=== PATIENT | female | born 1955 | race African-American/Black ===

== ENCOUNTER 2017-03-05 16:29 | Emergency (ER) | payer SELFPAY ==
[~2017-03-05] VITALS: Ht 167.6 cm; Wt 60.0 kg
[2017-03-05 16:32] VITALS: BP 160/92; PULSE 88; RESP 20; TEMP 97.5; O2SAT 100
--- NOTE | 2017-03-05 17:29 | PD ---
Physical Exam Date Seen by Provider: Mar 05, 2017 Time Seen by Provider: 17:26 Narrative 61-year-old black female presents to emergency department referred from an urgent care for evaluation of right index finger circulation problems. The patient has a history of tobacco abuse and EtOH. The patient over last 3 weeks has noted discoloration of the tip of her right index finger as well as a little finger. She states that the right middle finger has improved but the right index finger has been persistent. She denies any direct trauma. No recent illness. Pain is mild. No chest pain or palpitations. No diabetes or hypertension. Vital signs reviewed. Awaiting bed placement Data Data Last Documented VS Vital Signs Date Time Temp Pulse Resp B/P (MAP) Pulse Ox O2 Delivery O2 Flow Rate FiO2 03/05/17 16:32 97.5 88 20 160/92 (114) 100 Room Air [facility] Medical Record Reviewed: No Supervised Visit with MELISSA: Ahmet Alvarado Mar 05, 2017 17:29
[2017-03-05 18:39] VITALS: BP 122/75; PULSE 83; RESP 17; O2SAT 100
--- NOTE | 2017-03-05 19:18 | PD ---
HPI Chief Complaint: Medical Clearance Time Seen by Provider: 18:26 Travel History International Travel<30 days: No Contact w/Intl Traveler<30days: No Traveled to known affect area: No History of Present Illness HPI This 61-year-old woman who presents to the emergency department complaining of dry gangrene in her right hand. This is not on for the past 4 weeks or so. Patient states she's also generally been feeling ill. She's had 25 pound weight loss, within the past month or 2. She denies seeing a doctor at any point in the past several years. She denies any medical history. She went to an urgent care and was sent here. History Past Medical History Medical History: Denies Significant Hx Social History Alcohol Use: No Tobacco Use: No (1pack per week) Allergies-Medications (Allergen,Severity, Reaction): Coded Allergies: No Known Allergies (Verified Allergy, Unknown, 03/05/17) Reported Meds & Prescriptions Reported Meds & Active Scripts Active No Active Prescriptions or Reported Medications Review of Systems Except as stated in HPI: all other systems reviewed are Neg Physical Exam Narrative GENERAL: Well-appearing 61-year-old woman, no acute distress. SKIN: Focused skin assessment warm/dry. HEAD: Atraumatic. Normocephalic. CARDIOVASCULAR: Irregular rate and rhythm. No murmur appreciated. Pulses are palpable. She has dry gangrene on the right index finger. Little bit of mottling around the finger. Perfusion otherwise appears normal. RESPIRATORY: No accessory muscle use. Clear to auscultation. Breath sounds equal bilaterally. GASTROINTESTINAL: Abdomen soft, non-tender, nondistended. Hepatic and splenic margins not palpable. MUSCULOSKELETAL: No obvious deformities. No edema. NEUROLOGICAL: Awake and alert. No obvious cranial nerve deficits. Motor grossly within normal limits. Normal speech. PSYCHIATRIC: Appropriate mood and affect; insight and judgment normal. Data Data Last Documented VS Vital Signs Date Time Temp Pulse Resp B/P (MAP) Pulse Ox O2 Delivery O2 Flow Rate FiO2 03/05/17 18:39 83 17 122/75 (91) 100 Room Air 03/05/17 16:32 97.5 Orders Orders Chest, Single Ap (03/05/17 ) Complete Blood Count With Diff (03/05/17 18:33) Comprehensive Metabolic Panel (03/05/17 18:33) Iv Access Insert/Monitor (03/05/17 18:33) Troponin I (03/05/17 18:33) Electrocardiogram (03/05/17 ) Ct Abd/Pel W Iv Contrast(Rout) (03/05/17 ) MDM Medical Decision Making Medical Screen Exam Complete: Yes Emergency Medical Condition: Yes Differential Diagnosis A. fib, embolic disease, peripheral arterial disease, vasculitis, occult malignancy, other Narrative Course Medical decision making 61-year-old woman with weight loss, feeling poorly, and appears to be dry gangrene of her right index finger is been there for about 4 weeks or so. Initially was very painful is not painful now. He is probably embolic disease from A. fib. Possible occult malignancy. We'll check labs, x-ray, CT, reassess. Scripts No Active Prescriptions or Reported Meds Rafita Brewer MD Mar 05, 2017 19:18
--- NOTE | 2017-03-05 20:06 | RADRPT ---
EXAM DATE/TIME: 03/05/2017 18:59 [facility] COMPARISON: No previous studies available for comparison. INDICATIONS : Possible clotting. Patient has no chest complaints. MEDICAL HISTORY : None. SURGICAL HISTORY : None. ENCOUNTER: Initial ACUITY: 1 day PAIN SCORE: 0/10 LOCATION: Chest FINDINGS: There is a moderate sized hiatal hernia. The heart is normal. The pulmonary vascular pattern is also normal. The lungs are clear. CONCLUSION: 1. Moderate sized hiatal hernia. 2. No acute cardiopulmonary disease. Deo Fuller MD on March 05, 2017 at 19:58 Board Certified Radiologist. This report was verified electronically.
[2017-03-05 20:33] LABS: AUTOMATED NEUTROPHIL # 8.4 TH/MM3 (1.8-7.7); BASOPHIL # 0.1 TH/MM3 (0-0.2); BASOPHIL % 0.7 % (0.0-2.0); EOSINOPHIL # 0.2 TH/MM3 (0-0.4); EOSINOPHIL % 1.2 % (0.0-4.0); HEMO FLAGS DIFF FINAL; LYMPHOCYTE # 4.5 TH/MM3 (1.0-4.8); MEAN CELL VOLUME 93.9 FL (80.0-100.0); MEAN CORPUSCULAR HGB CONC 33.1 % (32.0-36.0); MONO % 8.8 % (0.0-8.0); NEUT % 58.3 % (16.0-70.0); PLATELET COUNT 594 TH/MM3 (150-450); RED BLOOD COUNT 3.94 MIL/MM3 (4.00-5.30); RED CELL DISTRIBUTION WIDTH 14.4 % (11.6-17.2); WHITE BLOOD COUNT 14.4 TH/MM3 (4.0-11.0)
--- NOTE | 2017-03-05 20:36 | PD ---
Physical Exam Date Seen by Provider: Mar 05, 2017 Data Data Last Documented VS Vital Signs Date Time Temp Pulse Resp B/P (MAP) Pulse Ox O2 Delivery O2 Flow Rate FiO2 03/05/17 18:39 83 17 122/75 (91) 100 Room Air 03/05/17 16:32 97.5 Orders Orders Chest, Single Ap (03/05/17 ) Complete Blood Count With Diff (03/05/17 18:33) Comprehensive Metabolic Panel (03/05/17 18:33) Iv Access Insert/Monitor (03/05/17 18:33) Troponin I (03/05/17 18:33) Electrocardiogram (03/05/17 ) Ct Abd/Pel W Iv Contrast(Rout) (03/05/17 ) Iohexol 350 Inj (Omnipaque 350 Inj) (03/05/17 21:30) Labs Laboratory Tests Test 03/05/17 20:08 White Blood Count 14.4 TH/MM3 Red Blood Count 3.94 MIL/MM3 Hemoglobin 12.2 GM/DL Hematocrit 37.0 % Mean Corpuscular Volume 93.9 FL Mean Corpuscular Hemoglobin 31.0 PG Mean Corpuscular Hemoglobin Concent 33.1 % Red Cell Distribution Width 14.4 % Platelet Count 594 TH/MM3 Mean Platelet Volume 8.6 FL Neutrophils (%) (Auto) 58.3 % Lymphocytes (%) (Auto) 31.0 % Monocytes (%) (Auto) 8.8 % Eosinophils (%) (Auto) 1.2 % Basophils (%) (Auto) 0.7 % Neutrophils # (Auto) 8.4 TH/MM3 Lymphocytes # (Auto) 4.5 TH/MM3 Monocytes # (Auto) 1.3 TH/MM3 Eosinophils # (Auto) 0.2 TH/MM3 Basophils # (Auto) 0.1 TH/MM3 CBC Comment DIFF FINAL Differential Comment Blood Urea Nitrogen 19 MG/DL Creatinine 1.28 MG/DL Random Glucose 82 MG/DL Total Protein 6.5 GM/DL Albumin 2.9 GM/DL Calcium Level 8.8 MG/DL Alkaline Phosphatase 77 U/L Aspartate Amino Transf (AST/SGOT) 9 U/L Alanine Aminotransferase (ALT/SGPT) 20 U/L Total Bilirubin 0.3 MG/DL Sodium Level 138 MEQ/L Potassium Level 3.3 MEQ/L Chloride Level 106 MEQ/L Carbon Dioxide Level 21.5 MEQ/L Anion Gap 11 MEQ/L Estimat Glomerular Filtration Rate 51 ML/MIN Troponin I LESS THAN 0.02 NG/ML [facility] Medical Record Reviewed: Yes Supervised Visit with MELISSA: No Interpretation(s) EKG at 1943: NSR at 94bpm, qt/qtc: 387/409, pvc's Vital Signs Date Time Temp Pulse Resp B/P (MAP) Pulse Ox O2 Delivery O2 Flow Rate FiO2 03/05/17 18:39 83 17 122/75 (91) 100 Room Air 03/05/17 16:32 97.5 88 20 160/92 (114) 100 Room Air Laboratory Tests Test 03/05/17 20:08 White Blood Count 14.4 TH/MM3 (4.0-11.0) Red Blood Count 3.94 MIL/MM3 (4.00-5.30) Hemoglobin 12.2 GM/DL (11.6-15.3) Hematocrit 37.0 % (35.0-46.0) Mean Corpuscular Volume 93.9 FL (80.0-100.0) Mean Corpuscular Hemoglobin 31.0 PG (27.0-34.0) Mean Corpuscular Hemoglobin Concent 33.1 % (32.0-36.0) Red Cell Distribution Width 14.4 % (11.6-17.2) Platelet Count 594 TH/MM3 (150-450) Mean Platelet Volume 8.6 FL (7.0-11.0) Neutrophils (%) (Auto) 58.3 % (16.0-70.0) Lymphocytes (%) (Auto) 31.0 % (9.0-44.0) Monocytes (%) (Auto) 8.8 % (0.0-8.0) Eosinophils (%) (Auto) 1.2 % (0.0-4.0) Basophils (%) (Auto) 0.7 % (0.0-2.0) Neutrophils # (Auto) 8.4 TH/MM3 (1.8-7.7) Lymphocytes # (Auto) 4.5 TH/MM3 (1.0-4.8) Monocytes # (Auto) 1.3 TH/MM3 (0-0.9) Eosinophils # (Auto) 0.2 TH/MM3 (0-0.4) Basophils # (Auto) 0.1 TH/MM3 (0-0.2) CBC Comment DIFF FINAL Differential Comment Differential Diagnosis Differential includes A. fib with RVR, peripheral arterial disease, vasculitis, malignancy, electrolyte abnormality Narrative Course Patient is a 61-year-old female who presents to emergency room complaints of dry gangrene to her right hand which has been ongoing for the past 4 weeks. Patient reports that 4 weeks ago, she had pains to her right hand digit #2, reports that she noticed that the area of her finger has become black and necrotic. Patient reports no pain to her finger at this time. Patient reports that overall, she is here at the hospital as she is not feeling well. Reports that she has had over 25 pound weight loss within the past 2 months and was initially seen at an urgent care center and was sent to the emergency room for further workup. Patient currently pending lab work as well as CT studies. CBC & BMP Diagram 03/05/17 20:08 Total Protein 6.5, Albumin 2.9 L, Calcium Level 8.8, Alkaline Phosphatase 77, Aspartate Amino Transf (AST/SGOT) 9 L, Alanine Aminotransferase (ALT/SGPT) 20, Total Bilirubin 0.3 Last Impressions Chest X-Ray 03/05/17 0000 Signed Impressions: Service Date/Time: Friday, March 05, 2017 18:59 - CONCLUSION: 1. Moderate sized hiatal hernia. 2. No acute cardiopulmonary disease. Deo Fuller MD CT of the abdomen and pelvis CONCLUSION: 1. Multiple fluid-filled dilated loops of small bowel suggestive of small bowel obstruction until proven otherwise. Transition point is not confirmed with certainty. 2. Calcification within the right lower quadrant which either represents an appendicolith or stone within a loop of ileum. If this represents an appendicolith the appendix is markedly dilated which raises the possibility of appendicitis. Oral contrast enhanced examination is recommended with delayed images to determine if the appendix fills with contrast as well as to rule out the site of small bowel obstruction. 3. Large hiatal hernia containing approximately half of the stomach. 4. Multiple hepatic cysts and left renal cyst. 5. Uncomplicated sigmoid diverticulosis. 6. Degenerative changes and scoliosis of the thoracolumbar spine. 7. Degenerative changes involving the hip joints bilaterally. 8. Calcifications are noted within the adnexal regions bilaterally and are nonspecific. These may represent calcification associated with the ovaries. The right lesion measures 2.7 cm in greatest dimension and the left measures 2.4 cm in greatest dimension. CT study was reviewed with patient, all findings were reviewed, patient does have diffuse abdominal pain, reports pain worse in the right lower quadrant. Patient reports that she had severe pain to her right lower quadrant about 1.5 months ago, at that time, pain was constant for the past 4 days and became less severe. She reports that she still has pain but its "not that bad." Patient with concerns for acute on chronic appendicitis. Patient also with possibility of small bowel obstruction. Patient reports that she has been having loose stools and not full bowel movements for "long time." She does have history of hysterectomy in the past. Discussed concerns for possible small bowel structures. Case reviewed with Dr. Benjamin who requests antibiotics, he will see patient in the morning. AMA: The risks of leaving against medical advice without further evaluation treatment were discussed with the patient. These risks include cardiac dysfunction, cardiac dysrhythmia, possible heart attack, possible stroke or . The patient indicated understanding of these risks and appeared to have the capacity to make this decision. Patient will be leaving AMA for an hour to feed her cat and will return immediately to the hospital for admission and for antibiotics Critical Care Narrative Aggregate critical care time was 30 minutes. Time to perform other separately billable procedures was not included in the critical care time. My time did not include minutes spent treating any other patients simultaneously or on activities that did not directly contribute to the patient's treatment. The services I provided to this patient were to treat and/or prevent clinically significant deterioration that could result in: , decompensation, deterioration I provided critical care services requiring my management, as noted below: Chart data review, documentation time, medication orders and management, vital sign assessments/reviewing monitor data, ordering and reviewing lab tests, ordering and interpreting/reviewing x-rays and diagnostic studies, care of the patient and discussion of the patient with the admitting physicians. Diagnosis Primary Impression: Left against medical advice Additional Impressions: Small bowel obstruction Appendicitis Additional Instruction: Please return to the emergency room at any time for to the hospital and further workup of her symptoms. Scripts No Active Prescriptions or Reported Meds Disposition: 07 AGAINST MEDICAL ADVICE Condition: Serious Charu Salazar Mar 05, 2017 20:36
[2017-03-05 20:50] LABS: ANION GAP 11 MEQ/L (5-15); AST (GOT) 9 U/L (15-37); BICARBONATE 21.5 MEQ/L (21.0-32.0); BLOOD UREA NITROGEN 19 MG/DL (7-18); CHLORIDE 106 MEQ/L (98-107); GLOMERULAR FILTRATION RATE 51 ML/MIN (>89); POTASSIUM 3.3 MEQ/L (3.5-5.1); SODIUM (NA) 138 MEQ/L (136-145)
[2017-03-05 20:51] LABS: ALT (GPT) 20 U/L (10-53)
[2017-03-05 20:55] LABS: ALKALINE PHOSPHATASE 77 U/L (45-117); TOTAL BILIRUBIN ADULT 0.3 MG/DL (0.2-1.0)
[2017-03-05] MEDS ORDERED: IOHEXOL 350 MG/ML 10 ML VIAL (for RAD DIAG) IVCONTRAST ONE (21:30)
--- NOTE | 2017-03-05 22:12 | RADRPT ---
EXAM DATE/TIME: 03/05/2017 21:28 [facility] COMPARISON: No previous studies available for comparison. INDICATIONS : Diffuse abdominal pain. IV CONTRAST: 90 cc Omnipaque 350 (iohexol) IV ORAL CONTRAST: No oral contrast ingested. RADIATION DOSE: 5.53 CTDIvol (mGy) MEDICAL HISTORY : Hypertension. SURGICAL HISTORY : Hysterectomy. ENCOUNTER: Initial ACUITY: 3 days PAIN SCALE: 4/10 LOCATION: All quadrants. TECHNIQUE: Volumetric scanning of the abdomen and pelvis was performed. Using automated exposure control and ad justment of the mA and/or kV according to patient size, radiation dose was kept as low as reasonably achievable to obtain optimal diagnostic quality images. DICOM format image data is available electro nically for review and comparison. FINDINGS: There is evidence of multiple fluid-filled dilated loops of small bowel suggestive of small bowel obs truction. Clinical correlation is recommended. Transition point is not definitely identified. The c olon is nondilated. Uncomplicated colonic diverticulosis is noted. There is no acute diverticulitis. There is a calcified density within the right lower quadrant which either represents an appendicoli th or possibly a stone lodged within a loop of ileum. If this represents an appendicolith this would raise the possibility of significantly dilated appendix. Oral contrast would be helpful with delaye d scanning to determine if the appendix fills with contrast as well as to help determine the site of small bowel obstruction. There is a large hiatal hernia containing approximately half of the upper stomach. Multiple hepatic cysts are noted. No solid hepatic lesion is noted. No biliary ductal dilatation is noted. The gallb ladder is unremarkable. The spleen is nodular in appearance but not enlarged. The pancreas is bryan l. The adrenal glands are normal bilaterally. A 14 mm left renal cyst is noted. There is no solid re nal mass or stone. The abdominal aorta and inferior vena cava are unremarkable. There is no paraaor tic, retroperitoneal or mesenteric lymphadenopathy. The urinary bladder is unremarkable. Degenerati ve changes and scoliosis of the thoracolumbar spine are noted. Degenerative changes are also noted i nvolving the hip joints bilaterally. There are calcified structures within the adnexal regions bilat erally which likely represent calcifications associated with the ovaries. CONCLUSION: 1. Multiple fluid-filled dilated loops of small bowel suggestive of small bowel obstruction until pro azael otherwise. Transition point is not confirmed with certainty. 2. Calcification within the right lower quadrant which either represents an appendicolith or stone wi thin a loop of ileum. If this represents an appendicolith the appendix is markedly dilated which mora ses the possibility of appendicitis. Oral contrast enhanced examination is recommended with delayed images to determine if the appendix fills with contrast as well as to rule out the site of small juhi l obstruction. 3. Large hiatal hernia containing approximately half of the stomach. 4. Multiple hepatic cysts and left renal cyst. 5. Uncomplicated sigmoid diverticulosis. 6. Degenerative changes and scoliosis of the thoracolumbar spine. 7. Degenerative changes involving the hip joints bilaterally. 8. Calcifications are noted within the adnexal regions bilaterally and are nonspecific. These may re present calcification associated with the ovaries. The right lesion measures 2.7 cm in greatest dime nsion and the left measures 2.4 cm in greatest dimension. Deo Fuller MD on March 05, 2017 at 21:44 Board Certified Radiologist. This report was verified electronically.
--- NOTE | 2017-03-05 23:28 | EKG ---
Date Performed: 03/05/2017 Time Performed: 19:43:58 PTAGE: 61 years EKG: Sinus rhythm WITH FREQUENT VENTRICULAR PREMATURE COMPLEXES NONSPECIFIC T-WAVE ABNORMALITY ABNORMAL RHYTHM ECG NO PREVIOUS TRACING DOCTOR: Ulises Murry Interpretating Date/Time 03/05/2017 23:27:15
== END 2017-03-05 23:50 | disposition left against medical advice (07) ==
LOC: EDBD 16:29 → NEPE 16:29
DX: K56.60 Unspecified intestinal obstruction (principal); R94.31 Abnormal electrocardiogram [ECG] [EKG]; K35.80 Unspecified acute appendicitis; Z53.21 Procedure and treatment not carried out due to patient leaving prior to being seen by health care provider
CPT/HCPCS: 71010; 74177; 80053; 84484; 85025; 93005; 99291; Q9967

== ENCOUNTER 2017-03-06 00:37 | Inpatient (IN) | payer SELFPAY ==
[2017-03-06] VITALS (8 sets, daily range): BP systolic 105–133; BP diastolic 64–89; PULSE 57–113; RESP 15–18; TEMP 95.4–98.7; O2SAT 94–99
[~2017-03-06] VITALS: Ht 167.6 cm; Wt 91.0 kg
--- NOTE | 2017-03-06 01:40 | PD ---
HPI Chief Complaint: Abdominal Pain Time Seen by Provider: 01:35 Travel History International Travel<30 days: No Contact w/Intl Traveler<30days: No Traveled to known affect area: No History of Present Illness HPI Patient is a 61-year-old female who presents to emergency room complaints of dry gangrene to her right hand which has been ongoing for the past 4 weeks. Patient reports that 4 weeks ago, she had pains to her right hand digit #2, reports that she noticed that the area of her finger has become black and necrotic. Patient reports no pain to her finger at this time. Patient reports that overall, she is here at the hospital as she is not feeling well. Reports that she has had over 25 pound weight loss within the past 2 months and was initially seen at an urgent care center and was sent to the emergency room for further workup. patient initially at the hospital AGAINST MEDICAL ADVICE to go home and feed her cat, she is here for antibiotics and admission to the hospital [facility] Past Medical History Cardiovascular Problems: Yes Diminished Hearing: No Hypertension: Yes Past Surgical History Hysterectomy: Yes Social History Alcohol Use: No Tobacco Use: No (1pack per week) Substance Use: No Allergies-Medications (Allergen,Severity, Reaction): Coded Allergies: No Known Allergies (Verified Allergy, Unknown, 03/06/17) Reported Meds & Prescriptions Reported Meds & Active Scripts Active No Active Prescriptions or Reported Medications Review of Systems Gastrointestinal: Positive: Nausea, Abdominal Pain Physical Exam Narrative GENERAL: mild distress SKIN: Focused skin assessment warm/dry. HEAD: Atraumatic. Normocephalic. EYES: Pupils equal and round. No scleral icterus. No injection or drainage. ENT: No nasal bleeding or discharge. Mucous membranes pink and moist. NECK: Trachea midline. No JVD. CARDIOVASCULAR: Regular rate and rhythm. No murmur appreciated. RESPIRATORY: No accessory muscle use. Clear to auscultation. Breath sounds equal bilaterally. GASTROINTESTINAL: Abdomen soft, diffuse tenderness with increased tenderness to RLQ. Hepatic and splenic margins not palpable. MUSCULOSKELETAL: No obvious deformities. No clubbing. No cyanosis. No edema. Patient with dry gangrene to right index finger. NEUROLOGICAL: Awake and alert. No obvious cranial nerve deficits. Motor grossly within normal limits. Normal speech. PSYCHIATRIC: Appropriate mood and affect; insight and judgment normal. Data Data Last Documented VS Vital Signs Date Time Temp Pulse Resp B/P (MAP) Pulse Ox O2 Delivery O2 Flow Rate FiO2 03/06/17 01:37 58 18 131/79 (96) 99 Room Air 03/06/17 00:39 98.7 Orders Orders Ceftriaxone Inj (Rocephin Inj) (03/06/17 01:45) Vancomycin Inj (Vancomycin Inj) (03/06/17 01:45) Consult General Surgery (03/06/17 ) Ciprofloxacin 400 Mg Premix (Cipro 400 M (03/06/17 02:00) Metronidazole 500 Mg Inj (Flagyl 500 Mg (03/06/17 02:00) Admit To Inpatient (03/06/17 ) Vital Signs (Adult) Q4H (03/06/17 01:46) Activity Oob Ad Christine (03/06/17 01:46) Floor Director / Telemetry .CONTINUOUS (03/06/17 01:46) Diet Npo (03/06/17 Breakfast) Sodium Chlor 0.9% 1000 Ml Inj (Ns 1000 M (03/06/17 01:46) Sodium Chloride 0.9% Flush (Ns Flush) (03/06/17 02:00) Sodium Chloride 0.9% Flush (Ns Flush) (03/06/17 09:00) Ondansetron Inj (Zofran Inj) (03/06/17 02:00) Comprehensive Metabolic Panel (03/07/17 06:00) Complete Blood Count With Diff (03/07/17 06:00) Case Management Consult (03/06/17 01:46) Naloxone Inj (Narcan Inj) (03/06/17 02:00) Inpatient Certification (03/06/17 ) Ketorolac Inj (Toradol Inj) (03/06/17 06:00) MDM Medical Decision Making Medical Screen Exam Complete: Yes Emergency Medical Condition: Yes Differential Diagnosis Differential includes appendicitis and small bowel obstruction Narrative Course Patient is a 61-year-old female who presents to emergency room complaints of dry gangrene to her right hand which has been ongoing for the past 4 weeks. Patient reports that 4 weeks ago, she had pains to her right hand digit #2, reports that she noticed that the area of her finger has become black and necrotic. Patient reports no pain to her finger at this time. Patient reports that overall, she is here at the hospital as she is not feeling well. Reports that she has had over 25 pound weight loss within the past 2 months and was initially seen at an urgent care center and was sent to the emergency room for further workup. Patient currently pending lab work as well as CT studies. CBC & BMP Diagram 03/05/17 20:08 Total Protein 6.5, Albumin 2.9 L, Calcium Level 8.8, Alkaline Phosphatase 77, Aspartate Amino Transf (AST/SGOT) 9 L, Alanine Aminotransferase (ALT/SGPT) 20, Total Bilirubin 0.3 Last Impressions Chest X-Ray 03/05/17 0000 Signed Impressions: Service Date/Time: Sunday, March 05, 2017 18:59 - CONCLUSION: 1. Moderate sized hiatal hernia. 2. No acute cardiopulmonary disease. Deo Fuller MD CT of the abdomen and pelvis CONCLUSION: 1. Multiple fluid-filled dilated loops of small bowel suggestive of small bowel obstruction until proven otherwise. Transition point is not confirmed with certainty. 2. Calcification within the right lower quadrant which either represents an appendicolith or stone within a loop of ileum. If this represents an appendicolith the appendix is markedly dilated which raises the possibility of appendicitis. Oral contrast enhanced examination is recommended with delayed images to determine if the appendix fills with contrast as well as to rule out the site of small bowel obstruction. 3. Large hiatal hernia containing approximately half of the stomach. 4. Multiple hepatic cysts and left renal cyst. 5. Uncomplicated sigmoid diverticulosis. 6. Degenerative changes and scoliosis of the thoracolumbar spine. 7. Degenerative changes involving the hip joints bilaterally. 8. Calcifications are noted within the adnexal regions bilaterally and are nonspecific. These may represent calcification associated with the ovaries. The right lesion measures 2.7 cm in greatest dimension and the left measures 2.4 cm in greatest dimension. CT study was reviewed with patient, all findings were reviewed, patient does have diffuse abdominal pain, reports pain worse in the right lower quadrant. Patient reports that she had severe pain to her right lower quadrant about 1.5 months ago, at that time, pain was constant for the past 4 days and became less severe. She reports that she still has pain but its "not that bad." Patient with concerns for acute on chronic appendicitis. Patient also with possibility of small bowel obstruction. Patient reports that she has been having loose stools and not full bowel movements for "long time." She does have history of hysterectomy in the past. Discussed concerns for possible small bowel structures. Case reviewed with Dr. Benjamin who requests antibiotics, he will see patient in the morning. Case reviewed with Dr. Mahan who accepts pt to service Diagnosis Primary Impression: Appendicitis Additional Impression: Small bowel obstruction Admitting Information Admitting Physician Requests: Admit Scripts No Active Prescriptions or Reported Meds Charu Salazar DO Mar 06, 2017 01:40
[2017-03-06] MEDS ORDERED: cefTRIAXone INJ 1,000 MG in SODIUM CHLORIDE 0.9% INJ 100 ML IV ONE (01:45)
[2017-03-06] MEDS ORDERED: VANCOMYCIN INJ 900 MG in SODIUM CHLOR 0.9% 250 ML INJ 250 ML IV ONE (01:45)
[2017-03-06] MEDS: SODIUM CHLOR 0.9% 1000 ML INJ 1,000 ML IV SCH ×3 (01:55→20:49)
[2017-03-06] MEDS ORDERED: NALOXONE HCL 0.4 MG/ML AMP IV PUSH PRN (02:00)
[2017-03-06] MEDS ORDERED: CIPROFLOXACIN 400 MG PREMIX 200 ML IV ONE (02:00)
[2017-03-06] MEDS ORDERED: metroNIDAZOLE 500 MG INJ 100 ML IV ONE (02:00)
[2017-03-06] MEDS ORDERED: KETOROLAC TROMETHAMINE 30 MG/ML (IVP) VIAL IV PUSH SCH (06:00)
[2017-03-06] MEDS: SODIUM CHLORIDE 0.9% FLUSH 10 ML FLUSH IV FLUSH SCH ×2 (07:44→20:49)
--- NOTE | 2017-03-06 08:16 | HHI.HP ---
[facility] Unknown Admission Diagnosis Small bowel obstruction, appendicitis Diagnoses: Chief Complaint: Abdominal pain Travel History International Travel<30 Days: No Contact w/Intl Traveler <30 Da: No Traveled to Known Affected Are: No History of Present Illness Emergency Medicine Notes: This is a pleasant 61 y/o Female who came to Emergency room with complaint of dry gangrene to her right hand which has been ongoing for the last four weeks, has been with pain on her right hand digit #2, reports that she noticed that the area of her finger has become black and necrotic. Patient reports no pain to her finger at this time. Patient reports that overall, she is here at the hospital as she is not feeling well. Reports that she has had over 25 pound weight loss within the past 2 months and was initially seen at an urgent care center and was sent to the emergency room for further workup. patient initially at the hospital AGAINST MEDICAL ADVICE to go home and feed her cat, she is here for antibiotics and admission to the hospital Seen in her bedroom, the patient states she came due to right second finger dry necrosis, but as per ER physician H and P she told him that she is been having abdominal pain colic sensation, also changes in bowel habits, she is Emaciated and has history of alcohol abuse and drug abuse, as per patient she smoked half pack daily since she was 13 years old and abuse marijuana but denies other toxins, after CT abdomen and pelvis performed found probable Small bowel obstruction Probable Appendicitis, but the patient has soft abdomen at this time, and she will need to rule out Malignancy, I will continue antibiotics and follow specialized recommendations rule out rheumatologic diseases Review of Systems Constitutional: DENIES: Fever, Chills, Change in appetite Endocrine: DENIES: Heat/cold intolerance Eyes: DENIES: Blurred vision, Eye pain Gastrointestinal: COMPLAINS OF: Abdominal pain Except as stated in HPI: all other systems reviewed are Neg Past Family Social History Past Medical History Hypertension Past Surgical History SHAUNNA Reported Medications Reported Meds & Active Scripts Active No Active Prescriptions or Reported Medications Allergies: Coded Allergies: No Known Allergies (Verified Allergy, Unknown, 03/06/17) Active Ordered Medications Current Medications Medications (Trade) Dose Ordered Sig/Jessica Route Start Time Stop Time Status Last Admin Sodium Chloride 1,000 ml @ 100 mls/hr Q10H IV 03/06/17 01:46 03/06/17 01:55 (NS Flush) 2 ml UNSCH PRN IV FLUSH 03/06/17 02:00 (NS Flush) 2 ml BID IV FLUSH 03/06/17 09:00 (Zofran Inj) 4 mg Q6H PRN IVP 03/06/17 02:00 (Narcan Inj) 0.4 mg UNSCH PRN IV PUSH 03/06/17 02:00 (Toradol Inj) 15 mg Q6HR IV PUSH 03/06/17 06:00 03/11/17 05:59 Family History States Hypertension and DM II, runs in her family father with Stomach Cancer mother with COPD/Emphysema Social History Tobacco dependence half pack daily since she was 13 years old Alcohol abuse until December this year marijuana abuse. Physical Exam Vital Signs Vital Signs Date Time Temp Pulse Resp B/P (MAP) Pulse Ox O2 Delivery O2 Flow Rate FiO2 03/06/17 03:42 84 03/06/17 03:38 96.7 57 16 105/64 (78) 94 03/06/17 02:54 93 18 114/78 (90) 98 03/06/17 01:37 58 18 131/79 (96) 99 Room Air 03/06/17 00:39 98.7 113 15 133/85 (101) 98 Room Air Physical Exam GENERAL: Emaciated, older for her age SKIN: Focused skin assessment warm/dry. HEAD: Atraumatic. Normocephalic. EYES: Pupils equal and round. No scleral icterus. No injection or drainage. ENT: No nasal bleeding or discharge. Mucous membranes pink and moist. NECK: Trachea midline. No JVD. CARDIOVASCULAR: Regular rate and rhythm. No murmur appreciated. RESPIRATORY: No accessory muscle use. Clear to auscultation. Breath sounds equal bilaterally. GASTROINTESTINAL: Abdomen soft, diffuse tenderness with increased tenderness to RLQ. Hepatic and splenic margins not palpable. MUSCULOSKELETAL: No obvious deformities. No clubbing. No cyanosis. No edema. Patient with dry gangrene to right index finger. NEUROLOGICAL: Awake and alert. No obvious cranial nerve deficits. Motor grossly within normal limits. Normal speech. PSYCHIATRIC: Appropriate mood and affect; insight and judgment normal. Imaging Chest X-Ray 03/05/17 0000 Signed Impressions: Service Date/Time: Sunday, March 05, 2017 18:59 - CONCLUSION: 1. Moderate sized hiatal hernia. 2. No acute cardiopulmonary disease. Deo Fuller MD CT of the abdomen and pelvis CONCLUSION: 1. Multiple fluid-filled dilated loops of small bowel suggestive of small bowel obstruction until proven otherwise. Transition point is not confirmed with certainty. 2. Calcification within the right lower quadrant which either represents an appendicolith or stone within a loop of ileum. If this represents an appendicolith the appendix is markedly dilated which raises the possibility of appendicitis. Oral contrast enhanced examination is recommended with delayed images to determine if the appendix fills with contrast as well as to rule out the site of small bowel obstruction. 3. Large hiatal hernia containing approximately half of the stomach. 4. Multiple hepatic cysts and left renal cyst. 5. Uncomplicated sigmoid diverticulosis. 6. Degenerative changes and scoliosis of the thoracolumbar spine. 7. Degenerative changes involving the hip joints bilaterally. 8. Calcifications are noted within the adnexal regions bilaterally and are nonspecific. These may represent calcification associated with the ovaries. The right lesion measures 2.7 cm in greatest dimension and the left measures 2.4 cm in greatest dimension. Caprini VTE Risk Assessment Caprini VTE Risk Assessment: Mod/High Risk (score >= 2) Caprini Risk Assessment Model Point Value = 1 Point Value = 2 Point Value = 3 Point Value = 5 Age 41-60 Minor surgery BMI > 25 kg/m2 Swollen legs Varicose veins or History of unexplained or recurrent spontaneous Oral contraceptives or hormone replacement Sepsis (< 1 month) Serious lung disease, including pneumonia (< 1 month) Abnormal pulmonary function Acute myocardial infarction Congestive heart failure (< 1 month) History of inflammatory bowel disease Medical patient at bed rest Age 61-74 Arthroscopic surgery Major open surgery (> 45 min) Laparoscopic surgery (> 45 min) Malignancy Confined to bed (> 72 hours) Immobilizing plaster cast Central venous access Age >= 75 History of VTE Family history of VTE Factor V Leiden Prothrombin [id number] Lupus anticoagulant Anticardiolipin antibodies Elevated serum homocysteine Heparin-induced thrombocytopenia Other congenital or acquired thrombophilia Stroke (< 1 month) Elective arthroplasty Hip, pelvis, or leg fracture Acute spinal cord injury (< 1 month) Prophylaxis Regimen Total Risk Factor Score Risk Level Prophylaxis Regimen 0-1 Low Early ambulation 2 Moderate Order ONE of the following: *Sequential Compression Device (SCD) *Heparin 5000 units SQ BID 3-4 Higher Order ONE of the following medications: *Heparin 5000 units SQ TID *Enoxaparin/Lovenox 40 mg SQ daily (WT < 150 kg, CrCl > 30 mL/min) *Enoxaparin/Lovenox 30 mg SQ daily (WT < 150 kg, CrCl > 10-29 mL/min) *Enoxaparin/Lovenox 30 mg SQ BID (WT < 150 kg, CrCl > 30 mL/min) AND/OR *Sequential Compression Device (SCD) 5 or more Highest Order ONE of the following medications: *Heparin 5000 units SQ TID (Preferred with Epidurals) *Enoxaparin/Lovenox 40 mg SQ daily (WT < 150 kg, CrCl > 30 mL/min) *Enoxaparin/Lovenox 30 mg SQ daily (WT < 150 kg, CrCl > 10-29 mL/min) *Enoxaparin/Lovenox 30 mg SQ BID (WT < 150 kg, CrCl > 30 mL/min) AND *Sequential Compression Device (SCD) Assessment and Plan Assessment and Plan 1. Abdominal pain with abnormal CT changes, will need General Surgery consult and GI specialist consult rule out Malignancy. stable continue present care with antibiotics and follow specialized recommendations will need to rule out Rheumatoid pathology 2. Tobacco dependence strongly recommended to stop smoking 3. marijuana abuse by history recommended to stop this behavior 4. Alcohol abuse until December this year strongly recommended to stop drinking alcohol 5. electrolyte derangement following Follow laboratory and specialized consult DVT prophylaxis with SCDs Gastric protection. Code Status Full Code. Discussed Condition With patient. Physician Certification 2 Midnight Certification Type: Admission for Inpatient Services Order for Inpatient Services The services are ordered in accordance with Medicare regulations or non- Medicare payer requirements, as applicable. In the case of services not specified as inpatient-only, they are appropriately provided as inpatient services in accordance with the 2-midnight benchmark. Estimated LOS (days): 3 days is the estimated time the patient will need to remain in the hospital, assuming treatment plan goals are met and no additional complications. Post-Hospital Plan: Not yet determined Nic Whitfield MD Mar 06, 2017 08:16
[2017-03-06] MEDS: metroNIDAZOLE 500 MG INJ 100 ML IV SCH ×2 (10:01→16:59)
[2017-03-06] MEDS ORDERED: FAMOTIDINE 20 MG/2 ML VIAL IV PUSH SCH (11:00)
--- NOTE | 2017-03-06 11:08 | PD.CONS ---
HPI Service General Surgery Consult Requested By Reason for Consult Abdominal pain, possible appendicitis Primary Care Physician Unknown History of Present Illness The patient is a 61-year-old female who presented to the hospital for gangrene of the right second digit. During the evaluation she reported a 25 pound weight loss over the last couple of months. About 1-1/2 months ago she had an episode of severe pain for about 4 days worse in the right lower quadrant. It improved and became less severe. However, she has been able to eat only small amounts of food at any afternoon usually gets crampy diffuse abdominal pain. She has never had a colonoscopy. Until a few days ago she was having loose watery stools. She reports to me that one time last year she had similar but much milder symptoms which was all fulgurated after a couple of days. Past surgical history on the abdomen includes hysterectomy. On evaluation in the emergency department she was noted to have a white blood cell count of 14,[address] abdomen and pelvis showing possible bowel obstruction and significantly dilated appendix as well as calcifications in bilateral adnexa. I reviewed the images and also discussed the images with Dr. Hdz of radiology. Review of Systems Constitutional: COMPLAINS OF: Weight loss, Change in appetite, DENIES: Fever, Chills Eyes: DENIES: Eye inflammation, Eye pain Respiratory: DENIES: Cough, Shortness of breath Cardiovascular: DENIES: Chest pain, Palpitations Gastrointestinal: COMPLAINS OF: Abdominal pain, Anorexia, DENIES: Bloody stools , Vomiting Musculoskeletal: DENIES: Muscle aches, Stiffness Integumentary: DENIES: Pruritus, Rash Neurologic: DENIES: Paresthesias, Seizures Past Family Social History Past Medical History Hypertension Past Surgical History Hysterectomy Reported Medications Reported Meds & Active Scripts Active No Active Prescriptions or Reported Medications Allergies: Coded Allergies: No Known Allergies (Verified Allergy, Unknown, 03/06/17) Active Ordered Medications Current Medications Medications (Trade) Dose Ordered Sig/Jessica Route Start Time Stop Time Status Last Admin Sodium Chloride 1,000 ml @ 100 mls/hr Q10H IV 03/06/17 01:46 03/06/17 01:55 (NS Flush) 2 ml UNSCH PRN IV FLUSH 03/06/17 02:00 (NS Flush) 2 ml BID IV FLUSH 03/06/17 09:00 (Zofran Inj) 4 mg Q6H PRN IVP 03/06/17 02:00 (Narcan Inj) 0.4 mg UNSCH PRN IV PUSH 03/06/17 02:00 Ciprofloxacin/ Dextrose 200 ml @ 200 mls/hr Q12H IV 03/06/17 13:00 Metronidazole 100 ml @ 100 mls/hr Q8H IV 03/06/17 10:00 03/06/17 10:01 (Pepcid Inj) 20 mg Q12H IV PUSH 03/06/17 11:00 Family History Noncontributory Social History She smokes one half pack of cigarettes daily. Recreational marijuana use. Physical Exam Vital Signs Vital Signs Date Time Temp Pulse Resp B/P (MAP) Pulse Ox O2 Delivery O2 Flow Rate FiO2 03/06/17 08:00 96.4 73 16 109/66 (80) 99 03/06/17 03:42 84 03/06/17 03:38 96.7 57 16 105/64 (78) 94 03/06/17 02:54 93 18 114/78 (90) 98 03/06/17 01:37 58 18 131/79 (96) 99 Room Air 03/06/17 00:39 98.7 113 15 133/85 (101) 98 Room Air Physical Exam GENERAL: Awake and alert. No acute distress. Cooperative. HEAD: Normocephalic. Atraumatic. EYES: Pupils equal round and reactive to light bilaterally. No scleral icterus. ENT: Moist oral mucosa. CHEST: Lungs clear to auscultation bilaterally with no wheezing or rhonchi. No respiratory distress. CARDIOVASCULAR: Regular rate and rhythm. ABDOMEN: Mild distention. Soft. Very mild diffuse tenderness. No rebound or guarding, specifically in the right lower quadrant. EXTREMITIES: No cyanosis or edema. Dry gangrene of the tip of the right second digit. SKIN: Warm, dry, nonjaundiced. Laboratory White blood count 14,[address] abdomen and pelvis reviewed with Dr. Hdz. Assessment and Plan Assessment and Plan 61-year-old female with 6-8 weeks of abdominal pain and weight loss decreased appetite. CT shows very enlarged appendix and possible bowel obstruction. She does not have significant tenderness in the right lower quadrant. Differential diagnosis includes appendicitis 6 weeks ago with residual symptoms or abscess, bowel obstruction, malignancy. I will order a small bowel follow- through in follow-up after that time. Juan Benjamin MD Mar 06, 2017 10:39
--- NOTE | 2017-03-06 12:54 | PD.CONS ---
HPI History of Present Illness Seen in radiology. This is a 61 year old female who presented to the ER for gangrene of the right second digit. While here, she also complained of RLQ pain with a 25 pound weight loss over the last few months. The patient reports that about 1.5 months ago, she had severe mid abdominal cramping with fevers and chills. This lasted about 3 days and then resolved on its own. She continues to have intermittent cramping related to oral intake, but states that it is now intermittent and not quite as severe. She feels hungry, but states after 4-5 bites, she has mid abdominal cramping and she has to stop eating. She has lost about 25 lbs in the past 2 weeks because of this. She has also been having diarrhea for the past 2 weeks with liquid stool without blood or mucous. She cannot quantify the amount, but states that this is starting to have more consistency today. CT Scan abdomen and pelvis with IV contrast )-----> Multiple fluid filled dilated loops of small bowel suggestive of small bowel obstruction until proven otherwise. Transition point is not confirmed with certainty. Calcification within the right lower quadrant which either represents an appendicolith or stone within a loop of ileum. If this represents an appendicolith the appendix is markedly dilated which raises the possibility of appendicitis. Oral contrast enhanced examination is recommended with delayed images to determine if the appendix fills with contrast as well as to rule out the site of small bowel obstruction. Large hiatal hernia containing approximately half of the stomach. Multiple hepatic cysts and left renal cyst. Uncomplicated sigmoid diverticulosis. Degenerative changes and scoliosis of the thoracolumbar spine. Degenerative changes involving the hip joints bilaterally. General surgery is following and the patient is getting a SBFT. (Allegra Burgess) PFSH Past Medical History Hypertension Past Surgical History Hysterectomy (Allegra Burgess) Coded Allergies: No Known Allergies (Verified Allergy, Unknown, 03/06/17) Medications Allergies Coded Allergies Type Severity Reaction Last Updated Verified No Known Allergies Allergy Unknown 03/06/17 Yes Active Scripts Medications Dose Route/Sig Max Daily Dose Days Date Category No Active Prescriptions or Reported Medications Rx Family History Father with Stomach Cancer Mother with COPD/Emphysema Social History Tobacco dependence half pack daily since she was 13 years old Alcohol abuse until December this year Marijuana abuse. (Allegra Burgess) Review of Systems Constitutional: COMPLAINS OF: Fever, Weight loss, Chills Respiratory: DENIES: Cough, Shortness of breath Cardiovascular: DENIES: Chest pain Gastrointestinal: COMPLAINS OF: Abdominal pain, Diarrhea, Heartburn, DENIES: Constipation, Nausea, Vomiting, Hematemesis Integumentary: DENIES: Abnormal pigmentation Hematologic/lymphatic: DENIES: Bruising Neurologic: DENIES: Headache Psychiatric: DENIES: Confusion (Allegra Burgess) GI Exam Vitals I&O Vital Signs Date Time Temp Pulse Resp B/P (MAP) Pulse Ox O2 Delivery O2 Flow Rate FiO2 03/06/17 08:00 96.4 73 16 109/66 (80) 99 03/06/17 03:42 84 03/06/17 03:38 96.7 57 16 105/64 (78) 94 03/06/17 02:54 93 18 114/78 (90) 98 03/06/17 01:37 58 18 131/79 (96) 99 Room Air 03/06/17 00:39 98.7 113 15 133/85 (101) 98 Room Air I/O 03/05/17 03/05/17 03/05/17 03/06/17 03/06/17 03/06/17 07:00 15:00 23:00 07:00 15:00 23:00 Intake Total 300 ml Balance 300 ml Intake IV Total 300 ml # Voids 1 Physical Examination HEENT: Normocephalic; atraumatic; no jaundice. CHEST: CTA CARDIAC: RRR ABDOMEN: Soft, mildly distended, mild diffuse tenderness, no significant RLQ tenderness; no hepatosplenomegaly; bowel sounds are present in all four quadrants. EXTREMITIES: No clubbing, cyanosis, or edema. SKIN: Normal; no rash; no jaundice. BUTTON MAKER: No focal deficits; alert and oriented times three. (Allegra Burgess) Assessment and Plan Plan ASSESSMENT: - Abdominal pain. 1.5 month hx of mid abdominal cramping, liquid stools, weight loss associated with oral intake. CT Scan abdomen and pelvis with IV contrast )-----> Multiple fluid filled dilated loops of small bowel suggestive of small bowel obstruction until proven otherwise. Transition point is not confirmed with certainty. Calcification within the right lower quadrant which either represents an appendicolith or stone within a loop of ileum. If this represents an appendicolith the appendix is markedly dilated which raises the possibility of appendicitis. Oral contrast enhanced examination is recommended with delayed images to determine if the appendix fills with contrast as well as to rule out the site of small bowel obstruction. Large hiatal hernia containing approximately half of the stomach. Multiple hepatic cysts and left renal cyst. Uncomplicated sigmoid diverticulosis. Degenerative changes and scoliosis of the thoracolumbar spine. Degenerative changes involving the hip joints bilaterally. WBC 14.4. Hx hysterectomy. Fhx gastric cancer in father. No hx of colonoscopy. GS following. Getting SBFT. NPO. - Abnormal weight loss. Gets hungry, but has abdominal cramping after 4-5 bites and therefore stops eating. She has lost 25 lbs over the past 2 weeks. - Diarrhea. Liquid stools 1.5 months, starting to have more consistency. - GERD. PPI - HTN, Dry gangrene tip right second digit. per attending. PLAN: - NPO - NGT to [facility] - PPI - IVF - Cipro/Flagyl - Await SBFT - Stool studies - GS following - Supportive care - Further recommendations to follow based on results of above - Pt seen and examined by Dr. Arthur and myself and this note is written on his behalf (Allegra Burgess) Physician Comments Page seen and examined Agree with above Continue with current supportive care Monitor labs We will await small bowel follow-through and if small bowel obstruction is confirmed we will defer to general surgery and sign off (Fred Arthur MD) Allegra Burgess Mar 06, 2017 12:54 Fred Arthur MD Mar 06, 2017 15:06
[2017-03-06] MEDS ORDERED: DIATRIZOATE MEGLUM/DIATRIZOATE SOD 120 ML BTL (for RAD DIAG) PO ONE (13:05)
--- NOTE | 2017-03-06 13:44 | RADRPT ---
EXAM DATE/TIME: 03/06/2017 11:25 [facility] COMPARISON: No previous studies available for comparison. INDICATIONS : Abdomen pains, diarrhea, cramping x1 week ago. FLUORO TIME: 0 minutes IMAGE COUNT: 12 CONTRAST: [facility] IMAGING TIME(S): 15 min, 30 min, 45 min, 1 hr, 1.5 hrs2 hr. MEDICAL HISTORY : None. SURGICAL HISTORY : Hysterectomy. ENCOUNTER: Subsequent ACUITY: 4 - 6 days PAIN SCORE: 10/10 LOCATION: Abdomen FINDINGS: The small bowel is dilated throughout most of its course. On the final image at 2 hours a portion of the terminal ileum is seen which is relatively normal caliber. There is contrast within the right col on by 2 hours. There is no complete obstruction. No free air is identified. CONCLUSION: 1. Small bowel dilatation not associated with any significant obstruction. The oral contrast does [place] ch the colon within 2 hours which is within normal range. However, the terminal ileum does have a more normal caliber compared with the more proximal small bow el which can be seen with a very low-grade partial obstruction. Ahmet Hdz MD on March 06, 2017 at 13:39 Board Certified Radiologist. This report was verified electronically.
[2017-03-06] MEDS: CIPROFLOXACIN 400 MG PREMIX 200 ML IV SCH (14:39)
[2017-03-06] MEDS: PANTOPRAZOLE SODIUM 40 MG VIAL IV PUSH SCH (16:59)
[2017-03-07] VITALS (7 sets, daily range): BP systolic 106–114; BP diastolic 65–80; PULSE 68–91; RESP 16–19; TEMP 95.8–97.8; O2SAT 98–100
[2017-03-07] MEDS: CIPROFLOXACIN 400 MG PREMIX 200 ML IV SCH ×2 (01:10→13:00)
[2017-03-07] MEDS: metroNIDAZOLE 500 MG INJ 100 ML IV SCH ×3 (01:10→18:19)
[2017-03-07 07:22] LABS: AUTOMATED NEUTROPHIL # 6.8 TH/MM3 (1.8-7.7); BASOPHIL # 0.1 TH/MM3 (0-0.2); BASOPHIL % 0.5 % (0.0-2.0); EOSINOPHIL # 0.2 TH/MM3 (0-0.4); EOSINOPHIL % 1.8 % (0.0-4.0); HEMATOCRIT 31.9 % (35.0-46.0); HEMO FLAGS DIFF FINAL; LYMPHOCYTE # 3.4 TH/MM3 (1.0-4.8); MEAN CELL VOLUME 94.7 FL (80.0-100.0); MEAN CORPUSCULAR HEMOGLOBIN 31.8 PG (27.0-34.0); MEAN CORPUSCULAR HGB CONC 33.6 % (32.0-36.0); MONO % 8.6 % (0.0-8.0); NEUT % 59.1 % (16.0-70.0); PLATELET COUNT 495 TH/MM3 (150-450); RED BLOOD COUNT 3.37 MIL/MM3 (4.00-5.30); RED CELL DISTRIBUTION WIDTH 14.7 % (11.6-17.2); WHITE BLOOD COUNT 11.5 TH/MM3 (4.0-11.0)
[2017-03-07 07:47] LABS: ANION GAP 9 MEQ/L (5-15); AST (GOT) 10 U/L (15-37); BICARBONATE 20.2 MEQ/L (21.0-32.0); BLOOD UREA NITROGEN 12 MG/DL (7-18); CHLORIDE 112 MEQ/L (98-107); GLOMERULAR FILTRATION RATE 57 ML/MIN (>89); MAGNESIUM 1.3 MG/DL (1.5-2.5); POTASSIUM 3.2 MEQ/L (3.5-5.1); SODIUM (NA) 141 MEQ/L (136-145)
[2017-03-07 07:48] LABS: RHEUMATOID FACTOR TRIGGER LESS THAN 10.0 IU/ML (0.0-14.9)
[2017-03-07 07:49] LABS: ALT (GPT) 15 U/L (10-53)
[2017-03-07 07:58] LABS: ALKALINE PHOSPHATASE 70 U/L (45-117); FREE T4 0.95 NG/DL (0.76-1.46); HDL CHOLESTEROL 57.2 MG/DL (40.0-60.0); LDL CHOLESTEROL 16 MG/DL (0-99); TOTAL BILIRUBIN ADULT 0.3 MG/DL (0.2-1.0)
--- NOTE | 2017-03-07 08:37 | HHI.PR ---
Subjective Remarks Emergency Medicine Notes: This is a pleasant 61 y/o Female who came to Emergency room with complaint of dry gangrene to her right hand which has been ongoing for the last four weeks, has been with pain on her right hand digit #2, reports that she noticed that the area of her finger has become black and necrotic. Patient reports no pain to her finger at this time. Patient reports that overall, she is here at the hospital as she is not feeling well. Reports that she has had over 25 pound weight loss within the past 2 months and was initially seen at an urgent care center and was sent to the emergency room for further workup. patient initially at the hospital AGAINST MEDICAL ADVICE to go home and feed her cat, she is here for antibiotics and admission to the hospital Seen in her bedroom, the patient states she came due to right second finger dry necrosis, but as per ER physician H and P she told him that she is been having abdominal pain colic sensation, also changes in bowel habits, she is Emaciated and has history of alcohol abuse and drug abuse, as per patient she smoked half pack daily since she was 13 years old and abuse marijuana but denies other toxins, after CT abdomen and pelvis performed found probable Small bowel obstruction Probable Appendicitis, but the patient has soft abdomen at this time, and she will need to rule out Malignancy, I will continue antibiotics and follow specialized recommendations rule out rheumatologic diseases Seen by General tuberculosis specialist recommended Small Bowel follow through, stable in her bedroom discussed with nurse Miss Galan the patient is only interested in knowing about her Right second finger with necrosis, asked tests to try to rule out Rheumatoid disease also discussed at this time with Doctor Yasmeen Evangelista and he will see the patient later today she does not want to continue with any workup for her Bowel obstruction and probable Malignancy. no nausea or vomit. Objective Vital Signs Date Time Temp Pulse Resp B/P (MAP) Pulse Ox O2 Delivery O2 Flow Rate FiO2 03/07/17 04:00 97.2 73 16 114/80 (91) 98 03/07/17 00:00 95.8 78 16 108/71 (83) 98 03/06/17 20:45 96.3 86 18 120/76 (91) 97 03/06/17 16:00 95.4 62 15 114/89 (97) 99 I/O 9/21/17 9/21/17 03/06/17 03/07/17 03/07/17 03/07/17 07:00 15:00 23:00 07:00 15:00 23:00 Intake Total 300 ml 100 ml 1640 ml 240 ml Balance 300 ml 100 ml 1640 ml 240 ml Intake Oral 240 ml 240 ml IV Total 300 ml 100 ml 1400 ml # Voids 1 5 4 # Bowel Movements 0 2 Result Diagram: 03/07/17 0612 03/07/17 0649 Imaging Last Impressions Small Bowel X-Ray 03/06/17 0000 Signed Impressions: Service Date/Time: February 11:25 - CONCLUSION: 1. Small bowel dilatation not associated with any significant obstruction. The oral contrast does reach the colon within 2 hours which is within normal range. However, the terminal ileum does have a more normal caliber compared with the more proximal small bowel which can be seen with a very low-grade partial obstruction. Ahmet Hdz MD CT Scan abdomen and pelvis with IV contrast )-----> Multiple fluid filled dilated loops of small bowel suggestive of small bowel obstruction until proven otherwise. Transition point is not confirmed with certainty. Calcification within the right lower quadrant which either represents an appendicolith or stone within a loop of ileum. If this represents an appendicolith the appendix is markedly dilated which raises the possibility of appendicitis. Oral contrast enhanced examination is recommended with delayed images to determine if the appendix fills with contrast as well as to rule out the site of small bowel obstruction. Large hiatal hernia containing approximately half of the stomach. Multiple hepatic cysts and left renal cyst. Uncomplicated sigmoid diverticulosis. Degenerative changes and scoliosis of the thoracolumbar spine. Degenerative changes involving the hip joints bilaterally. Procedures None Other Results Laboratory Tests Test 03/07/17 06:12 03/07/17 06:49 White Blood Count 11.5 TH/MM3 Red Blood Count 3.37 MIL/MM3 Hemoglobin 10.7 GM/DL Hematocrit 31.9 % Mean Corpuscular Volume 94.7 FL Mean Corpuscular Hemoglobin 31.8 PG Mean Corpuscular Hemoglobin Concent 33.6 % Red Cell Distribution Width 14.7 % Platelet Count 495 TH/MM3 Mean Platelet Volume 8.7 FL Neutrophils (%) (Auto) 59.1 % Lymphocytes (%) (Auto) 30.0 % Monocytes (%) (Auto) 8.6 % Eosinophils (%) (Auto) 1.8 % Basophils (%) (Auto) 0.5 % Neutrophils # (Auto) 6.8 TH/MM3 Lymphocytes # (Auto) 3.4 TH/MM3 Monocytes # (Auto) 1.0 TH/MM3 Eosinophils # (Auto) 0.2 TH/MM3 Basophils # (Auto) 0.1 TH/MM3 CBC Comment DIFF FINAL Differential Comment Erythrocyte Sedimentation Rate 38 mm/hr Blood Urea Nitrogen 12 MG/DL Creatinine 1.17 MG/DL Random Glucose 92 MG/DL Total Protein 5.7 GM/DL Albumin 2.6 GM/DL Calcium Level 8.6 MG/DL Phosphorus Level 2.9 MG/DL Magnesium Level 1.3 MG/DL Alkaline Phosphatase 70 U/L Aspartate Amino Transf (AST/SGOT) 10 U/L Alanine Aminotransferase (ALT/SGPT) 15 U/L Total Bilirubin 0.3 MG/DL Sodium Level 141 MEQ/L Potassium Level 3.2 MEQ/L Chloride Level 112 MEQ/L Carbon Dioxide Level 20.2 MEQ/L Anion Gap 9 MEQ/L Estimat Glomerular Filtration Rate 57 ML/MIN C-Reactive Protein 0.36 MG/DL Triglycerides Level 62 MG/DL Cholesterol Level 86 MG/DL LDL Cholesterol 16 MG/DL HDL Cholesterol 57.2 MG/DL Cholesterol/HDL Ratio 1.50 RATIO Free Thyroxine 0.95 NG/DL Thyroid Stimulating Hormone 3rd Gen 2.520 uIU/ML Rheumatoid Factor Screen NEGATIVE Rheumatoid Factor Titer IU/ML Objective Remarks GENERAL: Emaciated, older for her age SKIN: Focused skin assessment warm/dry. HEAD: Atraumatic. Normocephalic. EYES: Pupils equal and round. No scleral icterus. No injection or drainage. ENT: No nasal bleeding or discharge. Mucous membranes pink and moist. NECK: Trachea midline. No JVD. CARDIOVASCULAR: Regular rate and rhythm. No murmur appreciated. RESPIRATORY: No accessory muscle use. Clear to auscultation. Breath sounds equal bilaterally. GASTROINTESTINAL: Abdomen soft, diffuse tenderness with increased tenderness to RLQ. Hepatic and splenic margins not palpable. MUSCULOSKELETAL: No obvious deformities. No clubbing. No cyanosis. No edema. Patient with dry gangrene to right index finger. NEUROLOGICAL: Awake and alert. No obvious cranial nerve deficits. Motor grossly within normal limits. Normal speech. PSYCHIATRIC: Appropriate mood and affect; insight and judgment normal. Medications and IVs Current Medications Medications (Trade) Dose Ordered Sig/Jessica Route Start Time Stop Time Status Last Admin Sodium Chloride 1,000 ml @ 100 mls/hr Q10H IV 03/06/17 01:46 03/06/17 14:39 (NS Flush) 2 ml UNSCH PRN IV FLUSH 03/06/17 02:00 (NS Flush) 2 ml BID IV FLUSH 03/06/17 09:00 (Zofran Inj) 4 mg Q6H PRN IVP 03/06/17 02:00 (Narcan Inj) 0.4 mg UNSCH PRN IV PUSH 03/06/17 02:00 Ciprofloxacin/ Dextrose 200 ml @ 200 mls/hr Q12H IV 03/06/17 13:00 03/07/17 01:10 Metronidazole 100 ml @ 100 mls/hr Q8H IV 03/06/17 10:00 03/07/17 01:10 (Protonix Inj) 40 mg DAILY IV PUSH 03/06/17 13:30 03/06/17 16:59 A/P Assessment and Plan 1. Abdominal pain with abnormal CT changes, will need General Surgery consult and GI specialist consult rule out Malignancy. stable continue present care with antibiotics, awaiting Small bowel follow-through and recommendations by specialists. 2. Tobacco dependence strongly recommended to stop smoking 3. marijuana abuse by history recommended to stop this behavior 4. Alcohol abuse until December this year strongly recommended to stop drinking alcohol 5. electrolyte derangement Ordered replacement for Potassium and Magnesium 6. Right Index finger necrosis, asked for Vascular chief of surgery consult continue Enoxaparin The patient states that she was sent by her PCP for the Right index finger and does not want to continue more workup for probable Bowel mass, she only wanted to know about her finger, Discussed with doctor Gab Evangelista he will see the patient during the day. DVT prophylaxis with SCDs Gastric protection. Code Status Full Code. Discussed Condition With Patient and nurse Miss Galan all questions answered to the best of my abilities. Nic Whitfield MD Mar 07, 2017 08:37
[2017-03-07] MEDS: POTASSIUM CHLOR 20 MEQ PREMIX 100 ML IV SCH ×2 (09:15→13:35)
[2017-03-07] MEDS: MAGNESIUM SULFATE 1 GM PREMIX 100 ML IV SCH ×2 (09:15→13:34)
[2017-03-07] MEDS: SODIUM CHLORIDE 0.9% FLUSH 10 ML FLUSH IV FLUSH SCH ×2 (09:18→19:26)
[2017-03-07] MEDS: PANTOPRAZOLE SODIUM 40 MG VIAL IV PUSH SCH (09:18)
--- NOTE | 2017-03-07 10:11 | HHI.PR ---
Subjective Subjective Notes The patient had a SBFT yesterday which showed transit to right colon in about 2 hrs. Majority of small bowel dilated with some normal caliber distal ileum. She refuses care or discussion regarding any bowel problems and only wants her digit gangrene addressed. I will be available as needed if she changes her mind. I would prefer she undergo colonoscopy to eval appendiceal orifice and IC valve due to the CT abnormalities. I will sign off at this time. Sourav,Juan MENDOZA Mar 07, 2017 10:11
--- NOTE | 2017-03-07 12:30 | HHI.GIFU ---
Subjective Remarks Resting in bed. No n/v. Denies abdominal pain. States she had multiple liquid bowel movements today. States she is now agreeable for GI workup. (Allegra Burgess) Objective Vitals I&O Vital Signs Date Time Temp Pulse Resp B/P (MAP) Pulse Ox O2 Delivery O2 Flow Rate FiO2 03/07/17 08:00 95.8 82 17 109/73 (85) 100 03/07/17 04:00 97.2 73 16 114/80 (91) 98 03/07/17 00:00 95.8 78 16 108/71 (83) 98 03/06/17 20:45 96.3 86 18 120/76 (91) 97 03/06/17 16:00 95.4 62 15 114/89 (97) 99 I/O 03/06/17 03/06/17 03/06/17 03/07/17 03/07/17 03/07/17 07:00 15:00 23:00 07:00 15:00 23:00 Intake Total 300 ml 100 ml 1640 ml 240 ml Balance 300 ml 100 ml 1640 ml 240 ml Intake Oral 240 ml 240 ml IV Total 300 ml 100 ml 1400 ml # Voids 1 5 4 # Bowel Movements 0 2 Laboratory Laboratory Tests Test 03/07/17 06:12 03/07/17 06:49 White Blood Count 11.5 Red Blood Count 3.37 Hemoglobin 10.7 Hematocrit 31.9 Mean Corpuscular Volume 94.7 Mean Corpuscular Hemoglobin 31.8 Mean Corpuscular Hemoglobin Concent 33.6 Red Cell Distribution Width 14.7 Platelet Count 495 Mean Platelet Volume 8.7 Neutrophils (%) (Auto) 59.1 Lymphocytes (%) (Auto) 30.0 Monocytes (%) (Auto) 8.6 Eosinophils (%) (Auto) 1.8 Basophils (%) (Auto) 0.5 Neutrophils # (Auto) 6.8 Lymphocytes # (Auto) 3.4 Monocytes # (Auto) 1.0 Eosinophils # (Auto) 0.2 Basophils # (Auto) 0.1 CBC Comment DIFF FINAL Differential Comment Erythrocyte Sedimentation Rate 38 Blood Urea Nitrogen 12 Creatinine 1.17 Random Glucose 92 Total Protein 5.7 Albumin 2.6 Calcium Level 8.6 Phosphorus Level 2.9 Magnesium Level 1.3 Alkaline Phosphatase 70 Aspartate Amino Transf (AST/SGOT) 10 Alanine Aminotransferase (ALT/SGPT) 15 Total Bilirubin 0.3 Sodium Level 141 Potassium Level 3.2 Chloride Level 112 Carbon Dioxide Level 20.2 Anion Gap 9 Estimat Glomerular Filtration Rate 57 C-Reactive Protein 0.36 Triglycerides Level 62 Cholesterol Level 86 LDL Cholesterol 16 HDL Cholesterol 57.2 Cholesterol/HDL Ratio 1.50 Free Thyroxine 0.95 Thyroid Stimulating Hormone 3rd Gen 2.520 Rheumatoid Factor Screen NEGATIVE Rheumatoid Factor Titer Rapid Plasma Reagin NON-REACTIVE Imaging Last Impressions Small Bowel X-Ray 03/06/17 0000 Signed Impressions: Service Date/Time: February 11:25 - CONCLUSION: 1. Small bowel dilatation not associated with any significant obstruction. The oral contrast does reach the colon within 2 hours which is within normal range. However, the terminal ileum does have a more normal caliber compared with the more proximal small bowel which can be seen with a very low-grade partial obstruction. Ahmet Hdz MD Physical Exam HEENT: Normocephalic; atraumatic; no jaundice. CHEST: CTA CARDIAC: RRR ABDOMEN: Soft, nondistended, nontender; no hepatosplenomegaly; bowel sounds are present in all four quadrants. EXTREMITIES: Dry gangrene to right second digit SKIN: Normal; no rash; no jaundice. 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 (Allegra Burgess) Assessment and Plan Plan ASSESSMENT: - Abdominal pain. 1.5 month hx of mid abdominal cramping, liquid stools, weight loss associated with oral intake. CT Scan abdomen and pelvis with IV contrast )-----> Multiple fluid filled dilated loops of small bowel suggestive of small bowel obstruction until proven otherwise. Transition point is not confirmed with certainty. Calcification within the right lower quadrant which either represents an appendicolith or stone within a loop of ileum. If this represents an appendicolith the appendix is markedly dilated which raises the possibility of appendicitis. Oral contrast enhanced examination is recommended with delayed images to determine if the appendix fills with contrast as well as to rule out the site of small bowel obstruction. Large hiatal hernia containing approximately half of the stomach. Multiple hepatic cysts and left renal cyst. Uncomplicated sigmoid diverticulosis. Degenerative changes and scoliosis of the thoracolumbar spine. Degenerative changes involving the hip joints bilaterally. Hx hysterectomy. Fhx gastric cancer in father. No hx of colonoscopy. S/P SBFT (03/06/17)---> Small bowel dilatation not associated with any significant obstruction. The oral contrast does reach the colon within 2 hours which is within normal range. However, the terminal ileum does have a more normal caliber compared with the more proximal small bowel which an be seen with a very low grade partial obstruction. GS following, recommends colonoscopy. D/W patient. She is agreeable with this. Clinically improved- no n/v/pain. Multiple liquid stools. On clears. - Abnormal weight loss. Gets hungry, but has abdominal cramping after 4-5 bites and therefore stops eating. She has lost 25 lbs over the past 2 weeks. - Diarrhea. Liquid stools 1.5 months, starting to have more consistency. Multiple liquid stools today. S tool studies pending. - GERD. PPI - HTN, Dry gangrene tip right second digit. per attending. PLAN: - Plan for egd/colonoscopy in am - Obtain consents - Clear liquids - NPO after MN - Golytely prep - PPI - IVF - Cipro/Flagyl - Await stool studies - S/P GS evaluation, signed off - Supportive care - Further recommendations to follow based on results of above - Pt seen and examined by Dr. Arthur and myself and this note is written on his behalf (Allegra Burgess) Physician Comments Patient seen and examined Agree with above Continue with current supportive care Monitor labs Plan an EGD with colonoscopy tomorrow (Fred Arthur MD) Allegra Burgess Mar 07, 2017 12:30 Fred Arthur MD Mar 07, 2017 19:14
--- NOTE | 2017-03-07 12:42 | PD.CAR.PN ---
CVT Progress Note Subjective/Hospital Course: Patient seen Full consult dictated J j Objective: Vital Signs Date Time Temp Pulse Resp B/P (MAP) Pulse Ox O2 Delivery O2 Flow Rate FiO2 03/07/17 08:00 95.8 82 17 109/73 (85) 100 03/07/17 04:00 97.2 73 16 114/80 (91) 98 03/07/17 00:00 95.8 78 16 108/71 (83) 98 03/06/17 20:45 96.3 86 18 120/76 (91) 97 03/06/17 16:00 95.4 62 15 114/89 (97) 99 Labs: Laboratory Tests Test 03/07/17 06:12 03/07/17 06:49 White Blood Count 11.5 TH/MM3 (4.0-11.0) Red Blood Count 3.37 MIL/MM3 (4.00-5.30) Hemoglobin 10.7 GM/DL (11.6-15.3) Hematocrit 31.9 % (35.0-46.0) Mean Corpuscular Volume 94.7 FL (80.0-100.0) Mean Corpuscular Hemoglobin 31.8 PG (27.0-34.0) Mean Corpuscular Hemoglobin Concent 33.6 % (32.0-36.0) Red Cell Distribution Width 14.7 % (11.6-17.2) Platelet Count 495 TH/MM3 (150-450) Mean Platelet Volume 8.7 FL (7.0-11.0) Neutrophils (%) (Auto) 59.1 % (16.0-70.0) Lymphocytes (%) (Auto) 30.0 % (9.0-44.0) Monocytes (%) (Auto) 8.6 % (0.0-8.0) Eosinophils (%) (Auto) 1.8 % (0.0-4.0) Basophils (%) (Auto) 0.5 % (0.0-2.0) Neutrophils # (Auto) 6.8 TH/MM3 (1.8-7.7) Lymphocytes # (Auto) 3.4 TH/MM3 (1.0-4.8) Monocytes # (Auto) 1.0 TH/MM3 (0-0.9) Eosinophils # (Auto) 0.2 TH/MM3 (0-0.4) Basophils # (Auto) 0.1 TH/MM3 (0-0.2) CBC Comment DIFF FINAL Differential Comment Erythrocyte Sedimentation Rate 38 mm/hr (0-30) Blood Urea Nitrogen 12 MG/DL (7-18) Creatinine 1.17 MG/DL (0.50-1.00) Random Glucose 92 MG/DL (74-106) Total Protein 5.7 GM/DL (6.4-8.2) Albumin 2.6 GM/DL (3.4-5.0) Calcium Level 8.6 MG/DL (8.5-10.1) Phosphorus Level 2.9 MG/DL (2.5-4.9) Magnesium Level 1.3 MG/DL (1.5-2.5) Alkaline Phosphatase 70 U/L (45-117) Aspartate Amino Transf (AST/SGOT) 10 U/L (15-37) Alanine Aminotransferase (ALT/SGPT) 15 U/L (10-53) Total Bilirubin 0.3 MG/DL (0.2-1.0) Sodium Level 141 MEQ/L (136-145) Potassium Level 3.2 MEQ/L (3.5-5.1) Chloride Level 112 MEQ/L (98-107) Carbon Dioxide Level 20.2 MEQ/L (21.0-32.0) Anion Gap 9 MEQ/L (5-15) Estimat Glomerular Filtration Rate 57 ML/MIN (>89) C-Reactive Protein 0.36 MG/DL (0.00-0.30) Triglycerides Level 62 MG/DL (42-150) Cholesterol Level 86 MG/DL (120-200) LDL Cholesterol 16 MG/DL (0-99) HDL Cholesterol 57.2 MG/DL (40.0-60.0) Cholesterol/HDL Ratio 1.50 RATIO Free Thyroxine 0.95 NG/DL (0.76-1.46) Thyroid Stimulating Hormone 3rd Gen 2.520 uIU/ML (0.358-3.740) Rheumatoid Factor Screen NEGATIVE (NEGATIVE) Rheumatoid Factor Titer IU/ML (0.0-14.9) Rapid Plasma Reagin NON-REACTIVE (NON-REACTVE) Result Diagram: 03/07/1712 03/07/17 0649 Jean Carlos Arana MD Mar 07, 2017 12:42
--- NOTE | 2017-03-07 12:57 | MB ---
cc: JEAN CARLOS SABA MD DATE OF CONSULTATION: 03/07/2017 HISTORY OF PRESENT ILLNESS The patient is a 61-year-old female who presents to the emergency room with dry gangrene of the index finger of the right hand. This has been going on for about a month. The patient was told apparently by some doctor to come to the hospital. In addition, she states that she lost about 25 pounds over the last 2 months and is having abdominal pain with distention. No nausea or vomiting. The patient had been worked up on the then left against medical advice and now she is back. The patient is clearly noncompliant with her medical care and advice. PAST MEDICAL HISTORY 1. Hypertension. 2. Diminished hearing. 3. Some sort of a cardiac problem, but not sure what. PAST SURGICAL HISTORY Hysterectomy. Ovaries were left in. SOCIAL HISTORY The patient does not drink. She smokes about one pack a week, but smoked way more before. ALLERGIES No allergies. FAMILY HISTORY Noncontributory. PHYSICAL EXAMINATION GENERAL: A 61-year-old female in no acute distress. HEENT: Normocephalic. No trauma to the head. Pupils equal and reactive. Extraocular muscles intact. NECK: Supple. Bilateral carotid pulses. No bruits. CHEST: Clear bilateral breath sounds. HEART: Regular rhythm. ABDOMEN: Soft. Active bowel sounds. No rebound. No masses. No guarding. However, the patient is tender in the right lower quadrant and I do appreciate distended loops of the intestine which are palpable through the abdominal wall. Pelvis is normal. The patient does not have any hernias. EXTREMITIES: The patient has bilateral femoral, popliteal, dorsalis pedis, posterior and popliteal pulses. She also has bilateral brachial, ulnar and radial pulses which are strong and not consistent with obstruction. Nevertheless, the patient does have dry gangrene of the index finger of the right hand and it is unclear as to the origin of this. Apparently the third digit was also somewhat purple but that resolved. NEUROLOGIC: The patient is fully intact. IMPRESSION AND RECOMMENDATIONS At this point the patient has necrosis of the distal finger. This is a shower of emboli type phenomenon which has reached distal digits. Most likely the patient has a hypercoagulable state of some sort. This can be either predicated by an undisclosed occult malignancy or sometimes in about 60% of patients we never find the reason why they became hypercoagulable. On the other hand this could be a mechanical phenomenon. If the patient has a cardiac or vascular problem the atherosclerotic material will either flush from the thoracic aorta or from the heart with situations like a myxoma, vegetations or some other valvular disease. All of these have to be worked up and ruled out. As far as the abdomen is concerned the patient does have an unusual looking CAT scan and I agree with the radiologist there may be something cooking down there. While the small bowel study does not show any obstruction there is no question my mind that the patient will require colonoscopy to evaluate the cecal region because there is a high likelihood that she may have a tumor of some sort there. Other than that the patient will require oncologic work-up to see if there is any occult malignancy. Right now I ordered several studies and will see what comes back. Thank you very much for the referral. Will continue to follow the patient with you. Critical care time 40 minutes. Jean Carlos GU /12:33 PM /12:42 PM ANTON
[2017-03-07 13:40] LABS: ANA SCREEN NEG (NEG)
[2017-03-07 14:14] LABS: APTT (PATIENT) 28.7 SEC (24.3-30.1); INTERNATIONAL NORMALIZED RATIO 1.1 RATIO; PROTHROMBIN TIME - PATIENT 11.9 SEC (9.8-11.6)
[2017-03-07] MEDS ORDERED: PEG (High)/E-LYTE SOLN 4000 ML BTL PO ONE (16:00)
[2017-03-07] MEDS ORDERED: POTASSIUM CHLORIDE 20 MEQ CONTROLLED RELEASE TAB PO ONE ×2 (16:00→20:00)
[2017-03-07 16:49] LABS: HEMOGLOBIN A1a 1.3 %; HEMOGLOBIN A1b 0.9 %; HEMOGLOBIN F 1.6 %; HEMOGLOBIN LA1C 2.3 %; HEMOGLOBIN P3 6.6 %
[2017-03-07] MEDS: SODIUM CHLOR 0.9% 1000 ML INJ 1,000 ML IV SCH ×2 (17:46→18:18)
[2017-03-08] VITALS (8 sets, daily range): BP systolic 100–122; BP diastolic 60–94; PULSE 51–82; RESP 16–18; TEMP 96.9–97.7; O2SAT 93–100
[2017-03-08] MEDS: CIPROFLOXACIN 400 MG PREMIX 200 ML IV SCH ×2 (01:28→12:41)
[2017-03-08] MEDS: metroNIDAZOLE 500 MG INJ 100 ML IV SCH ×4 (01:28→17:05)
[2017-03-08] MEDS: SODIUM CHLOR 0.9% 1000 ML INJ 1,000 ML IV SCH ×3 (06:02→18:00)
[2017-03-08 07:08] LABS: BICARBONATE 18.3 MEQ/L (21.0-32.0); MAGNESIUM 1.6 MG/DL (1.5-2.5); POTASSIUM 3.6 MEQ/L (3.5-5.1)
[2017-03-08 07:34] LABS: AUTOMATED NEUTROPHIL # 4.7 TH/MM3 (1.8-7.7); BASOPHIL % 0.5 % (0.0-2.0); EOSINOPHIL # 0.2 TH/MM3 (0-0.4); EOSINOPHIL % 1.9 % (0.0-4.0); HEMATOCRIT 28.1 % (35.0-46.0); HEMO FLAGS DIFF FINAL; LYMPH % 35.1 % (9.0-44.0); LYMPHOCYTE # 3.1 TH/MM3 (1.0-4.8); MEAN CELL VOLUME 96.3 FL (80.0-100.0); MEAN CORPUSCULAR HEMOGLOBIN 30.9 PG (27.0-34.0); MEAN CORPUSCULAR HGB CONC 32.1 % (32.0-36.0); MONO % 8.9 % (0.0-8.0); NEUT % 53.6 % (16.0-70.0); PLATELET COUNT 413 TH/MM3 (150-450); RED BLOOD COUNT 2.91 MIL/MM3 (4.00-5.30); RED CELL DISTRIBUTION WIDTH 15.1 % (11.6-17.2); WHITE BLOOD COUNT 8.8 TH/MM3 (4.0-11.0)
[2017-03-08] MEDS: PANTOPRAZOLE SODIUM 40 MG VIAL IV PUSH SCH (08:14)
[2017-03-08] MEDS: SODIUM CHLORIDE 0.9% FLUSH 10 ML FLUSH IV FLUSH SCH (08:15)
--- NOTE | 2017-03-08 08:58 | HHI.PR ---
Subjective Remarks Emergency Medicine Notes: This is a pleasant 61 y/o Female who came to Emergency room with complaint of dry gangrene to her right hand which has been ongoing for the last four weeks, has been with pain on her right hand digit #2, reports that she noticed that the area of her finger has become black and necrotic. Patient reports no pain to her finger at this time. Patient reports that overall, she is here at the hospital as she is not feeling well. Reports that she has had over 25 pound weight loss within the past 2 months and was initially seen at an urgent care center and was sent to the emergency room for further workup. patient initially at the hospital AGAINST MEDICAL ADVICE to go home and feed her cat, she is here for antibiotics and admission to the hospital Seen in her bedroom, the patient states she came due to right second finger dry necrosis, but as per ER physician H and P she told him that she is been having abdominal pain colic sensation, also changes in bowel habits, she is Emaciated and has history of alcohol abuse and drug abuse, as per patient she smoked half pack daily since she was 13 years old and abuse marijuana but denies other toxins, after CT abdomen and pelvis performed found probable Small bowel obstruction Probable Appendicitis, but the patient has soft abdomen at this time, and she will need to rule out Malignancy, I will continue antibiotics and follow specialized recommendations rule out rheumatologic diseases Seen by General personal injury law specialist recommended Small Bowel follow through, stable in her bedroom discussed with nurse Miss Johnsonna the patient is only interested in knowing about her Right second finger with necrosis, asked tests to try to rule out Rheumatoid disease also discussed at this time with Doctor Yasmeen Evangelista and he will see the patient later today she does not want to continue with any workup for her Bowel obstruction and probable Malignancy. 03/08: stable in her bedroom, she is receiving Colon prep for Colonoscopy later today, happy that she has some answers to her pathology, appreciated for Specialists Support. no nausea, vomit or diarrhea. Objective Vital Signs Date Time Temp Pulse Resp B/P (MAP) Pulse Ox O2 Delivery O2 Flow Rate FiO2 03/08/17 08:00 97.3 72 16 100/60 (73) 100 03/08/17 04:00 97.2 81 18 106/71 (83) 99 03/08/17 00:00 72 18 112/75 (87) 99 03/07/17 20:20 80 03/07/17 20:00 96.8 78 18 108/65 (79) 98 03/07/17 16:00 97.8 68 19 106/79 (88) 99 03/07/17 12:00 97.5 91 16 107/66 (80) 99 I/O 03/07/17 03/07/17 03/07/17 03/08/17 03/08/17 03/08/17 07:00 15:00 23:00 07:00 15:00 23:00 Intake Total 240 ml 270 ml 360 ml Balance 240 ml 270 ml 360 ml Intake Oral 240 ml 360 ml IV Total 270 ml # Voids 4 4 # Bowel Movements 2 1 5 Result Diagram: 03/08/17 0554 03/08/17 0554 Imaging Last Impressions Small Bowel X-Ray 03/06/17 0000 Signed Impressions: Service Date/Time: February 11:25 - CONCLUSION: 1. Small bowel dilatation not associated with any significant obstruction. The oral contrast does reach the colon within 2 hours which is within normal range. However, the terminal ileum does have a more normal caliber compared with the more proximal small bowel which can be seen with a very low-grade partial obstruction. Ahmet Hzd MD Procedures None Other Results Laboratory Tests Test 03/07/17 06:49 03/07/17 13:40 03/08/17 05:54 Erythrocyte Sedimentation Rate 38 mm/hr Hemoglobin A1c 6.3 % Blood Urea Nitrogen 12 MG/DL 7 MG/DL Creatinine 1.17 MG/DL 1.05 MG/DL Random Glucose 92 MG/DL 81 MG/DL Total Protein 5.7 GM/DL Albumin 2.6 GM/DL Calcium Level 8.6 MG/DL 7.8 MG/DL Phosphorus Level 2.9 MG/DL Magnesium Level 1.3 MG/DL 1.6 MG/DL Alkaline Phosphatase 70 U/L Aspartate Amino Transf (AST/SGOT) 10 U/L Alanine Aminotransferase (ALT/SGPT) 15 U/L Total Bilirubin 0.3 MG/DL Sodium Level 141 MEQ/L 145 MEQ/L Potassium Level 3.2 MEQ/L 3.6 MEQ/L Chloride Level 112 MEQ/L 117 MEQ/L Carbon Dioxide Level 20.2 MEQ/L 18.3 MEQ/L C-Reactive Protein 0.36 MG/DL Triglycerides Level 62 MG/DL Cholesterol Level 86 MG/DL LDL Cholesterol 16 MG/DL HDL Cholesterol 57.2 MG/DL Cholesterol/HDL Ratio 1.50 RATIO Free Thyroxine 0.95 NG/DL Thyroid Stimulating Hormone 3rd Gen 2.520 uIU/ML Rheumatoid Factor Screen NEGATIVE Rheumatoid Factor Titer IU/ML Anti-Nuclear Antibody Screen NEG Rapid Plasma Reagin NON-REACTIVE Prothrombin Time 11.9 SEC Prothromb Time International Ratio 1.1 RATIO Activated Partial Thromboplast Time 28.7 SEC White Blood Count 8.8 TH/MM3 Red Blood Count 2.91 MIL/MM3 Hemoglobin 9.0 GM/DL Hematocrit 28.1 % Mean Corpuscular Volume 96.3 FL Mean Corpuscular Hemoglobin 30.9 PG Mean Corpuscular Hemoglobin Concent 32.1 % Red Cell Distribution Width 15.1 % Platelet Count 413 TH/MM3 Mean Platelet Volume 8.4 FL Neutrophils (%) (Auto) 53.6 % Lymphocytes (%) (Auto) 35.1 % Monocytes (%) (Auto) 8.9 % Eosinophils (%) (Auto) 1.9 % Basophils (%) (Auto) 0.5 % Neutrophils # (Auto) 4.7 TH/MM3 Lymphocytes # (Auto) 3.1 TH/MM3 Monocytes # (Auto) 0.8 TH/MM3 Eosinophils # (Auto) 0.2 TH/MM3 Basophils # (Auto) 0.0 TH/MM3 CBC Comment DIFF FINAL Differential Comment Anion Gap 10 MEQ/L Estimat Glomerular Filtration Rate 64 ML/MIN Objective Remarks GENERAL: Emaciated, older for her age SKIN: Focused skin assessment warm/dry. HEAD: Atraumatic. Normocephalic. EYES: Pupils equal and round. No scleral icterus. No injection or drainage. ENT: No nasal bleeding or discharge. Mucous membranes pink and moist. NECK: Trachea midline. No JVD. CARDIOVASCULAR: Regular rate and rhythm. No murmur appreciated. RESPIRATORY: No accessory muscle use. Clear to auscultation. Breath sounds equal bilaterally. GASTROINTESTINAL: Abdomen soft, diffuse tenderness with increased tenderness to RLQ. Hepatic and splenic margins not palpable. MUSCULOSKELETAL: No obvious deformities. No clubbing. No cyanosis. No edema. Patient with dry gangrene to right index finger. NEUROLOGICAL: Awake and alert. No obvious cranial nerve deficits. Motor grossly within normal limits. Normal speech. PSYCHIATRIC: Appropriate mood and affect; insight and judgment normal. Medications and IVs Current Medications Medications (Trade) Dose Ordered Sig/Jessica Route Start Time Stop Time Status Last Admin Sodium Chloride 1,000 ml @ 100 mls/hr Q10H IV 03/06/17 01:46 03/08/17 06:02 (NS Flush) 2 ml UNSCH PRN IV FLUSH 03/06/17 02:00 (NS Flush) 2 ml BID IV FLUSH 03/06/17 09:00 03/08/17 08:15 (Zofran Inj) 4 mg Q6H PRN IVP 03/06/17 02:00 (Narcan Inj) 0.4 mg UNSCH PRN IV PUSH 03/06/17 02:00 Ciprofloxacin/ Dextrose 200 ml @ 200 mls/hr Q12H IV 03/06/17 13:00 03/08/17 01:28 Metronidazole 100 ml @ 100 mls/hr Q8H IV 03/06/17 10:00 03/08/17 01:28 (Protonix Inj) 40 mg DAILY IV PUSH 03/06/17 13:30 03/08/17 08:14 A/P Assessment and Plan 1. Abdominal pain with abnormal CT changes, will need General Surgery consult and GI specialist consult rule out Malignancy. stable continue present care with antibiotics, will have Colonoscopy later today. 2. Tobacco dependence strongly recommended to stop smoking 3. marijuana abuse by history recommended to stop this behavior 4. Alcohol abuse until December this year strongly recommended to stop drinking alcohol 5. electrolyte derangement replacement ordered IV she is NPO at this time. 6. Right Index finger necrosis, Vascular team leader surgery following. DVT prophylaxis with SCDs Gastric protection. Code Status Full Code. Discussed Condition With Patient and nurse Miss Galan all questions answered to the best of my abilities. Nic Whitfield MD Mar 08, 2017 08:58
[2017-03-08] MEDS ORDERED: LACTATED RINGER'S 1000 ML INJ 1,000 ML IV ONE (09:48)
[2017-03-08] MEDS ORDERED: PROPOFOL 200 MG/20 ML AMP IV ONE ×2 (09:48→12:00)
[2017-03-08] MEDS ORDERED: LIDOCAINE HCL 1% PF 5 ML AMPULE OTHER ONE (09:48)
[2017-03-08] MEDS ORDERED: IOHEXOL 350 MG/ML 10 ML VIAL (for RAD DIAG) IV PUSH ONE (10:26)
--- NOTE | 2017-03-08 11:39 | RADRPT ---
EXAM DATE/TIME: 03/08/2017 10:21 [facility] COMPARISON: No previous studies available for comparison. INDICATIONS : Evaluate distal embolization. IV CONTRAST: 86 cc Omnipaque 350 (iohexol) IV RADIATION DOSE: 8.71 CTDIvol (mGy) MEDICAL HISTORY : Cardiovascular disease. Hypertension. SURGICAL HISTORY : Hysterectomy. ENCOUNTER: Initial ACUITY: 1 day PAIN SCALE: 4/10 LOCATION: Right upper extremity TECHNIQUE: Volumetric scanning was performed using a multirow detector CT scanner. Using automated exposure cont rol and adjustment of the mA and/or kV according to patient size, radiation dose was kept as low as r easonably achievable to obtain optimal diagnostic quality images. The data was post processed with a variety of visualization algorithms including full-volume maximum intensity projection, multiplanar sliding thin-slab reformation, curved-planar reformation, and surface-rendering techniques. Using au tomated exposure control and adjustment of the mA and/or kV according to patient size, radiation dose was kept as low as reasonably achievable to obtain optimal diagnostic quality images. DICOM format image data is available electronically for review and comparison. FINDINGS: Vascular findings: The aortic arch has a normal appearance without significant stenosis. There is mild atherosclerotic d isease in the distal arch and at the origin of the right brachiocephalic artery. The subclavian arter y, axillary artery, and brachial artery are normal. There is no significant atherosclerotic disease o r stenosis. The radial artery demonstrates a normal appearance with visualization to the wrist. The u lnar artery is also visualized but is diminutive in caliber. Other findings: Visualized lungs demonstrate no acute finding. There is a heterogeneous left thyroid nodule measuring 2.7 cm. Intracranially there is generalized atrophy with bilateral extra-axial fluid collections emperatriz aterally likely representing subdural hygromas. The soft tissues demonstrate no acute finding. CONCLUSION: 1. The ulnar artery in the right forearm is diminutive in caliber. Otherwise, the remaining right upp er extremity arterial vessels have a normal appearance. Please note that the hand arterial vessels ar e not visualized on this exam. 2. Complex left thyroid nodule measuring 2.7 cm. When patient condition permits, suggest further ginger acterization with thyroid ultrasound. 3. Cerebral atrophy with bilateral subdural hygromas. Navi Leon MD on March 08, 2017 at 11:25 Board Certified Radiologist. This report was verified electronically.
--- NOTE | 2017-03-08 11:42 | PD.CAR.PN ---
CVT Progress Note Subjective/Hospital Course: Patient seen Full consult dictated J 03/08/17 Patient is excellent brachial radial and ulnar pulse in both arms No sign of vascular deficit the normal capillary refill CTA of the right arm is normal and patient has no pathologic occlusion at any level. No stigmata of Buerger's disease Patient needs to be worked up for shower of emboli because I believe underlying problem is probably an occult abdominal malignancy and this is only one of the symptoms. Objective: Vital Signs Date Time Temp Pulse Resp B/P (MAP) Pulse Ox O2 Delivery O2 Flow Rate FiO2 03/08/17 08:00 97.3 72 16 100/60 (73) 100 03/08/17 04:00 97.2 81 18 106/71 (83) 99 03/08/17 00:00 72 18 112/75 (87) 99 03/07/17 20:20 80 03/07/17 20:00 96.8 78 18 108/65 (79) 98 03/07/17 16:00 97.8 68 19 106/79 (88) 99 03/07/17 12:00 97.5 91 16 107/66 (80) 99 Labs: Laboratory Tests Test 03/08/17 05:54 White Blood Count 8.8 TH/MM3 (4.0-11.0) Red Blood Count 2.91 MIL/MM3 (4.00-5.30) Hemoglobin 9.0 GM/DL (11.6-15.3) Hematocrit 28.1 % (35.0-46.0) Mean Corpuscular Volume 96.3 FL (80.0-100.0) Mean Corpuscular Hemoglobin 30.9 PG (27.0-34.0) Mean Corpuscular Hemoglobin Concent 32.1 % (32.0-36.0) Red Cell Distribution Width 15.1 % (11.6-17.2) Platelet Count 413 TH/MM3 (150-450) Mean Platelet Volume 8.4 FL (7.0-11.0) Neutrophils (%) (Auto) 53.6 % (16.0-70.0) Lymphocytes (%) (Auto) 35.1 % (9.0-44.0) Monocytes (%) (Auto) 8.9 % (0.0-8.0) Eosinophils (%) (Auto) 1.9 % (0.0-4.0) Basophils (%) (Auto) 0.5 % (0.0-2.0) Neutrophils # (Auto) 4.7 TH/MM3 (1.8-7.7) Lymphocytes # (Auto) 3.1 TH/MM3 (1.0-4.8) Monocytes # (Auto) 0.8 TH/MM3 (0-0.9) Eosinophils # (Auto) 0.2 TH/MM3 (0-0.4) Basophils # (Auto) 0.0 TH/MM3 (0-0.2) CBC Comment DIFF FINAL Differential Comment Blood Urea Nitrogen 7 MG/DL (7-18) Creatinine 1.05 MG/DL (0.50-1.00) Random Glucose 81 MG/DL (74-106) Calcium Level 7.8 MG/DL (8.5-10.1) Magnesium Level 1.6 MG/DL (1.5-2.5) Sodium Level 145 MEQ/L (136-145) Potassium Level 3.6 MEQ/L (3.5-5.1) Chloride Level 117 MEQ/L (98-107) Carbon Dioxide Level 18.3 MEQ/L (21.0-32.0) Anion Gap 10 MEQ/L (5-15) Estimat Glomerular Filtration Rate 64 ML/MIN (>89) Result Diagram: 03/08/17 0554 03/08/17 0554 Jean Carlos Arana MD Mar 08, 2017 11:42
[2017-03-08] MEDS: MAGNESIUM SULFATE 1 GM PREMIX 100 ML IV SCH ×2 (15:29→16:33)
--- NOTE | 2017-03-08 15:40 | ECHRPT ---
Indication: distal hand embolization CONCLUSIONS The left ventricular systolic function is moderately reduced with an estimated ejection fraction in the range of 40-45%. Akinetic basal inferior wall motion with scar. Wall thickness is normal. Normal left ventricular size. [id number] mitral valve regurgitation. BP: / HR: Rhythm: MEASUREMENTS (Male / Female) Normal Values Technical Quality:Fair 2D ECHO LV Diastolic Diameter PLAX 4.4 cm 4.2 - 5.9 / 3.9 - 5.3 cm LV Systolic Diameter PLAX 3.8 cm IVS Diastolic Thickness 0.8 cm 0.6 - 1.0 / 0.6 - 0.9 cm LVPW Diastolic Thickness 0.8 cm 0.6 - 1.0 / 0.6 - 0.9 cm LV Relative Wall Thickness 0.4 RV Internal Dim ED PLAX 2.6 cm M-MODE Aortic Root Diameter MM 3.0 cm LA Systolic Diameter MM 3.2 cm LA Ao Ratio MM 1.1 AV Cusp Separation MM 2.2 cm DOPPLER Mitral E Point Velocity 54.3 cm/s Mitral A Point Velocity 73.1 cm/s Mitral E to A Ratio 0.7 LV E' Lateral Velocity 6.6 cm/s Mitral E to LV E' Lateral Ratio 8.2 LV E' Septal Velocity 5.9 cm/s Mitral E to LV E' Septal Ratio 9.3 TR Peak Velocity 268.0 cm/s TR Peak Gradient 28.7 mmHg Right Atrial Pressure 10.0 mmHg Pulmonary Artery Systolic Pressu 38.7 mmHg Right Ventricular Systolic Press 38.7 mmHg FINDINGS LEFT VENTRICLE The left ventricular systolic function is moderately reduced with an estimated ejection fraction in the range of 40-45%. Doppler parameters are consistent with impaired left ventricular relaxtion (grade 1 diastolic dysfun ction). Akinetic basal inferior wall motion with scar. Wall thickness is normal. Normal left ventricular size. RIGHT VENTRICLE Normal right ventricular size and systolic function. LEFT ATRIUM The left atrial size is normal. RIGHT ATRIUM The right atrial size is normal. ATRIAL SEPTUM Normal atrial septal thickness without atrial level shunting by limited color doppler interrogation. AORTA The aortic root and proximal ascending aorta are normal in size on limited imaging. MITRAL VALVE Structurally normal mitral valve. [id number] mitral valve regurgitation. AORTIC VALVE Trileaflet aortic valve. No aortic valve regurgitation. No aortic valve stenosis. TRICUSPID VALVE Structurally normal tricuspid valve. There is mild tricuspid valve regurgitation. The estimated pulmonary arterial pressure is 38.7 mmHg. PULMONARY VALVE No pulmonary valve regurgitation or stenosis. VESSELS The inferior vena cava is normal in size. PERICARDIUM No pericardial effusion. Tesfaye Calderon MD (Electronically Signed) Final Date:08 March 2017 15:39
[2017-03-08] MEDS ORDERED: POTASSIUM CHLOR 20 MEQ PREMIX 100 ML IV ONE (17:00)
[2017-03-08] MEDS: *Lactated Ringer's INJ 1,000 ML IV SCH ×2 (17:05→17:39)
[2017-03-08] MEDS ORDERED: SIMETHICONE SUSP DROPS 40 MG/0.6 ML 30 ML BTL ONE (17:14)
--- NOTE | 2017-03-08 18:16 | PD.PROCEDR ---
GI Procedure REFERRING PHYSICIAN ALICIA PROCEDURE PERFORMED EGD with biopsy followed by a colonoscopy was snare polypectomy and biopsy INDICATION FOR PROCEDURE Abdominal pain, abnormal findings on CT, weight loss, diarrhea, PROCEDURE: The procedure, risks and benefits were discussed with Ms. Jennings and informed consent was obtained. Anesthesia sedated her with Diprivan. She was placed in the left lateral decubitus position. EGD: The Pentax videoscope was introduced through the oropharynx and advanced to the second portion of the duodenum under direct visualization. Retroflexion was performed in the stomach. FINDINGS: Esophagus this appeared to be unremarkable except for a slightly irregular Z line and this was biopsied Stomach there was a large hiatal hernia otherwise gastric mucosa appeared to be unremarkable with normal limits Duodenum The duodenal mucosa was somewhat erythemic with some nodularity to it specifically and the duodenal bulb and duodenal sweep this was biopsied the rest of the duodenum was unremarkable Colonoscopy: The Pentax videoscope was introduced through the rectum and advanced to cecum where the ileocecal valve and appendiceal orifice were identified and then I was able to intubate the terminal ileum also. Retroflexion was performed in the rectum. Colonic prep was good FINDINGS: As the scope was slowly withdrawn colonic mucosa was carefully inspected this was noted to be unremarkable except for 2 polyps one in the ascending colon one in the descending colon both polyps were sessile and medium in size and both were excised using hot snare technique excision was complete and the polyps were sent for further evaluation there was a slight thickening of a fold in the sigmoid of unclear significance this was biopsied colonic examination was otherwise unremarkable retroflexion in the rectum did reveal mild to moderate internal hemorrhoids rectal examination was otherwise unremarkable ESTIMATED BLOOD LOSS: None SPECIMENS REMOVED: Esophageal, duodenal, colon biopsies COMPLICATIONS: None IMPRESSION: Irregular Z line Hiatal hernia Duodenitis Colon polyps Thickened sigmoid fold Internal hemorrhoids PLAN: Await biopsies Continue with current supportive care Monitor labs Advance diet If all is stable and the patient tolerates diet patient may be discharged from a GI standpoint tomorrow Fred Arthur MD Mar 08, 2017 18:15
[2017-03-08] MEDS ORDERED: DO NOT ADM ANY ANTICOAGULANT DRUGS PRN (19:30)
[2017-03-09] VITALS (9 sets, daily range): BP systolic 99–110; BP diastolic 56–73; PULSE 60–89; RESP 16–18; TEMP 95.6–98.6; O2SAT 95–100
[2017-03-09] MEDS: metroNIDAZOLE 500 MG INJ 100 ML IV SCH ×3 (01:04→17:15)
[2017-03-09] MEDS: CIPROFLOXACIN 400 MG PREMIX 200 ML IV SCH ×2 (01:04→10:49)
[2017-03-09] MEDS: SODIUM CHLORIDE 0.9% FLUSH 10 ML FLUSH IV FLUSH SCH ×2 (01:05→08:10)
[2017-03-09 07:42] LABS: HEMATOCRIT 28.9 % (35.0-46.0); MEAN CELL VOLUME 94.8 FL (80.0-100.0); MEAN CORPUSCULAR HEMOGLOBIN 31.8 PG (27.0-34.0); MEAN CORPUSCULAR HGB CONC 33.5 % (32.0-36.0); PLATELET COUNT 432 TH/MM3 (150-450); RED BLOOD COUNT 3.05 MIL/MM3 (4.00-5.30); RED CELL DISTRIBUTION WIDTH 14.9 % (11.6-17.2); REVIEW FLAG FINAL; WHITE BLOOD COUNT 11.1 TH/MM3 (4.0-11.0)
[2017-03-09] MEDS: SODIUM CHLOR 0.9% 1000 ML INJ 1,000 ML IV SCH ×2 (08:04→14:52)
[2017-03-09] MEDS: PANTOPRAZOLE SODIUM 40 MG VIAL IV PUSH SCH (08:09)
--- NOTE | 2017-03-09 08:30 | HHI.PR ---
Subjective Remarks Emergency Medicine Notes: This is a pleasant 61 y/o Female who came to Emergency room with complaint of dry gangrene to her right hand which has been ongoing for the last four weeks, has been with pain on her right hand digit #2, reports that she noticed that the area of her finger has become black and necrotic. Patient reports no pain to her finger at this time. Patient reports that overall, she is here at the hospital as she is not feeling well. Reports that she has had over 25 pound weight loss within the past 2 months and was initially seen at an urgent care center and was sent to the emergency room for further workup. patient initially at the hospital AGAINST MEDICAL ADVICE to go home and feed her cat, she is here for antibiotics and admission to the hospital Seen in her bedroom, the patient states she came due to right second finger dry necrosis, but as per ER physician H and P she told him that she is been having abdominal pain colic sensation, also changes in bowel habits, she is Emaciated and has history of alcohol abuse and drug abuse, as per patient she smoked half pack daily since she was 13 years old and abuse marijuana but denies other toxins, after CT abdomen and pelvis performed found probable Small bowel obstruction Probable Appendicitis, but the patient has soft abdomen at this time, and she will need to rule out Malignancy, I will continue antibiotics and follow specialized recommendations rule out rheumatologic diseases Seen by General university extension specialist recommended Small Bowel follow through, stable in her bedroom discussed with nurse Angelia the patient is only interested in knowing about her Right second finger with necrosis, asked tests to try to rule out Rheumatoid disease also discussed at this time with Doctor Yasmeen Evangelista and he will see the patient later today she does not want to continue with any workup for her Bowel obstruction and probable Malignancy. 03/08: stable in her bedroom, she is receiving Colon prep for Colonoscopy later today, happy that she has some answers to her pathology, appreciated for Specialists Support. no nausea, vomit or diarrhea. 03/09: Status post EGD and biopsy, followed by Colonoscopy snare polypectomy and biopsy, specimens taken, esophageal, duodenal and colon biopsies. Hiatal hernia, Duodenitis, Thickened sigmoid fold, Internal Hemorrhoids, recommended if tolerates diet to discharge from GI standpoint. She wants to talk with Doctor De Guzman about her finger, CTA of upper extremity in chart, she will discuss with Vascular specialist before leaving the Hospital. Objective Vital Signs Date Time Temp Pulse Resp B/P (MAP) Pulse Ox O2 Delivery O2 Flow Rate FiO2 03/09/17 08:00 96.7 60 16 110/58 (75) 98 03/09/17 04:33 97.6 68 17 109/56 (73) 97 03/09/17 00:21 98.6 61 18 100/59 (73) 95 03/08/17 20:18 96.9 51 17 122/94 (103) 93 03/08/17 20:09 82 03/08/17 18:24 97.8 73 23 126/80 (95) 99 Nasal Cannula 2 03/08/17 18:15 78 25 129/70 (89) 98 Nasal Cannula 2 03/08/17 18:00 97.4 85 25 117/60 (79) 97 Nasal Cannula 2 03/08/17 16:00 97.7 68 17 113/70 (84) 100 03/08/17 12:00 96.9 78 18 121/80 (94) 100 03/08/17 08:45 71 I/O 03/08/17 03/08/17 03/08/17 03/09/17 03/09/17 03/09/17 07:00 15:00 23:00 07:00 15:00 23:00 Intake Total 200 ml 910 ml 780 ml 970 ml Output Total 600 ml Balance 200 ml 910 ml 180 ml 970 ml Intake Oral 0 ml 580 ml IV Total 200 ml 210 ml 200 ml 970 ml Other 700 ml Output Urine Total 600 ml # Voids 5 # Bowel Movements 5 1 0 Result Diagram: 03/09/17 0704 03/08/17 0554 Imaging Last Impressions Upper Extremity CTA 03/08/17 0000 Signed Impressions: Service Date/Time: Wednesday, March 08, 2017 10:21 - CONCLUSION: 1. The ulnar artery in the right forearm is diminutive in caliber. Otherwise, the remaining right upper extremity arterial vessels have a normal appearance. Please note that the hand arterial vessels are not visualized on this exam. 2. Complex left thyroid nodule measuring 2.7 cm. When patient condition permits, suggest further characterization with thyroid ultrasound. 3. Cerebral atrophy with bilateral subdural hygromas. Navi Leon MD Small Bowel X-Ray 03/06/17 0000 Signed Impressions: Service Date/Time: February 11:25 - CONCLUSION: 1. Small bowel dilatation not associated with any significant obstruction. The oral contrast does reach the colon within 2 hours which is within normal range. However, the terminal ileum does have a more normal caliber compared with the more proximal small bowel which can be seen with a very low-grade partial obstruction. Ahmet Hdz MD Procedures EGD and Colonoscopy 03/08/17 Other Results Laboratory Tests Test 03/07/17 06:49 03/07/17 13:40 03/08/17 05:54 03/09/17 07:04 Erythrocyte Sedimentation Rate 38 mm/hr Hemoglobin A1c 6.3 % Blood Urea Nitrogen 12 MG/DL 7 MG/DL Creatinine 1.17 MG/DL 1.05 MG/DL Random Glucose 92 MG/DL 81 MG/DL Total Protein 5.7 GM/DL Albumin 2.6 GM/DL Calcium Level 8.6 MG/DL 7.8 MG/DL Phosphorus Level 2.9 MG/DL Magnesium Level 1.3 MG/DL 1.6 MG/DL Alkaline Phosphatase 70 U/L Aspartate Amino Transf (AST/SGOT) 10 U/L Alanine Aminotransferase (ALT/SGPT) 15 U/L Total Bilirubin 0.3 MG/DL Sodium Level 141 MEQ/L 145 MEQ/L Potassium Level 3.2 MEQ/L 3.6 MEQ/L Chloride Level 112 MEQ/L 117 MEQ/L Carbon Dioxide Level 20.2 MEQ/L 18.3 MEQ/L C-Reactive Protein 0.36 MG/DL Triglycerides Level 62 MG/DL Cholesterol Level 86 MG/DL LDL Cholesterol 16 MG/DL HDL Cholesterol 57.2 MG/DL Cholesterol/HDL Ratio 1.50 RATIO Free Thyroxine 0.95 NG/DL Thyroid Stimulating Hormone 3rd Gen 2.520 uIU/ML Rheumatoid Factor Screen NEGATIVE Rheumatoid Factor Titer IU/ML Anti-Nuclear Antibody Screen NEG Rapid Plasma Reagin NON-REACTIVE Prothrombin Time 11.9 SEC Prothromb Time International Ratio 1.1 RATIO Activated Partial Thromboplast Time 28.7 SEC Neutrophils (%) (Auto) 53.6 % Lymphocytes (%) (Auto) 35.1 % Monocytes (%) (Auto) 8.9 % Eosinophils (%) (Auto) 1.9 % Basophils (%) (Auto) 0.5 % Neutrophils # (Auto) 4.7 TH/MM3 Lymphocytes # (Auto) 3.1 TH/MM3 Monocytes # (Auto) 0.8 TH/MM3 Eosinophils # (Auto) 0.2 TH/MM3 Basophils # (Auto) 0.0 TH/MM3 CBC Comment DIFF FINAL Differential Comment Anion Gap 10 MEQ/L Estimat Glomerular Filtration Rate 64 ML/MIN White Blood Count 11.1 TH/MM3 Red Blood Count 3.05 MIL/MM3 Hemoglobin 9.7 GM/DL Hematocrit 28.9 % Mean Corpuscular Volume 94.8 FL Mean Corpuscular Hemoglobin 31.8 PG Mean Corpuscular Hemoglobin Concent 33.5 % Red Cell Distribution Width 14.9 % Platelet Count 432 TH/MM3 Mean Platelet Volume 9.1 FL Objective Remarks GENERAL: Emaciated, older for her age SKIN: Focused skin assessment warm/dry. HEAD: Atraumatic. Normocephalic. EYES: Pupils equal and round. No scleral icterus. No injection or drainage. ENT: No nasal bleeding or discharge. Mucous membranes pink and moist. NECK: Trachea midline. No JVD. CARDIOVASCULAR: Regular rate and rhythm. No murmur appreciated. RESPIRATORY: No accessory muscle use. Clear to auscultation. Breath sounds equal bilaterally. GASTROINTESTINAL: Abdomen soft, diffuse tenderness with increased tenderness to RLQ. Hepatic and splenic margins not palpable. MUSCULOSKELETAL: No obvious deformities. No clubbing. No cyanosis. No edema. Patient with dry gangrene to right index finger. NEUROLOGICAL: Awake and alert. No obvious cranial nerve deficits. Motor grossly within normal limits. Normal speech. PSYCHIATRIC: Appropriate mood and affect; insight and judgment normal. Medications and IVs Current Medications Medications (Trade) Dose Ordered Sig/Jessica Route Start Time Stop Time Status Last Admin Sodium Chloride 1,000 ml @ 100 mls/hr Q10H IV 03/06/17 01:46 03/09/17 08:04 (NS Flush) 2 ml UNSCH PRN IV FLUSH 03/06/17 02:00 (NS Flush) 2 ml BID IV FLUSH 03/06/17 09:00 03/09/17 08:10 (Zofran Inj) 4 mg Q6H PRN IVP 03/06/17 02:00 (Narcan Inj) 0.4 mg UNSCH PRN IV PUSH 03/06/17 02:00 Ciprofloxacin/ Dextrose 200 ml @ 200 mls/hr Q12H IV 03/06/17 13:00 03/09/17 01:04 Metronidazole 100 ml @ 100 mls/hr Q8H IV 03/06/17 10:00 03/09/17 08:09 (Protonix Inj) 40 mg DAILY IV PUSH 03/06/17 13:30 03/09/17 08:09 Lactated Ringer's 1,000 ml @ 0 mls/hr Q0M IV 03/08/17 17:25 03/08/17 17:05 Miscellaneous Information ALL NURSING DEPARTME... UNSCH PRN .XX 03/08/17 19:30 03/09/17 19:29 A/P Assessment and Plan 1. Abdominal pain with abnormal CT changes, will need General Surgery consult and GI specialist consult rule out Malignancy. stable continue present care with antibiotics, Status post EGD and Colonoscopy found Hiatal hernia, Duodenitis, Thickened sigmoid fold, internal Hemorrhoids, biopsies taken from Esophagus, Duodenum and Colon, Snare polypectomy performed. clear for discharge from GI specialist standpoint. 2. Tobacco dependence strongly recommended to stop smoking 3. marijuana abuse by history recommended to stop this behavior 4. Alcohol abuse until December this year strongly recommended to stop drinking alcohol 5. electrolyte derangement replacement ordered IV she is NPO at this time. 6. Right Index finger necrosis, Vascular early breastfeeding care specialist following. status post CTA of the upper extremity awaiting for Doctor Gab to discuss the case. DVT prophylaxis with SCDs Gastric protection. Code Status Full Code. Discussed Condition With Patient and nurse Miss Galan all questions answered to the best of my abilities. Discharge Planning Clear for discharge from Medicine and GI specialist awaiting final by Vascular specialist. Nic Whitfield MD Mar 09, 2017 8:30 am
[2017-03-09] MEDS ORDERED: POTASSIUM CHLORIDE 20 MEQ CONTROLLED RELEASE TAB PO ONE (09:00)
--- NOTE | 2017-03-09 11:39 | PD.CAR.PN ---
CVT Progress Note Subjective/Hospital Course: Patient seen Full consult dictated J 03/08/17 Patient is excellent brachial radial and ulnar pulse in both arms No sign of vascular deficit the normal capillary refill CTA of the right arm is normal and patient has no pathologic occlusion at any level. No stigmata of Buerger's disease Patient needs to be worked up for shower of emboli because I believe underlying problem is probably an occult abdominal malignancy. 03/09/17 As above noted patient has clean vessels to the right arm and no sign of thromboembolism I discussed no repeatedly with the patient the prospects of her finger and she will need to follow up with a hand surgeon and have partial amputation of the finger as per hand surgery. There is nothing for me to add to care from vascular point and I have repeatedly discussed this with the patient We'll sign off at this time Thanks Alden Objective: Vital Signs Date Time Temp Pulse Resp B/P (MAP) Pulse Ox O2 Delivery O2 Flow Rate FiO2 03/09/17 08:00 96.7 60 16 110/58 (75) 98 03/09/17 04:33 97.6 68 17 109/56 (73) 97 03/09/17 00:21 98.6 61 18 100/59 (73) 95 03/08/17 20:18 96.9 51 17 122/94 (103) 93 03/08/17 20:09 82 03/08/17 18:24 97.8 73 23 126/80 (95) 99 Nasal Cannula 2 03/08/17 18:15 78 25 129/70 (89) 98 Nasal Cannula 2 03/08/17 18:00 97.4 85 25 117/60 (79) 97 Nasal Cannula 2 03/08/17 16:00 97.7 68 17 113/70 (84) 100 03/08/17 12:00 96.9 78 18 121/80 (94) 100 Labs: Laboratory Tests Test 03/09/17 07:04 White Blood Count 11.1 TH/MM3 (4.0-11.0) Red Blood Count 3.05 MIL/MM3 (4.00-5.30) Hemoglobin 9.7 GM/DL (11.6-15.3) Hematocrit 28.9 % (35.0-46.0) Mean Corpuscular Volume 94.8 FL (80.0-100.0) Mean Corpuscular Hemoglobin 31.8 PG (27.0-34.0) Mean Corpuscular Hemoglobin Concent 33.5 % (32.0-36.0) Red Cell Distribution Width 14.9 % (11.6-17.2) Platelet Count 432 TH/MM3 (150-450) Mean Platelet Volume 9.1 FL (7.0-11.0) Result Diagram: 03/09/17 0704 03/08/17 0554 Jean Carlos Arana MD Mar 09, 2017 11:39
--- NOTE | 2017-03-09 14:38 | HHI.GIFU ---
Subjective Remarks Lying in bed. Tolerating diet. Denies abdominal pain. No nausea or vomiting. (Roxana Jones) Objective Vitals I&O Vital Signs Date Time Temp Pulse Resp B/P (MAP) Pulse Ox O2 Delivery O2 Flow Rate FiO2 03/09/17 14:00 98 21 03/09/17 12:00 96.9 77 17 99/73 (82) 99 03/09/17 08:00 96.7 60 16 110/58 (75) 98 03/09/17 04:33 97.6 68 17 109/56 (73) 97 03/09/17 00:21 98.6 61 18 100/59 (73) 95 03/08/17 20:18 96.9 51 17 122/94 (103) 93 03/08/17 20:09 82 03/08/17 18:24 97.8 73 23 126/80 (95) 99 Nasal Cannula 2 03/08/17 18:15 78 25 129/70 (89) 98 Nasal Cannula 2 03/08/17 18:00 97.4 85 25 117/60 (79) 97 Nasal Cannula 2 03/08/17 16:00 97.7 68 17 113/70 (84) 100 I/O 03/08/17 03/08/17 03/08/17 03/09/17 03/09/17 03/09/17 07:00 15:00 23:00 07:00 15:00 23:00 Intake Total 200 ml 910 ml 780 ml 1065 ml Output Total 600 ml Balance 200 ml 910 ml 180 ml 1065 ml Intake Oral 0 ml 580 ml IV Total 200 ml 210 ml 200 ml 1065 ml Other 700 ml Output Urine Total 600 ml # Voids 5 # Bowel Movements 5 1 0 Laboratory Laboratory Tests Test 03/09/17 07:04 White Blood Count 11.1 Red Blood Count 3.05 Hemoglobin 9.7 Hematocrit 28.9 Mean Corpuscular Volume 94.8 Mean Corpuscular Hemoglobin 31.8 Mean Corpuscular Hemoglobin Concent 33.5 Red Cell Distribution Width 14.9 Platelet Count 432 Mean Platelet Volume 9.1 Imaging Last Impressions Upper Extremity CTA 03/08/17 0000 Signed Impressions: Service Date/Time: Wednesday, March 08, 2017 10:21 - CONCLUSION: 1. The ulnar artery in the right forearm is diminutive in caliber. Otherwise, the remaining right upper extremity arterial vessels have a normal appearance. Please note that the hand arterial vessels are not visualized on this exam. 2. Complex left thyroid nodule measuring 2.7 cm. When patient condition permits, suggest further characterization with thyroid ultrasound. 3. Cerebral atrophy with bilateral subdural hygromas. Navi Leon MD Small Bowel X-Ray 03/06/17 0000 Signed Impressions: Service Date/Time: February 11:25 - CONCLUSION: 1. Small bowel dilatation not associated with any significant obstruction. The oral contrast does reach the colon within 2 hours which is within normal range. However, the terminal ileum does have a more normal caliber compared with the more proximal small bowel which can be seen with a very low-grade partial obstruction. Ahmet Hdz MD Physical Exam HEENT: Normocephalic; atraumatic; no jaundice. CHEST: CTA CARDIAC: RRR ABDOMEN: Soft, nondistended, diffuse abdominal tenderness, increased tenderness at RLQ; no hepatosplenomegaly; bowel sounds are present. EXTREMITIES: Dry gangrene to right second digit SKIN: Normal; no rash; no jaundice. [employer] OFFICER CHIEF: No focal deficits; alert and oriented x 3 (Roxana Jones) Assessment and Plan Plan ASSESSMENT: - Abdominal pain. 1.5 month hx of mid abdominal cramping, liquid stools, weight loss associated with oral intake. CT Scan abdomen and pelvis with IV contrast )-----> Multiple fluid filled dilated loops of small bowel suggestive of small bowel obstruction until proven otherwise. Transition point is not confirmed with certainty. Calcification within the right lower quadrant which either represents an appendicolith or stone within a loop of ileum. If this represents an appendicolith the appendix is markedly dilated which raises the possibility of appendicitis. Oral contrast enhanced examination is recommended with delayed images to determine if the appendix fills with contrast as well as to rule out the site of small bowel obstruction. Large hiatal hernia containing approximately half of the stomach. Multiple hepatic cysts and left renal cyst. Uncomplicated sigmoid diverticulosis. Degenerative changes and scoliosis of the thoracolumbar spine. Degenerative changes involving the hip joints bilaterally. Hx hysterectomy. Fhx gastric cancer in father. No hx of colonoscopy. S/P SBFT (03/06/17)---> Small bowel dilatation not associated with any significant obstruction. The oral contrast does reach the colon within 2 hours which is within normal range. However, the terminal ileum does have a more normal caliber compared with the more proximal small bowel which an be seen with a very low grade partial obstruction. GS following, recommended colonoscopy. EGD/Colonoscopy 03/08/17--Irregular Z line, Hiatal hernia, Duodenitis, Colon polyps, Thickened sigmoid fold, Internal hemorrhoids. - Abnormal weight loss. Gets hungry, but has abdominal cramping after 4-5 bites and therefore stops eating. She has lost 25 lbs over the past 2 weeks. - Diarrhea. Liquid stools 1.5 months, starting to have more consistency. Multiple liquid stools. Stool studies pending. - GERD. PPI - HTN, Dry gangrene tip right second digit. per attending. 03/09/17--EGD/Colonoscopy yesterday, as above. Tolerating diet. Denies abdominal pain, but patient is TTP. No nausea or vomiting. HH 9.7/28.9. WBC 11.1 PLAN: - Okay to discharge from GI standpoint if patient is stable and tolerating diet. - VENTURA - Await biopsies - Monitor labs - PPI - IVF - Cipro/Flagyl - Await stool studies - S/P GS evaluation, signed off - Supportive care - Further recommendations to follow based on results of above Patient seen and examined by Dr. Arthur and myself and this note is written on his behalf (Roxana Jones) Physician Comments Patient seen and examined Agree with above Continue with current supportive care And monitor labs Okay for discharge from GI standpoint Follow-up in clinic postdischarge (Fred Arthur MD) Roxana Jones Mar 09, 2017 14:38 Fred Arthur MD Mar 09, 2017 22:25
[2017-03-10] VITALS (10 sets, daily range): BP systolic 111–121; BP diastolic 63–81; PULSE 53–93; RESP 17–20; TEMP 95.8–97.9; O2SAT 97–98
[2017-03-10] MEDS: CIPROFLOXACIN 400 MG PREMIX 200 ML IV SCH ×2 (01:57→10:52)
[2017-03-10] MEDS: metroNIDAZOLE 500 MG INJ 100 ML IV SCH ×3 (01:57→15:26)
[2017-03-10] MEDS: SODIUM CHLOR 0.9% 1000 ML INJ 1,000 ML IV SCH ×2 (01:57→15:22)
[2017-03-10] MEDS: SODIUM CHLORIDE 0.9% FLUSH 10 ML FLUSH IV FLUSH SCH ×3 (01:57→21:00)
[2017-03-10] MEDS: PANTOPRAZOLE SODIUM 40 MG VIAL IV PUSH SCH (09:00)
--- NOTE | 2017-03-10 09:48 | HHI.PR ---
Subjective Remarks Follow-up for abdominal pain and ischemic finger Patient very anxious to go home. Waiting for hand surgeon to see patient. She stated that she lost sensation at the tip of that finger. Dealt with patient's nurse. Objective Vitals Vital Signs Date Time Temp Pulse Resp B/P (MAP) Pulse Ox O2 Delivery O2 Flow Rate FiO2 03/10/17 08:00 97.7 65 17 121/81 (94) 97 03/10/17 07:48 98 03/10/17 04:19 96.7 81 17 113/74 (87) 97 03/10/17 00:21 95.8 93 18 119/73 (88) 97 03/09/17 22:21 98 21 03/09/17 21:03 97.5 89 18 102/58 (73) 96 03/09/17 20:11 79 03/09/17 16:00 95.6 81 17 107/68 (81) 100 03/09/17 14:00 98 21 03/09/17 12:00 96.9 77 17 99/73 (82) 99 I/O 03/09/17 03/09/17 03/09/17 03/10/17 03/10/17 03/10/17 07:00 15:00 23:00 07:00 15:00 23:00 Intake Total 1780 ml 2225 ml 800 ml 3469 ml Output Total 600 ml 700 ml Balance 1180 ml 2225 ml 800 ml 2769 ml Intake Oral 580 ml 700 ml 680 ml IV Total 1200 ml 2225 ml 100 ml 2789 ml Output Urine Total 600 ml 700 ml # Voids 5 # Bowel Movements 0 3 Result Diagram: 03/09/17 0704 03/08/17 0554 Objective Remarks GENERAL:NAD SKIN: Warm and dry. HEAD: Normocephalic. EYES: No scleral icterus. No injection or drainage. NECK: Supple, trachea midline. No JVD or lymphadenopathy. CARDIOVASCULAR: Regular rate and rhythm without murmurs, gallops, or rubs. RESPIRATORY: Breath sounds equal bilaterally. No accessory muscle use. GASTROINTESTINAL: Abdomen soft, non-tender, nondistended. MUSCULOSKELETAL:tip of right index finger gangrenous. Medications and IVs Current Medications Ceftriaxone Sodium 1000 mg/ Sodium Chloride 100 ml @ 200 mls/hr ONCE ONCE IV ; Start 03/06/17 at 01:45; Stop 03/06/17 at 01:47; Status DC Vancomycin HCl 900 mg/Sodium Chloride 259 ml @ 250 mls/hr ONCE ONCE IV ; Start 03/06/17 at 01:45; Stop 03/06/17 at 01:47; Status DC Ciprofloxacin/ Dextrose 200 ml @ 200 mls/hr ONCE ONCE IV Last administered on 03/06/17 01:55; Start 03/06/17 at 02:00; Stop 03/06/17 at 02:59; Status DC Metronidazole 100 ml @ 100 mls/hr ONCE ONCE IV Last administered on 03:17; Start 03/06/17 at 02:00; Stop 03/06/17 at 02:59; Status DC Sodium Chloride 1,000 ml @ 100 mls/hr Q10H IV Last administered on 03/10/17 01:57; Start 03/06/17 at 01:46 Sodium Chloride (NS Flush) 2 ml UNSCH PRN IV FLUSH FLUSH AFTER USING IV ACCESS ; Start 03/06/17 at 02:00 Sodium Chloride (NS Flush) 2 ml BID IV FLUSH Last administered on 03/10/17 01: 57; Start 03/06/17 at 09:00 Ondansetron HCl (Zofran Inj) 4 mg Q6H PRN IVP NAUSEA OR VOMITING; Start at 02:00 Naloxone HCl (Narcan Inj) 0.4 mg UNSCH PRN IV PUSH SEE LABEL COMMENTS; Start at 02:00 Ketorolac Tromethamine (Toradol Inj) 15 mg Q6HR IV PUSH ; Start 03/06/17 at 06: 00; Stop 03/06/17 at 09:26; Status DC Ciprofloxacin/ Dextrose 200 ml @ 200 mls/hr Q12H IV Last administered on 01:57; Start 03/06/17 at 13:00 Metronidazole 100 ml @ 100 mls/hr Q8H IV Last administered on 03/10/17 01:57 ; Start 03/06/17 at 10:00 Famotidine (Pepcid Inj) 20 mg Q12H IV PUSH ; Start 03/06/17 at 11:00; Stop 03/06 at 13:23; Status DC Diatrizoate Meglum/ Diatrizoate Sod ( Gastroview Liq) 240 ml STK-MED ONCE PO ; Start 03/06/17 at 13:05; Stop 03/06/17 at 13:06; Status DC Pantoprazole Sodium (Protonix Inj) 40 mg DAILY IV PUSH Last administered on 08:09; Start 03/06/17 at 13:30 Potassium Chloride 100 ml @ 50 mls/hr Q2H IV Last administered on 03/07/17 13 :35; Start 03/07/17 at 08:45; Stop 03/07/17 at 12:44; Status DC Magnesium Sulfate/ Dextrose 100 ml @ 100 mls/hr Q1H IV Last administered on 13:34; Start 03/07/17 at 08:45; Stop 03/07/17 at 10:44; Status DC Polyethylene Glycol/ Electrolytes (Colyte Liq) 4,000 ml ONCE ONCE PO Last administered on 03/07/17 18:08; Start 03/07/17 at 16:00; Stop 03/07/17 at 16:01 ; Status DC Potassium Chloride (KCl) 20 meq ONCE ONCE PO Last administered on 03/07/17 19 :25; Start 03/07/17 at 20:00; Stop 03/07/17 at 21:04; Status DC Potassium Chloride (KCl) 40 meq ONCE ONCE PO Last administered on 03/07/17 18 :17; Start 03/07/17 at 16:00; Stop 03/07/17 at 16:05; Status DC Iohexol (Omnipaque 350 Inj) 86 ml STK-MED ONCE IV PUSH Last administered on 10:26; Start 03/08/17 at 10:26; Stop 03/08/17 at 10:27; Status DC Potassium Chloride 100 ml @ 50 mls/hr ONCE ONCE IV ; Start 03/08/17 at 17:00; Stop 03/08/17 at 18:59; Status DC Magnesium Sulfate/ Dextrose 100 ml @ 100 mls/hr Q1H IV Last administered on 16:33; Start 03/08/17 at 14:30; Stop 03/08/17 at 16:29; Status DC Simethicone (Simethicone Liq (Drops)) 20 mg ONCE ONCE .XX Last administered on 03/08/17 17:15; Start 03/08/17 at 17:14; Stop 03/08/17 at 17:15; Status DC Lactated Ringer's 1,000 ml @ 0 mls/hr Q0M IV Last administered on 03/08/17 17 :05; Start 03/08/17 at 17:25 Miscellaneous Information ALL NURSING DEPARTME... UNSCH PRN .XX SEE LABEL COMMENTS; Start 03/08/17 at 19:30; Stop 03/09/17 at 19:29; Status DC Potassium Chloride (KCl) 40 meq ONCE ONCE PO Last administered on 03/09/17 10 :43; Start 03/09/17 at 09:00; Stop 03/09/17 at 09:01; Status DC Propofol (Diprivan 200 Mg/20 ml Inj) 400 mg STK-MED ONCE IV ; Start 03/08/17 at 12:00; Stop 03/10/17 at 08:33; Status DC A/P Assessment and Plan 61-year-old female who presented with a gangrenous finger Right gangrenous finger -CTA of the upper extremity read by Dr. Arana. He stated that her vascular system is normal and thinks this may be embolic from possible malignancy. Recommend further workup. Patient refused further workup by general surgeon of abnormality found on CT scan. Gen. surgeon. -Will consult oncologist. -Pending recommendation from hand surgeon. abnormal abdominal CT changes. -Status post EGD and Colonoscopy found Hiatal hernia, Duodenitis, Thickened sigmoid fold, internal Hemorrhoids, biopsies taken from Esophagus, Duodenum and Colon, Snare polypectomy performed. - clear for discharge from GI specialist but will need to follow-up biopsy with GI. -Refuse further workup by general surgeon. General surgeon sign off but willing to see patient as outpatient. Tobacco dependence -strongly recommended to stop smoking marijuana abuse -Education given. DVT prophylaxis with SCDs Gastric protection. Kary Herrera MD Mar 10, 2017 09:48
--- NOTE | 2017-03-10 14:26 | HHI.PR ---
Subjective Subjective Notes She is welcome to see me in my office in a couple weeks to f/u CT findings if she desires. Juan Benjamin MD Mar 10, 2017 14:26
[2017-03-11] VITALS (8 sets, daily range): BP systolic 113–129; BP diastolic 64–88; PULSE 65–91; RESP 17–20; TEMP 97–98.3; O2SAT 96–99
[2017-03-11] MEDS: metroNIDAZOLE 500 MG INJ 100 ML IV SCH ×4 (00:34→23:31)
[2017-03-11] MEDS: CIPROFLOXACIN 400 MG PREMIX 200 ML IV SCH ×3 (00:34→23:31)
[2017-03-11] MEDS: SODIUM CHLOR 0.9% 1000 ML INJ 1,000 ML IV SCH ×3 (00:34→20:02)
[2017-03-11] MEDS: PANTOPRAZOLE SODIUM 40 MG VIAL IV PUSH SCH (09:00)
[2017-03-11] MEDS: SODIUM CHLORIDE 0.9% FLUSH 10 ML FLUSH IV FLUSH SCH ×2 (09:00→20:02)
--- NOTE | 2017-03-11 10:11 | HHI.PR ---
Subjective Remarks f/u for ischemic finger patient upset and emotional because she has not been seen by hand surgeon. she is very anxious to go home. she stated pain is worse at night but does not need her pain medication changed. she stated she wants to see hand surgeon to see what s/he can do so she can go home. no fever overnight d/w patient's nurse and charge nurse. Objective Vitals Vital Signs Date Time Temp Pulse Resp B/P (MAP) Pulse Ox O2 Delivery O2 Flow Rate FiO2 03/11/17 08:00 97.7 65 18 125/82 (96) 97 03/11/17 04:00 97.0 70 18 129/88 (102) 98 03/11/17 00:00 97.2 66 20 128/81 (97) 98 03/10/17 20:00 97.9 53 20 117/63 (81) 97 03/10/17 19:47 78 03/10/17 16:35 97 03/10/17 16:00 97.3 73 17 114/71 (85) 97 03/10/17 12:00 97.5 71 17 111/66 (81) 98 03/10/17 11:02 84 I/O 03/10/17 03/10/17 03/10/17 03/11/17 03/11/17 03/11/17 07:00 15:00 23:00 07:00 15:00 23:00 Intake Total 3469 ml 500 ml Output Total 700 ml Balance 2769 ml 500 ml Intake Oral 680 ml 500 ml IV Total 2789 ml 0 ml Output Urine Total 700 ml # Voids 3 3 # Bowel Movements 1 Result Diagram: 03/09/17 0704 03/08/17 0554 Objective Remarks GENERAL:NAD SKIN: Warm and dry. HEAD: Normocephalic. EYES: No scleral icterus. No injection or drainage. NECK: Supple, trachea midline. No JVD or lymphadenopathy. CARDIOVASCULAR: Regular rate and rhythm without murmurs, gallops, or rubs. RESPIRATORY: Breath sounds equal bilaterally. No accessory muscle use. GASTROINTESTINAL: Abdomen soft, non-tender, nondistended. MUSCULOSKELETAL:tip of right index finger gangrenous. Medications and IVs Current Medications Ceftriaxone Sodium 1000 mg/ Sodium Chloride 100 ml @ 200 mls/hr ONCE ONCE IV ; Start 03/06/17 at 01:45; Stop 03/06/17 at 01:47; Status DC Vancomycin HCl 900 mg/Sodium Chloride 259 ml @ 250 mls/hr ONCE ONCE IV ; Start 03/06/17 at 01:45; Stop 03/06/17 at 01:47; Status DC Ciprofloxacin/ Dextrose 200 ml @ 200 mls/hr ONCE ONCE IV Last administered on 03/06/17 01:55; Start 03/06/17 at 02:00; Stop 03/06/17 at 02:59; Status DC Metronidazole 100 ml @ 100 mls/hr ONCE ONCE IV Last administered on 03:17; Start 03/06/17 at 02:00; Stop 03/06/17 at 02:59; Status DC Sodium Chloride 1,000 ml @ 100 mls/hr Q10H IV Last administered on 03/10/17 01:57; Start 03/06/17 at 01:46 Sodium Chloride (NS Flush) 2 ml UNSCH PRN IV FLUSH FLUSH AFTER USING IV ACCESS ; Start 03/06/17 at 02:00 Sodium Chloride (NS Flush) 2 ml BID IV FLUSH Last administered on 03/10/17 01: 57; Start 03/06/17 at 09:00 Ondansetron HCl (Zofran Inj) 4 mg Q6H PRN IVP NAUSEA OR VOMITING; Start at 02:00 Naloxone HCl (Narcan Inj) 0.4 mg UNSCH PRN IV PUSH SEE LABEL COMMENTS; Start at 02:00 Ketorolac Tromethamine (Toradol Inj) 15 mg Q6HR IV PUSH ; Start 03/06/17 at 06: 00; Stop 03/06/17 at 09:26; Status DC Ciprofloxacin/ Dextrose 200 ml @ 200 mls/hr Q12H IV Last administered on 01:57; Start 03/06/17 at 13:00 Metronidazole 100 ml @ 100 mls/hr Q8H IV Last administered on 03/10/17 01:57 ; Start 03/06/17 at 10:00 Famotidine (Pepcid Inj) 20 mg Q12H IV PUSH ; Start 03/06/17 at 11:00; Stop 03/06 at 13:23; Status DC Diatrizoate Meglum/ Diatrizoate Sod ( Gastroview Liq) 240 ml STK-MED ONCE PO ; Start 03/06/17 at 13:05; Stop 03/06/17 at 13:06; Status DC Pantoprazole Sodium (Protonix Inj) 40 mg DAILY IV PUSH Last administered on 08:09; Start 03/06/17 at 13:30 Potassium Chloride 100 ml @ 50 mls/hr Q2H IV Last administered on 03/07/17 13 :35; Start 03/07/17 at 08:45; Stop 03/07/17 at 12:44; Status DC Magnesium Sulfate/ Dextrose 100 ml @ 100 mls/hr Q1H IV Last administered on 13:34; Start 03/07/17 at 08:45; Stop 03/07/17 at 10:44; Status DC Polyethylene Glycol/ Electrolytes (Colyte Liq) 4,000 ml ONCE ONCE PO Last administered on 03/07/17 18:08; Start 03/07/17 at 16:00; Stop 03/07/17 at 16:01 ; Status DC Potassium Chloride (KCl) 20 meq ONCE ONCE PO Last administered on 03/07/17 19 :25; Start 03/07/17 at 20:00; Stop 03/07/17 at 21:04; Status DC Potassium Chloride (KCl) 40 meq ONCE ONCE PO Last administered on 03/07/17 18 :17; Start 03/07/17 at 16:00; Stop 03/07/17 at 16:05; Status DC Iohexol (Omnipaque 350 Inj) 86 ml STK-MED ONCE IV PUSH Last administered on 10:26; Start 03/08/17 at 10:26; Stop 03/08/17 at 10:27; Status DC Potassium Chloride 100 ml @ 50 mls/hr ONCE ONCE IV ; Start 03/08/17 at 17:00; Stop 03/08/17 at 18:59; Status DC Magnesium Sulfate/ Dextrose 100 ml @ 100 mls/hr Q1H IV Last administered on 16:33; Start 03/08/17 at 14:30; Stop 03/08/17 at 16:29; Status DC Simethicone (Simethicone Liq (Drops)) 20 mg ONCE ONCE .XX Last administered on 03/08/17 17:15; Start 03/08/17 at 17:14; Stop 03/08/17 at 17:15; Status DC Lactated Ringer's 1,000 ml @ 0 mls/hr Q0M IV Last administered on 03/08/17 17 :05; Start 03/08/17 at 17:25 Miscellaneous Information ALL NURSING DEPARTME... UNSCH PRN .XX SEE LABEL COMMENTS; Start 03/08/17 at 19:30; Stop 03/09/17 at 19:29; Status DC Potassium Chloride (KCl) 40 meq ONCE ONCE PO Last administered on 03/09/17 10 :43; Start 03/09/17 at 09:00; Stop 03/09/17 at 09:01; Status DC Propofol (Diprivan 200 Mg/20 ml Inj) 400 mg STK-MED ONCE IV ; Start 03/08/17 at 12:00; Stop 03/10/17 at 08:33; Status DC Propofol (Diprivan 200 Mg/20 ml Inj) 400 mg STK-MED ONCE IV ; Start 03/08/17 at 09:48; Stop 03/11/17 at 09:48; Status DC Lidocaine HCl (Xylocaine-Mpf 1% Inj) 5 ml STK-MED ONCE OTHER ; Start 03/08/17 at 09:48; Stop 03/11/17 at 09:48; Status DC Lactated Ringer's 1,000 ml @ As Directed STK-MED ONCE IV ; Start 03/08/17 at 09 :48; Stop 03/11/17 at 09:48; Status DC A/P Assessment and Plan 61-year-old female who presented with a gangrenous finger Right gangrenous finger -CTA of the upper extremity read by Dr. Arana. He stated that her vascular system is normal and thinks this may be embolic from possible malignancy. Recommend further workup. Patient refused further workup by general surgeon of abnormality found on CT scan. -oncologist/administrative support specialist consulted. -d/w Dr. Maria hand surgeon who stated that she was not professional athlete the weekend and told the HUB. There was no hand surgeon call that day and she told HUB to give page out to hand surgeon the next. [facility] did not notify anyone of this. -d/w professional athlete hand surgeon Dr. Burks who will see patient. recommend to put heating mittens on. d/w nurse in regards to this. abnormal abdominal CT changes. -Status post EGD and Colonoscopy found Hiatal hernia, Duodenitis, Thickened sigmoid fold, internal Hemorrhoids, biopsies taken from Esophagus, Duodenum and Colon, Snare polypectomy performed. - clear for discharge from GI specialist but will need to follow-up biopsy with GI. -Refuse further workup by general surgeon. General surgeon sign off but willing to see patient as outpatient. Tobacco dependence -strongly recommended to stop smoking marijuana abuse -Education given. DVT prophylaxis with SCDs Kary Herrera MD Mar 11, 2017 10:11
--- NOTE | 2017-03-11 20:04 | MB ---
cc: CHASE BLACKMON MD DATE OF CONSULTATION 03/11/2017 REASON FOR CONSULTATION Gangrene right index finger. HISTORY OF THE PRESENT ILLNESS The patient is a 61-year-old right-hand dominant female admitted to the hospital last week with complaints of discoloration of the right index finger. The patient was worked up for malignancy and hand surgery was consulted for the same. The patient states about 4 weeks ago she noticed discoloration of the right index and middle fingers. The right middle finger discoloration improved and the right index finger discoloration has worsened. She presented to the ED with complaints of necrotic right index finger. She also complains of intermittent pain involving the right index finger. She also complains of disturbance of sleep on an intermittent basis with pain from the right index finger. The patient gives history of a bead of pus draining from the tip of the finger about [id number] days ago. Denies any fever. She denies any history of similar complaints in the past. Denies any complaints of the left hand. She is a known smoker. PAST MEDICAL HISTORY Her past medical history is noted significant for hypertension. PHYSICAL EXAMINATION GENERAL: The patient is alert, oriented x3. EXTREMITIES: Examination of the right upper extremity / hand reveals a black discoloration of the pulp of the index finger. This extends from just distal to the DIP joint on the volar aspect to the tip. On the dorsal aspect the nail plate and bed do not have the normal capillary refill or the color. The nail bed appears to be pale. She has mild tenderness on the lateral aspect of the pulp on deep palpation. No evidence of drainage noted. The pulp appears to be necrotic and hard woody feel. She has no sensation over the pulp region. No capillary refill elicited over the nail bed region. She has palpable radial pulses. Ulnar pulses are questionable. She has intact capillary refill of the fingers. I was not able to palpate digital arteries. She is able to make a full fist. She has full extension of the fingers. She has intact flexion of the DIP joint of the index finger. Bedside Doppler ultrasound was carried out. She has good pulses over the radial artery. The pulses over the ulnar aspect appears to be weak. She does have dopplerable pulses to the digital arteries including the index finger which extends up to the DIP joint region. Examination of left hand reveals intact distal capillary refill. She is able to make a full fist. She has full extension of the fingers. She has palpable radial artery. LABORATORY DATA Her lab work was reviewed. She has a white count of 11.1. IMAGING The patient had upper extremity CT which shows intact radial artery up to the distal aspect. The ulnar artery appears to be diminished right after the branching from the brachial artery. The vascular arterial tree of the hand is not visualized in the CTA. ASSESSMENT A 61-year-old female with dry gangrene of the right index finger pulp and distal tip. PLAN Various options were discussed with the patient including amputation through the DIP joint versus observation for further demarcation. At the present time the patient is still undecided about the amputation. I do not see any evidence of purulent drainage but there is a area of concern on the radial aspect for questionable infection. The patient was informed about the possibility of worsening infection in the presence of necrotic tissue. She understands this. The patient's wants some time to decide. Meanwhile we will keep the fingers warm with a mitten. Hand surgery will follow. She would benefit from angiography of the right upper extremity regarding her ulnar artery abnormality. The patient has been cleared by vascular surgery for now. Chase Blackmon MD SE/SANDRA /7:18 PM /7:32 PM [place]
[2017-03-12] VITALS (7 sets, daily range): BP systolic 111–150; BP diastolic 72–101; PULSE 70–89; RESP 16–20; TEMP 95.7–98.6; O2SAT 96–100
[2017-03-12] MEDS: SODIUM CHLOR 0.9% 1000 ML INJ 1,000 ML IV SCH ×3 (07:46→23:58)
[2017-03-12] MEDS: PANTOPRAZOLE SODIUM 40 MG VIAL IV PUSH SCH (09:00)
[2017-03-12] MEDS: metroNIDAZOLE 500 MG INJ 100 ML IV SCH ×2 (09:42→16:52)
[2017-03-12] MEDS: SODIUM CHLORIDE 0.9% FLUSH 10 ML FLUSH IV FLUSH SCH ×2 (09:43→21:00)
[2017-03-12] MEDS ORDERED: IOHEXOL 350 MG/ML 10 ML VIAL (for RAD DIAG) IVCONTRAST ONE (10:49)
--- NOTE | 2017-03-12 11:41 | HHI.PR ---
Subjective Remarks Follow-up for ischemic finger Patient stated that she's feels anxious because she is trying to decide if she wants surgery soon. I asked her what happened in regard heating pad. she stated that it hurts and she does not want to use a heating pad. When I asked if the the temperature too high she said no it is painful to use it. there are no heating mittens. Otherwise she has no complaints. She remains afebrile. Objective Vitals Vital Signs Date Time Temp Pulse Resp B/P (MAP) Pulse Ox O2 Delivery O2 Flow Rate FiO2 03/12/17 08:00 97.6 70 18 111/76 (88) 100 03/12/17 04:53 96.8 82 17 123/83 (96) 98 03/12/17 00:27 98.6 89 20 131/72 (91) 96 03/11/17 20:10 98.3 91 18 129/80 (96) 96 03/11/17 20:09 77 03/11/17 16:00 97.9 69 18 120/64 (82) 99 03/11/17 12:00 98.0 70 17 113/72 (86) 99 I/O 03/11/17 03/11/17 03/11/17 03/12/17 03/12/17 03/12/17 07:00 15:00 23:00 07:00 15:00 23:00 Intake Total 720 ml 580 ml Balance 720 ml 580 ml Intake Oral 720 ml 580 ml # Voids 3 5 5 # Bowel Movements 3 0 Result Diagram: 03/09/17 0704 03/08/17 0554 Objective Remarks GENERAL:NAD SKIN: Warm and dry. HEAD: Normocephalic. EYES: No scleral icterus. No injection or drainage. NECK: Supple, trachea midline. No JVD or lymphadenopathy. CARDIOVASCULAR: Regular rate and rhythm without murmurs, gallops, or rubs. RESPIRATORY: Breath sounds equal bilaterally. No accessory muscle use. GASTROINTESTINAL: Abdomen soft, non-tender, nondistended. MUSCULOSKELETAL:tip of right index finger gangrenous. Medications and IVs Current Medications Ceftriaxone Sodium 1000 mg/ Sodium Chloride 100 ml @ 200 mls/hr ONCE ONCE IV ; Start 03/06/17 at 01:45; Stop 03/06/17 at 01:47; Status DC Vancomycin HCl 900 mg/Sodium Chloride 259 ml @ 250 mls/hr ONCE ONCE IV ; Start 03/06/17 at 01:45; Stop 03/06/17 at 01:47; Status DC Ciprofloxacin/ Dextrose 200 ml @ 200 mls/hr ONCE ONCE IV Last administered on 03/06/17 01:55; Start 03/06/17 at 02:00; Stop 03/06/17 at 02:59; Status DC Metronidazole 100 ml @ 100 mls/hr ONCE ONCE IV Last administered on 03:17; Start 03/06/17 at 02:00; Stop 03/06/17 at 02:59; Status DC Sodium Chloride 1,000 ml @ 100 mls/hr Q10H IV Last administered on 03/10/17 01:57; Start 03/06/17 at 01:46 Sodium Chloride (NS Flush) 2 ml UNSCH PRN IV FLUSH FLUSH AFTER USING IV ACCESS ; Start 03/06/17 at 02:00 Sodium Chloride (NS Flush) 2 ml BID IV FLUSH Last administered on 03/12/17 09: 43; Start 03/06/17 at 09:00 Ondansetron HCl (Zofran Inj) 4 mg Q6H PRN IVP NAUSEA OR VOMITING; Start at 02:00 Naloxone HCl (Narcan Inj) 0.4 mg UNSCH PRN IV PUSH SEE LABEL COMMENTS; Start at 02:00 Ketorolac Tromethamine (Toradol Inj) 15 mg Q6HR IV PUSH ; Start 03/06/17 at 06: 00; Stop 03/06/17 at 09:26; Status DC Ciprofloxacin/ Dextrose 200 ml @ 200 mls/hr Q12H IV Last administered on 01:57; Start 03/06/17 at 13:00 Metronidazole 100 ml @ 100 mls/hr Q8H IV Last administered on 03/10/17 01:57 ; Start 03/06/17 at 10:00 Famotidine (Pepcid Inj) 20 mg Q12H IV PUSH ; Start 03/06/17 at 11:00; Stop 03/06 at 13:23; Status DC Diatrizoate Meglum/ Diatrizoate Sod ( Gastroview Liq) 240 ml STK-MED ONCE PO ; Start 03/06/17 at 13:05; Stop 03/06/17 at 13:06; Status DC Pantoprazole Sodium (Protonix Inj) 40 mg DAILY IV PUSH Last administered on 08:09; Start 03/06/17 at 13:30 Potassium Chloride 100 ml @ 50 mls/hr Q2H IV Last administered on 03/07/17 13 :35; Start 03/07/17 at 08:45; Stop 03/07/17 at 12:44; Status DC Magnesium Sulfate/ Dextrose 100 ml @ 100 mls/hr Q1H IV Last administered on 13:34; Start 03/07/17 at 08:45; Stop 03/07/17 at 10:44; Status DC Polyethylene Glycol/ Electrolytes (Colyte Liq) 4,000 ml ONCE ONCE PO Last administered on 03/07/17 18:08; Start 03/07/17 at 16:00; Stop 03/07/17 at 16:01 ; Status DC Potassium Chloride (KCl) 20 meq ONCE ONCE PO Last administered on 03/07/17 19 :25; Start 03/07/17 at 20:00; Stop 03/07/17 at 21:04; Status DC Potassium Chloride (KCl) 40 meq ONCE ONCE PO Last administered on 03/07/17 18 :17; Start 03/07/17 at 16:00; Stop 03/07/17 at 16:05; Status DC Iohexol (Omnipaque 350 Inj) 86 ml STK-MED ONCE IV PUSH Last administered on 10:26; Start 03/08/17 at 10:26; Stop 03/08/17 at 10:27; Status DC Potassium Chloride 100 ml @ 50 mls/hr ONCE ONCE IV ; Start 03/08/17 at 17:00; Stop 03/08/17 at 18:59; Status DC Magnesium Sulfate/ Dextrose 100 ml @ 100 mls/hr Q1H IV Last administered on 16:33; Start 03/08/17 at 14:30; Stop 03/08/17 at 16:29; Status DC Simethicone (Simethicone Liq (Drops)) 20 mg ONCE ONCE .XX Last administered on 03/08/17 17:15; Start 03/08/17 at 17:14; Stop 03/08/17 at 17:15; Status DC Lactated Ringer's 1,000 ml @ 0 mls/hr Q0M IV Last administered on 03/08/17 17 :05; Start 03/08/17 at 17:25 Miscellaneous Information ALL NURSING DEPARTME... UNSCH PRN .XX SEE LABEL COMMENTS; Start 03/08/17 at 19:30; Stop 03/09/17 at 19:29; Status DC Potassium Chloride (KCl) 40 meq ONCE ONCE PO Last administered on 03/09/17 10 :43; Start 03/09/17 at 09:00; Stop 03/09/17 at 09:01; Status DC Propofol (Diprivan 200 Mg/20 ml Inj) 400 mg STK-MED ONCE IV ; Start 03/08/17 at 12:00; Stop 03/10/17 at 08:33; Status DC Propofol (Diprivan 200 Mg/20 ml Inj) 400 mg STK-MED ONCE IV ; Start 03/08/17 at 09:48; Stop 03/11/17 at 09:48; Status DC Lidocaine HCl (Xylocaine-Mpf 1% Inj) 5 ml STK-MED ONCE OTHER ; Start 03/08/17 at 09:48; Stop 03/11/17 at 09:48; Status DC Lactated Ringer's 1,000 ml @ As Directed STK-MED ONCE IV ; Start 03/08/17 at 09 :48; Stop 03/11/17 at 09:48; Status DC Iohexol (Omnipaque 350 Inj) 55 ml STK-MED ONCE IVCONTRAST Last administered on 03/12/17 10:49; Start 03/12/17 at 10:49; Stop 03/12/17 at 10:50; Status DC A/P Assessment and Plan 61-year-old female who presented with a gangrenous finger Right gangrenous finger -CTA of the upper extremity read by Dr. Arana. He stated that her vascular system is normal and thinks this may be embolic from possible malignancy. Recommend further workup. Patient refused further workup by general surgeon of abnormality found on CT scan. -oncologist/project scientist consulted and order a malignancy workup. -Vascular surgeon saw patient appreciate recommendations. Patient stated that she is thinking about getting surgery soon. -Recommend using the heating pads but patient declined. Educated patient on risks and benefits on use and she declined. abnormal abdominal CT changes. -Status post EGD and Colonoscopy found Hiatal hernia, Duodenitis, Thickened sigmoid fold, internal Hemorrhoids, biopsies taken from Esophagus, Duodenum and Colon, Snare polypectomy performed. - clear for discharge from GI specialist but will need to follow-up biopsy with GI. -Refuse further workup by general surgeon. General surgeon sign off but willing to see patient as outpatient. Tobacco dependence -strongly recommended to stop smoking marijuana abuse -Education given. DVT prophylaxis with SCDs Kary Herrera MD Mar 12, 2017 11:41
--- NOTE | 2017-03-12 11:44 | RADRPT ---
EXAM DATE/TIME: 03/12/2017 10:37 [facility] COMPARISON: CTA UPPER EXTREMITY RIGHT W 3D RECON, March 08, 2017, 10:21. INDICATIONS : Evaluate for malignancy. IV CONTRAST: 55 cc Omnipaque 350 (iohexol) IV RADIATION DOSE: 5.12 CTDIvol (mGy) MEDICAL HISTORY : Cardiovascular disease. Hypertension. SURGICAL HISTORY : Hysterectomy. ENCOUNTER: Initial ACUITY: 1 day PAIN SCALE: 0/10 LOCATION: chest TECHNIQUE: Volumetric scanning of the chest was performed. Using automated exposure control and adjustment of t he mA and/or kV according to patient size, radiation dose was kept as low as reasonably achievable to obtain optimal diagnostic quality images. DICOM format image data is available electronically for review and comparison. Follow-up recommendations for detected pulmonary nodules are based at a minimum on nodule size and pa tient risk factors according to Fleischner Society Guidelines. FINDINGS: The examination demonstrates a large hiatal hernia. There is mild compressive atelectasis of the left lower lobe. There is a small left basilar effusion. The lungs are otherwise clear. The heart is normal in size. There is no pericardial effusion. Note is made of an ulcerated plaque at the origin of the innominate artery from the arch. There is thrombus evident extending from the and projecting into the lumen of the arch and the innominate artery. There is no significant hilar or mediastinal adenopathy. There is atherosclerotic plaquing in the cor onary arteries. The limited portions of upper abdomen visualized demonstrate multiple low attenuation lesions within the liver. The largest measures 4.7 x 4.4 cm. She this measures only 7 Hounsfield units. These areas are thought to represent simple cyst I do not see evidence of significant contrast enhancement within them. Follow up ultrasound of liver would be of benefit for confirmation. CONCLUSION: 1. There is an ulcerated plaque with a small amount of and in thrombus projecting into the upper arch and into the lumen of the innominate artery origin. 2. Large hiatal hernia. 3. Multiple low attenuation lesions within the liver felt to represent a cyst. Ultrasound for confirm ation is warranted. 4. There are multiple dilated loops of small bowel left upper quadrant. CT of the abdomen to rule out bowel destruction is warranted. Juan Carlos Leo MD on March 12, 2017 at 11:23 Board Certified Radiologist. This report was verified electronically.
[2017-03-12] MEDS ORDERED: LORazepam 1 MG TAB PO ONE (12:00)
[2017-03-12] MEDS: CIPROFLOXACIN 400 MG PREMIX 200 ML IV SCH (12:20)
--- NOTE | 2017-03-12 12:49 | PD.CAR.PN ---
CVT Progress Note Subjective/Hospital Course: Patient seen Full consult dictated J 03/08/17 Patient is excellent brachial radial and ulnar pulse in both arms No sign of vascular deficit the normal capillary refill CTA of the right arm is normal and patient has no pathologic occlusion at any level. No stigmata of Buerger's disease Patient needs to be worked up for shower of emboli because I believe underlying problem is probably an occult abdominal malignancy. 03/09/17 As above noted patient has clean vessels to the right arm and no sign of thromboembolism I discussed no repeatedly with the patient the prospects of her finger and she will need to follow up with a hand surgeon and have partial amputation of the finger as per hand surgery. There is nothing for me to add to care from vascular point and I have repeatedly discussed this with the patient We'll sign off at this time Thanks J 03/12/17 Patient doing well at this time CT of the chest done today delineates the aortic arch better than the partial CAT scan done for the right arm thromboembolism and visualizes the rest of the aortic arch. 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 Objective: Vital Signs Date Time Temp Pulse Resp B/P (MAP) Pulse Ox O2 Delivery O2 Flow Rate FiO2 03/12/17 08:00 97.6 70 18 111/76 (88) 100 03/12/17 04:53 96.8 82 17 123/83 (96) 98 03/12/17 00:27 98.6 89 20 131/72 (91) 96 03/11/17 20:10 98.3 91 18 129/80 (96) 96 03/11/17 20:09 77 03/11/17 16:00 97.9 69 18 120/64 (82) 99 Labs: Laboratory Tests Test 03/12/17 10:20 Tumor Marker Alpha Fetoprotein 5.2 NG/ML (0.5-8.0) Carcinoembryonic Antigen 1.1 NG/ML (0.2-5.0) Tumor Marker HCG 7 MIU/ML (0-5) Result Diagram: 03/09/17 0704 03/08/17 0554 Jean Carlos Arana MD Mar 12, 2017 12:49
[2017-03-12] MEDS: ONDANSETRON HCL 4 MG/2 ML VIAL IVP PRN (14:09)
[2017-03-12] MEDS: ENOXAPARIN SODIUM 80 MG/0.8 ML SYRINGE SQ SCH (14:10)
[2017-03-12] MEDS ORDERED: ACETAMINOPHEN/HYDROcodone 325 MG/5 MG TAB PO PRN (16:45)
[2017-03-12] MEDS: ACETAMINOPHEN/HYDROcodone 325 MG/5 MG TAB PO PRN (16:52)
--- NOTE | 2017-03-12 19:49 | HHI.PR ---
Subjective Remarks patient complains of abdominal pain started on lovenox today for thrombi in inominate artery and ulcerated plaque in aortic arch no change in symptoms of the index finger Objective Vital Signs Date Time Temp Pulse Resp B/P (MAP) Pulse Ox O2 Delivery O2 Flow Rate FiO2 03/12/17 16:00 95.7 86 16 150/76 (100) 98 03/12/17 12:00 96.8 74 17 138/101 (113) 99 03/12/17 08:00 97.6 70 18 111/76 (88) 100 03/12/17 04:53 96.8 82 17 123/83 (96) 98 03/12/17 00:27 98.6 89 20 131/72 (91) 96 03/11/17 20:10 98.3 91 18 129/80 (96) 96 03/11/17 20:09 77 I/O 03/11/17 03/11/17 03/11/17 03/12/17 03/12/17 03/12/17 07:00 15:00 23:00 07:00 15:00 23:00 Intake Total 720 ml 580 ml 425 ml Balance 720 ml 580 ml 425 ml Intake Oral 720 ml 580 ml 425 ml # Voids 3 5 5 4 # Bowel Movements 3 0 4 right index finger: ischemic pulp upto the DIP joint on the volar aspect nail plate/bed pale from lunula distally area of fluctuance noted at the junction of demarted part and normal tissue intact sensation over the middle phalanx region Result Diagram: 03/09/17 0704 03/08/17 0554 Procedures EGD and Colonoscopy 03/08/17 Assessment and Plan Assessment and Plan 61 year old female with ischemic right index finger tip with thrombi in inominate artery and ulcerated plaque aortic arch Plan: tentatively posted for amputation/disarticulation through DIP joint right index finger on 03/13 keep the patient from midnight Brent Burks MD Mar 12, 2017 19:49
[2017-03-13] VITALS (7 sets, daily range): BP systolic 118–163; BP diastolic 75–108; PULSE 80–94; RESP 17–18; TEMP 95.7–96.9; O2SAT 96–100
[2017-03-13] MEDS ORDERED: CHLORHEXIDINE GLUCONATE 2 % 1 PACK (2 CLOTHS) TOPICAL PRN (00:15)
[2017-03-13] MEDS ORDERED: POVIDONE IODINE 5% (ANTISEPSIS KIT) 4 APPLICATIONS EACH NARE PRN (00:15)
[2017-03-13] MEDS ORDERED: LACTATED RINGER'S 1000 ML IV PRN (00:15)
[2017-03-13] MEDS: LORazepam 1 MG TAB PO PRN ×2 (01:12→11:44)
[2017-03-13] MEDS: ENOXAPARIN SODIUM 80 MG/0.8 ML SYRINGE SQ SCH ×2 (03:01→13:16)
[2017-03-13] MEDS: metroNIDAZOLE 500 MG INJ 100 ML IV SCH ×3 (03:02→18:05)
--- NOTE | 2017-03-13 05:45 | MB ---
cc: MARY GRACE OLIVA M.D. DATE OF CONSULTATION 03/12/2017 REASON FOR CONSULTATION Consult requested by hospitalist for evaluation of occult malignancy in a patient who has ischemic right index finger. HISTORY OF PRESENT ILLNESS This is a 61-year-old female. She came into the emergency room complaining of pain and discoloration of the right index finger. In the emergency room she was advised to be admitted but she signed out against medical advice to feed her cat. After doing that she came back to the emergency room and now she is admitted to the hospital for right index finger gangrene. The patient has been complaining of abdominal pain mostly on the right side and a 25-pound weight loss in the last few months. GI was consulted. The patient had a CAT scan of the abdomen and pelvis which showed dilated small bowel consistent with small bowel obstruction. There is also concern for appendicitis noted as well. General Surgery was consulted. The patient has declined surgery or exploratory laparotomy. Vascular surgery was consulted for the ischemic index finger. Dr. Ruano suspected that the patient may have occult malignancy as a source of emboli. He is recommended Oncology consult should be obtained. I have been asked to see the patient. REVIEW OF SYSTEMS The patient denies any previous history of ischemic episodes. She denies any history of malignancy. She has been smoking cigarettes. She denies any nausea or vomiting. She denies any headaches or dizziness. She denies any bone pain. She states that the right index finger his painful. She has been evaluated by hand surgeon who has recommended amputation of the distal phalanx. The rest of the review of systems is negative. PAST MEDICAL HISTORY Hypertension. PAST SURGICAL HISTORY Hysterectomy. ALLERGIES None. MEDICATIONS Prior to coming into the hospital were none. FAMILY HISTORY Father from stomach cancer. Mother from COPD. SOCIAL HISTORY The patient has been smoking cigarettes, 1/2-pack a day since she was a teen. She used to alcohol heavy but quit about two months ago. PHYSICAL EXAMINATION GENERAL: The patient is a well-developed, well-nourished Afro-[place] female in no apparent distress. VITAL SIGNS: Temperature 97.6, heart rate is 70, blood pressure 111/76. HEENT: PERRLA, EOMI, anicteric. No oral lesions noted. NECK: Supple. LYMPHATICS: There is no cervical, supraclavicular or axillary lymphadenopathy noted. LUNGS: Clear. No wheezing, rhonchi or rales. HEART: Regular rate and rhythm. ABDOMEN: Soft, nontender. No hepatosplenomegaly. EXTREMITIES: No pedal edema. Ischemic dry gangrene noted in the right index finger. NEUROLOGY: Awake, alert, oriented x 3. SKIN: No significant lesions are noted. ASSESSMENT 1. 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 This is most likely embolic. The source of embolism is unknown at the present time. At this time there is no clinical evidence of malignancy noted. 2. Hypertension. 3. History of cigarette smoking. 4. Ischemic right index finger. PLAN I have reviewed her available records and I had an extensive discussion with the patient regarding the ischemic right index finger which now has dry gangrene. Hand surgeon has recommended amputation and the patient has agreed with that. She is waiting for the hand surgeon to come back and talked to her about the procedure. The CAT scan of the abdomen and pelvis does not show any evidence of malignancy. However, the appendix was found to be enlarged. The patient has declined exploratory laparotomy and resection of the appendix. She also has partial small bowel obstruction. The patient had CTA of the upper extremity which came back negative. I will order the CAT scan of the chest to evaluate for any malignancy. Since she has a history of cigarette smoking since she was teen, although the chest x-ray is negative but sometimes chest x-ray could miss lung malignancy. The patient initially resisted the CAT scan but later on she agreed to find out why she had embolism to the index finger and also to find out for measures to prevent this happening again. I will also order the tumor markers. Further recommendations based on her hospital stay. Thank you for asking my opinion. MD MAX Whitney/NEYMAR /12:08 AM /5:30 AM
[2017-03-13 08:01] LABS: HEMATOCRIT 33.5 % (35.0-46.0); MEAN CELL VOLUME 93.5 FL (80.0-100.0); MEAN CORPUSCULAR HGB CONC 33.1 % (32.0-36.0); PLATELET COUNT 327 TH/MM3 (150-450); RED BLOOD COUNT 3.58 MIL/MM3 (4.00-5.30); RED CELL DISTRIBUTION WIDTH 15.5 % (11.6-17.2); REVIEW FLAG FINAL; WHITE BLOOD COUNT 13.1 TH/MM3 (4.0-11.0)
[2017-03-13 08:28] LABS: BICARBONATE 25.7 MEQ/L (21.0-32.0); POTASSIUM 3.3 MEQ/L (3.5-5.1)
[2017-03-13] MEDS: SODIUM CHLORIDE 0.9% FLUSH 10 ML FLUSH IV FLUSH SCH ×2 (09:00→21:00)
[2017-03-13] MEDS: PANTOPRAZOLE SODIUM 40 MG VIAL IV PUSH SCH (09:10)
--- NOTE | 2017-03-13 11:40 | HHI.PR ---
Subjective Remarks Follow-up for ischemic finger Patient complaining of abdominal pain. She stated that she had bloody emesis yesterday and that a physician saw it but there none noted in any documentation. I also spoke to the patient's nurse and she stated that she is not aware of this at all. Today she had another episodes of emesis but bilious. Seen at her bedside commode. Patient's nurse at the bedside during the interview. She stated she is willing to see general surgeon if needed. Patient has been refusing her antibiotics and treatment regimen. She schedule for surgery today. Objective Vitals Vital Signs Date Time Temp Pulse Resp B/P (MAP) Pulse Ox O2 Delivery O2 Flow Rate FiO2 03/13/17 08:00 95.7 84 17 158/103 (121) 99 03/13/17 04:00 96.0 81 18 139/90 (106) 97 03/13/17 00:44 96.3 80 17 163/104 (123) 96 03/12/17 20:39 80 03/12/17 20:00 96.8 85 17 129/94 (106) 97 03/12/17 16:00 95.7 86 16 150/76 (100) 98 03/12/17 12:00 96.8 74 17 138/101 (113) 99 I/O 03/12/17 03/12/17 03/12/17 03/13/17 03/13/17 03/13/17 07:00 15:00 23:00 07:00 15:00 23:00 Intake Total 580 ml 425 ml 1300 ml Output Total 500 ml Balance 580 ml 425 ml 800 ml Intake Oral 580 ml 425 ml IV Total 1300 ml Output Urine Total 500 ml # Voids 5 4 # Bowel Movements 0 4 Result Diagram: 03/13/17 0655 03/13/17 0655 Imaging Last Impressions Chest CT 03/12/17 0000 Signed Impressions: Service Date/Time: Sunday, March 12, 2017 10:37 - CONCLUSION: 1. There is an ulcerated plaque with a small amount of and in thrombus projecting into the upper arch and into the lumen of the innominate artery origin. 2. Large hiatal hernia. 3. Multiple low attenuation lesions within the liver felt to represent a cyst. Ultrasound for confirmation is warranted. 4. There are multiple dilated loops of small bowel left upper quadrant. CT of the abdomen to rule out bowel destruction is warranted. Juan Carlos Leo MD Upper Extremity CTA 03/08/17 0000 Signed Impressions: Service Date/Time: Wednesday, March 08, 2017 10:21 - CONCLUSION: 1. The ulnar artery in the right forearm is diminutive in caliber. Otherwise, the remaining right upper extremity arterial vessels have a normal appearance. Please note that the hand arterial vessels are not visualized on this exam. 2. Complex left thyroid nodule measuring 2.7 cm. When patient condition permits, suggest further characterization with thyroid ultrasound. 3. Cerebral atrophy with bilateral subdural hygromas. Navi Leon MD Small Bowel X-Ray 03/06/17 0000 Signed Impressions: Service Date/Time: February 11:25 - CONCLUSION: 1. Small bowel dilatation not associated with any significant obstruction. The oral contrast does reach the colon within 2 hours which is within normal range. However, the terminal ileum does have a more normal caliber compared with the more proximal small bowel which can be seen with a very low-grade partial obstruction. Ahmet Hdz MD Objective Remarks GENERAL:NAD NECK: Supple, trachea midline. No JVD or lymphadenopathy. CARDIOVASCULAR: Regular rate and rhythm without murmurs, gallops, or rubs. RESPIRATORY: Breath sounds equal bilaterally. No accessory muscle use. GASTROINTESTINAL: Abdomen soft and nondistended. + TTP in the epigastric area. MUSCULOSKELETAL:tip of right index finger gangrenous. Medications and IVs Current Medications Ceftriaxone Sodium 1000 mg/ Sodium Chloride 100 ml @ 200 mls/hr ONCE ONCE IV ; Start 03/06/17 at 01:45; Stop 03/06/17 at 01:47; Status DC Vancomycin HCl 900 mg/Sodium Chloride 259 ml @ 250 mls/hr ONCE ONCE IV ; Start 03/06/17 at 01:45; Stop 03/06/17 at 01:47; Status DC Ciprofloxacin/ Dextrose 200 ml @ 200 mls/hr ONCE ONCE IV Last administered on 03/06/17t 01:55; Start 03/06/17 at 02:00; Stop 03/06/17 at 02:59; Status DC Metronidazole 100 ml @ 100 mls/hr ONCE ONCE IV Last administered on 03:17; Start 03/06/17 at 02:00; Stop 03/06/17 at 02:59; Status DC Sodium Chloride 1,000 ml @ 100 mls/hr Q10H IV Last administered on 03/12/17 23:58; Start 03/06/17 at 01:46 Sodium Chloride (NS Flush) 2 ml UNSCH PRN IV FLUSH FLUSH AFTER USING IV ACCESS ; Start 03/06/17 at 02:00 Sodium Chloride (NS Flush) 2 ml BID IV FLUSH Last administered on 03/12/17 21: 00; Start 03/06/17 at 09:00 Ondansetron HCl (Zofran Inj) 4 mg Q6H PRN IVP NAUSEA OR VOMITING Last administered on 03/13/17 11:44; Start 03/06/17 at 02:00 Naloxone HCl (Narcan Inj) 0.4 mg UNSCH PRN IV PUSH SEE LABEL COMMENTS; Start at 02:00 Ketorolac Tromethamine (Toradol Inj) 15 mg Q6HR IV PUSH ; Start 03/06/17 at 06: 00; Stop 03/06/17 at 09:26; Status DC Ciprofloxacin/ Dextrose 200 ml @ 200 mls/hr Q12H IV Last administered on 11:44; Start 03/06/17 at 13:00 Metronidazole 100 ml @ 100 mls/hr Q8H IV Last administered on 03/13/17 09:11 ; Start 03/06/17 at 10:00 Famotidine (Pepcid Inj) 20 mg Q12H IV PUSH ; Start 03/06/17 at 11:00; Stop 03/06 at 13:23; Status DC Diatrizoate Meglum/ Diatrizoate Sod ( Gastroview Liq) 240 ml STK-MED ONCE PO ; Start 03/06/17 at 13:05; Stop 03/06/17 at 13:06; Status DC Pantoprazole Sodium (Protonix Inj) 40 mg DAILY IV PUSH Last administered on 09:10; Start 03/06/17 at 13:30 Potassium Chloride 100 ml @ 50 mls/hr Q2H IV Last administered on 03/07/17 13 :35; Start 03/07/17 at 08:45; Stop 03/07/17 at 12:44; Status DC Magnesium Sulfate/ Dextrose 100 ml @ 100 mls/hr Q1H IV Last administered on 13:34; Start 03/07/17 at 08:45; Stop 03/07/17 at 10:44; Status DC Polyethylene Glycol/ Electrolytes (Colyte Liq) 4,000 ml ONCE ONCE PO Last administered on 03/07/17 18:08; Start 03/07/17 at 16:00; Stop 03/07/17 at 16:01 ; Status DC Potassium Chloride (KCl) 20 meq ONCE ONCE PO Last administered on 03/07/17 19 :25; Start 03/07/17 at 20:00; Stop 03/07/17 at 21:04; Status DC Potassium Chloride (KCl) 40 meq ONCE ONCE PO Last administered on 03/07/17 18 :17; Start 03/07/17 at 16:00; Stop 03/07/17 at 16:05; Status DC Iohexol (Omnipaque 350 Inj) 86 ml STK-MED ONCE IV PUSH Last administered on 10:26; Start 03/08/17 at 10:26; Stop 03/08/17 at 10:27; Status DC Potassium Chloride 100 ml @ 50 mls/hr ONCE ONCE IV ; Start 03/08/17 at 17:00; Stop 03/08/17 at 18:59; Status DC Magnesium Sulfate/ Dextrose 100 ml @ 100 mls/hr Q1H IV Last administered on 16:33; Start 03/08/17 at 14:30; Stop 03/08/17 at 16:29; Status DC Simethicone (Simethicone Liq (Drops)) 20 mg ONCE ONCE .XX Last administered on 03/08/17 17:15; Start 03/08/17 at 17:14; Stop 03/08/17 at 17:15; Status DC Lactated Ringer's 1,000 ml @ 0 mls/hr Q0M IV Last administered on 03/08/17 17 :05; Start 03/08/17 at 17:25 Miscellaneous Information ALL NURSING DEPARTME... UNSCH PRN .XX SEE LABEL COMMENTS; Start 03/08/17 at 19:30; Stop 03/09/17 at 19:29; Status DC Potassium Chloride (KCl) 40 meq ONCE ONCE PO Last administered on 03/09/17 10 :43; Start 03/09/17 at 09:00; Stop 03/09/17 at 09:01; Status DC Propofol (Diprivan 200 Mg/20 ml Inj) 400 mg STK-MED ONCE IV ; Start 03/08/17 at 12:00; Stop 03/10/17 at 08:33; Status DC Propofol (Diprivan 200 Mg/20 ml Inj) 400 mg STK-MED ONCE IV ; Start 03/08/17 at 09:48; Stop 03/11/17 at 09:48; Status DC Lidocaine HCl (Xylocaine-Mpf 1% Inj) 5 ml STK-MED ONCE OTHER ; Start 03/08/17 at 09:48; Stop 03/11/17 at 09:48; Status DC Lactated Ringer's 1,000 ml @ As Directed STK-MED ONCE IV ; Start 03/08/17 at 09 :48; Stop 03/11/17 at 09:48; Status DC Iohexol (Omnipaque 350 Inj) 55 ml STK-MED ONCE IVCONTRAST Last administered on 03/12/17 10:49; Start 03/12/17 at 10:49; Stop 03/12/17 at 10:50; Status DC Lorazepam (Ativan) 1 mg Q8H PRN PO anxiety Last administered on 03/13/17 11:44 ; Start 03/12/17 at 20:00 Lorazepam (Ativan) 1 mg NOW ONCE PO Last administered on 03/12/17 12:17; Start 03/12/17 at 12:00; Stop 03/12/17 at 12:01; Status DC Enoxaparin Sodium (Lovenox Inj) 70 mg Q12H SQ Last administered on 03/13/17 03 :01; Start 03/12/17 at 14:00 Acetaminophen/ Hydrocodone Bitart ([place] 5-325 Mg) 1 tab Q4H PRN PO pain 1-7; Start 03/12/17 at 16:45 Acetaminophen/ Hydrocodone Bitart ([place] 5-325 Mg) 2 tab Q4H PRN PO pain 8-10 Last administered on 03/13/17 11:45; Start 03/12/17 at 16:45 Morphine Sulfate (Morphine Inj) 2 mg Q3H PRN IV PUSH pain 4-10; Start 03/12/17 at 16:45 Lactated Ringer's 1,000 ml @ 30 mls/hr Q24H PRN IV SEE LABEL COMMENTS; Start at 00:15; Stop 03/16/17 at 00:14 Povidone Iodine (Betadine 5% Antisepsis Kit) 1 applic [employer] PRN EACH NARE SEE LABEL COMMENTS; Start 03/13/17 at 00:15; Stop 03/16/17 at 00:14 Chlorhexidine Gluconate (Chlorhexidine 2% Cloth) 3 pack [employer] PRN TOPICAL SEE LABEL COMMENTS; Start 03/13/17 at 00:15; Stop 03/16/17 at 00:14 A/P Assessment and Plan 61-year-old female who presented with a gangrenous finger Right gangrenous finger -CTA of the upper extremity read by Dr. Arana. 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 -He was started on Lovenox by vascular. Treatment per steeplechase jockey. -Patient is scheduled for surgery today. 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 Management per steeplechase jockey/oncologist. Bilious emesis/abdominal pain -Patient was worked up during his hospital course in which she was followed by GI. -Status post EGD and Colonoscopy found Hiatal hernia, Duodenitis, Thickened sigmoid fold, internal Hemorrhoids, biopsies taken from Esophagus, Duodenum and Colon, Snare polypectomy performed. -Recurrence of symptoms now. Dealt with GI and stat KUB place. Based on results will determine if general surgeon needs to be re-consulted. Tobacco dependence -strongly recommended to stop smoking marijuana abuse -Education given. DVT prophylaxis -On therapeutic Lovenox. Discharge Planning Patient scheduled for OR today. Kary Herrera MD Mar 13, 2017 11:40
[2017-03-13] MEDS: CIPROFLOXACIN 400 MG PREMIX 200 ML IV SCH ×2 (11:44)
[2017-03-13] MEDS: ONDANSETRON HCL 4 MG/2 ML VIAL IVP PRN (11:44)
[2017-03-13] MEDS: ACETAMINOPHEN/HYDROcodone 325 MG/5 MG TAB PO PRN ×2 (11:45)
[2017-03-13] MEDS ORDERED: PHENYLEPH/NS 1000 MCG/10 ML SYR IV ONE (12:00)
[2017-03-13] MEDS ORDERED: LIDOCAINE HCL 1% PF 5 ML AMPULE OTHER ONE (12:00)
[2017-03-13] MEDS ORDERED: NEOMYCIN/POLYMYXIN 1 ML G.U. IRRIGANT IRRIGATION ONE (12:00)
[2017-03-13] MEDS ORDERED: SODIUM CHLORIDE 0.9% 20 ML VIAL IV ONE (12:00)
[2017-03-13] MEDS ORDERED: DEXAMETHASONE SOD PHOS 4 MG/ML VIAL IV ONE (12:00)
[2017-03-13] MEDS ORDERED: ONDANSETRON HCL 4 MG/2 ML VIAL IV PUSH ONE (12:00)
[2017-03-13] MEDS ORDERED: PROPOFOL 200 MG/20 ML AMP IV ONE (12:00)
[2017-03-13] MEDS ORDERED: MIDAZOLAM HCL 2 MG/2 ML VIAL IV ONE (12:00)
--- NOTE | 2017-03-13 12:26 | PD.ONC.PN ---
Subjective Subjective Remarks Afebrile overnight Patient complaining of abdominal pain Having amputation of her finger today Objective Data Date Time Temp Pulse Resp B/P (MAP) Pulse Ox O2 Delivery O2 Flow Rate FiO2 03/13/17 08:00 95.7 84 17 158/103 (121) 99 03/13/17 04:00 96.0 81 18 139/90 (106) 97 03/13/17 00:44 96.3 80 17 163/104 (123) 96 03/12/17 20:39 80 03/12/17 20:00 96.8 85 17 129/94 (106) 97 03/12/17 16:00 95.7 86 16 150/76 (100) 98 03/13/17 03/13/17 03/13/17 07:00 15:00 23:00 Intake Total 1300 ml Output Total 500 ml Balance 800 ml Result Diagram: 03/13/17 0655 03/13/17 0655 Laboratory Results Laboratory Tests Test 03/13/17 06:55 White Blood Count 13.1 TH/MM3 Red Blood Count 3.58 MIL/MM3 Hemoglobin 11.1 GM/DL Hematocrit 33.5 % Mean Corpuscular Volume 93.5 FL Mean Corpuscular Hemoglobin 31.0 PG Mean Corpuscular Hemoglobin Concent 33.1 % Red Cell Distribution Width 15.5 % Platelet Count 327 TH/MM3 Mean Platelet Volume 9.8 FL Blood Urea Nitrogen 4 MG/DL Creatinine 0.85 MG/DL Random Glucose 103 MG/DL Calcium Level 8.9 MG/DL Sodium Level 144 MEQ/L Potassium Level 3.3 MEQ/L Chloride Level 110 MEQ/L Carbon Dioxide Level 25.7 MEQ/L Anion Gap 8 MEQ/L Estimat Glomerular Filtration Rate 82 ML/MIN Administered Medications Medications (Trade) Dose Ordered Sig/Jessica Route PRN Reason Start Time Stop Time Status Last Admin Dose Admin Sodium Chloride 1,000 ml @ 100 mls/hr Q10H IV 03/06/17 01:46 03/12/17 23:58 Sodium Chloride (NS Flush) 2 ml BID IV FLUSH 03/06/17 09:00 03/12/17 21:00 Ondansetron HCl (Zofran Inj) 4 mg Q6H PRN IVP NAUSEA OR VOMITING 03/06/17 02:00 03/13/17 11:44 Ciprofloxacin/ Dextrose 200 ml @ 200 mls/hr Q12H IV 03/06/17 13:00 03/13/17 11:44 Metronidazole 100 ml @ 100 mls/hr Q8H IV 03/06/17 10:00 03/13/17 09:11 Pantoprazole Sodium (Protonix Inj) 40 mg DAILY IV PUSH 03/06/17 13:30 03/13/17 09:10 Lactated Ringer's 1,000 ml @ 0 mls/hr Q0M IV 03/08/17 17:25 03/08/17 17:05 Lorazepam (Ativan) 1 mg Q8H PRN PO anxiety 03/12/17 20:00 03/13/17 11:44 Enoxaparin Sodium (Lovenox Inj) 70 mg Q12H SQ 03/12/17 14:00 03/13/17 03:01 Acetaminophen/ Hydrocodone Bitart ([place] 5-325 Mg) 2 tab Q4H PRN PO pain 8-10 03/12/17 16:45 03/13/17 11:45 Objective Remarks GENERAL: Older female sitting up on side of bed in no acute distress SKIN: Warm and dry. Right first finger necrotic HEAD: Normocephalic. EYES: No injection or drainage. NECK: Supple, trachea midline. CARDIOVASCULAR: Regular rate and rhythm without murmurs. RESPIRATORY: Clear posteriorly. Breathing unlabored. GASTROINTESTINAL: Abdomen mildly tender to palpation. EXTREMITIES: No cyanosis. MUSCULOSKELETAL: Adequate muscle tone. NEUROLOGICAL: No obvious focal deficit. Awake, alert, and oriented x3. Assessment/Plan Problem List: (1) Necrosis of finger ICD Codes: I96 - Gangrene, not elsewhere classified Plan: 03/13/17: Patient is having amputation of her right first finger today. Tumor markers do not shed light on possible malignancy. Ultrasound of the liver ordered to get a better look at cysts seen on CT chest. -- Likely due to embolic event -- Oncology consulted for questionable malignancy as the source of emboli -- The hand surgeon is planning to do an amputation on 03/13/17 Hx/[place]: The patient presented to the emergency room for complaints of a discolored finger over the last 3 weeks. There is also concern for appendicitis. There was concern that the patient may have occult malignancy as a source of emboli and therefore oncology was consulted. (2) Small bowel obstruction ICD Codes: K56.69 - Other intestinal obstruction Status: Acute Plan: -- GI following -- The patient has partial small bowel obstruction -- CT scan abdomen and pelvis does not show any evidence of malignancy Assessment 61-year-old female with necrotic finger thought to be caused by emboli with questionable malignancy Attending Statement no new c/o For amputation right index finger today. CT chest = no malignancy. Has ulcerated plaque in innominate artery. THe plaque has embolized to right index finger causing dry gangrene. All tumor markers are normal. There is no evidence of malignancy. I do not think ulcerated plaque is due to any malignancy. She has severe atherosclerosis which is due to aging and smoking. Stop smoking. agree with anticoagulation. Mary Kate Husain Mar 13, 2017 12:26 Yvonne Suarez MD Mar 13, 2017 13:19
--- NOTE | 2017-03-13 13:20 | RADRPT ---
EXAM DATE/TIME: 03/13/2017 12:34 [facility] COMPARISON: SMALL BOWEL SERIES W/GASTROGRAFIN, March 06, 2017, 11:25. CT ABDOMEN & PELVIS W CONTRAST, Septem 2016, 21:28. INDICATIONS : Abdomen pain, vomiting. MEDICAL HISTORY : None. SURGICAL HISTORY : None. ENCOUNTER: Initial ACUITY: 2 days PAIN SCORE: 6/10 LOCATION: Bilateral abdomen FINDINGS: There is moderate distention of small bowel seen throughout the abdomen. Loops approach [address] Little or no colonic gas is appreciated. CONCLUSION: Diffuse small bowel dilatation. Navi Lau MD on March 13, 2017 at 13:17 Board Certified Radiologist. This report was verified electronically.
--- NOTE | 2017-03-13 14:00 | HHI.GIFU ---
Subjective Remarks Resting in bed. Going to OR today. Reports she has been having nausea since yesterday. She vomited once last night, and once today. She states that it was dark. She also reports a dark bowel movement. (Allegra Burgess) Objective Vitals I&O Vital Signs Date Time Temp Pulse Resp B/P (MAP) Pulse Ox O2 Delivery O2 Flow Rate FiO2 03/13/17 12:00 95.7 89 17 162/108 (126) 97 03/13/17 08:00 95.7 84 17 158/103 (121) 99 03/13/17 04:00 96.0 81 18 139/90 (106) 97 03/13/17 00:44 96.3 80 17 163/104 (123) 96 03/12/17 20:39 80 03/12/17 20:00 96.8 85 17 129/94 (106) 97 03/12/17 16:00 95.7 86 16 150/76 (100) 98 I/O 03/12/17 03/12/17 03/12/17 03/13/17 03/13/17 03/13/17 07:00 15:00 23:00 07:00 15:00 23:00 Intake Total 580 ml 425 ml 1300 ml Output Total 500 ml Balance 580 ml 425 ml 800 ml Intake Oral 580 ml 425 ml IV Total 1300 ml Output Urine Total 500 ml # Voids 5 4 # Bowel Movements 0 4 Laboratory Laboratory Tests Test 03/13/17 06:55 White Blood Count 13.1 Red Blood Count 3.58 Hemoglobin 11.1 Hematocrit 33.5 Mean Corpuscular Volume 93.5 Mean Corpuscular Hemoglobin 31.0 Mean Corpuscular Hemoglobin Concent 33.1 Red Cell Distribution Width 15.5 Platelet Count 327 Mean Platelet Volume 9.8 Blood Urea Nitrogen 4 Creatinine 0.85 Random Glucose 103 Calcium Level 8.9 Sodium Level 144 Potassium Level 3.3 Chloride Level 110 Carbon Dioxide Level 25.7 Anion Gap 8 Estimat Glomerular Filtration Rate 82 Imaging Last Impressions Abdomen X-Ray 03/13/17 0000 Signed Impressions: Service Date/Time: February 12:34 - CONCLUSION: Diffuse small bowel dilatation. Navi Lau MD Chest CT 03/12/17 0000 Signed Impressions: Service Date/Time: Sunday, March 12, 2017 10:37 - CONCLUSION: 1. There is an ulcerated plaque with a small amount of and in thrombus projecting into the upper arch and into the lumen of the innominate artery origin. 2. Large hiatal hernia. 3. Multiple low attenuation lesions within the liver felt to represent a cyst. Ultrasound for confirmation is warranted. 4. There are multiple dilated loops of small bowel left upper quadrant. CT of the abdomen to rule out bowel destruction is warranted. Juan Carlos Leo MD Upper Extremity CTA 03/08/17 0000 Signed Impressions: Service Date/Time: Wednesday, March 08, 2017 10:21 - CONCLUSION: 1. The ulnar artery in the right forearm is diminutive in caliber. Otherwise, the remaining right upper extremity arterial vessels have a normal appearance. Please note that the hand arterial vessels are not visualized on this exam. 2. Complex left thyroid nodule measuring 2.7 cm. When patient condition permits, suggest further characterization with thyroid ultrasound. 3. Cerebral atrophy with bilateral subdural hygromas. Navi Leon MD Small Bowel X-Ray 03/06/17 0000 Signed Impressions: Service Date/Time: February 11:25 - CONCLUSION: 1. Small bowel dilatation not associated with any significant obstruction. The oral contrast does reach the colon within 2 hours which is within normal range. However, the terminal ileum does have a more normal caliber compared with the more proximal small bowel which can be seen with a very low-grade partial obstruction. Ahmet Hdz MD Physical Exam HEENT: Normocephalic; atraumatic; no jaundice. CHEST: CTA CARDIAC: RRR ABDOMEN: Soft, nondistended, NONTENDER; no hepatosplenomegaly; bowel sounds are present. EXTREMITIES: Dry gangrene to right second digit SKIN: Normal; no rash; no jaundice. MANAGER TRANSIT: No focal deficits; alert and oriented x 3 (Allegra BurgessP) Assessment and Plan Plan ASSESSMENT: - Ileus/Nausea/vomiting. KUB (03/13/17)----> diffuse small bowel dilatation. Will add Reglan. NPO for surgery. - Abdominal pain. 1.5 month hx of mid abdominal cramping, liquid stools, weight loss associated with oral intake. CT Scan abdomen and pelvis with IV contrast )-----> Multiple fluid filled dilated loops of small bowel suggestive of small bowel obstruction until proven otherwise. Transition point is not confirmed with certainty. Calcification within the right lower quadrant which either represents an appendicolith or stone within a loop of ileum. If this represents an appendicolith the appendix is markedly dilated which raises the possibility of appendicitis. Oral contrast enhanced examination is recommended with delayed images to determine if the appendix fills with contrast as well as to rule out the site of small bowel obstruction. Large hiatal hernia containing approximately half of the stomach. Multiple hepatic cysts and left renal cyst. Uncomplicated sigmoid diverticulosis. Degenerative changes and scoliosis of the thoracolumbar spine. Degenerative changes involving the hip joints bilaterally. Hx hysterectomy. Fhx gastric cancer in father. No hx of colonoscopy. S/P SBFT (03/06/17)---> Small bowel dilatation not associated with any significant obstruction. The oral contrast does reach the colon within 2 hours which is within normal range. However, the terminal ileum does have a more normal caliber compared with the more proximal small bowel which an be seen with a very low grade partial obstruction. GS following, recommended colonoscopy. EGD/Colonoscopy 03/08/17--> Irregular Z line, Hiatal hernia, Duodenitis, Colon polyps, Thickened sigmoid fold, Internal hemorrhoids. Pathology duodenal mucosa without significant histopathologic abnormality, squamocolumnar mucosa with intestinal metaplasia, consistent with starks's esophagus, and mild chronic inflammation. Negative for intestinal metaplasia, dysplasia, or malignancy. colonic mucosa without significant histopathologic abnormality. Hyperplastic polyp with severe thermal effect. Colonic mucosa without significant histopathologic abnormality. Sigmoid colon melanosis coli. She is not currently having abdominal pain. - Abnormal weight loss. EGD/Colonoscopy as above. - Diarrhea. Liquid stools 1.5 months, starting to have more consistency. EGD/ Colonoscopy as above. - GERD. PPI - HTN per attending. - Dry gangrene tip right second digit. S/P CTA. Dr. Arana following, taking patient to OR today. 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 Hematology following. Lovenox. PLAN: - NPO for OR - Add Reglan - PPI - IVF - Cipro/Flagyl - CVT/Hematology following - Supportive care - Further recommendations to follow based on results of above - Patient seen and examined by Dr. Weller and myself and this note is written on his behalf (Allegra Burgess) Plan Patient was seen and examined, agree with above note, on her way to have surgery now, stool softener as needed Елена continue antibiotic (Елена Weller MD) Allegra Burgess Mar 13, 2017 14:00 Елена Weller MD Mar 13, 2017 16:06
--- NOTE | 2017-03-13 14:27 | RADRPT ---
EXAM DATE/TIME: 03/13/2017 13:36 [facility] COMPARISON: No previous studies available for comparison. INDICATIONS : Liver lesions. MEDICAL HISTORY : Hypertension. Hernia, hiatal. Abdominal pain. SURGICAL HISTORY : Hysterectomy. ENCOUNTER: Initial ACUITY: 2 days PAIN SCORE: 8/10 LOCATION: Bilateral upper quadrant MEASUREMENTS: LIVER: 15.5 cm length COMMON DUCT: 3 mm RIGHT KIDNEY: 11.1 x 5.3 x 5.0 cm SPLEEN: 6.7 cm length FINDINGS: LIVER: Multiple scattered cysts in the liver. Largest 3 cysts are all in the right lobe measuring 4.3 x 4.3 x 3.8 cm, 2.9 x 3.4 x 2.8 cm, and 4.1 x 4.5 x 4.6 cm. Portal venous flow is hepatopedal. COMMON DUCT: No intraluminal mass or stone visualized. GALLBLADDER: Numerous shadowing calculi filling the gallbladder. No wall thickening or pericholecystic fluid. PANCREAS: The visualized portions are within normal limits. RIGHT KIDNEY: 1.6 x 1.2 x 1.0 cm simple cyst in the upper pole. No hydronephrosis. Trace free fluid seen in the rig ht upper quadrant. SPLEEN: No focal lesion. CONCLUSION: 1. Stone filled gallbladder. 2. Multiple hepatic cysts. 3. Single right renal cyst. 4. Trace free fluid in Morison's pouch. Johny Us MD on March 13, 2017 at 14:23 Board Certified Radiologist. This report was verified electronically.
[2017-03-13] MEDS ORDERED: LIDOCAINE HCL 2% 50 ML VIAL ONE (15:25)
[2017-03-13] MEDS ORDERED: BUPIVACAINE HCL PF 0.5% 30 ML VIAL ONE (15:25)
[2017-03-13] MEDS ORDERED: MUPIROCIN 2% OINT 22 GM TUBE ONE (15:26)
[2017-03-13] MEDS ORDERED: ACETAMINOPHEN 1000 MG/100 ML 100 ML IV ONE (15:42)
[2017-03-13] MEDS: METOCLOPRAMIDE HCL 10 MG/2 ML VIAL IV PUSH SCH (16:00)
[2017-03-13] MEDS ORDERED: HYDROmorphone HCL PF 2 MG/ML VIAL ONE (17:01)
[2017-03-13] MEDS ORDERED: DO NOT ADM ANY ANTICOAGULANT DRUGS PRN (17:38)
--- NOTE | 2017-03-13 17:39 | PD.OP ---
Operative Report Preoperative Diagnosis: (1) necrosis right index finger tip Postoperative Diagnosis: (1) necrosis right index finger tip Procedure: disarticulation through distal interphalangeal joint right index finger Anesthesia: general Surgeon: Brent Burks Tile Shader(s): holli Resident Surgeon: holli Operation and Findings: necrosis of the right index from just distal to the DIP joint with purulence Brent Burks MD Mar 13, 2017 17:39
[2017-03-13] MEDS: SODIUM CHLOR 0.9% 1000 ML INJ 1,000 ML IV SCH (18:07)
[2017-03-14] VITALS: BP 114/72; PULSE 90; RESP 17; TEMP 96; O2SAT 100
[2017-03-14] MEDS: CIPROFLOXACIN 400 MG PREMIX 200 ML IV SCH ×3 (00:39→23:37)
[2017-03-14] MEDS: METOCLOPRAMIDE HCL 10 MG/2 ML VIAL IV PUSH SCH ×4 (00:39→23:37)
[2017-03-14] MEDS: metroNIDAZOLE 500 MG INJ 100 ML IV SCH ×4 (00:40→23:37)
[2017-03-14] MEDS: SODIUM CHLOR 0.9% 1000 ML INJ 1,000 ML IV SCH ×3 (00:41→16:05)
[2017-03-14] MEDS: ENOXAPARIN SODIUM 80 MG/0.8 ML SYRINGE SQ SCH ×2 (01:45→14:00)
[2017-03-14 04:00] VITALS: BP 168/100; PULSE 90; RESP 17; TEMP 96.9; O2SAT 100
[2017-03-14 06:09] LABS: HEMATOCRIT 34.5 % (35.0-46.0); MEAN CELL VOLUME 94.2 FL (80.0-100.0); MEAN CORPUSCULAR HEMOGLOBIN 31.4 PG (27.0-34.0); MEAN CORPUSCULAR HGB CONC 33.4 % (32.0-36.0); PLATELET COUNT 380 TH/MM3 (150-450); RED BLOOD COUNT 3.67 MIL/MM3 (4.00-5.30); RED CELL DISTRIBUTION WIDTH 15.2 % (11.6-17.2); REVIEW FLAG FINAL; WHITE BLOOD COUNT 13.9 TH/MM3 (4.0-11.0)
[2017-03-14] MEDS: MORPHINE SULFATE 4 MG/ML INJ IV PUSH PRN ×4 (06:26→20:59)
[2017-03-14 06:49] LABS: BICARBONATE 23.1 MEQ/L (21.0-32.0); POTASSIUM 3.8 MEQ/L (3.5-5.1)
[2017-03-14] MEDS: ACETAMINOPHEN/HYDROcodone 325 MG/5 MG TAB PO PRN ×3 (07:59→23:39)
[2017-03-14 08:00] VITALS: BP 145/92; PULSE 87; RESP 18; TEMP 97; O2SAT 97
[2017-03-14] MEDS: SODIUM CHLORIDE 0.9% FLUSH 10 ML FLUSH IV FLUSH SCH ×2 (08:00→21:05)
[2017-03-14] MEDS: PANTOPRAZOLE SODIUM 40 MG VIAL IV PUSH SCH (08:00)
--- NOTE | 2017-03-14 10:29 | MP ---
cc: BRENT BLACKMON DATE OF SURGERY March 13, 2017 PREOPERATIVE DIAGNOSIS Necrotic right index fingertip. POSTOPERATIVE DIAGNOSIS Necrotic right index fingertip. PROCEDURE Disarticulation through distal interphalangeal joint, right index finger. ANESTHESIA General. SURGEON Dr. Blackmon ESTIMATED BLOOD LOSS Minimal. TOURNIQUET TIME Finger [place] tourniquet for 10 minutes. SPECIMEN Sent for pathology. Swabs were sent for culture, sensitivity, one was from the nail bed region. The second one was from the DIP joint region. DISPOSITION The patient was sent to the recover room in stable condition. INDICATIONS The patient is a 61-year-old female admitted with necrotic right index fingertip. She has had these symptoms for the past 3-4 weeks. She also complained of drainage of purulent material from underneath the nail bed. She had a workup done and was found to have thrombi within the innominate artery and ulcerated plaque involving the aortic arch. She has been anticoagulated since yesterday. Because of evidence of purulent material within the region she was consented for amputation/disarticulation right index finger through the distal interphalangeal joint. The patient was explained the risk and benefits of the procedure. PROCEDURE IN DETAIL The patient was brought to the operating room under general anesthesia. The right upper extremity was thoroughly prepped and draped. Finger Vivek tourniquet was applied. [place] pattern skin incision was made of the DIP joint. Incision was made over the proposed incision site. Incision deepened to the dorsal aspect through the extensor mechanism into the DIP joint. Incision made on the volar aspect exposing the lateral collateral ligament of the DIP joint which was incised. The finger was disarticulated through the DIP joint. There was evidence of purulence within the nail bed region. Swabs were sent for culture, sensitivity. The specimen was sent for pathology. The swab was obtained from the DIP joint region. No evidence of purulent material was noted in the DIP joint. Thorough wash was given using normal saline mixed with irrigant. Head of the middle phalanx was rongeured to a smooth surface. Soft tissue was then approximated over the wound using 5-0 Vicryl in an intradermal fashion. This was then followed by skin closure with 5-0 nylon in a horizontal mattress interrupted fashion. Before closure the tourniquet was removed. Tourniquet time was 10 minutes. She had good distal circulation after release of the finger Vivek tourniquet bleeding points were cauterized with bipolar cautery. Digital nerves were transected proximally. The digital arteries were cauterized with bipolar cautery. After obtaining complete hemostasis the wounds were closed in a layered fashion with skin approximated using 5-0 nylon in a horizontal mattress interrupted fashion. Xeroform, bacitracin dressing applied. Finger dressing was applied which was held in place by a Jaqueline. She was recovered and sent to recovery in stable condition. We will change the dressing in 2 to 3 days' time. Brent Blackmon MD SE/NADYA /5:40 PM /10:16 AM [email or web address]
--- NOTE | 2017-03-14 11:12 | HHI.PR ---
Subjective Remarks Follow-up for right finger amputation and abdominal pain Patient continues complaining of abdominal pain. She stated that Marinette does not work and morphine is only medication that works. She stated that she had no episodes of emesis since last night. She added that she is belching. She remained afebrile. Otherwise she has no other complaints. Dealt with patient's nurse Navi. Objective Vitals Vital Signs Date Time Temp Pulse Resp B/P (MAP) Pulse Ox O2 Delivery O2 Flow Rate FiO2 03/14/17 08:00 97.0 87 18 145/92 (109) 97 03/14/17 04:00 96.9 90 17 168/100 (122) 100 03/14/17 00:00 96.0 90 17 114/72 (86) 100 03/13/17 20:00 95.7 94 17 118/75 (89) 100 03/13/17 19:19 87 03/13/17 18:25 97.5 82 12 102/69 (80) 100 Nasal Cannula 2 03/13/17 18:15 80 12 102/69 (80) 100 03/13/17 18:00 88 12 98/74 (82) 100 03/13/17 17:45 90 8 104/66 (79) 100 Nasal Cannula 2 03/13/17 17:38 98.1 92 17 112/76 (88) 100 Nasal Cannula 2 03/13/17 16:00 96.9 83 17 150/95 (113) 98 03/13/17 12:00 95.7 89 17 162/108 (126) 97 I/O 03/13/17 03/13/17 03/13/17 03/14/17 03/14/17 03/14/17 07:00 15:00 23:00 07:00 15:00 23:00 Intake Total 1300 ml 300 ml 500 ml 1468 ml Output Total 500 ml 1505 ml Balance 800 ml 300 ml -1005 ml 1468 ml Intake Oral 0 ml 240 ml IV Total 1300 ml 300 ml 500 ml 1228 ml Output Urine Total 500 ml 500 ml Estimated Blood Loss 5 ml Other 1000 ml # Voids 3 # Bowel Movements 1 Result Diagram: 03/14/17 0540 03/14/17 0540 Objective Remarks GENERAL:NAD NECK: Supple, trachea midline. No JVD or lymphadenopathy. CARDIOVASCULAR: Regular rate and rhythm without murmurs, gallops, or rubs. RESPIRATORY: Breath sounds equal bilaterally. No accessory muscle use. GASTROINTESTINAL: Abdomen soft and nondistended. + TTP in the epigastric area. MUSCULOSKELETAL:right finger amputated and wrapped in bandage. Medications and IVs Current Medications Ceftriaxone Sodium 1000 mg/ Sodium Chloride 100 ml @ 200 mls/hr ONCE ONCE IV ; Start 03/06/17 at 01:45; Stop 03/06/17 at 01:47; Status DC Vancomycin HCl 900 mg/Sodium Chloride 259 ml @ 250 mls/hr ONCE ONCE IV ; Start 03/06/17 at 01:45; Stop 03/06/17 at 01:47; Status DC Ciprofloxacin/ Dextrose 200 ml @ 200 mls/hr ONCE ONCE IV Last administered on 03/06/17 01:55; Start 03/06/17 at 02:00; Stop 03/06/17 at 02:59; Status DC Metronidazole 100 ml @ 100 mls/hr ONCE ONCE IV Last administered on 03:17; Start 03/06/17 at 02:00; Stop 03/06/17 at 02:59; Status DC Sodium Chloride 1,000 ml @ 100 mls/hr Q10H IV Last administered on 03/14/17 00:41; Start 03/06/17 at 01:46 Sodium Chloride (NS Flush) 2 ml UNSCH PRN IV FLUSH FLUSH AFTER USING IV ACCESS ; Start 03/06/17 at 02:00 Sodium Chloride (NS Flush) 2 ml BID IV FLUSH Last administered on 03/14/17 08: 00; Start 03/06/17 at 09:00 Ondansetron HCl (Zofran Inj) 4 mg Q6H PRN IVP NAUSEA OR VOMITING Last administered on 03/13/17 11:44; Start 03/06/17 at 02:00 Naloxone HCl (Narcan Inj) 0.4 mg UNSCH PRN IV PUSH SEE LABEL COMMENTS; Start at 02:00 Ketorolac Tromethamine (Toradol Inj) 15 mg Q6HR IV PUSH ; Start 03/06/17 at 06: 00; Stop 03/06/17 at 09:26; Status DC Ciprofloxacin/ Dextrose 200 ml @ 200 mls/hr Q12H IV Last administered on 00:39; Start 03/06/17 at 13:00 Metronidazole 100 ml @ 100 mls/hr Q8H IV Last administered on 03/14/17 00:40 ; Start 03/06/17 at 10:00 Famotidine (Pepcid Inj) 20 mg Q12H IV PUSH ; Start 03/06/17 at 11:00; Stop 03/06 at 13:23; Status DC Diatrizoate Meglum/ Diatrizoate Sod ( Gastroview Liq) 240 ml STK-MED ONCE PO ; Start 03/06/17 at 13:05; Stop 03/06/17 at 13:06; Status DC Pantoprazole Sodium (Protonix Inj) 40 mg DAILY IV PUSH Last administered on 08:00; Start 03/06/17 at 13:30 Potassium Chloride 100 ml @ 50 mls/hr Q2H IV Last administered on 03/07/17 13 :35; Start 03/07/17 at 08:45; Stop 03/07/17 at 12:44; Status DC Magnesium Sulfate/ Dextrose 100 ml @ 100 mls/hr Q1H IV Last administered on 13:34; Start 03/07/17 at 08:45; Stop 03/07/17 at 10:44; Status DC Polyethylene Glycol/ Electrolytes (Colyte Liq) 4,000 ml ONCE ONCE PO Last administered on 03/07/17 18:08; Start 03/07/17 at 16:00; Stop 03/07/17 at 16:01 ; Status DC Potassium Chloride (KCl) 20 meq ONCE ONCE PO Last administered on 03/07/17 19 :25; Start 03/07/17 at 20:00; Stop 03/07/17 at 21:04; Status DC Potassium Chloride (KCl) 40 meq ONCE ONCE PO Last administered on 03/07/17 18 :17; Start 03/07/17 at 16:00; Stop 03/07/17 at 16:05; Status DC Iohexol (Omnipaque 350 Inj) 86 ml STK-MED ONCE IV PUSH Last administered on 10:26; Start 03/08/17 at 10:26; Stop 03/08/17 at 10:27; Status DC Potassium Chloride 100 ml @ 50 mls/hr ONCE ONCE IV ; Start 03/08/17 at 17:00; Stop 03/08/17 at 18:59; Status DC Magnesium Sulfate/ Dextrose 100 ml @ 100 mls/hr Q1H IV Last administered on 16:33; Start 03/08/17 at 14:30; Stop 03/08/17 at 16:29; Status DC Simethicone (Simethicone Liq (Drops)) 20 mg ONCE ONCE .XX Last administered on 03/08/17 17:15; Start 03/08/17 at 17:14; Stop 03/08/17 at 17:15; Status DC Lactated Ringer's 1,000 ml @ 0 mls/hr Q0M IV Last administered on 03/08/17 17 :05; Start 03/08/17 at 17:25 Miscellaneous Information ALL NURSING DEPARTME... UNSCH PRN .XX SEE LABEL COMMENTS; Start 03/08/17 at 19:30; Stop 03/09/17 at 19:29; Status DC Potassium Chloride (KCl) 40 meq ONCE ONCE PO Last administered on 03/09/17 10 :43; Start 03/09/17 at 09:00; Stop 03/09/17 at 09:01; Status DC Propofol (Diprivan 200 Mg/20 ml Inj) 400 mg STK-MED ONCE IV ; Start 03/08/17 at 12:00; Stop 03/10/17 at 08:33; Status DC Propofol (Diprivan 200 Mg/20 ml Inj) 400 mg STK-MED ONCE IV ; Start 03/08/17 at 09:48; Stop 03/11/17 at 09:48; Status DC Lidocaine HCl (Xylocaine-Mpf 1% Inj) 5 ml STK-MED ONCE OTHER ; Start 03/08/17 at 09:48; Stop 03/11/17 at 09:48; Status DC Lactated Ringer's 1,000 ml @ As Directed STK-MED ONCE IV ; Start 03/08/17 at 09 :48; Stop 03/11/17 at 09:48; Status DC Iohexol (Omnipaque 350 Inj) 55 ml STK-MED ONCE IVCONTRAST Last administered on 03/12/17 10:49; Start 03/12/17 at 10:49; Stop 03/12/17 at 10:50; Status DC Lorazepam (Ativan) 1 mg Q8H PRN PO anxiety Last administered on 03/13/17 11:44 ; Start 03/12/17 at 20:00 Lorazepam (Ativan) 1 mg NOW ONCE PO Last administered on 03/12/17 12:17; Start 03/12/17 at 12:00; Stop 03/12/17 at 12:01; Status DC Enoxaparin Sodium (Lovenox Inj) 70 mg Q12H SQ Last administered on 03/13/17 03 :01; Start 03/12/17 at 14:00 Acetaminophen/ Hydrocodone Bitart ([place]inette 5-325 Mg) 1 tab Q4H PRN PO pain 1-7 Last administered on 03/14/17 01:45; Start 03/12/17 at 16:45 Acetaminophen/ Hydrocodone Bitart (Marinette 5-325 Mg) 2 tab Q4H PRN PO pain 8-10 Last administered on 03/14/17 07:59; Start 03/12/17 at 16:45 Morphine Sulfate (Morphine Inj) 2 mg Q3H PRN IV PUSH breakthrough Last administered on 03/14/17 06:26; Start 03/12/17 at 16:45 Lactated Ringer's 1,000 ml @ 30 mls/hr Q24H PRN IV SEE LABEL COMMENTS; Start at 00:15; Stop 03/16/17 at 00:14 Povidone Iodine (Betadine 5% Antisepsis Kit) 1 applic RETAIL BUYER PRN EACH NARE SEE LABEL COMMENTS; Start 03/13/17 at 00:15; Stop 03/16/17 at 00:14 Chlorhexidine Gluconate (Chlorhexidine 2% Cloth) 3 pack RETAIL BUYER PRN TOPICAL SEE LABEL COMMENTS; Start 03/13/17 at 00:15; Stop 03/16/17 at 00:14 Metoclopramide HCl (Reglan Inj) 10 mg Q8H IV PUSH Last administered on 08:01; Start 03/13/17 at 16:00 Lidocaine HCl (Xylocaine 2% Inj) 50 ml STK-MED ONCE .ROUTE Last administered on 03/13/17 15:11; Start 03/13/17 at 15:25; Stop 03/13/17 at 15:26; Status DC Bupivacaine HCl (Marcaine Pf 0.5% Inj) 30 ml STK-MED ONCE .ROUTE Last administered on 03/13/17t 15:25; Start 03/13/17 at 15:25; Stop 03/13/17 at 15:26 ; Status DC Mupirocin (Bactroban 2% Oint) 22 applic STK-MED ONCE .ROUTE Last administered on 03/13/17t 15:11; Start 03/13/17 at 15:26; Stop 03/13/17 at 15:27; Status DC Acetaminophen 100 ml @ As Directed STK-MED ONCE IV ; Start 03/13/17 at 15:42; Stop 03/13/17 at 15:43; Status DC Hydromorphone HCl (Dilaudid Pf Inj) 2 mg STK-MED ONCE .ROUTE ; Start 03/13/17 at 17:01; Stop 03/13/17 at 17:02; Status DC Miscellaneous Information ALL NURSING DEPARTME... UNSCH PRN .XX SEE LABEL COMMENTS; Start 03/13/17 at 17:38; Stop 03/14/17 at 17:37 A/P Assessment and Plan 61-year-old female who presented with a gangrenous finger Right gangrenous finger -CTA of the upper extremity read by Dr. Arana. 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 -Patient on Lovenox. -Status post disarticulation through distal interphalangeal joint, right index finger findings necrotic right index fingertip. 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 Per retail buyer this is secondary to tobacco use. Encourage smoking sensation. malignancy will workup is negative. -Since patient will need anticoagulation consult placed for case management to assist with obtaining medication. Bilious emesis/abdominal pain -Patient was worked up during his hospital course in which she was followed by GI. -Status post EGD and Colonoscopy found Hiatal hernia, Duodenitis, Thickened sigmoid fold, internal Hemorrhoids, biopsies taken from Esophagus, Duodenum and Colon, Snare polypectomy performed. -KUB done yesterday showed dilated loop of bowels. She continues to have abdominal pain but emesis has improved. Continue management per GI. -Patient is on Flagyl and Cipro. Tobacco dependence -strongly recommended to stop smoking marijuana abuse -Education given. DVT prophylaxis -On therapeutic Lovenox. Kary Herrera MD Mar 14, 2017 11:12
[2017-03-14 12:00] VITALS: BP 144/90; PULSE 85; RESP 16; TEMP 97.5; O2SAT 98
--- NOTE | 2017-03-14 12:19 | HHI.PR ---
Subjective Subjective Notes I was asked to see Ms. Jennings again. She is having recurrent abdominal pain, primarily left mid abdomen. Decreased flatus and bowel movts. + belching. She underwent distal finger amputation yesterday. Objective Vitals/I&O Vital Signs Date Time Temp Pulse Resp B/P (MAP) Pulse Ox O2 Delivery O2 Flow Rate FiO2 03/14/17 08:00 97.0 87 18 145/92 (109) 97 03/13/17 18:25 Nasal Cannula 2 Labs Laboratory Tests Test 03/14/17 05:40 White Blood Count 13.9 Red Blood Count 3.67 Hemoglobin 11.5 Hematocrit 34.5 Mean Corpuscular Volume 94.2 Mean Corpuscular Hemoglobin 31.4 Mean Corpuscular Hemoglobin Concent 33.4 Red Cell Distribution Width 15.2 Platelet Count 380 Mean Platelet Volume 9.9 Blood Urea Nitrogen 7 Creatinine 1.12 Random Glucose 115 Calcium Level 8.7 Sodium Level 141 Potassium Level 3.8 Chloride Level 108 Carbon Dioxide Level 23.1 Anion Gap 10 Estimat Glomerular Filtration Rate 60 Date/Time Source Procedure Growth Status 03/13/17 00:00 Wound Finger Fungal Smear - Final NO FUNGAL ELEMENTS SEEN. Resulted 03/13/17 00:00 Wound Finger Fungal Culture Pending Resulted Radiology CT abdomen and pelvis reviewed with Dr. Hdz. Narrative Exam NAD Abd: soft, moderate distention, mild left and mid abdominal ttp, no rebound or guarding A/P Assessment and Plan 61 yo F s/p distal finger amputation, abdominal pain. CT a/p 03/05 showed dilated appendix, dilated small bowel, ? partial obstruction. SBFT had transit into colon in 2 hrs. Colonoscopy was performed showing no cecal mass. She seems to be having partial obstruction and does have h/o hysterectomy. I would like to order CT a/p with oral contrast to further eval cecum/appendix. Options include dx lap with appendectomy and lysis of adhesions vs nonop management if pain and partial obstruction resolve. Discussed in detail with her and will f/u tomorrow. SouravJuan MD Mar 14, 2017 12:19
[2017-03-14] MEDS ORDERED: SODIUM CHLORID 0.9% 500 ML INJ 500 ML IV ONE (13:00)
[2017-03-14] MEDS ORDERED: DIATRIZOATE MEGLUM/DIATRIZOATE SOD 9 ML CUP PO ONE (15:00)
--- NOTE | 2017-03-14 15:48 | HHI.GIFU ---
Subjective Remarks Pt resting in bed. Still with bloating, decreased appetite, abd pain. No nausea or vomiting. NO BM since Friday. Drinking contrast for CT (Lucille Wills) Objective Vitals I&O Vital Signs Date Time Temp Pulse Resp B/P (MAP) Pulse Ox O2 Delivery O2 Flow Rate FiO2 03/14/17 12:00 97.5 85 16 144/90 (108) 98 03/14/17 11:30 18 03/14/17 08:59 18 03/14/17 08:00 97.0 87 18 145/92 (109) 97 03/14/17 04:00 96.9 90 17 168/100 (122) 100 03/14/17 00:00 96.0 90 17 114/72 (86) 100 03/13/17 20:00 95.7 94 17 118/75 (89) 100 03/13/17 19:19 87 03/13/17 18:25 97.5 82 12 102/69 (80) 100 Nasal Cannula 2 03/13/17 18:15 80 12 102/69 (80) 100 03/13/17 18:00 88 12 98/74 (82) 100 03/13/17 17:45 90 8 104/66 (79) 100 Nasal Cannula 2 03/13/17 17:38 98.1 92 17 112/76 (88) 100 Nasal Cannula 2 03/13/17 16:00 96.9 83 17 150/95 (113) 98 I/O 03/13/17 03/13/17 03/13/17 03/14/17 03/14/17 03/14/17 07:00 15:00 23:00 07:00 15:00 23:00 Intake Total 1300 ml 300 ml 500 ml 1468 ml Output Total 500 ml 1505 ml Balance 800 ml 300 ml -1005 ml 1468 ml Intake Oral 0 ml 240 ml IV Total 1300 ml 300 ml 500 ml 1228 ml Output Urine Total 500 ml 500 ml Estimated Blood Loss 5 ml Other 1000 ml # Voids 3 # Bowel Movements 1 Laboratory Laboratory Tests Test 03/14/17 05:40 White Blood Count 13.9 Red Blood Count 3.67 Hemoglobin 11.5 Hematocrit 34.5 Mean Corpuscular Volume 94.2 Mean Corpuscular Hemoglobin 31.4 Mean Corpuscular Hemoglobin Concent 33.4 Red Cell Distribution Width 15.2 Platelet Count 380 Mean Platelet Volume 9.9 Blood Urea Nitrogen 7 Creatinine 1.12 Random Glucose 115 Calcium Level 8.7 Sodium Level 141 Potassium Level 3.8 Chloride Level 108 Carbon Dioxide Level 23.1 Anion Gap 10 Estimat Glomerular Filtration Rate 60 Date/Time Source Procedure Growth Status 03/13/17 00:00 Wound Finger Fungal Smear - Final NO FUNGAL ELEMENTS SEEN. Resulted 03/13/17 00:00 Wound Finger Fungal Culture Pending Resulted Physical Exam HEENT: Normocephalic; atraumatic; no jaundice. CHEST: CTA CARDIAC: RRR ABDOMEN: Soft, nondistended,mild TTP RUQ; no hepatosplenomegaly; bowel sounds are present. EXTREMITIES: bandage 2nd digit SKIN: Normal; no rash; no jaundice. 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 KUB (03/13/17)----> diffuse small bowel dilatation. Will add Reglan. NPO for surgery. - Abdominal pain. 1.5 month hx of mid abdominal cramping, liquid stools, weight loss associated with oral intake. CT Scan abdomen and pelvis with IV contrast )-----> Multiple fluid filled dilated loops of small bowel suggestive of small bowel obstruction until proven otherwise. Transition point is not confirmed with certainty. Calcification within the right lower quadrant which either represents an appendicolith or stone within a loop of ileum. If this represents an appendicolith the appendix is markedly dilated which raises the possibility of appendicitis. Oral contrast enhanced examination is recommended with delayed images to determine if the appendix fills with contrast as well as to rule out the site of small bowel obstruction. Large hiatal hernia containing approximately half of the stomach. Multiple hepatic cysts and left renal cyst. Uncomplicated sigmoid diverticulosis. Degenerative changes and scoliosis of the thoracolumbar spine. Degenerative changes involving the hip joints bilaterally. Hx hysterectomy. Fhx gastric cancer in father. No hx of colonoscopy. S/P SBFT (03/06/17)---> Small bowel dilatation not associated with any significant obstruction. The oral contrast does reach the colon within 2 hours which is within normal range. However, the terminal ileum does have a more normal caliber compared with the more proximal small bowel which an be seen with a very low grade partial obstruction. GS following, recommended colonoscopy. EGD/Colonoscopy 03/08/17--> Irregular Z line, Hiatal hernia, Duodenitis, Colon polyps, Thickened sigmoid fold, Internal hemorrhoids. Pathology duodenal mucosa without significant histopathologic abnormality, squamocolumnar mucosa with intestinal metaplasia, consistent with starks's esophagus, and mild chronic inflammation. Negative for intestinal metaplasia, dysplasia, or malignancy. colonic mucosa without significant histopathologic abnormality. Hyperplastic polyp with severe thermal effect. Colonic mucosa without significant histopathologic abnormality. Sigmoid colon melanosis coli. some abd discomfort today. GS reconsulted, CT pending - Abnormal weight loss. EGD/Colonoscopy as above. - Diarrhea. Liquid stools 1.5 months, starting to have more consistency. EGD/ Colonoscopy as above. - GERD. PPI - HTN per attending. - Dry gangrene tip right second digit. S/P CTA. 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 Hematology following. Lovenox. PLAN: - await CT abd & GS eval - VENTURA - stool softener as needed - cont reglan - PPI - IVF - Cipro/Flagyl - CVT/Hematology following - Supportive care - Patient seen and examined by Dr. Weller and myself and this note is written on his behalf (Lucille Wills) Plan Patient was seen and examined, agree with above Notes, I wait the results of the CT scan, continue supportive care and antibiotic (Елена Weller MD) Lucille Wills Mar 14, 2017 15:48 Елена Weller MD Mar 14, 2017 17:43
[2017-03-14 16:00] VITALS: BP 134/86; PULSE 83; RESP 18; TEMP 95.6; O2SAT 98
[2017-03-14] MEDS: SODIUM CHLORIDE 0.9% FLUSH 10 ML FLUSH IV FLUSH PRN ×2 (16:18→23:38)
[2017-03-14 20:00] VITALS: BP 125/96; PULSE 73; RESP 18; TEMP 97.6; O2SAT 98
[2017-03-14] MEDS ORDERED: IOHEXOL 350 MG/ML 10 ML VIAL (for RAD DIAG) IVCONTRAST ONE (21:25)
--- NOTE | 2017-03-14 21:55 | RADRPT ---
EXAM DATE/TIME: 03/14/2017 21:23 [facility] COMPARISON: CT ABDOMEN & PELVIS W CONTRAST, March 05, 2017, 21:28. INDICATIONS : Abdominal pain, evaluate obstruction, appendix, and cecum. IV CONTRAST: 80 cc Omnipaque 350 (iohexol) IV ORAL CONTRAST: Prescribed oral contrast ingested. RADIATION DOSE: 10.49 CTDIvol (mGy) MEDICAL HISTORY : Cardiovascular disease. Hypertension. Hernia, hiatal. Diabetes. SURGICAL HISTORY : Hysterectomy. ENCOUNTER: Initial ACUITY: 1 day PAIN SCALE: 8/10 LOCATION: abdomen TECHNIQUE: Volumetric scanning of the abdomen and pelvis was performed. Using automated exposure control and ad justment of the mA and/or kV according to patient size, radiation dose was kept as low as reasonably achievable to obtain optimal diagnostic quality images. DICOM format image data is available electro nically for review and comparison. FINDINGS: Worsening dilatation of jejunum and proximal ileum. Distal ileum is decompressed. The transition appe ars to be in the right lower quadrant, series 2 image 49. I don't see a mass. A fecalith is seen at the tip of the appendix. The appendix is thick walled and distended but not as severe as on the prior study. No abscess, perforation or obstruction. Small ascites has developed. No acute abnormality seen of the solid organs. Multiple cysts are again seen of the liver. A large hiatal hernia is again noted. Stomach is considerably distended and fluid- filled. Small pleural effusions of the visualized lung bases, new. CONCLUSION: 1. Persistent small bowel obstruction as discussed above. Increased distention of small bowel, now se enrique. There is new distention of the stomach. Large hiatal hernia again noted. 2. There is persistent wall thickening and distention of the appendix but not as severe as on the chelly or study. A fecalith is seen at the tip of the appendix. No abscess, perforation or obstruction. 3. Small ascites and small bilateral pleural effusions have developed. Navi Ferraro MD on March 14, 2017 at 21:45 Board Certified Radiologist. This report was verified electronically.
[2017-03-15] VITALS: BP 122/75; PULSE 62; RESP 17; TEMP 97.1; O2SAT 95
[2017-03-15 06:06] LABS: AUTOMATED NEUTROPHIL # 11.6 TH/MM3 (1.8-7.7); BASOPHIL # 0.1 TH/MM3 (0-0.2); BASOPHIL % 0.4 % (0.0-2.0); EOSINOPHIL % 0.2 % (0.0-4.0); HEMATOCRIT 31.9 % (35.0-46.0); HEMO FLAGS DIFF FINAL; LYMPH % 10.7 % (9.0-44.0); LYMPHOCYTE # 1.6 TH/MM3 (1.0-4.8); MEAN CELL VOLUME 96.8 FL (80.0-100.0); MEAN CORPUSCULAR HEMOGLOBIN 31.3 PG (27.0-34.0); MEAN CORPUSCULAR HGB CONC 32.3 % (32.0-36.0); MONO % 11.1 % (0.0-8.0); NEUT % 77.6 % (16.0-70.0); PLATELET COUNT 327 TH/MM3 (150-450); RED BLOOD COUNT 3.29 MIL/MM3 (4.00-5.30); RED CELL DISTRIBUTION WIDTH 15.9 % (11.6-17.2); WHITE BLOOD COUNT 14.9 TH/MM3 (4.0-11.0)
[2017-03-15 07:02] LABS: BICARBONATE 26.7 MEQ/L (21.0-32.0); POTASSIUM 3.3 MEQ/L (3.5-5.1)
[2017-03-15 08:00] VITALS: BP 119/81; PULSE 79; RESP 17; TEMP 97.8; O2SAT 96
[2017-03-15] MEDS: METOCLOPRAMIDE HCL 10 MG/2 ML VIAL IV PUSH SCH ×3 (08:00→23:33)
[2017-03-15] MEDS: PANTOPRAZOLE SODIUM 40 MG VIAL IV PUSH SCH (09:00)
[2017-03-15] MEDS: SODIUM CHLORIDE 0.9% FLUSH 10 ML FLUSH IV FLUSH SCH ×2 (09:00→21:00)
--- NOTE | 2017-03-15 09:14 | HHI.PR ---
Subjective Subjective Notes She vomited this am. I received a call from Dr. Ferraro last night of radiology indicating significant worsening of obstruction on repeat CT. Objective Vitals/I&O Vital Signs Date Time Temp Pulse Resp B/P (MAP) Pulse Ox O2 Delivery O2 Flow Rate FiO2 03/15/17 08:00 97.8 79 17 119/81 (94) 96 03/13/17 18:25 Nasal Cannula 2 Labs Laboratory Tests Test 03/15/17 05:10 03/15/17 06:12 White Blood Count 14.9 Red Blood Count 3.29 Hemoglobin 10.3 Hematocrit 31.9 Mean Corpuscular Volume 96.8 Mean Corpuscular Hemoglobin 31.3 Mean Corpuscular Hemoglobin Concent 32.3 Red Cell Distribution Width 15.9 Platelet Count 327 Mean Platelet Volume 9.7 Neutrophils (%) (Auto) 77.6 Lymphocytes (%) (Auto) 10.7 Monocytes (%) (Auto) 11.1 Eosinophils (%) (Auto) 0.2 Basophils (%) (Auto) 0.4 Neutrophils # (Auto) 11.6 Lymphocytes # (Auto) 1.6 Monocytes # (Auto) 1.7 Eosinophils # (Auto) 0.0 Basophils # (Auto) 0.1 CBC Comment DIFF FINAL Differential Comment Hematology Comments Blood Urea Nitrogen 8 Creatinine 0.89 Random Glucose 97 Calcium Level 8.1 Sodium Level 141 Potassium Level 3.3 Chloride Level 107 Carbon Dioxide Level 26.7 Anion Gap 7 Estimat Glomerular Filtration Rate 78 Date/Time Source Procedure Growth Status 03/13/17 00:00 Wound Finger Fungal Smear - Final NO FUNGAL ELEMENTS SEEN. Resulted 03/13/17 00:00 Wound Finger Fungal Culture Pending Resulted Radiology CT abdomen and pelvis reviewed with Dr. Hdz. Narrative Exam NAD Abd: soft, moderate distention, mild left and mid abdominal ttp, no rebound or guarding A/P Assessment and Plan 61 yo F s/p distal finger amputation, abdominal pain. Repeat CT a/p shows severe bowel obstruction. She refused NGT last night. I had a long discussion with the patient and also her friend on the phone relating her small bowel obstruction and her need for operative intervention. She initially refused but after discussion she does desire to proceed. I also showed her the CT images and explained what is going on. I recommend ex lap, appendectomy, lysis of adhesions, and possible bowel resection. I discussed this all with her including post op expectations. Juan Benjamin MD Mar 15, 2017 09:14
[2017-03-15] MEDS ORDERED: KETAMINE HCL 500 MG/5 ML VIAL ONE (10:52)
[2017-03-15] MEDS: CIPROFLOXACIN 400 MG PREMIX 200 ML IV SCH (11:21)
[2017-03-15] MEDS: metroNIDAZOLE 500 MG INJ 100 ML IV SCH ×2 (11:22→17:03)
[2017-03-15 11:53] LABS: BLOOD GAS BASE EXCESS -0.4 mmol/L (-2-2); BLOOD GAS CARBOXYHEMOGLOBIN 1.7 % (0-4); BLOOD GAS HCO3 23 mmol/L (22-26); BLOOD GAS METHEMOGLOBIN 2.3 % (0-2); BLOOD GAS O2 HGB SATURATION 93 % (90-100); BLOOD GAS OXYGEN CONTENT 12.3 Vol % (12.0-20.0); BLOOD GAS PCO2 34 mmHg (38-42); BLOOD GAS PO2 90 mmHg (61-120); BLOOD GAS TOTAL HGB 9.3 G/DL (12.0-16.0); CRITICAL VALUE NO; DRAW SITE ART LINE; FIO2 51 %; OXYGEN DEVICE VENTILATOR; STAT YES; TEMP CORR TO 98.6
[2017-03-15] MEDS ORDERED: SODIUM CHLORID 0.9% 500 ML INJ 500 ML IV ONE (12:00)
[2017-03-15] MEDS ORDERED: LACTATED RINGER'S 1000 ML INJ 1,000 ML IV ONE ×3 (12:00→16:45)
[2017-03-15] MEDS ORDERED: PHENYLEPH/NS 1000 MCG/10 ML SYR IV ONE (12:00)
[2017-03-15] MEDS ORDERED: MIDAZOLAM HCL 2 MG/2 ML VIAL IV ONE (12:00)
[2017-03-15] MEDS ORDERED: ROCURONIUM INJ 50 MG/5 ML SYRINGE IV PUSH ONE (12:00)
[2017-03-15] MEDS ORDERED: NEOSTIGMINE 3 MG/3 ML SYR IV ONE (12:00)
[2017-03-15] MEDS ORDERED: PHENYLEPHRINE HCL 10 MG/ML VIAL IV ONE (12:00)
[2017-03-15] MEDS ORDERED: SODIUM CHLOR 0.9% 250 ML INJ 250 ML IV ONE (12:00)
[2017-03-15] MEDS ORDERED: GLYCOPYRROLATE 1 MG/5 ML SYRINGE IV PUSH ONE (12:00)
[2017-03-15] MEDS ORDERED: LIDOCAINE HCL 1% PF 5 ML AMPULE OTHER ONE (12:00)
[2017-03-15] MEDS ORDERED: NORMOSOL R INJ 1,000 ML IV ONE (12:00)
[2017-03-15] MEDS ORDERED: SUCCINYLCHOLINE CHLORIDE 100 MG/5 ML SYRINGE IV PUSH ONE (12:00)
[2017-03-15] MEDS ORDERED: ePHEDrine/NS 25 MG/5 ML SYR IV ONE (12:00)
[2017-03-15] MEDS ORDERED: PROPOFOL 200 MG/20 ML AMP IV ONE (12:00)
[2017-03-15 13:33] LABS: BLOOD GAS BASE EXCESS -1.8 mmol/L (-2-2); BLOOD GAS HCO3 23 mmol/L (22-26); BLOOD GAS O2 HGB SATURATION 96 % (90-100); BLOOD GAS OXYGEN CONTENT 17.3 Vol % (12.0-20.0); BLOOD GAS PCO2 39 mmHg (38-42); BLOOD GAS PO2 260 mmHg (61-120); BLOOD GAS TOTAL HGB 12.4 G/DL (12.0-16.0); TEMP CORR TO 98.6
[2017-03-15 13:34] LABS: CRITICAL VALUE NO; OXYGEN DEVICE VENTILATOR
[2017-03-15 13:35] LABS: DRAW SITE ART LINE; STAT YES
[2017-03-15] MEDS ORDERED: Post-op Orders (for Pharmacy) MISC XX ONE (13:45)
[2017-03-15] MEDS ORDERED: NALOXONE HCL 0.4 MG/ML AMP IV PUSH PRN ×2 (13:45)
[2017-03-15] MEDS ORDERED: SODIUM CHLORIDE 0.9% FLUSH 10 ML FLUSH IV FLUSH PRN (13:45)
[2017-03-15] MEDS ORDERED: HYDROmorphone HCL PCA 6 MG/30 ML IV SCH (13:45)
[2017-03-15] MEDS ORDERED: DO NOT ADM ANY ANTICOAGULANT DRUGS PRN (13:48)
--- NOTE | 2017-03-15 14:02 | PD.OP ---
cc: Juan Benjamin MD Operative Report Date of Surgery: Mar 15, 2017 Preoperative Diagnosis: (1) Small bowel obstruction (2) Appendicitis Postoperative Diagnosis: (1) Small bowel obstruction (2) Mass of appendix Procedure: Exploratory laparotomy Lysis of adhesions approx 1 hr Appendectomy Anesthesia: EVELYN Surgeon: Juan Benjamin Wood Borer(s): Breana Operation and Findings: EBL: 100cc FLuids; 3L Complications: None apparent Operative findings: The patient had massively dilated proximal small bowel to the level of the distal jejunum. The bowel was thickened and this appeared to have been somewhat chronic. There were multiple different areas of bandlike adhesions. In the mid abdomen there was an adhesive band clearly causing the small bowel obstruction. The appendix was fibrotic and scarred in place in the right abdominal wall. Procedure in detail: The patient was taken to the operating room and placed in the supine position. Gen. endotracheal anesthesia was induced. The abdomen was prepped and draped in usual sterile fashion and a surgical timeout was performed to verify correct patient procedure and site. She received appropriate perioperative antibiotics. Midline laparotomy was made from just above the umbilicus to the pubis. Dissection carried through subcutaneous tissue and fascia with electrocautery and the abdomen was bluntly entered. There was noted to be massively dilated small bowel with thickened wall to the level of about the distal jejunum. There was a fair amount of ascites. There are multiple bandlike adhesions throughout the abdomen and these were all taken down carefully with electrocautery or Metzenbaum scissors. The mid abdomen at the level of the distal jejunum an adhesive band was clearly causing obstruction of the proximal small bowel. This band was lysed. The small bowel was bruised at the area of the band but was viable appearing. The NG tube placed by anesthesia was checked to be in place in the abdominal stomach as opposed to the large hiatal hernia. The small bowel was run multiple times pushing fluid back to the stomach. About 4 L of gastric and small bowel contents were removed via the NG tube. One superficial serosal tear was repaired with 3-0 silk sutures. Attention was turned to the right lower abdomen. The appendix was not immediately visible. The white line of Toldt was taken down around the area of the cecum as well as the peritoneum divided in the terminal ileum. The appendix was finally identified as a fibrotic firm structure with mass in the tip invading the abdominal wall in the right lower abdomen. Careful sharp and blunt dissection and electrocautery was used to free the appendix from the abdominal wall. The mesoappendix was taken down with electrocautery and with use of clamps and 3-0 silk ties. The appendix was free to its base. There was a questionable small mass at the base of the appendix. The RADHA blue load 55 mm stapler was used to transect a portion of the cecum including the appendix and this possible mass. The appendix was opened on the back table and no mass was identified. The staple line was intact with no leakage. The abdomen was copiously irrigated. The NG tube was secured in place. The abdomen was then closed with running #1 loop PDS suture. There was some minimal tension due to the edematous bowel. The peak pressures on the ventilator did not rise. The skin was closed with a wide skin stapler. The patient was extubated and taken to PACU in stable condition. All sponge and instrument counts were correct. Juan Benjamin MD Mar 15, 2017 14:02
[2017-03-15 14:12] LABS: HEMATOCRIT 36.4 % (35.0-46.0); MEAN CELL VOLUME 93.5 FL (80.0-100.0); MEAN CORPUSCULAR HEMOGLOBIN 32.6 PG (27.0-34.0); MEAN CORPUSCULAR HGB CONC 34.9 % (32.0-36.0); PLATELET COUNT 391 TH/MM3 (150-450); RED BLOOD COUNT 3.89 MIL/MM3 (4.00-5.30); RED CELL DISTRIBUTION WIDTH 15.3 % (11.6-17.2); REVIEW FLAG FINAL; WHITE BLOOD COUNT 15.4 TH/MM3 (4.0-11.0)
[2017-03-15] MEDS ORDERED: LACTATED RINGER'S 1000 ML INJ 1,000 ML IV SCH (14:30)
[2017-03-15 14:32] LABS: BICARBONATE 25.7 MEQ/L (21.0-32.0); MAGNESIUM 1.1 MG/DL (1.5-2.5); POTASSIUM 3.4 MEQ/L (3.5-5.1)
--- NOTE | 2017-03-15 14:33 | HHI.PR ---
Subjective Remarks Follow-up for small bowel obstruction Patient seen in the PACU 30 minutes after surgery. Patient systolic blood pressure in 80s. Per PACU nurse her blood pressure was higher in the 90s but when she pushed the ELECTRICIAN SHIP pump her SBP went down into the 80s. She is currently being bolus. Patient denies any chest pain, palpitation, shortness of breathing. She was asking questions regards to management. Objective Vitals Vital Signs Date Time Temp Pulse Resp B/P (MAP) Pulse Ox O2 Delivery O2 Flow Rate FiO2 03/15/17 08:00 97.8 79 17 119/81 (94) 96 03/15/17 00:00 97.1 62 17 122/75 (91) 95 03/14/17 20:00 97.6 73 18 125/96 (106) 98 03/14/17 17:42 18 03/14/17 16:00 95.6 83 18 134/86 (102) 98 I/O 03/14/17 03/14/17 03/14/17 03/15/17 03/15/17 03/15/17 07:00 15:00 23:00 07:00 15:00 23:00 Intake Total 1468 ml 240 ml 300 ml 350 ml Output Total 300 ml 4200 ml Balance 1468 ml 240 ml 0 ml -3850 ml Intake Oral 240 ml 240 ml IV Total 1228 ml 300 ml Other 350 ml Output Urine Total 300 ml Gastric Drainage Total 4000 ml Estimated Blood Loss 200 ml # Voids 3 3 2 Result Diagram: 03/15/17 1350 03/15/17 0612 Objective Remarks GENERAL:NAD NECK: Supple, trachea midline. No JVD or lymphadenopathy.NG tube in place. CARDIOVASCULAR: Regular rate and rhythm without murmurs, gallops, or rubs. RESPIRATORY: Breath sounds equal bilaterally. No accessory muscle use. GASTROINTESTINAL: surgical bandages. MUSCULOSKELETAL:right finger amputated and wrapped in bandage. Medications and IVs Current Medications Ceftriaxone Sodium 1000 mg/ Sodium Chloride 100 ml @ 200 mls/hr ONCE ONCE IV ; Start 03/06/17 at 01:45; Stop 03/06/17 at 01:47; Status DC Vancomycin HCl 900 mg/Sodium Chloride 259 ml @ 250 mls/hr ONCE ONCE IV ; Start 03/06/17 at 01:45; Stop 03/06/17 at 01:47; Status DC Ciprofloxacin/ Dextrose 200 ml @ 200 mls/hr ONCE ONCE IV Last administered on 03/06/17 01:55; Start 03/06/17 at 02:00; Stop 03/06/17 at 02:59; Status DC Metronidazole 100 ml @ 100 mls/hr ONCE ONCE IV Last administered on 03:17; Start 03/06/17 at 02:00; Stop 03/06/17 at 02:59; Status DC Sodium Chloride 1,000 ml @ 100 mls/hr Q10H IV Last administered on 03/14/17 16:05; Start 03/06/17 at 01:46 Sodium Chloride (NS Flush) 2 ml UNSCH PRN IV FLUSH FLUSH AFTER USING IV ACCESS Last administered on 03/14/17 23:38; Start 03/06/17 at 02:00 Sodium Chloride (NS Flush) 2 ml BID IV FLUSH Last administered on 03/14/17 21: 05; Start 03/06/17 at 09:00 Ondansetron HCl (Zofran Inj) 4 mg Q6H PRN IVP NAUSEA OR VOMITING Last administered on 03/13/17 11:44; Start 03/06/17 at 02:00 Naloxone HCl (Narcan Inj) 0.4 mg UNSCH PRN IV PUSH SEE LABEL COMMENTS; Start at 02:00 Ketorolac Tromethamine (Toradol Inj) 15 mg Q6HR IV PUSH ; Start 03/06/17 at 06: 00; Stop 03/06/17 at 09:26; Status DC Ciprofloxacin/ Dextrose 200 ml @ 200 mls/hr Q12H IV Last administered on 11:21; Start 03/06/17 at 13:00 Metronidazole 100 ml @ 100 mls/hr Q8H IV Last administered on 03/15/17 11:22 ; Start 03/06/17 at 10:00 Famotidine (Pepcid Inj) 20 mg Q12H IV PUSH ; Start 03/06/17 at 11:00; Stop 03/06 at 13:23; Status DC Diatrizoate Meglum/ Diatrizoate Sod ( Gastroaarti Liq) 240 ml STK-MED ONCE PO ; Start 03/06/17 at 13:05; Stop 03/06/17 at 13:06; Status DC Pantoprazole Sodium (Protonix Inj) 40 mg DAILY IV PUSH Last administered on 08:00; Start 03/06/17 at 13:30 Potassium Chloride 100 ml @ 50 mls/hr Q2H IV Last administered on 03/07/17 13 :35; Start 03/07/17 at 08:45; Stop 03/07/17 at 12:44; Status DC Magnesium Sulfate/ Dextrose 100 ml @ 100 mls/hr Q1H IV Last administered on 13:34; Start 03/07/17 at 08:45; Stop 03/07/17 at 10:44; Status DC Polyethylene Glycol/ Electrolytes (Colyte Liq) 4,000 ml ONCE ONCE PO Last administered on 03/07/17 18:08; Start 03/07/17 at 16:00; Stop 03/07/17 at 16:01 ; Status DC Potassium Chloride (KCl) 20 meq ONCE ONCE PO Last administered on 03/07/17 19 :25; Start 03/07/17 at 20:00; Stop 03/07/17 at 21:04; Status DC Potassium Chloride (KCl) 40 meq ONCE ONCE PO Last administered on 03/07/17 18 :17; Start 03/07/17 at 16:00; Stop 03/07/17 at 16:05; Status DC Iohexol (Omnipaque 350 Inj) 86 ml STK-MED ONCE IV PUSH Last administered on 10:26; Start 03/08/17 at 10:26; Stop 03/08/17 at 10:27; Status DC Potassium Chloride 100 ml @ 50 mls/hr ONCE ONCE IV ; Start 03/08/17 at 17:00; Stop 03/08/17 at 18:59; Status DC Magnesium Sulfate/ Dextrose 100 ml @ 100 mls/hr Q1H IV Last administered on 16:33; Start 03/08/17 at 14:30; Stop 03/08/17 at 16:29; Status DC Simethicone (Simethicone Liq (Drops)) 20 mg ONCE ONCE .XX Last administered on 03/08/17 17:15; Start 03/08/17 at 17:14; Stop 03/08/17 at 17:15; Status DC Lactated Ringer's 1,000 ml @ 0 mls/hr Q0M IV Last administered on 03/08/17 17 :05; Start 03/08/17 at 17:25 Miscellaneous Information ALL NURSING DEPARTME... UNSCH PRN .XX SEE LABEL COMMENTS; Start 03/08/17 at 19:30; Stop 03/09/17 at 19:29; Status DC Potassium Chloride (KCl) 40 meq ONCE ONCE PO Last administered on 03/09/17 10 :43; Start 03/09/17 at 09:00; Stop 03/09/17 at 09:01; Status DC Propofol (Diprivan 200 Mg/20 ml Inj) 400 mg STK-MED ONCE IV ; Start 03/08/17 at 12:00; Stop 03/10/17 at 08:33; Status DC Propofol (Diprivan 200 Mg/20 ml Inj) 400 mg STK-MED ONCE IV ; Start 03/08/17 at 09:48; Stop 03/11/17 at 09:48; Status DC Lidocaine HCl (Xylocaine-Mpf 1% Inj) 5 ml STK-MED ONCE OTHER ; Start 03/08/17 at 09:48; Stop 03/11/17 at 09:48; Status DC Lactated Ringer's 1,000 ml @ As Directed STK-MED ONCE IV ; Start 03/08/17 at 09 :48; Stop 03/11/17 at 09:48; Status DC Iohexol (Omnipaque 350 Inj) 55 ml STK-MED ONCE IVCONTRAST Last administered on 03/12/17 10:49; Start 03/12/17 at 10:49; Stop 03/12/17 at 10:50; Status DC Lorazepam (Ativan) 1 mg Q8H PRN PO anxiety Last administered on 03/13/17 11:44 ; Start 03/12/17 at 20:00 Lorazepam (Ativan) 1 mg NOW ONCE PO Last administered on 03/12/17 12:17; Start 03/12/17 at 12:00; Stop 03/12/17 at 12:01; Status DC Enoxaparin Sodium (Lovenox Inj) 70 mg Q12H SQ Last administered on 03/13/17 03 :01; Start 03/12/17 at 14:00; Status Future Hold Acetaminophen/ Hydrocodone Bitart ([place] 5-325 Mg) 1 tab Q4H PRN PO pain 1-7 Last administered on 03/14/17 01:45; Start 03/12/17 at 16:45; Stop 03/15/17 at 13:48; Status DC Acetaminophen/ Hydrocodone Bitart ([place] 5-325 Mg) 2 tab Q4H PRN PO pain 8-10 Last administered on 03/14/17 23:39; Start 03/12/17 at 16:45; Stop 03/15/17 at 13:48; Status DC Morphine Sulfate (Morphine Inj) 2 mg Q3H PRN IV PUSH breakthrough Last administered on 03/14/17 20:59; Start 03/12/17 at 16:45; Stop 03/15/17 at 13:48 ; Status DC Lactated Ringer's 1,000 ml @ 30 mls/hr Q24H PRN IV SEE LABEL COMMENTS; Start at 00:15; Stop 03/16/17 at 00:14 Povidone Iodine (Betadine 5% Antisepsis Kit) 1 applic DIABETES CLINICAL MANAGER PRN EACH NARE SEE LABEL COMMENTS; Start 03/13/17 at 00:15; Stop 03/16/17 at 00:14 Chlorhexidine Gluconate (Chlorhexidine 2% Cloth) 3 pack DIABETES CLINICAL MANAGER PRN TOPICAL SEE LABEL COMMENTS; Start 03/13/17 at 00:15; Stop 03/16/17 at 00:14 Metoclopramide HCl (Reglan Inj) 10 mg Q8H IV PUSH Last administered on 23:37; Start 03/13/17 at 16:00 Lidocaine HCl (Xylocaine 2% Inj) 50 ml STK-MED ONCE .ROUTE Last administered on 03/13/17 15:11; Start 03/13/17 at 15:25; Stop 03/13/17 at 15:26; Status DC Bupivacaine HCl (Marcaine Pf 0.5% Inj) 30 ml STK-MED ONCE .ROUTE Last administered on 03/13/17 15:25; Start 03/13/17 at 15:25; Stop 03/13/17 at 15:26 ; Status DC Mupirocin (Bactroban 2% Oint) 22 applic STK-MED ONCE .ROUTE Last administered on 03/13/17 15:11; Start 03/13/17 at 15:26; Stop 03/13/17 at 15:27; Status DC Acetaminophen 100 ml @ As Directed STK-MED ONCE IV ; Start 03/13/17 at 15:42; Stop 03/13/17 at 15:43; Status DC Hydromorphone HCl (Dilaudid Pf Inj) 2 mg STK-MED ONCE .ROUTE ; Start 03/13/17 at 17:01; Stop 03/13/17 at 17:02; Status DC Miscellaneous Information ALL NURSING DEPARTME... UNSCH PRN .XX SEE LABEL COMMENTS; Start 03/13/17 at 17:38; Stop 03/14/17 at 17:37; Status DC Sodium Chloride 500 ml @ 500 mls/hr BOLUS ONCE IV Last administered on 12:30; Start 03/14/17 at 13:00; Stop 03/14/17 at 13:59; Status DC Diatrizoate Meglum/ Diatrizoate Sod ( Gastroview Liq) 18 ml ONCE ONCE PO Last administered on 03/14/17 14:16; Start 03/14/17 at 15:00; Stop 03/14/17 at 15:01; Status DC Iohexol (Omnipaque 350 Inj) 80 ml STK-MED ONCE IVCONTRAST Last administered on 03/14/17 21:25; Start 03/14/17 at 21:25; Stop 03/14/17 at 21:26; Status DC Ketamine HCl (Ketalar Inj) 500 mg STK-MED ONCE .ROUTE ; Start 03/15/17 at 10:52 ; Stop 03/15/17 at 10:53; Status DC Sodium Chloride 1,000 ml @ 150 mls/hr Q6H40M IV ; Start 03/15/17 at 13:42; Status UNV Sodium Chloride (NS Flush) 2 ml UNSCH PRN IV FLUSH FLUSH AFTER USING IV ACCESS ; Start 03/15/17 at 13:45; Status UNV Sodium Chloride (NS Flush) 2 ml BID IV FLUSH ; Start 03/15/17 at 21:00; Status UNV Miscellaneous Information (Post-op Orders (for Pharmacy)) STAT ONCE XX ; Start 03/15/17 at 13:45; Stop 03/15/17 at 13:46; Status UNV Naloxone HCl (Narcan Inj) 0.4 mg UNSCH PRN IV PUSH SEE LABEL COMMENTS; Start at 13:45; Status UNV Naloxone HCl (Narcan Inj) 0.4 mg UNSCH PRN IV PUSH RESPIRATORY RATE LESS THAN 10; Start 03/15/17 at 13:45; Status UNV Hydromorphone HCl (Dilaudid ELECTRICIAN SHIP Inj) 6 mg UNSCH IV ; Start 03/15/17 at 13:45; Status UNV ELECTRICIAN SHIP Dosage Infused (Pha) 1 Q8HR OTHER ; Start 03/15/17 at 14:00; Status UNV Miscellaneous Information ALL NURSING DEPARTME... UNSCH PRN .XX SEE LABEL COMMENTS; Start 03/15/17 at 13:48; Stop 03/16/17 at 13:47 Lactated Ringer's 1,000 ml @ 999 mls/hr Q1H1M IV Last administered on t 14:30; Start 03/15/17 at 14:30; Stop 03/15/17 at 15:30 A/P Assessment and Plan 61-year-old female who presented with a gangrenous finger Small bowel obstruction -Status post EGD and Colonoscopy found Hiatal hernia, Duodenitis, Thickened sigmoid fold, internal Hemorrhoids, biopsies taken from Esophagus, Duodenum and Colon, Snare polypectomy performed. -KUB showed dilated loop of bowels. -CT scan the abdomen/pelvis was repeated on 03/14 was suggest small bowel obstruction worsening. -GI and general surgeon were following. -Status post exploratory laparotomy, lysis of adhesions approx 1 hr, appendectomy. -Due to the extent of surgery and hypotension patient will be monitor in the [facility]. Hypotension post op -Worsen after given pain medication. Will hold off on pain medication since patient is hypotensive. -Patient currently getting fluid boluses. On IV fluids. -Continue to monitor closely in the ISC. If patient does not respond to fluid boluses will transfer care to systems development consultant. Right gangrenous finger -CTA of the upper extremity read by Dr. Arana. 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 -Patient on Lovenox. -Status post disarticulation through distal interphalangeal joint, right index finger findings necrotic right index fingertip. 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 Encourage smoking sensation. malignancy will workup is negative. -Patient on therapeutic Lovenox but currently being held due to surgery. Per Dr. Benjamin need to hold Lovenox for at least 12 hours. Can restart Lovenox at 2 AM. Tobacco dependence -strongly recommended to stop smoking marijuana abuse -Education given. DVT prophylaxis -Lovenox on hold. Discharge Planning Due to hypotension patient will be monitoring the [facility]. Kary Herrera MD Mar 15, 2017 14:33
[2017-03-15 14:47] LABS: CALCIUM-PROTEIN CORRECTED 8.7 MG/DL (8.5-10.1)
[2017-03-15] MEDS: SODIUM CHLOR 0.9% 1000 ML INJ 1,000 ML IV SCH ×2 (15:00→20:25)
[2017-03-15] MEDS ORDERED: MAGNESIUM SULFATE 1 GM PREMIX 100 ML IV ONE (15:00)
[2017-03-15] MEDS ORDERED: MAGNESIUM SULFATE 1 GM PREMIX 100 ML ONE (15:01)
--- NOTE | 2017-03-15 15:55 | HHI.GIFU ---
Subjective Remarks Patient is alert oriented laying in bed seems to be comfortable, has NG tube in place, underwent abdominal exploration with 4 small bowel obstruction with adhesion lysis Objective Vitals I&O Vital Signs Date Time Temp Pulse Resp B/P (MAP) Pulse Ox O2 Delivery O2 Flow Rate FiO2 03/15/17 15:30 91 16 94/62 (73) 97 Nasal Cannula 3 03/15/17 15:15 86 15 98/63 (75) 97 Nasal Cannula 3 03/15/17 15:15 15 03/15/17 15:00 97.4 82 16 101/65 (77) 97 Nasal Cannula 3 03/15/17 14:45 85 16 92/60 (71) 97 Nasal Cannula 3 03/15/17 14:30 79 15 87/58 (68) 95 Nasal Cannula 3 03/15/17 14:15 84 16 93/58 (70) 97 Nasal Cannula 3 03/15/17 14:00 91 15 90/63 (72) 97 Nasal Cannula 3 03/15/17 13:45 96.2 108 13 77/57 (64) 96 Nasal Cannula 3 03/15/17 08:00 97.8 79 17 119/81 (94) 96 03/15/17 00:00 97.1 62 17 122/75 (91) 95 03/14/17 20:00 97.6 73 18 125/96 (106) 98 03/14/17 17:42 18 03/14/17 16:00 95.6 83 18 134/86 (102) 98 I/O 03/14/17 03/14/17 03/14/17 03/15/17 03/15/17 03/15/17 07:00 15:00 23:00 07:00 15:00 23:00 Intake Total 1468 ml 240 ml 300 ml 350 ml 170 ml Output Total 300 ml 4200 ml Balance 1468 ml 240 ml 0 ml -3850 ml 170 ml Intake Oral 240 ml 240 ml IV Total 1228 ml 300 ml 170 ml Other 350 ml Output Urine Total 300 ml Gastric Drainage Total 4000 ml Estimated Blood Loss 200 ml # Voids 3 3 2 Laboratory Laboratory Tests Test 03/15/17 05:10 03/15/17 06:12 03/15/17 11:45 03/15/17 13:25 White Blood Count 14.9 Red Blood Count 3.29 Hemoglobin 10.3 Hematocrit 31.9 Mean Corpuscular Volume 96.8 Mean Corpuscular Hemoglobin 31.3 Mean Corpuscular Hemoglobin Concent 32.3 Red Cell Distribution Width 15.9 Platelet Count 327 Mean Platelet Volume 9.7 Neutrophils (%) (Auto) 77.6 Lymphocytes (%) (Auto) 10.7 Monocytes (%) (Auto) 11.1 Eosinophils (%) (Auto) 0.2 Basophils (%) (Auto) 0.4 Neutrophils # (Auto) 11.6 Lymphocytes # (Auto) 1.6 Monocytes # (Auto) 1.7 Eosinophils # (Auto) 0.0 Basophils # (Auto) 0.1 CBC Comment DIFF FINAL Differential Comment Hematology Comments Blood Urea Nitrogen 8 Creatinine 0.89 Random Glucose 97 Calcium Level 8.1 Sodium Level 141 Potassium Level 3.3 Chloride Level 107 Carbon Dioxide Level 26.7 Anion Gap 7 Estimat Glomerular Filtration Rate 78 Blood Gas Puncture Site ART LINE ART LINE Blood Gas Patient Temperature 98.6 98.6 Blood Gas HCO3 23 23 Blood Gas Base Excess -0.4 -1.8 Blood Gas Oxygen Saturation 93 96 Arterial Blood pH 7.45 7.38 Arterial Blood Partial Pressure CO2 34 39 Arterial Blood Partial Pressure O2 90 260 Arterial Blood Oxygen Content 12.3 17.3 Arterial Blood Carboxyhemoglobin 1.7 1.0 Arterial Blood Methemoglobin 2.3 2.0 Blood Gas Hemoglobin 9.3 12.4 Oxygen Delivery Device VENTILATOR VENTILATOR Blood Gas Inspired Oxygen 51 Test 03/15/17 13:50 White Blood Count 15.4 Red Blood Count 3.89 Hemoglobin 12.7 Hematocrit 36.4 Mean Corpuscular Volume 93.5 Mean Corpuscular Hemoglobin 32.6 Mean Corpuscular Hemoglobin Concent 34.9 Red Cell Distribution Width 15.3 Platelet Count 391 Mean Platelet Volume 9.7 Blood Urea Nitrogen 7 Creatinine 0.77 Random Glucose 113 Total Protein 4.1 Calcium Level 7.0 Magnesium Level 1.1 Sodium Level 141 Potassium Level 3.4 Chloride Level 108 Carbon Dioxide Level 25.7 Anion Gap 7 Estimat Glomerular Filtration Rate 92 Protein Corrected Calcium 8.7 Date/Time Source Procedure Growth Status 03/13/17 00:00 Wound Finger Fungal Smear - Final NO FUNGAL ELEMENTS SEEN. Resulted 03/13/17 00:00 Wound Finger Fungal Culture Pending Resulted Physical Exam HEENT: Normocephalic; atraumatic; no jaundice. CHEST: CTA CARDIAC: RRR ABDOMEN: Soft, nondistended,mild diffuse tenderness most likely because of surgery; no hepatosplenomegaly; bowel sounds are present but . EXTREMITIES: bandage 2nd digit SKIN: Normal; no rash; no jaundice. SURGEON CHIEF: No focal deficits; alert and oriented x 3 Assessment and Plan Plan Patient was seen and examined, that his post-exploration with underlying adhesion lysis because of bowel obstruction Currently feeling better still some abdominal discomfort most likely related to the operation itself NG tube in place Supportive care Further plan by surgery We will sign off Елена Weller MD Mar 15, 2017 15:55
[2017-03-15 16:00] VITALS: BP 78/58; PULSE 92; RESP 13; TEMP 98.4; O2SAT 98
[2017-03-15] MEDS: POTASSIUM CHLOR 10 MEQ PREMIX 100 ML IV SCH ×3 (16:00→21:00)
[2017-03-15] MEDS: KETOROLAC TROMETHAMINE 30 MG/ML (IVP) VIAL IV PUSH SCH ×3 (17:04→23:33)
[2017-03-15 20:00] VITALS: BP 98/62; PULSE 96; RESP 14; TEMP 99; O2SAT 98
[2017-03-15 20:28] VITALS: O2SAT 97
[2017-03-15] MEDS ORDERED: NOREPINEPHRINE INJ 4 MG in SODIUM CHLOR 0.9% 250 ML INJ 246 ML IV PRN (21:15)
[2017-03-15] MEDS ORDERED: TERBUTALINE INJ 1 MG/ML AMP SQ PRN (21:15)
[2017-03-15 22:00] VITALS: PULSE 104
[2017-03-15] MEDS: PCA - TOTAL MG DILAUDID DELIVERED PER SHIFT OTHER SCH (22:00)
--- NOTE | 2017-03-15 22:13 | PD.CONS ---
[facility] Service Critical Care Medicine Consult Requested By Primary Care Physician Unknown History of Present Illness 61-year-old female presents to the hospital complaining of pain and discoloration of the right index finger/gangrene. He has also been complaining of abdominal pain mostly on the right side and a 25-pound weight loss in the last few months. The patient had a CAT scan of the abdomen and pelvis which showed dilated small bowel consistent with small bowel obstruction. The concern for appendicitis was raised and General Surgery was consulted and she underwent exploratory laparotomy, lysis of adhesions and appendectomy. Dry gangrene of the right index finge most likely embolic is worrisome for some malignancy and oncology was consulted to evaluate the patient. However without any significant finding suggesting any malignant process. Post abdominal surgery patient became hypotensive in the critical care medicine was consulted. Review of Systems Constitutional: COMPLAINS OF: Weight loss, DENIES: Diaphoretic episodes, Fatigue, Fever, Weight gain, Chills, Dizziness, Change in appetite, Night Sweats Endocrine: DENIES: Abnorml menstrual pattern, Heat/cold intolerance, Polydipsia , Polyuria, Polyphagia Eyes: DENIES: Blurred vision, Diplopia, Eye inflammation, Eye pain, Vision loss , Photosensitivity, Double Vision Ears, nose, mouth, throat: DENIES: Tinnitus, Hearing loss, Vertigo, Nasal discharge, Oral lesions, Throat pain, Hoarseness, Ear Pain, Running Nose, Epistaxis, Sinus Pain, Toothache, Odynophagia Respiratory: DENIES: Apneas, Cough, Snoring, Wheezing, Hemoptysis, Sputum production, Shortness of breath Cardiovascular: DENIES: Chest pain, Palpitations, Syncope, Dyspnea on Exertion , PND, Lower Extremity Edema, Orthopnea, Claudication Gastrointestinal: COMPLAINS OF: Abdominal pain, Diarrhea, DENIES: Black stools , Bloody stools, Constipation, Nausea, Vomiting, Difficulty Swallowing, Anorexia Genitourinary: DENIES: Abnormal vaginal bleeding, Dysmenorrhea, Dyspareunia, Sexual dysfunction, Urinary frequency, Urinary incontinence, Urgency, Hematuria , Dysuria, Nocturia, Vaginal discharge Musculoskeletal: DENIES: Joint pain, Muscle aches, Stiffness, Joint Swelling, Back pain, Neck pain Integumentary: DENIES: Abnormal pigmentation, Pruritus, Rash, Nail changes, Breast masses, Breast skin changes, Nipple discharge Hematologic/lymphatic: DENIES: Bruising, Lymphadenopathy Immunologic/allergic: DENIES: Eczema, Urticaria Neurologic: DENIES: Abnormal gait, Headache, Localized weakness, Paresthesias, Seizures, Speech Problems, Tremor, Poor Balance Psychiatric: DENIES: Anxiety, Confusion, Mood changes, Depression, Hallucinations, Agitation, Suicidal Ideation, Homicidal Ideation, Delusions Past Family Social History Allergies: Coded Allergies: No Known Allergies (Verified Allergy, Unknown, 03/06/17) Past Medical History Hypertension Tobacco use disorder Past Surgical History Hysterectomy Reported Medications Reported Meds & Active Scripts Active No Active Prescriptions or Reported Medications Active Ordered Medications Current Medications Medications (Trade) Dose Ordered Sig/Jessica Route PRN Reason Start Time Stop Time Status Last Admin Dose Admin Ondansetron HCl (Zofran Inj) 4 mg Q6H PRN IVP NAUSEA OR VOMITING 03/06/17 02:00 03/13/17 11:44 Ciprofloxacin/ Dextrose 200 ml @ 200 mls/hr Q12H IV 03/06/17 13:00 03/16/17 01:12 Metronidazole 100 ml @ 100 mls/hr Q8H IV 03/06/17 10:00 03/15/17 17:03 Pantoprazole Sodium (Protonix Inj) 40 mg DAILY IV PUSH 03/06/17 13:30 03/14/17 08:00 Lactated Ringer's 1,000 ml @ 0 mls/hr Q0M IV 03/08/17 17:25 03/08/17 17:05 Lorazepam (Ativan) 1 mg Q8H PRN PO anxiety 03/12/17 20:00 03/13/17 11:44 Metoclopramide HCl (Reglan Inj) 10 mg Q8H IV PUSH 03/13/17 16:00 03/15/17 23:33 Sodium Chloride 1,000 ml @ 200 mls/hr Q5H IV 03/15/17 15:00 03/16/17 01:12 Sodium Chloride (NS Flush) 2 ml UNSCH PRN IV FLUSH FLUSH AFTER USING IV ACCESS 03/15/17 13:45 Sodium Chloride (NS Flush) 2 ml BID IV FLUSH 03/15/17 21:00 03/15/17 21:00 Naloxone HCl (Narcan Inj) 0.4 mg UNSCH PRN IV PUSH RESPIRATORY RATE LESS THAN 10 03/15/17 13:45 Hydromorphone HCl (Dilaudid INTERNAL CONTROLS MANAGER Inj) 6 mg UNSCH IV 03/15/17 13:45 03/15/17 15:15 INTERNAL CONTROLS MANAGER Dosage Infused (Pha) 1 Q8HR OTHER 03/15/17 14:00 Miscellaneous Information ALL NURSING DEPARTME... UNSCH PRN .XX SEE LABEL COMMENTS 03/15/17 13:48 03/16/17 13:47 Enoxaparin Sodium (Lovenox Inj) 70 mg Q12H SQ 03/16/17 02:00 Ketorolac Tromethamine (Toradol Inj) 15 mg Q6H IV PUSH 03/15/17 17:00 03/20/17 16:59 03/15/17 17:04 Norepinephrine Bitartrate 4 mg/ Sodium Chloride 250 ml @ 7.5 mls/hr TITRATE PRN IV Blood pressure management 03/15/17 21:15 03/15/17 21:28 Terbutaline Sulfate (Brethine Inj) 1 mg UNSCH PRN SQ For Extravasation 03/15/17 21:15 Potassium Chloride 100 ml @ 50 mls/hr Q2H PRN IV For Potassium 2.8 - 3.2 mEq/L 03/15/17 22:15 Potassium Chloride 100 ml @ 50 mls/hr Q2H PRN IV For Potassium 2.8 - 3.2 mEq/L 03/15/17 22:15 Potassium Bicarb/ Potassium Chloride (K-Lyte Cl Eff) 50 meq UNSCH PRN PO For Potassium 3.3 - 3.5 mEq/L 03/15/17 22:15 Potassium Chloride 100 ml @ 25 mls/hr UNSCH PRN IV For Potassium 3.3 - 3.5 mEq/L 03/15/17 22:15 Potassium Chloride 100 ml @ 50 mls/hr Q2H PRN IV For Potassium 3.3 - 3.5 mEq/L 03/15/17 22:15 Magnesium Sulfate 4 gm/Sodium Chloride 100 ml @ 50 mls/hr UNSCH PRN IV For Magnesium 0.9 - 1.1 mg/dL 03/15/17 22:15 Magnesium Oxide (Mag-Ox) 800 mg UNSCH PRN PO For Magnesium 1.2 - 1.6 mg/dL 03/15/17 22:15 Magnesium Sulfate 2 gm/Sodium Chloride 100 ml @ 50 mls/hr UNSCH PRN IV For Magnesium 1.2 - 1.6 mg/dL 03/15/17 22:15 Potassium Phosphate (K-Phos) 2,000 mg Q4H PRN PO For Phosphorus < 2.5 mg/dL 03/15/17 22:15 Sodium Phosphate 30 mmol/Sodium Chloride 250 ml @ 42 mls/hr UNSCH PRN IV For Phosphorus < 2.5 mg/dL 03/15/17 22:15 Potassium Phosphate (K-Phos) 2,000 mg UNSCH PRN PO/TUBE SEE LABEL COMMENTS 03/15/17 22:15 Potassium Phosphate 30 mmol/ Sodium Chloride 260 ml @ 42 mls/hr UNSCH PRN IV SEE LABEL COMMENTS 03/15/17 22:15 Family History No family history significant for coronary artery disease Social History Positive for tobacco use Denies alcohol or illicit drug abuse Physical Exam Vital Signs Vital Signs Date Time Temp Pulse Resp B/P (MAP) Pulse Ox O2 Delivery O2 Flow Rate FiO2 03/15/17 21:28 101 79/54 03/15/17 20:28 97 Nasal Cannula 3.00 03/15/17 16:00 92 03/15/17 16:00 98.4 92 13 78/58 (65) 98 03/15/17 15:30 91 16 94/62 (73) 97 Nasal Cannula 3 03/15/17 15:15 86 15 98/63 (75) 97 Nasal Cannula 3 03/15/17 15:15 15 03/15/17 15:00 97.4 82 16 101/65 (77) 97 Nasal Cannula 3 03/15/17 14:45 85 16 92/60 (71) 97 Nasal Cannula 3 03/15/17 14:30 79 15 87/58 (68) 95 Nasal Cannula 3 03/15/17 14:15 84 16 93/58 (70) 97 Nasal Cannula 3 03/15/17 14:00 91 15 90/63 (72) 97 Nasal Cannula 3 03/15/17 13:45 96.2 108 13 77/57 (64) 96 Nasal Cannula 3 03/15/17 08:00 97.8 79 17 119/81 (94) 96 03/15/17 00:00 97.1 62 17 122/75 (91) 95 Physical Exam GENERAL: Well-nourished, well-developed patient. SKIN: Warm and dry. HEAD: Normocephalic. EYES: No scleral icterus. No injection or drainage. NECK: Supple, trachea midline. No JVD or lymphadenopathy. CARDIOVASCULAR: Regular rate and rhythm without murmurs, gallops, or rubs. RESPIRATORY: Breath sounds equal bilaterally. No accessory muscle use. GASTROINTESTINAL: Abdomen soft, non-tender, nondistended. MUSCULOSKELETAL: Dry gangrene of the right index finger. BACK: Nontender without obvious deformity. NEURO EXAM: GCS: M 6 V 5 E 4 Mental Status: The patient is alert and oriented to person, place, and time with normal speech. Cranial Nerves: Visual acuity intact bilaterally. Visual remy normal in all quadrants. Pupils are round, reactive to light. Extraocular movements are intact without ptosis. Hearing is normal bilaterally. Voice is normal. Tongue protrudes midline and moves symmetrically. Reflexes: Biceps, patellar, and Achilles are 2/4 bilaterally. No clonus. Laboratory Laboratory Tests Test 03/15/17 05:10 03/15/17 06:12 03/15/17 11:45 03/15/17 13:25 White Blood Count 14.9 Red Blood Count 3.29 Hemoglobin 10.3 Hematocrit 31.9 Mean Corpuscular Volume 96.8 Mean Corpuscular Hemoglobin 31.3 Mean Corpuscular Hemoglobin Concent 32.3 Red Cell Distribution Width 15.9 Platelet Count 327 Mean Platelet Volume 9.7 Neutrophils (%) (Auto) 77.6 Lymphocytes (%) (Auto) 10.7 Monocytes (%) (Auto) 11.1 Eosinophils (%) (Auto) 0.2 Basophils (%) (Auto) 0.4 Neutrophils # (Auto) 11.6 Lymphocytes # (Auto) 1.6 Monocytes # (Auto) 1.7 Eosinophils # (Auto) 0.0 Basophils # (Auto) 0.1 CBC Comment DIFF FINAL Differential Comment Hematology Comments Blood Urea Nitrogen 8 Creatinine 0.89 Random Glucose 97 Calcium Level 8.1 Sodium Level 141 Potassium Level 3.3 Chloride Level 107 Carbon Dioxide Level 26.7 Anion Gap 7 Estimat Glomerular Filtration Rate 78 Blood Gas Puncture Site ART LINE ART LINE Blood Gas Patient Temperature 98.6 98.6 Blood Gas HCO3 23 23 Blood Gas Base Excess -0.4 -1.8 Blood Gas Oxygen Saturation 93 96 Arterial Blood pH 7.45 7.38 Arterial Blood Partial Pressure CO2 34 39 Arterial Blood Partial Pressure O2 90 260 Arterial Blood Oxygen Content 12.3 17.3 Arterial Blood Carboxyhemoglobin 1.7 1.0 Arterial Blood Methemoglobin 2.3 2.0 Blood Gas Hemoglobin 9.3 12.4 Oxygen Delivery Device VENTILATOR VENTILATOR Blood Gas Inspired Oxygen 51 Test 03/15/17 13:50 White Blood Count 15.4 Red Blood Count 3.89 Hemoglobin 12.7 Hematocrit 36.4 Mean Corpuscular Volume 93.5 Mean Corpuscular Hemoglobin 32.6 Mean Corpuscular Hemoglobin Concent 34.9 Red Cell Distribution Width 15.3 Platelet Count 391 Mean Platelet Volume 9.7 Blood Urea Nitrogen 7 Creatinine 0.77 Random Glucose 113 Total Protein 4.1 Calcium Level 7.0 Magnesium Level 1.1 Sodium Level 141 Potassium Level 3.4 Chloride Level 108 Carbon Dioxide Level 25.7 Anion Gap 7 Estimat Glomerular Filtration Rate 92 Protein Corrected Calcium 8.7 Date/Time Source Procedure Growth Status 03/13/17 00:00 Wound Finger Fungal Smear - Final NO FUNGAL ELEMENTS SEEN. Resulted 03/13/17 00:00 Wound Finger Fungal Culture Pending Resulted Result Diagram: 03/15/17 1350 03/15/17 1350 Assessment and Plan Assessment and Plan Hypotension - Volume loss - Arterial line in place - SVV monitor - Aggressive fluid resuscitation - Centerline placement - Levophed when necessary to keep MAP above 65 - Panculture - Cipro and Flagyl per surgery Small bowel obstruction - Nothing by mouth - NG tube to low wall intermittent suction - Status post exploratory laparotomy, lysis of adhesions and appendectomy - Management per general surgery Gangrene of the index finger - Most likely embolic - Workup for vascular surgery and oncology - Status post Disarticulation through distal interphalangeal joint DVT GI prophylaxis - Lovenox - Teds SCDs - Protonix Critical Care: The total critical care time was 35 minutes. Time to perform other separately billable procedures was not included in the critical care time. Joseph Alarcon MD Mar 15, 2017 22:13
--- NOTE | 2017-03-15 22:14 | PD.PROCEDR ---
Procedure Note Procedure Centerline placement A time-out was completed verifying correct patient, procedure, site, positioning , and special equipment if applicable. The patient was placed in a dependent position appropriate for central line placement based on the vein to be cannulated. The patients right neck was prepped and draped in sterile fashion. 1% Lidocaine was used to anesthetize the surrounding skin area. A triple lumen 9 -G[place] Cordis catheter was introduced into the the internal jugular vein using the Seldinger technique and under ultrasound guidance. The catheter was threaded smoothly over the guide wire and appropriate blood return was obtained. Each lumen of the catheter was evacuated of air and flushed with sterile saline. The catheter was then sutured in place to the skin and a sterile dressing applied. Perfusion to the extremity distal to the point of catheter insertion was checked and found to be adequate. Estimated Blood Loss: 1ml The patient tolerated the procedure well and there were no complications. Joseph Alarcon MD Mar 15, 2017 22:13
[2017-03-15] MEDS ORDERED: MAGNESIUM SULFATE INJ 2 GM in SODIUM CHLORIDE 0.9% INJ 96 ML IV PRN (22:15)
[2017-03-15] MEDS ORDERED: POTASSIUM CHLOR 20 MEQ PREMIX 100 ML IV PRN (22:15)
[2017-03-15] MEDS ORDERED: SODIUM PHOSPHATE INJ 30 MMOL in SODIUM CHLOR 0.9% 250 ML INJ 240 ML IV PRN (22:15)
[2017-03-15] MEDS ORDERED: MAGNESIUM SULFATE INJ 4 GM in SODIUM CHLORIDE 0.9% INJ 92 ML IV PRN (22:15)
[2017-03-15] MEDS ORDERED: POTASSIUM CHLORIDE 25 MEQ EFFERVESCENT TAB PO PRN (22:15)
[2017-03-15] MEDS ORDERED: POTASSIUM PHOSPHATE MONOBASIC 500 MG TAB PO PRN (22:15)
[2017-03-15] MEDS ORDERED: MAGNESIUM OXIDE 400 MG TAB PO PRN (22:15)
[2017-03-15] MEDS ORDERED: POTASSIUM PHOSPHATE INJ 30 MMOL in SODIUM CHLOR 0.9% 250 ML INJ 250 ML IV PRN (22:15)
[2017-03-15] MEDS ORDERED: POTASSIUM PHOSPHATE MONOBASIC 500 MG TAB PO/TUBE PRN (22:15)
[2017-03-15] MEDS ORDERED: POTASSIUM CHLOR 40 MEQ PREMIX 100 ML IV PRN (22:15)
--- NOTE | 2017-03-15 22:21 | RADRPT ---
EXAM DATE/TIME: 03/15/2017 21:49 [facility] COMPARISON: CT ABDOMEN & PELVIS W CONTRAST, March 14, 2017, 21:23. CHEST SINGLE AP, March 05, 2017, 18:5 9. INDICATIONS : Post central line placement. MEDICAL HISTORY : None. SURGICAL HISTORY : None. ENCOUNTER: Initial ACUITY: 1 day PAIN SCORE: Non-responsive. LOCATION: Bilateral chest FINDINGS: Right central line tip projects in the right atrium. No evidence of pneumothorax. Large retrocardia c consolidative Opacity with loss of delineation of the left hemidiaphragm correlates with the previ ously demonstrated hiatus hernia. The lungs are symmetrically aerated. CONCLUSION: Central line in good position. No evidence of pneumothorax. Miguel Sethi MD on March 15, 2017 at 22:18 Board Certified Radiologist. This report was verified electronically.
[2017-03-15 23:51] LABS: POTASSIUM 3.7 MEQ/L (3.5-5.1)
[2017-03-15 23:56] LABS: MAGNESIUM 1.2 MG/DL (1.5-2.5)
[2017-03-16] VITALS (13 sets, daily range): BP systolic 84–112; BP diastolic 55–76; PULSE 78–115; RESP 14–18; TEMP 97.5–98.1; O2SAT 100
[2017-03-16] MEDS: CIPROFLOXACIN 400 MG PREMIX 200 ML IV SCH (01:12)
[2017-03-16] MEDS: SODIUM CHLOR 0.9% 1000 ML INJ 1,000 ML IV SCH ×4 (01:12→21:48)
[2017-03-16] MEDS: metroNIDAZOLE 500 MG INJ 100 ML IV SCH (02:00)
[2017-03-16] MEDS: ENOXAPARIN SODIUM 80 MG/0.8 ML SYRINGE SQ SCH ×2 (02:00→14:19)
[2017-03-16] MEDS ORDERED: ALBUMIN HUMAN 5% 25 GM/500 ML BOTTLE IV ONE (03:45)
[2017-03-16] MEDS: KETOROLAC TROMETHAMINE 30 MG/ML (IVP) VIAL IV PUSH SCH ×4 (05:00→21:53)
[2017-03-16 05:22] LABS: HEMATOCRIT 28.1 % (35.0-46.0); MEAN CELL VOLUME 94.6 FL (80.0-100.0); MEAN CORPUSCULAR HEMOGLOBIN 31.7 PG (27.0-34.0); MEAN CORPUSCULAR HGB CONC 33.5 % (32.0-36.0); PLATELET COUNT 296 TH/MM3 (150-450); RED BLOOD COUNT 2.97 MIL/MM3 (4.00-5.30); RED CELL DISTRIBUTION WIDTH 15.2 % (11.6-17.2); REVIEW FLAG FINAL; WHITE BLOOD COUNT 16.4 TH/MM3 (4.0-11.0)
[2017-03-16 05:52] LABS: BICARBONATE 24.8 MEQ/L (21.0-32.0); MAGNESIUM 1.6 MG/DL (1.5-2.5); POTASSIUM 3.3 MEQ/L (3.5-5.1)
[2017-03-16] MEDS: PCA - TOTAL MG DILAUDID DELIVERED PER SHIFT OTHER SCH ×2 (06:00→14:00)
[2017-03-16] MEDS: PIPERACIL-TAZO 4.5 GM PREMIX 100 ML IV SCH ×4 (06:00→21:51)
[2017-03-16 06:08] LABS: CALCIUM-PROTEIN CORRECTED 8.5 MG/DL (8.5-10.1)
[2017-03-16] MEDS: POTASSIUM CHLOR 40 MEQ PREMIX 100 ML IV PRN (07:09)
[2017-03-16] MEDS: SODIUM CHLORIDE 0.9% FLUSH 10 ML FLUSH IV FLUSH SCH ×2 (10:00→21:48)
[2017-03-16] MEDS: PANTOPRAZOLE SODIUM 40 MG VIAL IV PUSH SCH (10:00)
[2017-03-16] MEDS: METOCLOPRAMIDE HCL 10 MG/2 ML VIAL IV PUSH SCH ×2 (10:00→17:34)
--- NOTE | 2017-03-16 11:06 | HHI.CCPN ---
Subjective Remarks/Hospital Course 61-year-old female presents to the hospital complaining of pain and discoloration of the right index finger/gangrene. He has also been complaining of abdominal pain mostly on the right side and a 25-pound weight loss in the last few months. The patient had a CAT scan of the abdomen and pelvis which showed dilated small bowel consistent with small bowel obstruction. The concern for appendicitis was raised and General Surgery was consulted and she underwent exploratory laparotomy, lysis of adhesions and appendectomy. Dry gangrene of the right index finge most likely embolic is worrisome for some malignancy and oncology was consulted to evaluate the patient. However without any significant finding suggesting any malignant process. Post abdominal surgery patient became hypotensive in the critical care medicine was consulted. Subjective: 03/16: Tmax 98.7. The patient continues to be hypotensive ,on norepinephrine currently at 3 mcgs, IV infusion NS 200/hr. patient's pain well controlled with Toradol. Objective Vital Signs Date Time Temp Pulse Resp B/P (MAP) Pulse Ox O2 Delivery O2 Flow Rate FiO2 03/16/17 08:15 100 Nasal Cannula 3.00 03/16/17 06:00 99 03/16/17 04:00 97.5 16 84/76 (79) Intake and Output 03/16/17 03/16/17 03/17/17 08:00 16:00 00:00 Intake Total 3890 ml Output Total 1125 ml Balance 2765 ml Result Diagram: 03/16/17 0440 03/16/17 0440 Other Results Laboratory Tests Test 03/15/17 11:45 03/15/17 13:25 Blood Gas Puncture Site ART LINE ART LINE Blood Gas Patient Temperature 98.6 98.6 Blood Gas HCO3 23 mmol/L (22-26) 23 mmol/L (22-26) Blood Gas Base Excess -0.4 mmol/L (-2-2) -1.8 mmol/L (-2-2) Blood Gas Oxygen Saturation 93 % (90-100) 96 % (90-100) Arterial Blood pH 7.45 (7.380-7.420) 7.38 (7.380-7.420) Arterial Blood Partial Pressure CO2 34 mmHg (38-42) 39 mmHg (38-42) Arterial Blood Partial Pressure O2 90 mmHg (61-120) 260 mmHg (61-120) Arterial Blood Oxygen Content 12.3 Vol % (12.0-20.0) 17.3 Vol % (12.0-20.0) Arterial Blood Carboxyhemoglobin 1.7 % (0-4) 1.0 % (0-4) Arterial Blood Methemoglobin 2.3 % (0-2) 2.0 % (0-2) Blood Gas Hemoglobin 9.3 G/DL (12.0-16.0) 12.4 G/DL (12.0-16.0) Oxygen Delivery Device VENTILATOR VENTILATOR Blood Gas Inspired Oxygen 51 % Imaging Last Impressions Abdomen/Pelvis CT 03/14/17 0000 Signed Impressions: Service Date/Time: Tuesday, March 14, 2017 21:23 - CONCLUSION: 1. Persistent small bowel obstruction as discussed above. Increased distention of small bowel, now severe. There is new distention of the stomach. Large hiatal hernia again noted. 2. There is persistent wall thickening and distention of the appendix but not as severe as on the prior study. A fecalith is seen at the tip of the appendix. No abscess, perforation or obstruction. 3. Small ascites and small bilateral pleural effusions have developed. Navi Ferraro MD Liver Ultrasound 03/13/17 0000 Signed Impressions: Service Date/Time: February 13:36 - CONCLUSION: 1. Stone filled gallbladder. 2. Multiple hepatic cysts. 3. Single right renal cyst. 4. Trace free fluid in Morison's pouch. Johny Us MD Abdomen X-Ray 03/13/17 0000 Signed Impressions: Service Date/Time: February 12:34 - CONCLUSION: Diffuse small bowel dilatation. Navi Lau MD Chest CT 03/12/17 0000 Signed Impressions: Service Date/Time: Sunday, March 12, 2017 10:37 - CONCLUSION: 1. There is an ulcerated plaque with a small amount of and in thrombus projecting into the upper arch and into the lumen of the innominate artery origin. 2. Large hiatal hernia. 3. Multiple low attenuation lesions within the liver felt to represent a cyst. Ultrasound for confirmation is warranted. 4. There are multiple dilated loops of small bowel left upper quadrant. CT of the abdomen to rule out bowel destruction is warranted. Juan Carlos Leo MD Upper Extremity CTA 03/08/17 0000 Signed Impressions: Service Date/Time: Wednesday, March 08, 2017 10:21 - CONCLUSION: 1. The ulnar artery in the right forearm is diminutive in caliber. Otherwise, the remaining right upper extremity arterial vessels have a normal appearance. Please note that the hand arterial vessels are not visualized on this exam. 2. Complex left thyroid nodule measuring 2.7 cm. When patient condition permits, suggest further characterization with thyroid ultrasound. 3. Cerebral atrophy with bilateral subdural hygromas. Navi Leon MD Small Bowel X-Ray 03/06/17 0000 Signed Impressions: Service Date/Time: February 11:25 - CONCLUSION: 1. Small bowel dilatation not associated with any significant obstruction. The oral contrast does reach the colon within 2 hours which is within normal range. However, the terminal ileum does have a more normal caliber compared with the more proximal small bowel which can be seen with a very low-grade partial obstruction. Ahmet Hdz MD Objective Remarks GENERAL: Well-nourished, well-developed female. SKIN: Warm and dry. HEAD: Normocephalic. EYES: No scleral icterus. No injection or drainage. NECK: Supple, trachea midline. No JVD or lymphadenopathy. CARDIOVASCULAR: Regular rate and rhythm without murmurs, gallops, or rubs. RESPIRATORY: Breath sounds equal bilaterally. No accessory muscle use. GASTROINTESTINAL: Abdomen soft, non-tender, nondistended. Midline dressing clean dry and intact without evidence of bleeding or erythema. MUSCULOSKELETAL: Dry gangrene of the right index finger. BACK: Nontender without obvious deformity. Dressing right hand and right index finger clean dry and intact NEURO EXAM: GCS: M 6 V 5 E 4 Mental Status: The patient is alert and oriented to person, place, and time with normal speech. Cranial Nerves: Visual acuity intact bilaterally. Visual remy normal in all quadrants. Pupils are round, reactive to light. Extraocular movements are intact without ptosis. Hearing is normal bilaterally. Voice is normal. Tongue protrudes midline and moves symmetrically. Reflexes: Biceps, patellar, and Achilles are 2/4 bilaterally. No clonus. Vascular Central Line Catheter: Yes Date of Insertion: Mar 15, 2017 Line: Central Venous Catheter A/P Assessment and Plan Hypotension - Volume loss - Arterial line in place - Discontinue Flowtrac, monitor CVP -Albumin 12.5 g 1 dose - Aggressive fluid resuscitation - Central placement - Levophed when necessary to keep MAP above 65, currently at 3 mcgs continue to wean - Panculture - Cipro and Flagyl per surgery Small bowel obstruction - Nothing by mouth - NG tube to low wall intermittent suction - Status post exploratory laparotomy, lysis of adhesions and appendectomy - Management per general surgery Gangrene of the index finger - Most likely embolic, thrombosis aortic arch/innominate artery for CT chest - Workup for vascular surgery and oncology - Status post Disarticulation through distal interphalangeal joint DVT GI prophylaxis - Lovenox therapeutic dosing restarted at 2 AM - Teds SCDs - Protonix Dispo: Discussed with UX SPECIALIST at bedside, hand surgeon Dr. Burks and patient This patient remains critically ill with one or more organ systems which are or may become a threat to life. I have spent in excess of 30 minutes discontinuously in the care and management of this patient. This time is exclusive of procedures, and includes, but is not limited to, evaluation of the patient, review of the medical record, discussions with family, consultants, nursing staff, or respiratory therapy, and documentation in the medical record. Physician Pratibha Davila MD Mar 16, 2017 11:06
[2017-03-16] MEDS ORDERED: ALBUMIN HUMAN 5% 12.5 GM/250 ML BOTTLE IV ONE (13:00)
--- NOTE | 2017-03-16 13:00 | HHI.PR ---
Subjective Remarks complains of mild pain over the right index finger s/p abdominal surgery on levophed Objective Vital Signs Date Time Temp Pulse Resp B/P (MAP) Pulse Ox O2 Delivery O2 Flow Rate FiO2 03/16/17 12:00 80 03/16/17 10:00 94 03/16/17 08:15 100 Nasal Cannula 3.00 03/16/17 08:00 98.1 92 18 112/64 (80) 100 03/16/17 08:00 103 03/16/17 06:00 99 03/16/17 04:00 97.5 96 16 84/76 (79) 100 03/16/17 04:00 96 03/16/17 02:00 115 03/16/17 00:00 98.1 95 15 100/61 (74) 100 03/16/17 00:00 95 03/15/17 22:00 104 03/15/17 21:28 101 79/54 03/15/17 20:28 97 Nasal Cannula 3.00 03/15/17 20:00 99.0 96 14 98/62 (74) 98 Automatic Cuff 03/15/17 20:00 96 03/15/17 16:00 92 03/15/17 16:00 98.4 92 13 78/58 (65) 98 03/15/17 15:30 91 16 94/62 (73) 97 Nasal Cannula 3 03/15/17 15:15 86 15 98/63 (75) 97 Nasal Cannula 3 03/15/17 15:15 15 03/15/17 15:00 97.4 82 16 101/65 (77) 97 Nasal Cannula 3 03/15/17 14:45 85 16 92/60 (71) 97 Nasal Cannula 3 03/15/17 14:30 79 15 87/58 (68) 95 Nasal Cannula 3 03/15/17 14:15 84 16 93/58 (70) 97 Nasal Cannula 3 03/15/17 14:00 91 15 90/63 (72) 97 Nasal Cannula 3 03/15/17 13:45 96.2 108 13 77/57 (64) 96 Nasal Cannula 3 I/O 03/15/17 03/15/17 03/15/17 03/16/17 03/16/17 03/16/17 07:00 15:00 23:00 07:00 15:00 23:00 Intake Total 300 ml 350 ml 3470 ml 3890 ml Output Total 300 ml 4200 ml 1125 ml Balance 0 ml -3850 ml 3470 ml 2765 ml IV Total 300 ml 3470 ml 3890 ml Other 350 ml Output Urine Total 300 ml 125 ml Gastric Drainage Total 4000 ml 1000 ml Estimated Blood Loss 200 ml # Voids 2 right index finger: dressing in place surgical incision clean and dry fingers are cool and pale Result Diagram: 03/16/17 0440 03/16/17 0440 Procedures EGD and Colonoscopy 03/08/17 Assessment and Plan Assessment and Plan 61 year old female s/p disarticulation through DIP joint right index finger POD 3 plan: dressing changed keep the part warm try weaning off levophed for finger circulation hand surgery will follow. Brent Burks MD Mar 16, 2017 13:00
--- NOTE | 2017-03-16 14:17 | HHI.PR ---
Subjective Subjective Notes The patient is awake and alert. She is still requiring small amounts of pressors to maintain her blood pressure, however she is comfortable and has no major complaints other than the fact she is hungry. Objective Vitals/I&O Vital Signs Date Time Temp Pulse Resp B/P (MAP) Pulse Ox O2 Delivery O2 Flow Rate FiO2 03/16/17 13:00 81 100/54 03/16/17 12:00 98.1 17 100 03/16/17 08:15 Nasal Cannula 3.00 Labs Laboratory Tests Test 03/15/17 22:45 03/16/17 04:40 Potassium Level 3.7 3.3 Phosphorus Level 2.5 Magnesium Level 1.2 1.6 White Blood Count 16.4 Red Blood Count 2.97 Hemoglobin 9.4 Hematocrit 28.1 Mean Corpuscular Volume 94.6 Mean Corpuscular Hemoglobin 31.7 Mean Corpuscular Hemoglobin Concent 33.5 Red Cell Distribution Width 15.2 Platelet Count 296 Mean Platelet Volume 9.8 Blood Urea Nitrogen 9 Creatinine 1.25 Random Glucose 98 Total Protein 4.3 Calcium Level 7.0 Sodium Level 143 Chloride Level 110 Carbon Dioxide Level 24.8 Anion Gap 8 Estimat Glomerular Filtration Rate 53 Protein Corrected Calcium 8.5 Date/Time Source Procedure Growth Status 03/16/17 04:40 Blood Peripheral Aerobic Blood Culture Pending Received 03/16/17 04:40 Blood Peripheral Anaerobic Blood Culture Pending Received 03/13/17 00:00 Wound Finger Fungal Smear - Final NO FUNGAL ELEMENTS SEEN. Resulted 03/13/17 00:00 Wound Finger Fungal Culture Pending Resulted Cardiovascular: Regular Lungs: Clear Abdomen: Post-op tenderness Extremities: No edema Narrative Exam The patient's abdomen is still distended and very quiet. She has incisional tenderness but no guarding or rebound. A/P Assessment and Plan Impression: Status post 6 for coronary laparotomy with lysis of adhesions for small bowel instruction. She was found to have a mass in the appendix and appendectomy was performed as well. Overall she is stable with decreasing need for pressors. She remains in the intensive surgical care unit under the primary care the critical care medicine service. From a surgical standpoint she is stable postoperatively. Plan: We will continue to observe the patient and advance her diet when necessary. Ray Sims MD Mar 16, 2017 14:17
[2017-03-17] VITALS (13 sets, daily range): BP systolic 101–142; BP diastolic 61–82; PULSE 78–100; RESP 14–27; TEMP 97.2–98.1; O2SAT 100
[2017-03-17] MEDS: METOCLOPRAMIDE HCL 10 MG/2 ML VIAL IV PUSH SCH ×4 (02:04→23:11)
[2017-03-17] MEDS: SODIUM CHLOR 0.9% 1000 ML INJ 1,000 ML IV SCH ×4 (02:05→22:37)
[2017-03-17] MEDS: ENOXAPARIN SODIUM 80 MG/0.8 ML SYRINGE SQ SCH (02:05)
[2017-03-17] MEDS: KETOROLAC TROMETHAMINE 30 MG/ML (IVP) VIAL IV PUSH SCH ×4 (04:53→22:37)
[2017-03-17] MEDS: PIPERACIL-TAZO 4.5 GM PREMIX 100 ML IV SCH ×4 (04:53→22:37)
[2017-03-17 07:19] LABS: AUTOMATED NEUTROPHIL # 12.7 TH/MM3 (1.8-7.7); BASOPHIL # 0.1 TH/MM3 (0-0.2); BASOPHIL % 0.5 % (0.0-2.0); EOSINOPHIL # 0.4 TH/MM3 (0-0.4); EOSINOPHIL % 2.6 % (0.0-4.0); HEMATOCRIT 23.5 % (35.0-46.0); HEMO FLAGS DIFF FINAL; LYMPH % 7.7 % (9.0-44.0); LYMPHOCYTE # 1.3 TH/MM3 (1.0-4.8); MEAN CELL VOLUME 94.1 FL (80.0-100.0); MEAN CORPUSCULAR HEMOGLOBIN 31.3 PG (27.0-34.0); MEAN CORPUSCULAR HGB CONC 33.3 % (32.0-36.0); MONO % 10.7 % (0.0-8.0); NEUT % 78.5 % (16.0-70.0); PLATELET COUNT 320 TH/MM3 (150-450); RED CELL DISTRIBUTION WIDTH 15.4 % (11.6-17.2); WHITE BLOOD COUNT 16.2 TH/MM3 (4.0-11.0)
[2017-03-17 07:56] LABS: BICARBONATE 25.5 MEQ/L (21.0-32.0)
[2017-03-17 08:13] LABS: CALCIUM-PROTEIN CORRECTED 8.8 MG/DL (8.5-10.1)
[2017-03-17] MEDS: PANTOPRAZOLE SODIUM 40 MG VIAL IV PUSH SCH (08:44)
[2017-03-17] MEDS: SODIUM CHLORIDE 0.9% FLUSH 10 ML FLUSH IV FLUSH SCH ×2 (08:44→22:37)
[2017-03-17] MEDS: POTASSIUM CHLOR 20 MEQ PREMIX 100 ML IV PRN ×2 (11:19→16:31)
--- NOTE | 2017-03-17 11:44 | HHI.CCPN ---
Subjective Remarks/Hospital Course 61-year-old female presents to the hospital complaining of pain and discoloration of the right index finger/gangrene. He has also been complaining of abdominal pain mostly on the right side and a 25-pound weight loss in the last few months. The patient had a CAT scan of the abdomen and pelvis which showed dilated small bowel consistent with small bowel obstruction. The concern for appendicitis was raised and General Surgery was consulted and she underwent exploratory laparotomy, lysis of adhesions and appendectomy. Dry gangrene of the right index finge most likely embolic is worrisome for some malignancy and oncology was consulted to evaluate the patient. However without any significant finding suggesting any malignant process. Post abdominal surgery patient became hypotensive in the critical care medicine was consulted. Subjective: 03/16: Tmax 98.7. Remains hypotensive, norepinephrine @ 3mcgs, IV infusion NS 200/hr, will monitor CVP. Patient's pain well controlled on Toradol. 03/17: Afebrile. CVP ranging 3-4, normal saline decreased to 125/hr this a.m.. Patient noted to have hypokalemia level 3.0, with frequent PVCs. Initially refusing IV potassium, but after discussion regarding nothing by mouth status agreed to 20 meq KCL infusion. Objective Vital Signs Date Time Temp Pulse Resp B/P (MAP) Pulse Ox O2 Delivery O2 Flow Rate FiO2 03/17/17 07:25 100 Nasal Cannula 2.00 03/17/17 06:00 78 03/17/17 04:00 98.1 14 101/61 (74) Intake and Output 03/17/17 03/17/17 03/17/17 07:59 15:59 23:59 Intake Total 1810 ml 1000 ml Output Total 1275 ml Balance 535 ml 1000 ml Result Diagram: 03/17/17 0647 03/17/17 0647 Imaging Last Impressions Abdomen/Pelvis CT 03/14/17 0000 Signed Impressions: Service Date/Time: Tuesday, March 14, 2017 21:23 - CONCLUSION: 1. Persistent small bowel obstruction as discussed above. Increased distention of small bowel, now severe. There is new distention of the stomach. Large hiatal hernia again noted. 2. There is persistent wall thickening and distention of the appendix but not as severe as on the prior study. A fecalith is seen at the tip of the appendix. No abscess, perforation or obstruction. 3. Small ascites and small bilateral pleural effusions have developed. Navi Ferraro MD Liver Ultrasound 03/13/17 0000 Signed Impressions: Service Date/Time: February 13:36 - CONCLUSION: 1. Stone filled gallbladder. 2. Multiple hepatic cysts. 3. Single right renal cyst. 4. Trace free fluid in Morison's pouch. Johny Us MD Abdomen X-Ray 03/13/17 0000 Signed Impressions: Service Date/Time: February 12:34 - CONCLUSION: Diffuse small bowel dilatation. Navi Lau MD Chest CT 03/12/17 0000 Signed Impressions: Service Date/Time: Sunday, March 12, 2017 10:37 - CONCLUSION: 1. There is an ulcerated plaque with a small amount of and in thrombus projecting into the upper arch and into the lumen of the innominate artery origin. 2. Large hiatal hernia. 3. Multiple low attenuation lesions within the liver felt to represent a cyst. Ultrasound for confirmation is warranted. 4. There are multiple dilated loops of small bowel left upper quadrant. CT of the abdomen to rule out bowel destruction is warranted. Juan Carlos Leo MD Upper Extremity CTA 03/08/17 0000 Signed Impressions: Service Date/Time: Wednesday, March 08, 2017 10:21 - CONCLUSION: 1. The ulnar artery in the right forearm is diminutive in caliber. Otherwise, the remaining right upper extremity arterial vessels have a normal appearance. Please note that the hand arterial vessels are not visualized on this exam. 2. Complex left thyroid nodule measuring 2.7 cm. When patient condition permits, suggest further characterization with thyroid ultrasound. 3. Cerebral atrophy with bilateral subdural hygromas. Navi Leon MD Small Bowel X-Ray 03/06/17 0000 Signed Impressions: Service Date/Time: February 11:25 - CONCLUSION: 1. Small bowel dilatation not associated with any significant obstruction. The oral contrast does reach the colon within 2 hours which is within normal range. However, the terminal ileum does have a more normal caliber compared with the more proximal small bowel which can be seen with a very low-grade partial obstruction. Ahmet Hdz MD Objective Remarks GENERAL: Well-nourished, well-developed female. SKIN: Warm and dry. HEAD: Normocephalic. EYES: No scleral icterus. No injection or drainage. NECK: Supple, trachea midline. No JVD or lymphadenopathy. CARDIOVASCULAR: Regular rate and rhythm without murmurs, gallops, or rubs. RESPIRATORY: Breath sounds equal bilaterally. No accessory muscle use. GASTROINTESTINAL: Abdomen soft, non-tender, nondistended. Midline dressing clean dry and intact without evidence of bleeding or erythema. MUSCULOSKELETAL: Dry gangrene of the right index finger, dressing C/D/I BACK: Nontender without obvious deformity. Dressing right hand and right index finger clean dry and intact NEURO EXAM: GCS: M 6 V 5 E 4 Mental Status: The patient is alert and oriented to person, place, and time with normal speech. Cranial Nerves: Visual acuity intact bilaterally. Visual remy normal in all quadrants. Pupils are round, reactive to light. Extraocular movements are intact without ptosis. Hearing is normal bilaterally. Voice is normal. Tongue protrudes midline and moves symmetrically. Reflexes: Biceps, patellar, and Achilles are 2/4 bilaterally. No clonus. Date of Insertion: Mar 15, 2017 Line: Central Venous Catheter A/P Assessment and Plan Hypotension - Volume loss - Arterial line in place - Discontinue Flowtrac, monitor CVP -Albumin 12.5 g 1 dose - Aggressive fluid resuscitation - Central placement - Maintain MAP above 65mmHg -Norepinephrine discontinued 03/17 - Panculture - Cipro and Flagyl per surgery Small bowel obstruction - Nothing by mouth - NG tube to low wall intermittent suction - Status post exploratory laparotomy, lysis of adhesions and appendectomy - Management per general surgery Gangrene of the index finger - Most likely embolic, thrombosis aortic arch/innominate artery for CT chest - Workup for vascular surgery and oncology - Status post Disarticulation through distal interphalangeal joint Hypokalemia -Replete electrolytes per ICU protocol DVT GI prophylaxis - Lovenox therapeutic dosing restarted at 2 AM - Teds SCDs - Protonix Dispo: Discussed with EHS MANAGER at bedside. Level 3. Physician Pratibha Davila MD Mar 17, 2017 11:44
--- NOTE | 2017-03-17 12:36 | HHI.PR ---
Subjective Subjective Notes She has no major complaints. Pressors stopped this am. Serous drainage from lower midline. H/H decreased this am. Objective Vitals/I&O Vital Signs Date Time Temp Pulse Resp B/P (MAP) Pulse Ox O2 Delivery O2 Flow Rate FiO2 03/17/17 07:25 100 Nasal Cannula 2.00 03/17/17 06:00 78 03/17/17 04:00 98.1 14 101/61 (74) Labs Laboratory Tests Test 03/17/17 06:47 White Blood Count 16.2 Red Blood Count 2.50 Hemoglobin 7.8 Hematocrit 23.5 Mean Corpuscular Volume 94.1 Mean Corpuscular Hemoglobin 31.3 Mean Corpuscular Hemoglobin Concent 33.3 Red Cell Distribution Width 15.4 Platelet Count 320 Mean Platelet Volume 9.7 Neutrophils (%) (Auto) 78.5 Lymphocytes (%) (Auto) 7.7 Monocytes (%) (Auto) 10.7 Eosinophils (%) (Auto) 2.6 Basophils (%) (Auto) 0.5 Neutrophils # (Auto) 12.7 Lymphocytes # (Auto) 1.3 Monocytes # (Auto) 1.7 Eosinophils # (Auto) 0.4 Basophils # (Auto) 0.1 CBC Comment DIFF FINAL Differential Comment Blood Urea Nitrogen 9 Creatinine 1.06 Random Glucose 92 Total Protein 4.6 Calcium Level 7.4 Sodium Level 144 Potassium Level 3.0 Chloride Level 112 Carbon Dioxide Level 25.5 Anion Gap 7 Estimat Glomerular Filtration Rate 64 Protein Corrected Calcium 8.8 Date/Time Source Procedure Growth Status 03/16/17 04:40 Blood Peripheral Aerobic Blood Culture - Preliminary NO GROWTH IN 1 DAY Resulted 03/16/17 04:40 Blood Peripheral Anaerobic Blood Culture - Preliminary NO GROWTH IN 1 DAY Resulted 03/13/17 00:00 Wound Finger Fungal Smear - Final NO FUNGAL ELEMENTS SEEN. Resulted 03/13/17 00:00 Wound Finger Fungal Culture Pending Resulted Narrative Exam NAD, awake and alert Abd: soft, moderate distention, inc intact with serosang drainage lower portion Walters to gravity adequate UOP A/P Assessment and Plan 61 yo F s/p distal finger amputation POD 2 s/p ex lap, SPENCER, appendectomy. Stable. No bowel function. Off pressors. H/H decreasing. Recheck H/H. I am going to hold the therapeutic lovenox. Cont NGT to [facility] Labs in am. Cont walters. Await return of bowel function. Juan Benjamin MD Mar 17, 2017 12:36
[2017-03-17 16:08] LABS: HEMATOCRIT 23.2 % (35.0-46.0); REVIEW FLAG FINAL
[2017-03-17 23:41] LABS: BICARBONATE 22.3 MEQ/L (21.0-32.0); POTASSIUM 3.5 MEQ/L (3.5-5.1)
[2017-03-18] VITALS (18 sets, daily range): BP systolic 101–134; BP diastolic 58–92; PULSE 70–89; RESP 15–21; TEMP 97.4–98.3; O2SAT 100
[2017-03-18] MEDS: PIPERACIL-TAZO 4.5 GM PREMIX 100 ML IV SCH ×4 (04:34→23:34)
[2017-03-18] MEDS: KETOROLAC TROMETHAMINE 30 MG/ML (IVP) VIAL IV PUSH SCH ×4 (04:35→23:00)
[2017-03-18 05:05] LABS: AUTOMATED NEUTROPHIL # 10.8 TH/MM3 (1.8-7.7); BASOPHIL % 0.3 % (0.0-2.0); EOSINOPHIL # 0.3 TH/MM3 (0-0.4); EOSINOPHIL % 2.2 % (0.0-4.0); LYMPH % 11.6 % (9.0-44.0); LYMPHOCYTE # 1.6 TH/MM3 (1.0-4.8); MEAN CELL VOLUME 94.9 FL (80.0-100.0); MEAN CORPUSCULAR HEMOGLOBIN 31.3 PG (27.0-34.0); MONO % 8.9 % (0.0-8.0); PLATELET COUNT 355 TH/MM3 (150-450); RED CELL DISTRIBUTION WIDTH 15.7 % (11.6-17.2)
[2017-03-18 05:19] LABS: HEMO FLAGS DIFF FINAL
[2017-03-18 05:32] LABS: HEMATOCRIT 20.9 % (35.0-46.0)
[2017-03-18] MEDS: SODIUM CHLOR 0.9% 1000 ML INJ 1,000 ML IV SCH (07:20)
[2017-03-18] MEDS: PANTOPRAZOLE SODIUM 40 MG VIAL IV PUSH SCH (08:38)
[2017-03-18] MEDS: METOCLOPRAMIDE HCL 10 MG/2 ML VIAL IV PUSH SCH ×3 (08:38→23:34)
[2017-03-18] MEDS: SODIUM CHLORIDE 0.9% FLUSH 10 ML FLUSH IV FLUSH SCH (08:39)
--- NOTE | 2017-03-18 11:13 | HHI.PR ---
Subjective Subjective Notes She is receiving 2 U rbcs this am for Hgb 6.9. Her bp has been stable. She is comfortable. Has had multiple large liquid bowel movts. Objective Vitals/I&O Vital Signs Date Time Temp Pulse Resp B/P (MAP) Pulse Ox O2 Delivery O2 Flow Rate FiO2 03/18/17 09:29 98.1 76 18 116/75 100 03/17/17 23:34 Nasal Cannula 2.00 Labs Laboratory Tests Test 03/17/17 15:00 03/17/17 23:00 03/18/17 04:40 Hemoglobin 7.6 6.9 Hematocrit 23.2 20.9 Blood Urea Nitrogen 8 Creatinine 1.07 Random Glucose 116 Calcium Level 7.7 Sodium Level 146 Potassium Level 3.5 Chloride Level 115 Carbon Dioxide Level 22.3 Anion Gap 9 Estimat Glomerular Filtration Rate 63 White Blood Count 14.0 Red Blood Count 2.20 Mean Corpuscular Volume 94.9 Mean Corpuscular Hemoglobin 31.3 Mean Corpuscular Hemoglobin Concent 33.0 Red Cell Distribution Width 15.7 Platelet Count 355 Mean Platelet Volume 9.3 Neutrophils (%) (Auto) 77.0 Lymphocytes (%) (Auto) 11.6 Monocytes (%) (Auto) 8.9 Eosinophils (%) (Auto) 2.2 Basophils (%) (Auto) 0.3 Neutrophils # (Auto) 10.8 Lymphocytes # (Auto) 1.6 Monocytes # (Auto) 1.3 Eosinophils # (Auto) 0.3 Basophils # (Auto) 0.0 CBC Comment DIFF FINAL Differential Comment Date/Time Source Procedure Growth Status 03/16/17 04:40 Blood Peripheral Aerobic Blood Culture - Preliminary NO GROWTH IN 2 DAYS Resulted 03/16/17 04:40 Blood Peripheral Anaerobic Blood Culture - Preliminary NO GROWTH IN 2 DAYS Resulted 03/13/17 00:00 Wound Finger Fungal Smear - Final NO FUNGAL ELEMENTS SEEN. Resulted 03/13/17 00:00 Wound Finger Fungal Culture Pending Resulted Narrative Exam NAD, awake and alert Abd: soft, moderate distention. Incision has bulge near inferior portion and serosanguinous drainage Walters to gravity adequate UOP A/P Assessment and Plan 61 yo F s/p distal finger amputation POD 3 s/p ex lap, SPENCER, appendectomy. Stable and having liquid BMs. Receiving 2 U PRBCs. Check coags. Hold Lovenox. Cont NGT to [facility] in am. Cont walters. Monitor incision. Juan Benjamin MD Mar 18, 2017 11:13
[2017-03-18 12:51] LABS: APTT (PATIENT) 32.4 SEC (24.3-30.1); PROTHROMBIN TIME - PATIENT 10.6 SEC (9.8-11.6)
[2017-03-18 12:57] LABS: BICARBONATE 20.9 MEQ/L (21.0-32.0); POTASSIUM 3.3 MEQ/L (3.5-5.1)
[2017-03-18] MEDS: POTASSIUM CHLOR 40 MEQ PREMIX 100 ML IV PRN (14:00)
[2017-03-18] MEDS: D5-1/2 NS + KCL 20 MEQ INJ 1,000 ML IV SCH (16:34)
--- NOTE | 2017-03-18 17:01 | RADRPT ---
EXAM DATE/TIME: 03/18/2017 16:12 [facility] COMPARISON: CT ABDOMEN & PELVIS W CONTRAST, March 14, 2017, 21:23. INDICATIONS : Small bowel obstruction, post op hernia. ORAL CONTRAST: No oral contrast ingested. RADIATION DOSE: 12.48 CTDIvol (mGy) MEDICAL HISTORY : Hernia, hiatal. Hypertension. Diabetes mellitus type 1. SURGICAL HISTORY : Hysterectomy. ENCOUNTER: Initial ACUITY: 1 day PAIN SCALE: 5/10 LOCATION: abdomen TECHNIQUE: Volumetric scanning of the abdomen and pelvis was performed. Using automated exposure control and ad justment of the mA and/or kV according to patient size, radiation dose was kept as low as reasonably achievable to obtain optimal diagnostic quality images. DICOM format image data is available electro nically for review and comparison. FINDINGS: LOWER LUNGS: Small bilateral, left greater than right, pleural effusions with associated airspace consolidation in the lung bases. LIVER: Redemonstration of multiple hepatic cysts. Liver is otherwise unremarkable without intrahepatic ducta l dilatation. Gallbladder is decompressed. SPLEEN: Nodular in appearance and stable from prior exam. PANCREAS: Within normal limits. KIDNEYS: Symmetrical in size without evidence for hydronephrosis or radiopaque renal calculi. ADRENAL GLANDS: Within normal limits. VASCULAR: There is no aortic aneurysm. BOWEL/MESENTERY: There is an NGT in the stomach. Redemonstration of small to moderate-sized hiatal hernia. Apparent in terval laparotomy with new mid abdomen surgical clips and appendectomy. Diffuse small bowel dilatatio n improved since prior exam extending to the cecum with fluid-filled cecum and right colon and relati ve transition near the hepatic flexure with decompressed transverse and descending colon. Small foci of free air are likely postsurgical. No significant pneumatosis. No focal drainable fluid collections . There is a small amount of free fluid adjacent the liver and spleen. ABDOMINAL WALL: Mid abdominal surgical staple line with tubular hyperdense collection running the length of the surgi awa karen measuring up to 3.7 x 2.6 in meters in axial dimension most consistent with hematoma. RETROPERITONEUM: There is no lymphadenopathy. BLADDER: Decompressed secondary to Sheppard catheter. REPRODUCTIVE: Status post hysterectomy. INGUINAL: There is no lymphadenopathy or hernia. MUSCULOSKELETAL: Within normal limits for patient age. CONCLUSION: 1. Post surgical features of interval laparotomy with appendectomy. Improved diffuse small bowel dist ention with resolution of relative transition point in the distal ileum. Cecum and descending colon a re fluid-filled with relative transition point in the hepatic flexure with completely decompressed tr ansverse and descending colon. Findings are consistent with resolving small bowel obstruction potenti ally with superimposed post surgical adynamic ileus. Small amount of free air is likely postsurgical. No pneumatosis or disproportionate free air to suggest perforation. 2. Tubular high density fluid collection along the length of the mid abdominal staple line consistent with hematoma. 3. Remainder of the exam is unchanged. Bernabe Young MD on March 18, 2017 at 16:25 Board Certified Radiologist. This report was verified electronically.
[2017-03-19] VITALS (12 sets, daily range): BP systolic 113–167; BP diastolic 80–108; PULSE 68–86; RESP 17–23; TEMP 97.5–98.8; O2SAT 100
[2017-03-19] MEDS: D5-1/2 NS + KCL 20 MEQ INJ 1,000 ML IV SCH ×4 (01:00→22:15)
[2017-03-19] MEDS: KETOROLAC TROMETHAMINE 30 MG/ML (IVP) VIAL IV PUSH SCH ×5 (04:15→23:55)
[2017-03-19] MEDS: PIPERACIL-TAZO 4.5 GM PREMIX 100 ML IV SCH ×4 (04:15→23:55)
[2017-03-19 06:17] LABS: AUTOMATED NEUTROPHIL # 8.6 TH/MM3 (1.8-7.7); BASOPHIL # 0.1 TH/MM3 (0-0.2); BASOPHIL % 0.4 % (0.0-2.0); EOSINOPHIL # 0.4 TH/MM3 (0-0.4); EOSINOPHIL % 3.5 % (0.0-4.0); HEMATOCRIT 28.1 % (35.0-46.0); HEMO FLAGS DIFF FINAL; LYMPH % 15.9 % (9.0-44.0); LYMPHOCYTE # 1.9 TH/MM3 (1.0-4.8); MEAN CELL VOLUME 91.1 FL (80.0-100.0); MEAN CORPUSCULAR HEMOGLOBIN 32.3 PG (27.0-34.0); MEAN CORPUSCULAR HGB CONC 35.5 % (32.0-36.0); MONO % 9.9 % (0.0-8.0); NEUT % 70.3 % (16.0-70.0); PLATELET COUNT 392 TH/MM3 (150-450); RED BLOOD COUNT 3.08 MIL/MM3 (4.00-5.30); RED CELL DISTRIBUTION WIDTH 16.4 % (11.6-17.2); WHITE BLOOD COUNT 12.2 TH/MM3 (4.0-11.0)
[2017-03-19 06:36] LABS: BICARBONATE 21.1 MEQ/L (21.0-32.0); POTASSIUM 3.6 MEQ/L (3.5-5.1)
[2017-03-19] MEDS: PANTOPRAZOLE SODIUM 40 MG VIAL IV PUSH SCH (08:58)
[2017-03-19] MEDS: METOCLOPRAMIDE HCL 10 MG/2 ML VIAL IV PUSH SCH ×3 (08:58→23:55)
[2017-03-19] MEDS: SODIUM CHLORIDE 0.9% FLUSH 10 ML FLUSH IV FLUSH SCH ×2 (08:58→21:06)
--- NOTE | 2017-03-19 12:50 | HHI.PR ---
Subjective Subjective Notes She is sitting up in chair. Has been having multiple liquid bowel movts. Looks really well. NG still with high volume output but she is having quite a bit of popsicles and ice chips. I ordered CT a/p last night due to wound bulge to r/o dehiscence and this revealed a hematoma which is probably partially the cause of her decreased H/H. Otherwise showed continued but improved ileus. Objective Vitals/I&O Vital Signs Date Time Temp Pulse Resp B/P (MAP) Pulse Ox O2 Delivery O2 Flow Rate FiO2 03/19/17 12:00 79 03/19/17 12:00 97.9 18 147/108 (121) 100 03/17/17 23:34 Nasal Cannula 2.00 Labs Laboratory Tests Test 03/19/17 05:40 White Blood Count 12.2 Red Blood Count 3.08 Hemoglobin 10.0 Hematocrit 28.1 Mean Corpuscular Volume 91.1 Mean Corpuscular Hemoglobin 32.3 Mean Corpuscular Hemoglobin Concent 35.5 Red Cell Distribution Width 16.4 Platelet Count 392 Mean Platelet Volume 9.2 Neutrophils (%) (Auto) 70.3 Lymphocytes (%) (Auto) 15.9 Monocytes (%) (Auto) 9.9 Eosinophils (%) (Auto) 3.5 Basophils (%) (Auto) 0.4 Neutrophils # (Auto) 8.6 Lymphocytes # (Auto) 1.9 Monocytes # (Auto) 1.2 Eosinophils # (Auto) 0.4 Basophils # (Auto) 0.1 CBC Comment DIFF FINAL Differential Comment Blood Urea Nitrogen 9 Creatinine 1.00 Random Glucose 135 Calcium Level 8.2 Sodium Level 145 Potassium Level 3.6 Chloride Level 116 Carbon Dioxide Level 21.1 Anion Gap 8 Estimat Glomerular Filtration Rate 68 Date/Time Source Procedure Growth Status 03/16/17 04:40 Blood Peripheral Aerobic Blood Culture - Preliminary NO GROWTH IN 3 DAYS Resulted 03/16/17 04:40 Blood Peripheral Anaerobic Blood Culture - Preliminary NO GROWTH IN 3 DAYS Resulted 03/13/17 00:00 Wound Finger Fungal Smear - Final NO FUNGAL ELEMENTS SEEN. Resulted 03/13/17 00:00 Wound Finger Fungal Culture Pending Resulted Narrative Exam NAD, awake and alert Abd: soft, moderate distention. Mid portion of karen removed and large gelatinous hematoma present and removed. Walters to gravity adequate UOP A/P Assessment and Plan 61 yo F s/p distal finger amputation POD 4 s/p ex lap, SPENCER, appendectomy. Stable and having liquid BMs. CT showed hematoma at incision site. H/H responded well to PRBCs. Hematoma at wound site removed and vac will be placed. Would hold lovenox one more day. Clamp NG as tolerated. Cont walters. Cont OOB as tolerated. Ok for transfer to floor after vac placed from my standpoint. SouravJuan gates MD Mar 19, 2017 12:50
--- NOTE | 2017-03-19 13:43 | HHI.CCPN ---
Subjective Remarks/Hospital Course 61-year-old female presents to the hospital complaining of pain and discoloration of the right index finger/gangrene. He has also been complaining of abdominal pain mostly on the right side and a 25-pound weight loss in the last few months. The patient had a CAT scan of the abdomen and pelvis which showed dilated small bowel consistent with small bowel obstruction. The concern for appendicitis was raised and General Surgery was consulted and she underwent exploratory laparotomy, lysis of adhesions and appendectomy. Dry gangrene of the right index finge most likely embolic is worrisome for some malignancy and oncology was consulted to evaluate the patient. However without any significant finding suggesting any malignant process. Post abdominal surgery patient became hypotensive in the critical care medicine was consulted. Subjective: 03/16: Tmax 98.7. Remains hypotensive, norepinephrine @ 3mcgs, IV infusion NS 200/hr, will monitor CVP. Patient's pain well controlled on Toradol. 03/17: Afebrile. CVP ranging 3-4, normal saline decreased to 125/hr this a.m.. Patient noted to have hypokalemia level 3.0, with frequent PVCs. Initially refusing IV potassium, but after discussion regarding nothing by mouth status agreed to 20 meq KCL infusion. 03/19: The patient is up out of bed and bedside chair. No complaints pain well controlled. A chin now having bowel movements. Chin continues on normal saline with 20 of K at 125. Abdominal dressing removed. Removed per general surgery dry dressing placed on staple line clean dry without any erythema or drainage noted. Objective Vital Signs Date Time Temp Pulse Resp B/P (MAP) Pulse Ox O2 Delivery O2 Flow Rate FiO2 03/19/17 12:00 79 03/19/17 12:00 97.9 18 147/108 (121) 100 03/17/17 23:34 Nasal Cannula 2.00 Intake and Output 03/19/17 03/19/17 03/20/17 08:00 16:00 00:00 Intake Total 1460 ml Output Total 1450 ml Balance 10 ml Result Diagram: 03/19/17 0540 03/19/17 0540 Imaging Last Impressions Abdomen/Pelvis CT 03/14/17 0000 Signed Impressions: Service Date/Time: Tuesday, March 14, 2017 21:23 - CONCLUSION: 1. Persistent small bowel obstruction as discussed above. Increased distention of small bowel, now severe. There is new distention of the stomach. Large hiatal hernia again noted. 2. There is persistent wall thickening and distention of the appendix but not as severe as on the prior study. A fecalith is seen at the tip of the appendix. No abscess, perforation or obstruction. 3. Small ascites and small bilateral pleural effusions have developed. Navi Ferraro MD Liver Ultrasound 03/13/17 0000 Signed Impressions: Service Date/Time: February 13:36 - CONCLUSION: 1. Stone filled gallbladder. 2. Multiple hepatic cysts. 3. Single right renal cyst. 4. Trace free fluid in Morison's pouch. Johny Us MD Abdomen X-Ray 03/13/17 0000 Signed Impressions: Service Date/Time: February 12:34 - CONCLUSION: Diffuse small bowel dilatation. Navi Lau MD Chest CT 03/12/17 0000 Signed Impressions: Service Date/Time: Sunday, March 12, 2017 10:37 - CONCLUSION: 1. There is an ulcerated plaque with a small amount of and in thrombus projecting into the upper arch and into the lumen of the innominate artery origin. 2. Large hiatal hernia. 3. Multiple low attenuation lesions within the liver felt to represent a cyst. Ultrasound for confirmation is warranted. 4. There are multiple dilated loops of small bowel left upper quadrant. CT of the abdomen to rule out bowel destruction is warranted. Juan Carlos Leo MD Upper Extremity CTA 03/08/17 0000 Signed Impressions: Service Date/Time: Wednesday, March 08, 2017 10:21 - CONCLUSION: 1. The ulnar artery in the right forearm is diminutive in caliber. Otherwise, the remaining right upper extremity arterial vessels have a normal appearance. Please note that the hand arterial vessels are not visualized on this exam. 2. Complex left thyroid nodule measuring 2.7 cm. When patient condition permits, suggest further characterization with thyroid ultrasound. 3. Cerebral atrophy with bilateral subdural hygromas. Navi Leon MD Small Bowel X-Ray 03/06/17 0000 Signed Impressions: Service Date/Time: February 11:25 - CONCLUSION: 1. Small bowel dilatation not associated with any significant obstruction. The oral contrast does reach the colon within 2 hours which is within normal range. However, the terminal ileum does have a more normal caliber compared with the more proximal small bowel which can be seen with a very low-grade partial obstruction. Ahmet Hdz MD Objective Remarks GENERAL: Well-nourished, well-developed female, sitting sitting in recliner chair and in no apparent distress SKIN: Warm and dry. HEAD: Normocephalic. EYES: No scleral icterus. No injection or drainage. NECK: Supple, trachea midline. No JVD or lymphadenopathy. CARDIOVASCULAR: Regular rate and rhythm without murmurs, gallops, or rubs. RESPIRATORY: Breath sounds equal bilaterally. No accessory muscle use. GASTROINTESTINAL: Abdomen soft, non-tender, nondistended. Midline dressing. Staple line observed without erythema MUSCULOSKELETAL: Dry gangrene of the right index finger, dressing C/D/I BACK: Nontender without obvious deformity. Dressing right hand and right index finger clean dry and intact NEURO EXAM: GCS: M 6 V 5 E 4 Mental Status: The patient is alert and oriented to person, place, and time with normal speech. Cranial Nerves: Visual acuity intact bilaterally. Visual remy normal in all quadrants. Pupils are round, reactive to light. Extraocular movements are intact without ptosis. Hearing is normal bilaterally. Voice is normal. Tongue protrudes midline and moves symmetrically. Reflexes: Biceps, patellar, and Achilles are 2/4 bilaterally. No clonus. Date of Insertion: Mar 15, 2017 Line: Central Venous Catheter A/P Assessment and Plan Hypotension-resolved - Volume loss - Arterial line in place - Discontinue CVP monitoring - Maintain MAP above 65mmHg -Norepinephrine discontinued 03/17 - Panculture - Cipro and Flagyl per surgery Small bowel obstruction - NG tube to low wall intermittent suction - Status post exploratory laparotomy, lysis of adhesions and appendectomy - Management per general surgery Gangrene of the index finger - Most likely embolic, thrombosis aortic arch/innominate artery for CT chest - Workup for vascular surgery and oncology - Status post Disarticulation through distal interphalangeal joint Hypokalemia -Replete electrolytes per ICU protocol DVT GI prophylaxis - Lovenox therapeutic dosing restarted at 2 AM - Teds SCDs - Protonix Dispo: Discussed with FLOOR MANAGER at bedside. Plan transfer to [facility] in a.m. Level 2 Physician Pratibha Davila MD Mar 19, 2017 13:42
[2017-03-20] VITALS (7 sets, daily range): BP systolic 135–172; BP diastolic 85–100; PULSE 69–91; RESP 16–18; TEMP 95–97.6; O2SAT 96–99
[2017-03-20] MEDS: D5-1/2 NS + KCL 20 MEQ INJ 1,000 ML IV SCH ×2 (02:43→11:17)
[2017-03-20] MEDS: PIPERACIL-TAZO 4.5 GM PREMIX 100 ML IV SCH ×4 (04:48→23:49)
[2017-03-20] MEDS: KETOROLAC TROMETHAMINE 30 MG/ML (IVP) VIAL IV PUSH SCH ×2 (04:49→11:00)
[2017-03-20] MEDS: SODIUM CHLORIDE 0.9% FLUSH 10 ML FLUSH IV FLUSH SCH ×2 (08:16→20:53)
[2017-03-20] MEDS: PANTOPRAZOLE SODIUM 40 MG VIAL IV PUSH SCH (08:17)
[2017-03-20] MEDS: METOCLOPRAMIDE HCL 10 MG/2 ML VIAL IV PUSH SCH ×3 (08:19→23:50)
[2017-03-20] MEDS ORDERED: ENALAPRILAT 2.5 MG/2 ML VIAL IV PUSH PRN (09:30)
--- NOTE | 2017-03-20 09:33 | HHI.PR ---
Subjective Remarks Elevated BP, add hydralazine and vasotec prn Patient appears in nad. She is in the chair. Says shas no pain at this time. No n/v/d/c. Complaints of diarrhea. No fever or chills. Objective Vitals Vital Signs Date Time Temp Pulse Resp B/P (MAP) Pulse Ox O2 Delivery O2 Flow Rate FiO2 03/20/17 08:00 95.0 74 18 165/100 (121) 99 03/20/17 04:40 97.0 69 17 166/98 (120) 99 03/20/17 00:55 18 03/20/17 00:43 96.5 77 16 172/92 (118) 96 03/19/17 22:00 77 03/19/17 20:00 97.5 73 22 167/98 (121) 100 03/19/17 20:00 73 03/19/17 18:00 68 03/19/17 16:00 98.8 70 18 113/86 (95) 100 03/19/17 16:00 68 03/19/17 14:00 81 03/19/17 12:00 79 03/19/17 12:00 97.9 79 18 147/108 (121) 100 03/19/17 10:00 78 I/O 03/19/17 03/19/17 03/19/17 03/20/17 03/20/17 03/20/17 07:00 15:00 23:00 07:00 15:00 23:00 Intake Total 1460 ml 2400 ml Output Total 1450 ml 425 ml 300 ml Balance 10 ml 1975 ml -300 ml Intake Oral 360 ml 300 ml IV Total 1100 ml 2100 ml Output Urine Total 250 ml 275 ml 300 ml Gastric Drainage Total 1200 ml 150 ml Drainage Total 0 ml # Bowel Movements 8 8 5 Result Diagram: 03/19/17 0540 03/19/17 0540 Imaging Last Impressions Abdomen/Pelvis CT 03/18/17 0000 Signed Impressions: Service Date/Time: Saturday, March 18, 2017 16:12 - CONCLUSION: 1. Post surgical features of interval laparotomy with appendectomy. Improved diffuse small bowel distention with resolution of relative transition point in the distal ileum. Cecum and descending colon are fluid-filled with relative transition point in the hepatic flexure with completely decompressed transverse and descending colon. Findings are consistent with resolving small bowel obstruction potentially with superimposed post surgical adynamic ileus. Small amount of free air is likely postsurgical. No pneumatosis or disproportionate free air to suggest perforation. 2. Tubular high density fluid collection along the length of the mid abdominal staple line consistent with hematoma. 3. Remainder of the exam is unchanged. Bernabe Young MD Chest X-Ray 03/15/17 0000 Signed Impressions: Service Date/Time: Wednesday, March 15, 2017 21:49 - CONCLUSION: Central line in good position. No evidence of pneumothorax. Miguel Sethi MD Liver Ultrasound 03/13/17 0000 Signed Impressions: Service Date/Time: February 13:36 - CONCLUSION: 1. Stone filled gallbladder. 2. Multiple hepatic cysts. 3. Single right renal cyst. 4. Trace free fluid in Morison's pouch. Johny Us MD Abdomen X-Ray 03/13/17 0000 Signed Impressions: Service Date/Time: February 12:34 - CONCLUSION: Diffuse small bowel dilatation. Navi Lau MD Chest CT 03/12/17 0000 Signed Impressions: Service Date/Time: Sunday, March 12, 2017 10:37 - CONCLUSION: 1. There is an ulcerated plaque with a small amount of and in thrombus projecting into the upper arch and into the lumen of the innominate artery origin. 2. Large hiatal hernia. 3. Multiple low attenuation lesions within the liver felt to represent a cyst. Ultrasound for confirmation is warranted. 4. There are multiple dilated loops of small bowel left upper quadrant. CT of the abdomen to rule out bowel destruction is warranted. Juan Carlos Leo MD Upper Extremity CTA 03/08/17 0000 Signed Impressions: Service Date/Time: Wednesday, March 08, 2017 10:21 - CONCLUSION: 1. The ulnar artery in the right forearm is diminutive in caliber. Otherwise, the remaining right upper extremity arterial vessels have a normal appearance. Please note that the hand arterial vessels are not visualized on this exam. 2. Complex left thyroid nodule measuring 2.7 cm. When patient condition permits, suggest further characterization with thyroid ultrasound. 3. Cerebral atrophy with bilateral subdural hygromas. Navi Leon MD Small Bowel X-Ray 03/06/17 0000 Signed Impressions: Service Date/Time: February 11:25 - CONCLUSION: 1. Small bowel dilatation not associated with any significant obstruction. The oral contrast does reach the colon within 2 hours which is within normal range. However, the terminal ileum does have a more normal caliber compared with the more proximal small bowel which can be seen with a very low-grade partial obstruction. Ahmet Hdz MD Objective Remarks GENERAL: Well-nourished, well-developed female, sitting sitting in recliner chair and in no apparent distress EYES: No scleral icterus. No injection or drainage. NECK: Supple, trachea midline. No JVD or lymphadenopathy. CARDIOVASCULAR: Regular rate and rhythm without murmurs, gallops, or rubs. RESPIRATORY: Breath sounds equal bilaterally. No accessory muscle use. GASTROINTESTINAL: Abdomen soft, non-tender, nondistended. Midline dressing. Staple line observed without erythema. Wound vac in place. MUSCULOSKELETAL: Dry gangrene of the right index finger, dressing C/D/I Date of Insertion: Mar 15, 2017 Line: Central Venous Catheter A/P Assessment and Plan Hypotension-resolved. Now with hypertention . Add hydralazine prn and vasotec iv prn Small bowel obstructio - Status post exploratory laparotomy, lysis of adhesions and appendectomy - Management per general surgery - Cipro and Flagyl per surgery Gangrene of the index finger - Most likely embolic, thrombosis aortic arch/innominate artery for CT chest - Workup for vascular surgery and oncology - Status post Disarticulation through distal interphalangeal joint Hypokalemia -Replete electrolytes per ICU protocol Diarrhea: will add probiotic DVT GI prophylaxis - Lovenox therapeutic dosing restarted at 2 AM - Teds SCDs - Protonix Lizbeth Mills MD Mar 20, 2017 09:33
[2017-03-20] MEDS: hydrALAZINE HCL 10 MG TAB PO PRN ×2 (11:57→20:52)
--- NOTE | 2017-03-20 12:09 | HHI.PR ---
Subjective Subjective Notes NG has been clamped since yesterday. She is having multiple liquid stools. She is having no pain. Objective Vitals/I&O Vital Signs Date Time Temp Pulse Resp B/P (MAP) Pulse Ox O2 Delivery O2 Flow Rate FiO2 03/20/17 08:00 95.0 74 18 165/100 (121) 99 03/17/17 23:34 Nasal Cannula 2.00 Labs Date/Time Source Procedure Growth Status 03/16/17 04:40 Blood Peripheral Aerobic Blood Culture - Preliminary NO GROWTH IN 4 DAYS Resulted 03/16/17 04:40 Blood Peripheral Anaerobic Blood Culture - Preliminary NO GROWTH IN 4 DAYS Resulted 03/13/17 00:00 Wound Finger Fungal Smear - Final NO FUNGAL ELEMENTS SEEN. Resulted 03/13/17 00:00 Wound Finger Fungal Culture Pending Resulted Narrative Exam NAD, awake and alert Abd: soft, min distention. Vac with good seal. NG in place clamped. Walters clear output A/P Assessment and Plan 61 yo F s/p distal finger amputation POD 5 s/p ex lap, SPENCER, appendectomy. Stable and having liquid BMs. Vac on midline wound after hematoma was evacuated. Cont vac and change MWF. Dc NGT. Start fulls. Dc walters. Cont OOB as tolerated. Consult PT. Ok to restart lovenox if needed. Juan Benjamin MD Mar 20, 2017 12:09
[2017-03-20] MEDS: LACTOBACILLUS ACIDOPHILUS TAB PO SCH (20:53)
[2017-03-21] VITALS (10 sets, daily range): BP systolic 116–148; BP diastolic 82–96; PULSE 79–88; RESP 17–18; TEMP 96.9–99.1; O2SAT 96–100
[2017-03-21] MEDS: PIPERACIL-TAZO 4.5 GM PREMIX 100 ML IV SCH ×4 (04:55→23:09)
[2017-03-21 05:27] LABS: BASOPHIL % 0.3 % (0.0-2.0); EOSINOPHIL # 0.3 TH/MM3 (0-0.4); EOSINOPHIL % 2.6 % (0.0-4.0); HEMATOCRIT 26.7 % (35.0-46.0); HEMO FLAGS DIFF FINAL; LYMPH % 19.1 % (9.0-44.0); LYMPHOCYTE # 2.3 TH/MM3 (1.0-4.8); MEAN CELL VOLUME 91.7 FL (80.0-100.0); MEAN CORPUSCULAR HEMOGLOBIN 31.4 PG (27.0-34.0); MEAN CORPUSCULAR HGB CONC 34.3 % (32.0-36.0); MONO % 11.7 % (0.0-8.0); NEUT % 66.3 % (16.0-70.0); PLATELET COUNT 454 TH/MM3 (150-450); RED BLOOD COUNT 2.91 MIL/MM3 (4.00-5.30); RED CELL DISTRIBUTION WIDTH 16.7 % (11.6-17.2)
[2017-03-21 05:52] LABS: BICARBONATE 20.8 MEQ/L (21.0-32.0)
[2017-03-21] MEDS: METOCLOPRAMIDE HCL 10 MG/2 ML VIAL IV PUSH SCH ×3 (09:27→23:09)
[2017-03-21] MEDS: PANTOPRAZOLE SODIUM 40 MG VIAL IV PUSH SCH (09:27)
[2017-03-21] MEDS: LACTOBACILLUS ACIDOPHILUS TAB PO SCH ×2 (09:27→21:10)
[2017-03-21] MEDS: SODIUM CHLORIDE 0.9% FLUSH 10 ML FLUSH IV FLUSH SCH ×2 (09:27→21:12)
--- NOTE | 2017-03-21 11:55 | HHI.PR ---
Subjective Subjective Notes Weak when ambulating. Tolerating fulls. Continued multiple BMs. No N/V. Objective Vitals/I&O Vital Signs Date Time Temp Pulse Resp B/P (MAP) Pulse Ox O2 Delivery O2 Flow Rate FiO2 03/21/17 11:40 98.1 82 18 148/91 (110) 100 03/17/17 23:34 Nasal Cannula 2.00 Labs Laboratory Tests Test 03/21/17 05:10 White Blood Count 12.0 Red Blood Count 2.91 Hemoglobin 9.2 Hematocrit 26.7 Mean Corpuscular Volume 91.7 Mean Corpuscular Hemoglobin 31.4 Mean Corpuscular Hemoglobin Concent 34.3 Red Cell Distribution Width 16.7 Platelet Count 454 Mean Platelet Volume 9.2 Neutrophils (%) (Auto) 66.3 Lymphocytes (%) (Auto) 19.1 Monocytes (%) (Auto) 11.7 Eosinophils (%) (Auto) 2.6 Basophils (%) (Auto) 0.3 Neutrophils # (Auto) 8.0 Lymphocytes # (Auto) 2.3 Monocytes # (Auto) 1.4 Eosinophils # (Auto) 0.3 Basophils # (Auto) 0.0 CBC Comment DIFF FINAL Differential Comment Blood Urea Nitrogen 5 Creatinine 0.74 Random Glucose 81 Calcium Level 7.9 Sodium Level 145 Potassium Level 3.0 Chloride Level 116 Carbon Dioxide Level 20.8 Anion Gap 8 Estimat Glomerular Filtration Rate 97 Date/Time Source Procedure Growth Status 03/16/17 04:40 Blood Peripheral Aerobic Blood Culture - Final NO GROWTH IN 5 DAYS Complete 03/16/17 04:40 Blood Peripheral Anaerobic Blood Culture - Final NO GROWTH IN 5 DAYS Complete 03/13/17 00:00 Wound Finger Fungal Smear - Final NO FUNGAL ELEMENTS SEEN. Resulted 03/13/17 00:00 Wound Finger Fungal Culture - Preliminary NO GROWTH IN 1 WEEK Resulted Narrative Exam NAD, awake and alert Abd: soft, min distention. Vac in place A/P Assessment and Plan 61 yo F s/p distal finger amputation POD 6 s/p ex lap, SPENCER, appendectomy. Stable and having liquid BMs. Vac on midline wound after hematoma was evacuated. Cont vac and change MWF. Advance to soft diet. Cont OOB as tolerated. PT. Ok to restart lovenox if needed. Labs in am. If WBC ok, would stop all antibiotics. Juan Benjamin MD Mar 21, 2017 11:55
--- NOTE | 2017-03-21 12:07 | HHI.PR ---
Subjective Remarks With diarrhea, will check for Cdiff. No fever or chills. No fever or chills. No n/v/d/c. Patient says she has no pain, however she is having pain with ambulation and is afraid to move, will get an abdominal binder. Objective Vitals Vital Signs Date Time Temp Pulse Resp B/P (MAP) Pulse Ox O2 Delivery O2 Flow Rate FiO2 03/21/17 11:40 98.1 82 18 148/91 (110) 100 03/21/17 08:04 84 03/21/17 08:00 98.2 88 17 135/82 (99) 100 03/21/17 07:30 98.2 88 17 135/82 (99) 100 03/21/17 04:02 98.2 82 18 145/87 (106) 97 03/21/17 00:22 96.9 80 17 116/83 (94) 98 03/20/17 20:30 91 03/20/17 20:19 97.2 89 17 170/99 (122) 97 03/20/17 16:00 97.6 85 17 135/95 (108) 99 I/O 03/20/17 03/20/17 03/20/17 03/21/17 03/21/17 03/21/17 07:00 15:00 23:00 07:00 15:00 23:00 Intake Total 123 ml 720 ml 480 ml Output Total 300 ml 150 ml Balance -300 ml 123 ml 570 ml 480 ml Intake Oral 720 ml 480 ml IV Total 123 ml Output Urine Total 300 ml 150 ml # Voids 3 # Bowel Movements 5 4 6 8 Result Diagram: 03/21/17 0510 03/21/17 0510 Imaging Last Impressions Abdomen/Pelvis CT 03/18/17 0000 Signed Impressions: Service Date/Time: Saturday, March 18, 2017 16:12 - CONCLUSION: 1. Post surgical features of interval laparotomy with appendectomy. Improved diffuse small bowel distention with resolution of relative transition point in the distal ileum. Cecum and descending colon are fluid-filled with relative transition point in the hepatic flexure with completely decompressed transverse and descending colon. Findings are consistent with resolving small bowel obstruction potentially with superimposed post surgical adynamic ileus. Small amount of free air is likely postsurgical. No pneumatosis or disproportionate free air to suggest perforation. 2. Tubular high density fluid collection along the length of the mid abdominal staple line consistent with hematoma. 3. Remainder of the exam is unchanged. Bernabe Young MD Chest X-Ray 03/15/17 Signed Impressions: Service Date/Time: Wednesday, March 15, 2017 21:49 - CONCLUSION: Central line in good position. No evidence of pneumothorax. Miguel Sethi MD Liver Ultrasound 03/13/17 0000 Signed Impressions: Service Date/Time: February 13:36 - CONCLUSION: 1. Stone filled gallbladder. 2. Multiple hepatic cysts. 3. Single right renal cyst. 4. Trace free fluid in Morison's pouch. Johny Us MD Abdomen X-Ray 03/13/17 0000 Signed Impressions: Service Date/Time: February 12:34 - CONCLUSION: Diffuse small bowel dilatation. Navi Lau MD Chest CT 03/12/17 0000 Signed Impressions: Service Date/Time: Sunday, March 12, 2017 10:37 - CONCLUSION: 1. There is an ulcerated plaque with a small amount of and in thrombus projecting into the upper arch and into the lumen of the innominate artery origin. 2. Large hiatal hernia. 3. Multiple low attenuation lesions within the liver felt to represent a cyst. Ultrasound for confirmation is warranted. 4. There are multiple dilated loops of small bowel left upper quadrant. CT of the abdomen to rule out bowel destruction is warranted. Juan Carlos Leo MD Upper Extremity CTA 03/08/17 0000 Signed Impressions: Service Date/Time: Wednesday, March 08, 2017 10:21 - CONCLUSION: 1. The ulnar artery in the right forearm is diminutive in caliber. Otherwise, the remaining right upper extremity arterial vessels have a normal appearance. Please note that the hand arterial vessels are not visualized on this exam. 2. Complex left thyroid nodule measuring 2.7 cm. When patient condition permits, suggest further characterization with thyroid ultrasound. 3. Cerebral atrophy with bilateral subdural hygromas. Navi Leon MD Small Bowel X-Ray 03/06/17 0000 Signed Impressions: Service Date/Time: February 11:25 - CONCLUSION: 1. Small bowel dilatation not associated with any significant obstruction. The oral contrast does reach the colon within 2 hours which is within normal range. However, the terminal ileum does have a more normal caliber compared with the more proximal small bowel which can be seen with a very low-grade partial obstruction. Ahmet Hdz MD Objective Remarks GENERAL: Well-nourished, well-developed female, sitting sitting in recliner chair and in no apparent distress EYES: No scleral icterus. No injection or drainage. NECK: Supple, trachea midline. No JVD or lymphadenopathy. CARDIOVASCULAR: Regular rate and rhythm without murmurs, gallops, or rubs. RESPIRATORY: Breath sounds equal bilaterally. No accessory muscle use. GASTROINTESTINAL: Abdomen soft, non-tender, nondistended. Midline dressing. Staple line observed without erythema. Wound vac in place. MUSCULOSKELETAL: Dry gangrene of the right index finger, dressing C/D/I Date of Insertion: Mar 15, 2017 Line: Central Venous Catheter A/P Assessment and Plan Hypotension-resolved. Now with hypertention . Add hydralazine prn and vasotec iv prn Small bowel obstructio - Status post exploratory laparotomy, lysis of adhesions and appendectomy - Management per general surgery - Cipro and Flagyl per surgery Gangrene of the index finger - Most likely embolic, thrombosis aortic arch/innominate artery for CT chest - Workup for vascular surgery and oncology - Status post Disarticulation through distal interphalangeal joint Hypokalemia -Replete electrolytes per ICU protocol Diarrhea: will add probiotic , check for C diff DVT GI prophylaxis - Lovenox therapeutic dosing restarted at 2 AM - Teds SCDs - Protonix Discussed with the patient ,nurse Lizbeth Mills MD Mar 21, 2017 12:07
[2017-03-21] MEDS ORDERED: POTASSIUM CHLORIDE 20 MEQ CONTROLLED RELEASE TAB PO ONE (13:15)
--- NOTE | 2017-03-21 17:10 | PD.WCN.NOT ---
Wound Consult Description: Consult placed for wound VAC change to midline abdomen per Dr Benjamin Communicated with: Patient ChristineRN Additional Information: Patient seen on for wound VAC change to midline abdomen. Neg Pressure Wound Therapy Wound Location Wound Location: Midline abdomen Wound Description Length: 7.8cm Width: 3.1cm Depth: 2.0cm Undermining: ~1cm @ 12'oclock and 6 o'clock Wound bed appearance: 100% granulation tissue Periwound appearance: Other (karen superior and distal to open surgical wound ) Settings Suction: 125 mmHg, Continuous Other Information: Mushroomed Foam type: Black Number of pieces: 2 (1 piece used in wound bed and 1 piece used for trac pad placement) Patricia Balderas [facility] Mar 21, 2017 17:10
[2017-03-21 20:26] LABS: C. DIFF EPI 027 PRESUMPTIVE NEGATIVE (NEGATIVE)
[2017-03-22] VITALS (7 sets, daily range): BP systolic 124–162; BP diastolic 82–98; PULSE 78–92; RESP 18–22; TEMP 96.2–98.4; O2SAT 95–100
[2017-03-22] MEDS: PIPERACIL-TAZO 4.5 GM PREMIX 100 ML IV SCH ×4 (06:08→23:10)
[2017-03-22 06:54] LABS: AUTOMATED NEUTROPHIL # 8.1 TH/MM3 (1.8-7.7); BASOPHIL # 0.1 TH/MM3 (0-0.2); BASOPHIL % 0.7 % (0.0-2.0); EOSINOPHIL # 0.3 TH/MM3 (0-0.4); EOSINOPHIL % 2.5 % (0.0-4.0); HEMATOCRIT 26.5 % (35.0-46.0); HEMO FLAGS DIFF FINAL; LYMPH % 18.7 % (9.0-44.0); LYMPHOCYTE # 2.3 TH/MM3 (1.0-4.8); MEAN CELL VOLUME 92.1 FL (80.0-100.0); MEAN CORPUSCULAR HGB CONC 33.7 % (32.0-36.0); MONO % 12.8 % (0.0-8.0); NEUT % 65.3 % (16.0-70.0); PLATELET COUNT 527 TH/MM3 (150-450); RED BLOOD COUNT 2.88 MIL/MM3 (4.00-5.30); RED CELL DISTRIBUTION WIDTH 16.1 % (11.6-17.2); WHITE BLOOD COUNT 12.3 TH/MM3 (4.0-11.0)
[2017-03-22 07:03] LABS: POTASSIUM 3.2 MEQ/L (3.5-5.1)
[2017-03-22] MEDS: LACTOBACILLUS ACIDOPHILUS TAB PO SCH ×2 (09:06→20:50)
[2017-03-22] MEDS: PANTOPRAZOLE SOD 40 MG DELAYED RELEASE TAB PO SCH (09:06)
[2017-03-22] MEDS: METOCLOPRAMIDE HCL 10 MG/2 ML VIAL IV PUSH SCH (09:07)
[2017-03-22] MEDS: SODIUM CHLORIDE 0.9% FLUSH 10 ML FLUSH IV FLUSH SCH ×2 (09:07→20:50)
--- NOTE | 2017-03-22 11:58 | HHI.PR ---
Subjective Remarks Less diarrhea. No fever or chills. No n/v/d/c. Patient appears in nad. No fever or chills. No abd pain. Has abdominal binder. Objective Vitals Vital Signs Date Time Temp Pulse Resp B/P (MAP) Pulse Ox O2 Delivery O2 Flow Rate FiO2 03/22/17 08:00 97.3 84 22 158/98 (118) 100 03/22/17 04:16 97.9 80 18 135/95 (108) 98 03/22/17 00:39 98.4 79 18 147/84 (105) 95 03/21/17 20:06 99.1 79 18 139/96 (110) 96 03/21/17 20:00 86 03/21/17 16:00 98.2 86 17 130/83 (99) 100 I/O 03/21/17 03/21/17 03/21/17 03/22/17 03/22/17 03/22/17 07:00 15:00 23:00 07:00 15:00 23:00 Intake Total 480 ml 720 ml 960 ml Balance 480 ml 720 ml 960 ml Intake Oral 480 ml 720 ml 760 ml IV Total 200 ml # Voids 3 5 6 # Bowel Movements 8 5 10 Result Diagram: 03/22/1762903/22/17629 Objective Remarks GENERAL: Well-nourished, well-developed female, sitting sitting in recliner chair and in no apparent distress EYES: No scleral icterus. No injection or drainage. NECK: Supple, trachea midline. No JVD or lymphadenopathy. CARDIOVASCULAR: Regular rate and rhythm without murmurs, gallops, or rubs. RESPIRATORY: Breath sounds equal bilaterally. No accessory muscle use. GASTROINTESTINAL: Abdomen soft, non-tender, nondistended. Midline dressing. Staple line observed without erythema. Wound vac in place. MUSCULOSKELETAL: Dry gangrene of the right index finger, dressing C/D/I Date of Insertion: Mar 15, 2017 Line: Central Venous Catheter A/P Assessment and Plan Hypotension-resolved. Now with hypertention . Add hydralazine prn and vasotec iv prn Small bowel obstructio - Status post exploratory laparotomy, lysis of adhesions and appendectomy - Management per general surgery - Cipro and Flagyl per surgery Gangrene of the index finger - Most likely embolic, thrombosis aortic arch/innominate artery for CT chest - Workup for vascular surgery and oncology - Status post Disarticulation through distal interphalangeal joint Hypokalemia -Replete electrolytes per ICU protocol Diarrhea: improving will add probiotic , check for C diff neg. Dc reglan. DVT GI prophylaxis - Lovenox therapeutic dosing restarted at 2 AM - Teds SCDs - Protonix Discussed with the patient ,nurse Lizbeth Mills MD Mar 22, 2017 11:58
[2017-03-22] MEDS ORDERED: MAGNESIUM OXIDE 400 MG TAB PO ONE (12:00)
[2017-03-22] MEDS ORDERED: POTASSIUM CHLORIDE 10 MEQ CONTROLLED RELEASE TAB PO ONE (12:00)
--- NOTE | 2017-03-22 13:23 | HHI.PR ---
Subjective Subjective Notes pt c/o diarrhea no n/v Objective Vitals/I&O Vital Signs Date Time Temp Pulse Resp B/P (MAP) Pulse Ox O2 Delivery O2 Flow Rate FiO2 03/22/17 12:00 96.2 84 18 124/82 (96) 99 Labs Laboratory Tests Test 03/21/17 18:05 03/22/17 06:30 Stool C. difficile Toxin (PCR) NEGATIVE Stl C. difficile Toxin Epiderm 027 PRESUMPTIVE NEGATIVE White Blood Count 12.3 Red Blood Count 2.88 Hemoglobin 8.9 Hematocrit 26.5 Mean Corpuscular Volume 92.1 Mean Corpuscular Hemoglobin 31.0 Mean Corpuscular Hemoglobin Concent 33.7 Red Cell Distribution Width 16.1 Platelet Count 527 Mean Platelet Volume 8.8 Neutrophils (%) (Auto) 65.3 Lymphocytes (%) (Auto) 18.7 Monocytes (%) (Auto) 12.8 Eosinophils (%) (Auto) 2.5 Basophils (%) (Auto) 0.7 Neutrophils # (Auto) 8.1 Lymphocytes # (Auto) 2.3 Monocytes # (Auto) 1.6 Eosinophils # (Auto) 0.3 Basophils # (Auto) 0.1 CBC Comment DIFF FINAL Differential Comment Blood Urea Nitrogen 4 Creatinine 0.73 Random Glucose 88 Calcium Level 7.7 Sodium Level 146 Potassium Level 3.2 Chloride Level 117 Carbon Dioxide Level 20.0 Anion Gap 9 Estimat Glomerular Filtration Rate 98 Date/Time Source Procedure Growth Status 03/16/17 04:40 Blood Peripheral Aerobic Blood Culture - Final NO GROWTH IN 5 DAYS Complete 03/16/17 04:40 Blood Peripheral Anaerobic Blood Culture - Final NO GROWTH IN 5 DAYS Complete 03/13/17 00:00 Wound Finger Fungal Smear - Final NO FUNGAL ELEMENTS SEEN. Resulted 03/13/17 00:00 Wound Finger Fungal Culture - Preliminary NO GROWTH IN 1 WEEK Resulted Abdomen: Post-op tenderness Extremities: Perfused Narrative Exam wound vac in place minimal drainage A/P Assessment and Plan s/p ex lap SPENCER diarrhea stop Reglan oob PT QD vac change Friday Franky Smith MD Mar 22, 2017 13:23
[2017-03-23] VITALS: BP 148/93; PULSE 91; RESP 18; TEMP 96.7; O2SAT 99
[2017-03-23 04:58] VITALS: BP 133/98; PULSE 82; RESP 18; TEMP 96.3; O2SAT 99
[2017-03-23] MEDS: PIPERACIL-TAZO 4.5 GM PREMIX 100 ML IV SCH ×4 (05:20→23:22)
[2017-03-23 06:05] LABS: AUTOMATED NEUTROPHIL # 9.2 TH/MM3 (1.8-7.7); BASOPHIL # 0.1 TH/MM3 (0-0.2); BASOPHIL % 0.4 % (0.0-2.0); EOSINOPHIL # 0.3 TH/MM3 (0-0.4); EOSINOPHIL % 2.5 % (0.0-4.0); HEMATOCRIT 26.7 % (35.0-46.0); HEMO FLAGS DIFF FINAL; LYMPH % 17.7 % (9.0-44.0); LYMPHOCYTE # 2.4 TH/MM3 (1.0-4.8); MEAN CELL VOLUME 92.4 FL (80.0-100.0); MEAN CORPUSCULAR HEMOGLOBIN 31.3 PG (27.0-34.0); MEAN CORPUSCULAR HGB CONC 33.9 % (32.0-36.0); NEUT % 68.4 % (16.0-70.0); PLATELET COUNT 619 TH/MM3 (150-450); RED BLOOD COUNT 2.89 MIL/MM3 (4.00-5.30); RED CELL DISTRIBUTION WIDTH 16.4 % (11.6-17.2); WHITE BLOOD COUNT 13.5 TH/MM3 (4.0-11.0)
[2017-03-23 06:15] LABS: BICARBONATE 20.2 MEQ/L (21.0-32.0); MAGNESIUM 1.3 MG/DL (1.5-2.5); POTASSIUM 3.2 MEQ/L (3.5-5.1)
[2017-03-23 08:00] VITALS: BP 163/102; PULSE 55; RESP 18; TEMP 97.3; O2SAT 96
[2017-03-23] MEDS: PANTOPRAZOLE SOD 40 MG DELAYED RELEASE TAB PO SCH (08:25)
[2017-03-23] MEDS: LACTOBACILLUS ACIDOPHILUS TAB PO SCH ×2 (08:25→19:57)
[2017-03-23] MEDS: hydrALAZINE HCL 10 MG TAB PO PRN (08:25)
[2017-03-23] MEDS: SODIUM CHLORIDE 0.9% FLUSH 10 ML FLUSH IV FLUSH SCH ×2 (08:27→19:57)
--- NOTE | 2017-03-23 10:56 | HHI.PR ---
Subjective Subjective Notes The patient states she is feeling better. She has decreased diarrhea. She is tolerating her diet without problem although she still has a decreased appetite. She has no other complaints. Objective Vitals/I&O Vital Signs Date Time Temp Pulse Resp B/P (MAP) Pulse Ox O2 Delivery O2 Flow Rate FiO2 03/23/17 08:00 97.3 55 18 163/102 (122) 96 Labs Laboratory Tests Test 03/23/17 05:30 White Blood Count 13.5 Red Blood Count 2.89 Hemoglobin 9.1 Hematocrit 26.7 Mean Corpuscular Volume 92.4 Mean Corpuscular Hemoglobin 31.3 Mean Corpuscular Hemoglobin Concent 33.9 Red Cell Distribution Width 16.4 Platelet Count 619 Mean Platelet Volume 9.2 Neutrophils (%) (Auto) 68.4 Lymphocytes (%) (Auto) 17.7 Monocytes (%) (Auto) 11.0 Eosinophils (%) (Auto) 2.5 Basophils (%) (Auto) 0.4 Neutrophils # (Auto) 9.2 Lymphocytes # (Auto) 2.4 Monocytes # (Auto) 1.5 Eosinophils # (Auto) 0.3 Basophils # (Auto) 0.1 CBC Comment DIFF FINAL Differential Comment Blood Urea Nitrogen 3 Creatinine 0.76 Random Glucose 90 Calcium Level 8.2 Magnesium Level 1.3 Sodium Level 145 Potassium Level 3.2 Chloride Level 115 Carbon Dioxide Level 20.2 Anion Gap 10 Estimat Glomerular Filtration Rate 94 Date/Time Source Procedure Growth Status 03/16/17 04:40 Blood Peripheral Aerobic Blood Culture - Final NO GROWTH IN 5 DAYS Complete 03/16/17 04:40 Blood Peripheral Anaerobic Blood Culture - Final NO GROWTH IN 5 DAYS Complete 03/13/17 00:00 Wound Finger Fungal Smear - Final NO FUNGAL ELEMENTS SEEN. Resulted 03/13/17 00:00 Wound Finger Fungal Culture - Preliminary NO GROWTH IN 1 WEEK Resulted Cardiovascular: Regular Lungs: Clear Abdomen: Non-distended, Non-tender, BS normal Extremities: No edema Narrative Exam A/P Assessment and Plan Impression/plan: Status post exploratory laparotomy for lysis of adhesions and release of small bowel obstruction. She is doing well at this point with normalizing bowel function. The wound VAC that was placed earlier is functioning well and is scheduled to be changed tomorrow. She is stable from a general surgery standpoint. Ray Sims MD Mar 23, 2017 10:56
[2017-03-23 12:00] VITALS: BP 128/88; PULSE 83; RESP 18; TEMP 97; O2SAT 100
[2017-03-23] MEDS ORDERED: POTASSIUM CHLORIDE 20 MEQ CONTROLLED RELEASE TAB PO ONE (15:15)
--- NOTE | 2017-03-23 15:21 | HHI.PR ---
Subjective Remarks Pt has no complaints. Denies any pain, nausea or vomiting, passing flatus. Has been having loose stools. Discussed w RN, noted to have edema in lower extremities. Pt not motivated in moving around. Objective Vitals Vital Signs Date Time Temp Pulse Resp B/P (MAP) Pulse Ox O2 Delivery O2 Flow Rate FiO2 03/23/17 12:00 97.0 83 18 128/88 (101) 100 03/23/17 08:00 97.3 55 18 163/102 (122) 96 03/23/17 04:58 96.3 82 18 133/98 (110) 99 03/23/17 00:00 96.7 91 18 148/93 (111) 99 03/22/17 20:00 96.4 91 18 162/95 (117) 100 03/22/17 20:00 92 03/22/17 16:00 97.8 78 18 149/91 (110) 100 I/O 03/22/17 03/22/17 03/22/17 03/23/17 03/23/17 03/23/17 06:59 14:59 22:59 06:59 14:59 22:59 Intake Total 960 ml 1200 ml 100 ml Output Total 800 ml Balance 960 ml 400 ml 100 ml Intake Oral 760 ml 1200 ml IV Total 200 ml 100 ml Output Urine Total 800 ml Drainage Total 0 ml # Voids 6 5 # Bowel Movements 10 7 5 Result Diagram: 03/23/17 0530 03/23/17 0530 Imaging Last Impressions Abdomen/Pelvis CT 03/18/17 0000 Signed Impressions: Service Date/Time: Saturday, March 18, 2017 16:12 - CONCLUSION: 1. Post surgical features of interval laparotomy with appendectomy. Improved diffuse small bowel distention with resolution of relative transition point in the distal ileum. Cecum and descending colon are fluid-filled with relative transition point in the hepatic flexure with completely decompressed transverse and descending colon. Findings are consistent with resolving small bowel obstruction potentially with superimposed post surgical adynamic ileus. Small amount of free air is likely postsurgical. No pneumatosis or disproportionate free air to suggest perforation. 2. Tubular high density fluid collection along the length of the mid abdominal staple line consistent with hematoma. 3. Remainder of the exam is unchanged. Bernabe Young MD Chest X-Ray 03/15/17 0000 Signed Impressions: Service Date/Time: Wednesday, March 15, 2017 21:49 - CONCLUSION: Central line in good position. No evidence of pneumothorax. Miguel Sethi MD Liver Ultrasound 03/13/17 0000 Signed Impressions: Service Date/Time: February 13:36 - CONCLUSION: 1. Stone filled gallbladder. 2. Multiple hepatic cysts. 3. Single right renal cyst. 4. Trace free fluid in Morison's pouch. Johny Us MD Abdomen X-Ray 03/13/17 0000 Signed Impressions: Service Date/Time: February 12:34 - CONCLUSION: Diffuse small bowel dilatation. Navi Lau MD Chest CT 03/12/17 0000 Signed Impressions: Service Date/Time: Sunday, March 12, 2017 10:37 - CONCLUSION: 1. There is an ulcerated plaque with a small amount of and in thrombus projecting into the upper arch and into the lumen of the innominate artery origin. 2. Large hiatal hernia. 3. Multiple low attenuation lesions within the liver felt to represent a cyst. Ultrasound for confirmation is warranted. 4. There are multiple dilated loops of small bowel left upper quadrant. CT of the abdomen to rule out bowel destruction is warranted. Juan Carlos Leo MD Upper Extremity CTA 03/08/17 Signed Impressions: Service Date/Time: Wednesday, March 08, 2017 10:21 - CONCLUSION: 1. The ulnar artery in the right forearm is diminutive in caliber. Otherwise, the remaining right upper extremity arterial vessels have a normal appearance. Please note that the hand arterial vessels are not visualized on this exam. 2. Complex left thyroid nodule measuring 2.7 cm. When patient condition permits, suggest further characterization with thyroid ultrasound. 3. Cerebral atrophy with bilateral subdural hygromas. Navi Leon MD Small Bowel X-Ray 03/06/17 0000 Signed Impressions: Service Date/Time: February 11:25 - CONCLUSION: 1. Small bowel dilatation not associated with any significant obstruction. The oral contrast does reach the colon within 2 hours which is within normal range. However, the terminal ileum does have a more normal caliber compared with the more proximal small bowel which can be seen with a very low-grade partial obstruction. Ahmet Hdz MD Objective Remarks GENERAL: Well-nourished, well-developed female, laying in bed EYES: No scleral icterus. No injection or drainage. NECK: trachea midline. CARDIOVASCULAR: Regular rate and rhythm without murmurs RESPIRATORY: Breath sounds equal bilaterally. No accessory muscle use. No wheezing GASTROINTESTINAL: Abdomen soft, non-tender, nondistended. Midline dressing. Staple line observed without erythema. Wound vac in place. MUSCULOSKELETAL: Dry gangrene of the right index finger, dressing C/D/I. 1+ pitting edema lower extremities. Date of Insertion: Mar 15, 2017 Line: Central Venous Catheter A/P Assessment and Plan Hypotension-resolved. Now with hypertention . Add hydralazine prn and vasotec iv prn Small bowel obstructio - Status post exploratory laparotomy, lysis of adhesions and appendectomy - Management per general surgery - Cipro and Flagyl per surgery Gangrene of the index finger - Most likely embolic, thrombosis aortic arch/innominate artery for CT chest - vascular surgery and hematology evaluated pt, no underlying malignancy. - Status post Disarticulation through distal interphalangeal joint Hypokalemia -continue to replace as needed. ordered 40mEq x 1 Diarrhea: still present but improved, on probiotic , C diff neg. Dc reglan. Lower extremity swelling: Per RN pt not motivated in moving around, high risk for DVT, will check u/s lower extremities. DVT GI prophylaxis - Apparently Lovenox therapeutic dosing was supposed to be restarted but wasn' t. I will go ahead and start her on 90mg SQ BID. Will discuss w hematology team on length of anticoagulation tomorrow. - Teds SCDs - Protonix Discussed with the patient ,nurse Discharge Planning when cleared by Irma Mcneill MD Mar 23, 2017 15:21
[2017-03-23 16:00] VITALS: BP 130/82; PULSE 83; RESP 16; TEMP 97.2; O2SAT 99
[2017-03-23] MEDS: ENOXAPARIN SODIUM 100 MG/ML SYRINGE SQ SCH (16:33)
--- NOTE | 2017-03-23 16:40 | RADRPT ---
EXAM DATE/TIME: 03/23/2017 15:22 [facility] COMPARISON: No previous studies available for comparison. INDICATIONS : Bilateral edema. MEDICAL HISTORY : Hypertension. Hernia. Abdominal pain. Diarrhea. SURGICAL HISTORY : Hysterectomy. ENCOUNTER: Initial ACUITY: 1 day PAIN SCORE: 0/10 LOCATION: Bilateral legs. TECHNIQUE: Venous ultrasound of the left and right leg was performed from the inguinal ligament to the proximal calf. Real-time, color Doppler and spectral tracing, compression and augmentation techniques were us ed. FINDINGS: RIGHT LEG: There is normal compressibility of the deep venous system from the inguinal region to the proximal ca lf. No echogenic clot is seen in the lumen of the common femoral, femoral, popliteal, and posterior tibial veins. There is a normal response of the venous system to proximal and distal augmentation an d respiration. LEFT LEG: There is normal compressibility of the deep venous system from the inguinal region to the proximal ca lf. No echogenic clot is seen in the lumen of the common femoral, femoral, popliteal, and posterior tibial veins. There is a normal response of the venous system to proximal and distal augmentation an d respiration. CONCLUSION: Normal examination. Jonas Earl MD on March 23, 2017 at 16:38 Board Certified Radiologist. This report was verified electronically.
[2017-03-23 20:00] VITALS: BP 136/99; PULSE 78; PULSE 91; RESP 16; TEMP 96.9; O2SAT 100
[2017-03-24] MEDS: hydrALAZINE HCL 10 MG TAB PO PRN (00:26)
[2017-03-24 00:37] VITALS: BP 178/90; PULSE 93; RESP 16; TEMP 96.2; O2SAT 100
[2017-03-24 04:43] VITALS: BP 119/89; PULSE 74; RESP 16; TEMP 97.1; O2SAT 99
[2017-03-24] MEDS: PIPERACIL-TAZO 4.5 GM PREMIX 100 ML IV SCH ×4 (04:59→23:00)
[2017-03-24] MEDS: ENOXAPARIN SODIUM 100 MG/ML SYRINGE SQ SCH (05:00)
[2017-03-24 08:00] VITALS: BP 136/90; PULSE 90; RESP 16; TEMP 97; O2SAT 99
[2017-03-24] MEDS: LACTOBACILLUS ACIDOPHILUS TAB PO SCH ×2 (08:32→20:41)
[2017-03-24] MEDS: SODIUM CHLORIDE 0.9% FLUSH 10 ML FLUSH IV FLUSH SCH ×2 (08:32→20:50)
[2017-03-24] MEDS: PANTOPRAZOLE SOD 40 MG DELAYED RELEASE TAB PO SCH (08:32)
[2017-03-24] MEDS ORDERED: POTASSIUM CHLORIDE 20 MEQ CONTROLLED RELEASE TAB PO ONE (11:00)
[2017-03-24] MEDS: MAGNESIUM SULFATE 1 GM PREMIX 100 ML IV SCH ×2 (11:09→11:55)
--- NOTE | 2017-03-24 11:15 | HHI.PR ---
Subjective Remarks Pt w no complaints at this time. no pain, no nausea or vomiting. Objective Vitals Vital Signs Date Time Temp Pulse Resp B/P (MAP) Pulse Ox O2 Delivery O2 Flow Rate FiO2 03/24/17 08:00 97.0 90 16 136/90 (105) 99 03/24/17 04:43 97.1 74 16 119/89 (99) 99 03/24/17 00:37 96.2 93 16 178/90 (119) 100 03/23/17 20:00 91 03/23/17 20:00 96.9 78 16 136/99 (111) 100 03/23/17 16:00 97.2 83 16 130/82 (98) 99 03/23/17 12:00 97.0 83 18 128/88 (101) 100 I/O 03/23/17 03/23/17 03/23/17 03/24/17 03/24/17 03/24/17 07:00 15:00 23:00 07:00 15:00 23:00 Intake Total 100 ml 1400 ml 200 ml Output Total 1000 ml 0 ml Balance 100 ml 400 ml 200 ml Intake Oral 1400 ml IV Total 100 ml 200 ml Output Urine Total 1000 ml Drainage Total 0 ml # Voids 5 5 # Bowel Movements 5 7 5 Result Diagram: 03/23/17 0530 03/23/17 0530 Imaging Last Impressions Lower Extremity Ultrasound 03/23/17 0000 Signed Impressions: Service Date/Time: Thursday, March 23, 2017 15:22 - CONCLUSION: Normal examination. Jonas Earl MD Abdomen/Pelvis CT 03/18/17 0000 Signed Impressions: Service Date/Time: Saturday, March 18, 2017 16:12 - CONCLUSION: 1. Post surgical features of interval laparotomy with appendectomy. Improved diffuse small bowel distention with resolution of relative transition point in the distal ileum. Cecum and descending colon are fluid-filled with relative transition point in the hepatic flexure with completely decompressed transverse and descending colon. Findings are consistent with resolving small bowel obstruction potentially with superimposed post surgical adynamic ileus. Small amount of free air is likely postsurgical. No pneumatosis or disproportionate free air to suggest perforation. 2. Tubular high density fluid collection along the length of the mid abdominal staple line consistent with hematoma. 3. Remainder of the exam is unchanged. Bernabe Young MD Chest X-Ray 03/15/17 Signed Impressions: Service Date/Time: Wednesday, March 15, 2017 21:49 - CONCLUSION: Central line in good position. No evidence of pneumothorax. Miguel Sethi MD Liver Ultrasound 03/13/17 0000 Signed Impressions: Service Date/Time: February 13:36 - CONCLUSION: 1. Stone filled gallbladder. 2. Multiple hepatic cysts. 3. Single right renal cyst. 4. Trace free fluid in Morison's pouch. Johny Us MD Abdomen X-Ray 03/13/17 Signed Impressions: Service Date/Time: February 12:34 - CONCLUSION: Diffuse small bowel dilatation. Navi Lau MD Chest CT 03/12/17 0000 Signed Impressions: Service Date/Time: Sunday, March 12, 2017 10:37 - CONCLUSION: 1. There is an ulcerated plaque with a small amount of and in thrombus projecting into the upper arch and into the lumen of the innominate artery origin. 2. Large hiatal hernia. 3. Multiple low attenuation lesions within the liver felt to represent a cyst. Ultrasound for confirmation is warranted. 4. There are multiple dilated loops of small bowel left upper quadrant. CT of the abdomen to rule out bowel destruction is warranted. Juan Carlos Leo MD Upper Extremity CTA 03/08/17 Signed Impressions: Service Date/Time: Wednesday, March 08, 2017 10:21 - CONCLUSION: 1. The ulnar artery in the right forearm is diminutive in caliber. Otherwise, the remaining right upper extremity arterial vessels have a normal appearance. Please note that the hand arterial vessels are not visualized on this exam. 2. Complex left thyroid nodule measuring 2.7 cm. When patient condition permits, suggest further characterization with thyroid ultrasound. 3. Cerebral atrophy with bilateral subdural hygromas. Navi Leon MD Small Bowel X-Ray 03/06/17 0000 Signed Impressions: Service Date/Time: February 11:25 - CONCLUSION: 1. Small bowel dilatation not associated with any significant obstruction. The oral contrast does reach the colon within 2 hours which is within normal range. However, the terminal ileum does have a more normal caliber compared with the more proximal small bowel which can be seen with a very low-grade partial obstruction. Ahmet Hdz MD Objective Remarks GENERAL: female, laying in bed, asleep when I walked in but easily arousable. EYES: No scleral icterus. No injection or drainage. NECK: trachea midline. CARDIOVASCULAR: Regular rate and rhythm without murmurs RESPIRATORY: Breath sounds equal bilaterally. No accessory muscle use. No wheezing GASTROINTESTINAL: Abdomen soft, non-tender, nondistended. Midline dressing. Staple line observed without erythema. Wound vac in place. MUSCULOSKELETAL: dressing C/D/I over right index finger. 1+ pitting edema lower extremities. Date of Insertion: Mar 15, 2017 Line: Central Venous Catheter A/P Assessment and Plan Hypotension-resolved. Now with hypertention , started on amlodipine 5mg daily. On hydralazine prn and vasotec iv prn Small bowel obstruction - Status post exploratory laparotomy, lysis of adhesions and appendectomy - Management per general surgery, has a wound back in place. to be changed today. awaiting final recs for d/c planning. Pt is self pay. - s/p Cipro and Flagyl and now on zosyn. WBC still elevated. Will consult ID for assistance on length of abx. 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 At this time ok to discontinue full anticoagulation from Vasc Sx standpoint. I did touch base w vascular and hematology teams today. - Status post Disarticulation through distal interphalangeal joint Hypokalemia/hypomagnesemia -continue to replace as needed. ordered 40mEq x 1 and giving mag sulfate. Monitor Mg and K levels. Diarrhea: still present but improved, on probiotic , C diff neg. Dc reglan. Lower extremity swelling: u/s lower extremities neg for DVT DVT GI prophylaxis - lovenox 40mg SQ daily. - Teds SCDs - Protonix Discharge Planning CM assisting w wound vac as outpatient. ID consult in place and awaiting their recs. Pt doesn't need to be fully anticoagulated per heme/vasc sx anticipate d/c tomorrow Irma Headley MD Mar 24, 2017 11:15
--- NOTE | 2017-03-24 11:48 | HHI.PR ---
Subjective Subjective Notes States she is not eating a lot, but is tolerating her food. Still having liquid stools. She is ambulating to bedside commode without walker. Denies pain. Objective Vitals/I&O Vital Signs Date Time Temp Pulse Resp B/P (MAP) Pulse Ox O2 Delivery O2 Flow Rate FiO2 03/24/17 08:00 97.0 90 16 136/90 (105) 99 Labs Date/Time Source Procedure Growth Status 03/16/17 04:40 Blood Peripheral Aerobic Blood Culture - Final NO GROWTH IN 5 DAYS Complete 03/16/17 04:40 Blood Peripheral Anaerobic Blood Culture - Final NO GROWTH IN 5 DAYS Complete 03/13/17 00:00 Wound Finger Fungal Smear - Final NO FUNGAL ELEMENTS SEEN. Resulted 03/13/17 00:00 Wound Finger Fungal Culture - Preliminary NO GROWTH IN 1 WEEK Resulted Narrative Exam NAD, awake and alert Abd: soft, nondistended. Vac removed and wound is clean and granulating, no sign of infection A/P Assessment and Plan 61 yo F s/p distal finger amputation POD 9 s/p ex lap, SPENCER, appendectomy. Doing well. WBC still mildly elevated. Cont vac while in hospital. Upon dc, begin wet to dry dressings to midline wound. Pack loosely with damp 4x4 or 2x2 depending on size, cover with dry gauze. Change daily. Clear for dc from general surgery standpoint. F/u with me in one week after discharge. SouravJuan MD Mar 24, 2017 11:48
[2017-03-24 12:00] VITALS: BP 147/88; PULSE 82; RESP 16; TEMP 96.8; O2SAT 100
[2017-03-24] MEDS ORDERED: amLODIPine BESYLATE 5 MG TAB PO ONE (12:00)
--- NOTE | 2017-03-24 14:40 | PD.ID.CON ---
History of Present Illness Service ID Consult Requested By Dr Headley Reason for Consult leukocytosis Primary Care Physician Unknown Diagnoses: History of Present Illness Pt is a poor historuia, not very cooperative, claims "everything is in my chart " 61 F presetnd with RIF dry gangrene and 3-4 weeks of frequent liquid BMs No abd pain 13-18 BMs doc'd on a daily basis Endorses significant weight loss She has no fever, but cont to have significant leukocytosis Pt had colonoscopy during this admission She was diagnosed with small bowel obstruction and appendicitis and on 03/15 she underwent Exploratory laparotomy, lysis of adhesions and appendectomy Path c/w abscess formation and perforation Review of Systems ROS Limitations: Poor Historian Constitutional: COMPLAINS OF: Weight loss ("a lot") Gastrointestinal: COMPLAINS OF: Diarrhea Except as stated in HPI: all other systems reviewed are Neg Past Family Social History Allergies: Coded Allergies: No Known Allergies (Verified Allergy, Unknown, 03/06/17) Past Medical History HTN ? ovarian ca in 20ies Past Surgical History hysterectomy Active Ordered Medications Medications where reviewed in EMR Antibiotics Include: zosyn Family History reviewed non contributory Social History + Tobacco. 1 pack per week No ETOH. + MJ Physical Exam Vital Signs Vital Signs Date Time Temp Pulse Resp B/P (MAP) Pulse Ox O2 Delivery O2 Flow Rate FiO2 03/24/17 12:00 96.8 82 16 147/88 (107) 100 03/24/17 08:00 97.0 90 16 136/90 (105) 99 03/24/17 04:43 97.1 74 16 119/89 (99) 99 03/24/17 00:37 96.2 93 16 178/90 (119) 100 03/23/17 20:00 91 03/23/17 20:00 96.9 78 16 136/99 (111) 100 03/23/17 16:00 97.2 83 16 130/82 (98) 99 Physical Exam CONSTITUTIONAL/GENERAL: This is an adequately nourished patient, in no apparent distress. TUBES/LINES/DRAINS: R IJ TLC - site OK SKIN: No jaundice, rashes, or lesions. Skin temperature appropriate. Not diaphoretic. HEAD: Atraumatic. Normocephalic. EYES: Pupils equal and round and reactive. Extraocular motions intact. No scleral icterus. No injection or drainage. Fundi not examined. ENT: Hearing grossly normal. Nose without bleeding or purulent drainage. Oral mucosae without visible erythema, exudates, masses, or lesions. Poor dentition NECK: Trachea midline. Supple, nontender. CARDIOVASCULAR: Regular rate and rhythm without murmurs, gallops, or rubs. No JVD. Peripheral pulses symmetric. RESPIRATORY/CHEST: Symmetric, unlabored respirations. Clear to auscultation. Breath sounds equal bilaterally. No wheezes, rales, or rhonchi. GASTROINTESTINAL: Abdomen soft, non-tender, moderately distended. VAC in place over medial laparotomy incision c serosang dc No hepato-splenomegaly, or palpable masses. No guarding. Bowel sounds present. GENITOURINARY: Without palpable bladder distension. MUSCULOSKELETAL: Extremities without clubbing, cyanosis, or edema. No joint tenderness or effusion noted. No calf tenderness. No mottling or clubbing. RIF with clean incision, stitcehs in place LYMPHATICS: No palpable cervical or supraclavicular adenopathy. NEUROLOGICAL: Awake and alert. Motor and sensory grossly within normal limits. Follows commands. Clear speech . Moves all extremities. PSYCHIATRIC: No obvious anxiety/depression. no apparent hallucinations or other psychotic thought process. Laboratory Date/Time Source Procedure Growth Status 03/16/17 04:40 Blood Peripheral Aerobic Blood Culture - Final NO GROWTH IN 5 DAYS Complete 03/16/17 04:40 Blood Peripheral Anaerobic Blood Culture - Final NO GROWTH IN 5 DAYS Complete 03/13/17 00:00 Wound Finger Fungal Smear - Final NO FUNGAL ELEMENTS SEEN. Resulted 03/13/17 00:00 Wound Finger Fungal Culture - Preliminary NO GROWTH IN 1 WEEK Resulted Result Diagram: 03/23/17 0530 03/23/17 0530 Imaging Last Impressions Lower Extremity Ultrasound 03/23/17 0000 Signed Impressions: Service Date/Time: Thursday, March 23, 2017 15:22 - CONCLUSION: Normal examination. Jonas Earl MD Abdomen/Pelvis CT 03/18/17 0000 Signed Impressions: Service Date/Time: Saturday, March 18, 2017 16:12 - CONCLUSION: 1. Post surgical features of interval laparotomy with appendectomy. Improved diffuse small bowel distention with resolution of relative transition point in the distal ileum. Cecum and descending colon are fluid-filled with relative transition point in the hepatic flexure with completely decompressed transverse and descending colon. Findings are consistent with resolving small bowel obstruction potentially with superimposed post surgical adynamic ileus. Small amount of free air is likely postsurgical. No pneumatosis or disproportionate free air to suggest perforation. 2. Tubular high density fluid collection along the length of the mid abdominal staple line consistent with hematoma. 3. Remainder of the exam is unchanged. Bernabe Young MD Chest X-Ray 03/15/17 0000 Signed Impressions: Service Date/Time: Wednesday, March 15, 2017 21:49 - CONCLUSION: Central line in good position. No evidence of pneumothorax. Miguel Sethi MD Liver Ultrasound 03/13/17 0000 Signed Impressions: Service Date/Time: February 13:36 - CONCLUSION: 1. Stone filled gallbladder. 2. Multiple hepatic cysts. 3. Single right renal cyst. 4. Trace free fluid in Morison's pouch. Johny Us MD Abdomen X-Ray 03/13/17 0000 Signed Impressions: Service Date/Time: February 12:34 - CONCLUSION: Diffuse small bowel dilatation. Navi Lau MD Chest CT 03/12/17 0000 Signed Impressions: Service Date/Time: Sunday, March 12, 2017 10:37 - CONCLUSION: 1. There is an ulcerated plaque with a small amount of and in thrombus projecting into the upper arch and into the lumen of the innominate artery origin. 2. Large hiatal hernia. 3. Multiple low attenuation lesions within the liver felt to represent a cyst. Ultrasound for confirmation is warranted. 4. There are multiple dilated loops of small bowel left upper quadrant. CT of the abdomen to rule out bowel destruction is warranted. Juan Carlos Leo MD Upper Extremity CTA 03/08/17 0000 Signed Impressions: Service Date/Time: Wednesday, March 08, 2017 10:21 - CONCLUSION: 1. The ulnar artery in the right forearm is diminutive in caliber. Otherwise, the remaining right upper extremity arterial vessels have a normal appearance. Please note that the hand arterial vessels are not visualized on this exam. 2. Complex left thyroid nodule measuring 2.7 cm. When patient condition permits, suggest further characterization with thyroid ultrasound. 3. Cerebral atrophy with bilateral subdural hygromas. Navi Leon MD Small Bowel X-Ray 03/06/17 0000 Signed Impressions: Service Date/Time: February 11:25 - CONCLUSION: 1. Small bowel dilatation not associated with any significant obstruction. The oral contrast does reach the colon within 2 hours which is within normal range. However, the terminal ileum does have a more normal caliber compared with the more proximal small bowel which can be seen with a very low-grade partial obstruction. Ahmet Hdz MD Assessment and Plan Assessment and Plan S mall bowel obstruction and appendicitis with abscess formation and perforation - sp Exploratory laparotomy, lysis of adhesions and appendectomy on 03/15 RIF dry gangrene Persistent leukocutosis Diarhea, ? colovesicular fistula cont zosyn - chk UA, C+S - fu WBC Discussed Condition With Dr Kayode Vasquez,Gladys Ramos MD Mar 24, 2017 14:40
[2017-03-24 16:00] VITALS: BP 158/98; PULSE 88; RESP 17; TEMP 96.4; O2SAT 100
[2017-03-24 18:39] LABS: AUTOMATED NEUTROPHIL # 8.1 TH/MM3 (1.8-7.7); BASOPHIL # 0.1 TH/MM3 (0-0.2); BASOPHIL % 0.6 % (0.0-2.0); EOSINOPHIL # 0.3 TH/MM3 (0-0.4); EOSINOPHIL % 2.5 % (0.0-4.0); HEMATOCRIT 29.5 % (35.0-46.0); HEMO FLAGS DIFF FINAL; LYMPH % 21.9 % (9.0-44.0); LYMPHOCYTE # 2.8 TH/MM3 (1.0-4.8); MEAN CORPUSCULAR HEMOGLOBIN 30.6 PG (27.0-34.0); MEAN CORPUSCULAR HGB CONC 32.5 % (32.0-36.0); MONO % 11.2 % (0.0-8.0); NEUT % 63.8 % (16.0-70.0); PLATELET COUNT 708 TH/MM3 (150-450); RED BLOOD COUNT 3.14 MIL/MM3 (4.00-5.30); WHITE BLOOD COUNT 12.6 TH/MM3 (4.0-11.0)
[2017-03-24 18:55] LABS: BICARBONATE 20.6 MEQ/L (21.0-32.0); MAGNESIUM 1.5 MG/DL (1.5-2.5)
[2017-03-24 20:29] VITALS: BP 117/82; PULSE 83; RESP 16; TEMP 97.6; O2SAT 95
[2017-03-24 22:47] LABS: BLOOD, URINE TRACE (NEG); COMMENT (UR) CULT NOT INDICATED; CULTURE IF INDICATED CULT NOT INDICATED; GLUCOSE,URINE NEG (NEG); KETONE, URINE NEG (NEG); NITRITE,URINE NEG (NEG); SQUAMOUS EPITHELIAL CELL URINE 24 /hpf (0-5); URINE COLOR YELLOW (YELLW/STRAW)
[2017-03-25] VITALS (7 sets, daily range): BP systolic 119–138; BP diastolic 78–92; PULSE 78–101; RESP 17–18; TEMP 96.2–97.2; O2SAT 97–99
[2017-03-25] MEDS: PIPERACIL-TAZO 4.5 GM PREMIX 100 ML IV SCH ×3 (04:40→15:23)
[2017-03-25 05:04] LABS: AUTOMATED NEUTROPHIL # 7.1 TH/MM3 (1.8-7.7); BASOPHIL % 0.4 % (0.0-2.0); EOSINOPHIL # 0.4 TH/MM3 (0-0.4); EOSINOPHIL % 3.2 % (0.0-4.0); HEMATOCRIT 26.9 % (35.0-46.0); HEMO FLAGS DIFF FINAL; LYMPHOCYTE # 2.9 TH/MM3 (1.0-4.8); MEAN CELL VOLUME 92.2 FL (80.0-100.0); MEAN CORPUSCULAR HEMOGLOBIN 31.2 PG (27.0-34.0); MEAN CORPUSCULAR HGB CONC 33.8 % (32.0-36.0); MONO % 12.4 % (0.0-8.0); PLATELET COUNT 733 TH/MM3 (150-450); RED BLOOD COUNT 2.92 MIL/MM3 (4.00-5.30); RED CELL DISTRIBUTION WIDTH 16.5 % (11.6-17.2); WHITE BLOOD COUNT 11.9 TH/MM3 (4.0-11.0)
[2017-03-25 05:22] LABS: BICARBONATE 20.4 MEQ/L (21.0-32.0); MAGNESIUM 1.6 MG/DL (1.5-2.5)
[2017-03-25] MEDS: PANTOPRAZOLE SOD 40 MG DELAYED RELEASE TAB PO SCH (07:46)
[2017-03-25] MEDS: SODIUM CHLORIDE 0.9% FLUSH 10 ML FLUSH IV FLUSH SCH ×2 (07:46→21:42)
[2017-03-25] MEDS: amLODIPine BESYLATE 5 MG TAB PO SCH (07:46)
[2017-03-25] MEDS: ENOXAPARIN SODIUM 40 MG/0.4 ML SYRINGE SQ SCH (07:46)
[2017-03-25] MEDS: LACTOBACILLUS ACIDOPHILUS TAB PO SCH ×2 (07:46→21:40)
--- NOTE | 2017-03-25 12:08 | HHI.PR ---
Subjective Remarks Written by Leana Cross, acting as scribe for Dr. Headley on 03/25/17 at 1208. Follow up HTN, small bowel obstruction. Patient seen and examined today, lying in bed comfortably. Denies any new acute complaints overnight. Admits to poor appetite and decreased PO intake. Denies any recent fever, chills, headache, chest pain, cough, shortness of breath, ab pain, n/v or dysuria. Denies any pain. Objective Vitals Vital Signs Date Time Temp Pulse Resp B/P (MAP) Pulse Ox O2 Delivery O2 Flow Rate FiO2 03/25/17 08:00 96.5 80 17 134/92 (106) 99 03/25/17 04:55 96.2 78 18 124/84 (97) 97 03/25/17 03:29 101 03/25/17 00:38 97.2 80 18 136/78 (97) 98 03/24/17 20:29 97.6 83 16 117/82 (94) 95 03/24/17 16:00 96.4 88 17 158/98 (118) 100 I/O 03/24/17 03/24/17 03/24/17 03/25/17 03/25/17 03/25/17 07:00 15:00 23:00 07:00 15:00 23:00 Intake Total 200 ml 200 ml 1000 ml 960 ml Output Total 0 ml 600 ml Balance 200 ml 200 ml 400 ml 960 ml Intake Oral 800 ml 760 ml IV Total 200 ml 200 ml 200 ml 200 ml Output Urine Total 600 ml Drainage Total 0 ml 0 ml # Voids 5 10 # Bowel Movements 5 9 10 Result Diagram: 03/25/17 0442 03/25/17 0442 Imaging Last Impressions Lower Extremity Ultrasound 03/23/17 0000 Signed Impressions: Service Date/Time: Thursday, March 23, 2017 15:22 - CONCLUSION: Normal examination. Jonas Earl MD Abdomen/Pelvis CT 03/18/17 0000 Signed Impressions: Service Date/Time: Saturday, March 18, 2017 16:12 - CONCLUSION: 1. Post surgical features of interval laparotomy with appendectomy. Improved diffuse small bowel distention with resolution of relative transition point in the distal ileum. Cecum and descending colon are fluid-filled with relative transition point in the hepatic flexure with completely decompressed transverse and descending colon. Findings are consistent with resolving small bowel obstruction potentially with superimposed post surgical adynamic ileus. Small amount of free air is likely postsurgical. No pneumatosis or disproportionate free air to suggest perforation. 2. Tubular high density fluid collection along the length of the mid abdominal staple line consistent with hematoma. 3. Remainder of the exam is unchanged. Bernabe Young MD Chest X-Ray 03/15/17 0000 Signed Impressions: Service Date/Time: Wednesday, March 15, 2017 21:49 - CONCLUSION: Central line in good position. No evidence of pneumothorax. Miguel Sethi MD Liver Ultrasound 03/13/17 0000 Signed Impressions: Service Date/Time: February 13:36 - CONCLUSION: 1. Stone filled gallbladder. 2. Multiple hepatic cysts. 3. Single right renal cyst. 4. Trace free fluid in Morison's pouch. Johny Us MD Abdomen X-Ray 03/13/17 0000 Signed Impressions: Service Date/Time: February 12:34 - CONCLUSION: Diffuse small bowel dilatation. Navi Lau MD Chest CT 03/12/17 0000 Signed Impressions: Service Date/Time: Sunday, March 12, 2017 10:37 - CONCLUSION: 1. There is an ulcerated plaque with a small amount of and in thrombus projecting into the upper arch and into the lumen of the innominate artery origin. 2. Large hiatal hernia. 3. Multiple low attenuation lesions within the liver felt to represent a cyst. Ultrasound for confirmation is warranted. 4. There are multiple dilated loops of small bowel left upper quadrant. CT of the abdomen to rule out bowel destruction is warranted. Juan Carlos Leo MD Upper Extremity CTA 03/08/17 0000 Signed Impressions: Service Date/Time: Wednesday, March 08, 2017 10:21 - CONCLUSION: 1. The ulnar artery in the right forearm is diminutive in caliber. Otherwise, the remaining right upper extremity arterial vessels have a normal appearance. Please note that the hand arterial vessels are not visualized on this exam. 2. Complex left thyroid nodule measuring 2.7 cm. When patient condition permits, suggest further characterization with thyroid ultrasound. 3. Cerebral atrophy with bilateral subdural hygromas. Navi Leon MD Small Bowel X-Ray 03/06/17 0000 Signed Impressions: Service Date/Time: February 11:25 - CONCLUSION: 1. Small bowel dilatation not associated with any significant obstruction. The oral contrast does reach the colon within 2 hours which is within normal range. However, the terminal ileum does have a more normal caliber compared with the more proximal small bowel which can be seen with a very low-grade partial obstruction. Ahmet Hdz MD Objective Remarks GENERAL: female, laying in bed awake, comfortably in nad. EYES: No scleral icterus. No injection or drainage. NECK: Supple. trachea midline. CARDIOVASCULAR: Regular rate and rhythm without murmurs RESPIRATORY: Breath sounds equal bilaterally. No accessory muscle use. No wheezing GASTROINTESTINAL: Abdomen soft, non-tender, nondistended. Midline dressing. Staple line observed without erythema. Wound vac in place. MUSCULOSKELETAL: dressing C/D/I over right index finger. 1+ pitting edema lower extremities. Date of Insertion: Mar 15, 2017 Line: Central Venous Catheter A/P Assessment and Plan Hypotension-resolved. Now with hypertension, started on amlodipine 5mg daily. On hydralazine prn and Vasotec iv prn Small bowel obstruction Diarrhea - Status post exploratory laparotomy, lysis of adhesions and appendectomy - Management per general surgery, has a wound vac in place. Upon dc, begin wet to dry dressings to midline wound. Pack loosely with damp 4x4 or 2x2 depending on size, cover with dry gauze. Change daily. - s/p Cipro and Flagyl and now on Zosyn. WBC 11.9. ID consulted and following patient, appreciate recommendations. - UA checked by ID, unremarkable. 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 At this time ok to discontinue full anticoagulation from Vasc Sx standpoint. - Status post Disarticulation through distal interphalangeal joint. Hypokalemia/hypomagnesemia suspect secondary to poor PO intake and diarrhea - K 3.0 today, KCL 40 meq PO x1 now. Continue to replace as needed. Monitor BMPs. Diarrhea - Still present, on probiotic, C diff neg. Dc reglan. - GI consulted for persistent diarrhea and multiple BMs (up to 19/day), appreciate input. Started on Questran 4 mg PO q8hr. Monitor. Lower extremity swelling: u/s lower extremities neg for DVT GI prophylaxis: Protonix DVT Prophylaxis: SCDs/Lovenox. This note was transcribed by ian Cross. I, Dr. Irma Headley personally performed the history, physical exam, and medical decision making; and confirmed the accuracy of the information in the transcribed note. Authenticated by Dr. Irma Headley on 03/25/17 at 1208. Discharge Planning ID consult in place and awaiting their recs. Pt doesn't need to be fully anticoagulated per heme/vasc sx GI following. Leana Cross Mar 25, 2017 12:08 Irma Headley MD Mar 25, 2017 18:53
[2017-03-25] MEDS ORDERED: POTASSIUM CHLORIDE 10 MEQ CONTROLLED RELEASE TAB PO ONE (14:00)
--- NOTE | 2017-03-25 14:23 | HHI.FF ---
Face to Face Verification Diagnosis: (1) Small bowel obstruction (2) Appendicitis (3) necrosis right index finger tip Home Health Nursing Order: Wound care and dressing changes I have seen patient David Jennings on 03/25/17. My clinical findings support the need for the requested home health care services because: Limited ability to care for self I certify that my clinical findings support that this patient is homebound because: Post-op weakness Leana Cross Mar 25, 2017 14:23
[2017-03-25] MEDS: CHOLESTYRAMINE 4 GM PACKET PO SCH ×2 (15:22→21:40)
--- NOTE | 2017-03-25 15:34 | HHI.GIFU ---
Subjective Remarks GI reconsulted for frequent BMs in this pt who is s/p ex lap with appendectomy and lysis adhesions. She says she is having fewer loose stools since reglan has been stopped. She will not discuss her BMs with me further, "its better now " and assures me that she has no issue with her bowel habits at this time. Per RN pt having soft small BMs throughout day. (Lucille Wills YEAST PUMPER) Objective Vitals I&O Vital Signs Date Time Temp Pulse Resp B/P (MAP) Pulse Ox O2 Delivery O2 Flow Rate FiO2 03/25/17 12:00 96.5 86 17 125/78 (94) 98 03/25/17 08:00 96.5 80 17 134/92 (106) 99 03/25/17 04:55 96.2 78 18 124/84 (97) 97 03/25/17 03:29 101 03/25/17 00:38 97.2 80 18 136/78 (97) 98 03/24/17 20:29 97.6 83 16 117/82 (94) 95 03/24/17 16:00 96.4 88 17 158/98 (118) 100 I/O 03/24/17 03/24/17 03/24/17 03/25/17 03/25/17 03/25/17 07:00 15:00 23:00 07:00 15:00 23:00 Intake Total 200 ml 200 ml 1000 ml 960 ml Output Total 0 ml 600 ml Balance 200 ml 200 ml 400 ml 960 ml Intake Oral 800 ml 760 ml IV Total 200 ml 200 ml 200 ml 200 ml Output Urine Total 600 ml Drainage Total 0 ml 0 ml # Voids 5 10 # Bowel Movements 5 9 10 Laboratory Laboratory Tests Test 03/24/17 18:03 03/24/17 22:15 03/25/17 04:42 White Blood Count 12.6 11.9 Red Blood Count 3.14 2.92 Hemoglobin 9.6 9.1 Hematocrit 29.5 26.9 Mean Corpuscular Volume 94.0 92.2 Mean Corpuscular Hemoglobin 30.6 31.2 Mean Corpuscular Hemoglobin Concent 32.5 33.8 Red Cell Distribution Width 17.0 16.5 Platelet Count 708 733 Mean Platelet Volume 9.4 9.0 Neutrophils (%) (Auto) 63.8 60.0 Lymphocytes (%) (Auto) 21.9 24.0 Monocytes (%) (Auto) 11.2 12.4 Eosinophils (%) (Auto) 2.5 3.2 Basophils (%) (Auto) 0.6 0.4 Neutrophils # (Auto) 8.1 7.1 Lymphocytes # (Auto) 2.8 2.9 Monocytes # (Auto) 1.4 1.5 Eosinophils # (Auto) 0.3 0.4 Basophils # (Auto) 0.1 0.0 CBC Comment DIFF FINAL DIFF FINAL Differential Comment Blood Urea Nitrogen 2 2 Creatinine 0.82 0.78 Random Glucose 82 85 Calcium Level 8.4 8.2 Magnesium Level 1.5 1.6 Sodium Level 146 147 Potassium Level 3.0 3.0 Chloride Level 114 116 Carbon Dioxide Level 20.6 20.4 Anion Gap 11 11 Estimat Glomerular Filtration Rate 86 91 Urine Color YELLOW Urine Turbidity HAZY Urine pH 6.0 Urine Specific [place] 1.022 Urine Protein 30 Urine Glucose (UA) NEG Urine Ketones NEG Urine Occult Blood TRACE Urine Nitrite NEG Urine Bilirubin NEG Urine Urobilinogen LESS THAN 2.0 Urine Leukocyte Esterase TRACE Urine RBC 3 Urine WBC 5 Urine Squamous Epithelial Cells 24 Urine Amorphous Sediment RARE Microscopic Urinalysis Comment CULT NOT INDICATED Date/Time Source Procedure Growth Status 03/16/17 04:40 Blood Peripheral Aerobic Blood Culture - Final NO GROWTH IN 5 DAYS Complete 03/16/17 04:40 Blood Peripheral Anaerobic Blood Culture - Final NO GROWTH IN 5 DAYS Complete 03/13/17 00:00 Wound Finger Fungal Smear - Final NO FUNGAL ELEMENTS SEEN. Resulted 03/13/17 00:00 Wound Finger Fungal Culture - Preliminary NO GROWTH IN 1 WEEK Resulted Imaging Last Impressions Lower Extremity Ultrasound 03/23/17 0000 Signed Impressions: Service Date/Time: Thursday, March 23, 2017 15:22 - CONCLUSION: Normal examination. Jonas Earl MD Abdomen/Pelvis CT 03/18/17 0000 Signed Impressions: Service Date/Time: Saturday, March 18, 2017 16:12 - CONCLUSION: 1. Post surgical features of interval laparotomy with appendectomy. Improved diffuse small bowel distention with resolution of relative transition point in the distal ileum. Cecum and descending colon are fluid-filled with relative transition point in the hepatic flexure with completely decompressed transverse and descending colon. Findings are consistent with resolving small bowel obstruction potentially with superimposed post surgical adynamic ileus. Small amount of free air is likely postsurgical. No pneumatosis or disproportionate free air to suggest perforation. 2. Tubular high density fluid collection along the length of the mid abdominal staple line consistent with hematoma. 3. Remainder of the exam is unchanged. Bernabe Young MD Chest X-Ray 03/15/17 0000 Signed Impressions: Service Date/Time: Wednesday, March 15, 2017 21:49 - CONCLUSION: Central line in good position. No evidence of pneumothorax. Miguel Sethi MD Liver Ultrasound 03/13/17 0000 Signed Impressions: Service Date/Time: February 13:36 - CONCLUSION: 1. Stone filled gallbladder. 2. Multiple hepatic cysts. 3. Single right renal cyst. 4. Trace free fluid in Morison's pouch. Johny Us MD Abdomen X-Ray 03/13/17 0000 Signed Impressions: Service Date/Time: February 12:34 - CONCLUSION: Diffuse small bowel dilatation. Navi Lau MD Chest CT 03/12/17 0000 Signed Impressions: Service Date/Time: Sunday, March 12, 2017 10:37 - CONCLUSION: 1. There is an ulcerated plaque with a small amount of and in thrombus projecting into the upper arch and into the lumen of the innominate artery origin. 2. Large hiatal hernia. 3. Multiple low attenuation lesions within the liver felt to represent a cyst. Ultrasound for confirmation is warranted. 4. There are multiple dilated loops of small bowel left upper quadrant. CT of the abdomen to rule out bowel destruction is warranted. Juan Carlos Leo MD Upper Extremity CTA 03/08/17 0000 Signed Impressions: Service Date/Time: Wednesday, March 08, 2017 10:21 - CONCLUSION: 1. The ulnar artery in the right forearm is diminutive in caliber. Otherwise, the remaining right upper extremity arterial vessels have a normal appearance. Please note that the hand arterial vessels are not visualized on this exam. 2. Complex left thyroid nodule measuring 2.7 cm. When patient condition permits, suggest further characterization with thyroid ultrasound. 3. Cerebral atrophy with bilateral subdural hygromas. Navi Leon MD Small Bowel X-Ray 03/06/17 0000 Signed Impressions: Service Date/Time: February 11:25 - CONCLUSION: 1. Small bowel dilatation not associated with any significant obstruction. The oral contrast does reach the colon within 2 hours which is within normal range. However, the terminal ileum does have a more normal caliber compared with the more proximal small bowel which can be seen with a very low-grade partial obstruction. Ahmet Hdz MD Physical Exam HEENT: Normocephalic; atraumatic; no jaundice. CHEST: CTA CARDIAC: RRR ABDOMEN: Soft, nondistended,nontender, incision well approximated with stables , small woundvac dressing; no hepatosplenomegaly; bowel sounds are present EXTREMITIES: no clubbing cyanosis or edema SKIN: Normal; no rash; no jaundice. CADMIUM BURNER: No focal deficits; alert and oriented x 3 (Lucille Wills) Assessment and Plan Plan ASSESSMENT: - Diarrhea. reglan d/c'd. per pt her diarrhea has "run its course." and she will not d/w further. per RN having small soft BMs throughout day. c diff neg. - Ileus/Nausea/vomiting. improved - Abdominal pain. sbo. s/p ex lap, lysis adhesions, appendectomy EGD/Colonoscopy 03/08/17--> , Hiatal hernia, Duodenitis, Colon polyps, melanosis coli, hemorrhoids. path starks's. colonoscopy path benign - GERD. PPI - leukocytosis - ID following on zosyn PLAN: - trial cholestyramine - VENTURA - PPI - Supportive care This pt seen by myself and Dr Garcia and this note is written on his behalf (Lucille Wills) Physician Comments Seen and examined with ELVIE, reconsulted for persistent diarrhea . Previous records reviewedWould recommend holding antibiotics. Trial of cholestyramine 4gm po bid. Repeat stool c. diff. Discussed with Dr. Headley. Thank you (Ene Garcia MD) Lucille Wills Mar 25, 2017 15:33 Ene Garcia MD Mar 25, 2017 17:04
--- NOTE | 2017-03-25 16:41 | HHI.PR ---
Subjective Remarks complains of no pain over the right index finger denies any fever Objective Vital Signs Date Time Temp Pulse Resp B/P (MAP) Pulse Ox O2 Delivery O2 Flow Rate FiO2 03/25/17 16:00 96.8 78 18 119/86 (97) 99 03/25/17 12:00 96.5 86 17 125/78 (94) 98 03/25/17 08:00 96.5 80 17 134/92 (106) 99 03/25/17 04:55 96.2 78 18 124/84 (97) 97 03/25/17 03:29 101 03/25/17 00:38 97.2 80 18 136/78 (97) 98 03/24/17 20:29 97.6 83 16 117/82 (94) 95 I/O 03/24/17 03/24/17 03/24/17 03/25/17 03/25/17 03/25/17 07:00 15:00 23:00 07:00 15:00 23:00 Intake Total 200 ml 200 ml 1000 ml 960 ml Output Total 0 ml 600 ml Balance 200 ml 200 ml 400 ml 960 ml Intake Oral 800 ml 760 ml IV Total 200 ml 200 ml 200 ml 200 ml Output Urine Total 600 ml Drainage Total 0 ml 0 ml # Voids 5 10 # Bowel Movements 5 9 10 examination of the right index finger: dressing in place surgical incision site mild maceration over the middle third no drainage or signs of inflammation mild stiffness at the PIP joint cultures are negative to date Result Diagram: 03/25/17 0442 03/25/17 0442 Procedures EGD and Colonoscopy 03/08/17 Assessment and Plan Assessment and Plan 61 year old female s/p disarticulation through DIP joint right index finger POD 10 plan: dressing changed range of motion exercises follow up in office in one week time for suture removal. Brent Burks MD Mar 25, 2017 16:41
[2017-03-26] VITALS (9 sets, daily range): BP systolic 98–139; BP diastolic 65–88; PULSE 78–107; RESP 16–18; TEMP 96.1–97.9; O2SAT 94–100
[2017-03-26] MEDS: PIPERACIL-TAZO 4.5 GM PREMIX 100 ML IV SCH ×4 (00:21→17:30)
[2017-03-26] MEDS: CHOLESTYRAMINE 4 GM PACKET PO SCH ×3 (06:25→20:57)
[2017-03-26 06:55] LABS: AUTOMATED NEUTROPHIL # 6.6 TH/MM3 (1.8-7.7); BASOPHIL # 0.1 TH/MM3 (0-0.2); BASOPHIL % 0.7 % (0.0-2.0); EOSINOPHIL # 0.3 TH/MM3 (0-0.4); EOSINOPHIL % 2.5 % (0.0-4.0); HEMATOCRIT 26.1 % (35.0-46.0); HEMO FLAGS DIFF FINAL; LYMPH % 22.7 % (9.0-44.0); LYMPHOCYTE # 2.4 TH/MM3 (1.0-4.8); MEAN CELL VOLUME 92.2 FL (80.0-100.0); MEAN CORPUSCULAR HEMOGLOBIN 31.3 PG (27.0-34.0); MEAN CORPUSCULAR HGB CONC 33.9 % (32.0-36.0); MONO % 12.3 % (0.0-8.0); NEUT % 61.8 % (16.0-70.0); PLATELET COUNT 682 TH/MM3 (150-450); RED BLOOD COUNT 2.83 MIL/MM3 (4.00-5.30); RED CELL DISTRIBUTION WIDTH 16.8 % (11.6-17.2); WHITE BLOOD COUNT 10.6 TH/MM3 (4.0-11.0)
[2017-03-26 07:16] LABS: BICARBONATE 21.2 MEQ/L (21.0-32.0); POTASSIUM 3.1 MEQ/L (3.5-5.1)
[2017-03-26] MEDS: ENOXAPARIN SODIUM 40 MG/0.4 ML SYRINGE SQ SCH (08:37)
[2017-03-26] MEDS: PANTOPRAZOLE SOD 40 MG DELAYED RELEASE TAB PO SCH (08:37)
[2017-03-26] MEDS: amLODIPine BESYLATE 5 MG TAB PO SCH (08:37)
[2017-03-26] MEDS: LACTOBACILLUS ACIDOPHILUS TAB PO SCH ×2 (08:37→20:56)
[2017-03-26] MEDS: SODIUM CHLORIDE 0.9% FLUSH 10 ML FLUSH IV FLUSH SCH ×2 (08:38→20:56)
--- NOTE | 2017-03-26 15:02 | HHI.GIFU ---
Subjective Remarks Pt resting in bed, no complaints. No BM today. (Lucille Wills) Objective Vitals I&O Vital Signs Date Time Temp Pulse Resp B/P (MAP) Pulse Ox O2 Delivery O2 Flow Rate FiO2 03/26/17 12:00 96.6 78 16 127/79 (95) 99 03/26/17 08:00 96.1 78 17 137/84 (101) 99 03/26/17 04:38 97.9 85 18 136/86 (103) 94 03/26/17 00:13 92 03/26/17 00:03 96.7 85 16 114/88 (97) 96 03/25/17 20:18 97.2 80 17 138/81 (100) 97 03/25/17 16:00 96.8 78 18 119/86 (97) 99 I/O 03/25/17 03/25/17 03/25/17 03/26/17 03/26/17 03/26/17 07:00 15:00 23:00 07:00 15:00 23:00 Intake Total 960 ml 820 ml 680 ml 200 ml Balance 960 ml 820 ml 680 ml 200 ml Intake Oral 760 ml 720 ml 580 ml IV Total 200 ml 100 ml 100 ml 200 ml # Voids 10 6 10 # Bowel Movements 10 5 10 Laboratory Laboratory Tests Test 03/26/17 06:30 White Blood Count 10.6 Red Blood Count 2.83 Hemoglobin 8.9 Hematocrit 26.1 Mean Corpuscular Volume 92.2 Mean Corpuscular Hemoglobin 31.3 Mean Corpuscular Hemoglobin Concent 33.9 Red Cell Distribution Width 16.8 Platelet Count 682 Mean Platelet Volume 9.0 Neutrophils (%) (Auto) 61.8 Lymphocytes (%) (Auto) 22.7 Monocytes (%) (Auto) 12.3 Eosinophils (%) (Auto) 2.5 Basophils (%) (Auto) 0.7 Neutrophils # (Auto) 6.6 Lymphocytes # (Auto) 2.4 Monocytes # (Auto) 1.3 Eosinophils # (Auto) 0.3 Basophils # (Auto) 0.1 CBC Comment DIFF FINAL Differential Comment Blood Urea Nitrogen 2 Creatinine 0.80 Random Glucose 85 Calcium Level 7.8 Sodium Level 145 Potassium Level 3.1 Chloride Level 116 Carbon Dioxide Level 21.2 Anion Gap 8 Estimat Glomerular Filtration Rate 88 Date/Time Source Procedure Growth Status 03/16/17 04:40 Blood Peripheral Aerobic Blood Culture - Final NO GROWTH IN 5 DAYS Complete 03/16/17 04:40 Blood Peripheral Anaerobic Blood Culture - Final NO GROWTH IN 5 DAYS Complete 03/13/17 00:00 Wound Finger Fungal Smear - Final NO FUNGAL ELEMENTS SEEN. Resulted 03/13/17 00:00 Wound Finger Fungal Culture - Preliminary NO GROWTH IN 1 WEEK Resulted Physical Exam HEENT: Normocephalic; atraumatic; no jaundice. CHEST: CTA CARDIAC: RRR ABDOMEN: Soft, nondistended,nontender, no hepatosplenomegaly; bowel sounds are present EXTREMITIES: no clubbing cyanosis or edema bandage right 2nd finger SKIN: Normal; no rash; no jaundice. GOLD MARKER: No focal deficits; alert and oriented x 3 (Lucille Wills) Assessment and Plan Plan ASSESSMENT: - Diarrhea. reglan d/c'd. per pt her diarrhea has "run its course." and she will not d/w further. per RN having small soft BMs throughout day. 03/21 c diff neg. repeat c diff pending. no BM today, on cholestyramine - Ileus/Nausea/vomiting. improved - Abdominal pain. sbo. s/p ex lap, lysis adhesions, appendectomy EGD/Colonoscopy 03/08/17--> , Hiatal hernia, Duodenitis, Colon polyps, melanosis coli, hemorrhoids. path starks's. colonoscopy path benign - GERD. PPI - leukocytosis - ID following on zosyn WBC WNL today PLAN: - await repeat c diff - VENTURA - cont PPI - Supportive care This pt seen by myself and Dr Garcia and this note is written on his behalf (Lucille Wills) Physician Comments Seen and examined with DRAWING INSTRUCTOR, still with some loose stools. Added cholestyramine yesterday. Can dc to HALF-WAY, if has more loose stools can add immodium AD 1 po bid.Will sign off, reconsult as needed. Thank you (Ene Garcia MD) Lucille Wills Mar 26, 2017 15:01 Ene Garcia MD Mar 26, 2017 16:30
[2017-03-26] MEDS ORDERED: PANT40TA3 PO (17:32)
[2017-03-26] MEDS ORDERED: CHOL4POW4 PO (17:32)
[2017-03-26] MEDS ORDERED: AMLO5 PO (17:32)
[2017-03-26] MEDS ORDERED: LACT PO (17:32)
--- NOTE | 2017-03-26 17:58 | HHI.PR ---
Subjective Remarks Follow-up diarrhea, hypokalemia. Patient states that her diarrhea is improving. She is hoping to be able to go home tomorrow. Denies abdominal pain, nausea, vomiting. No shortness of breath or chest pain. Objective Vitals Vital Signs Date Time Temp Pulse Resp B/P (MAP) Pulse Ox O2 Delivery O2 Flow Rate FiO2 03/26/17 16:00 96.7 82 18 124/85 (98) 100 03/26/17 12:00 96.6 78 16 127/79 (95) 99 03/26/17 08:00 96.1 78 17 137/84 (101) 99 03/26/17 04:38 97.9 85 18 136/86 (103) 94 03/26/17 00:13 92 03/26/17 00:03 96.7 85 16 114/88 (97) 96 03/25/17 20:18 97.2 80 17 138/81 (100) 97 I/O 03/25/17 03/25/17 03/25/17 03/26/17 03/26/17 03/26/17 06:59 14:59 22:59 06:59 14:59 22:59 Intake Total 960 ml 820 ml 680 ml 200 ml Balance 960 ml 820 ml 680 ml 200 ml Intake Oral 760 ml 720 ml 580 ml IV Total 200 ml 100 ml 100 ml 200 ml # Voids 10 6 10 # Bowel Movements 10 5 10 Result Diagram: 03/26/17 0630 03/26/17 0630 Imaging Last Impressions Lower Extremity Ultrasound 03/23/17 0000 Signed Impressions: Service Date/Time: Thursday, March 23, 2017 15:22 - CONCLUSION: Normal examination. Jonas Earl MD Abdomen/Pelvis CT 03/18/17 0000 Signed Impressions: Service Date/Time: Saturday, March 18, 2017 16:12 - CONCLUSION: 1. Post surgical features of interval laparotomy with appendectomy. Improved diffuse small bowel distention with resolution of relative transition point in the distal ileum. Cecum and descending colon are fluid-filled with relative transition point in the hepatic flexure with completely decompressed transverse and descending colon. Findings are consistent with resolving small bowel obstruction potentially with superimposed post surgical adynamic ileus. Small amount of free air is likely postsurgical. No pneumatosis or disproportionate free air to suggest perforation. 2. Tubular high density fluid collection along the length of the mid abdominal staple line consistent with hematoma. 3. Remainder of the exam is unchanged. Bernabe Young MD Chest X-Ray 03/15/17 0000 Signed Impressions: Service Date/Time: Wednesday, March 15, 2017 21:49 - CONCLUSION: Central line in good position. No evidence of pneumothorax. Miguel Sethi MD Liver Ultrasound 03/13/17 0000 Signed Impressions: Service Date/Time: February 13:36 - CONCLUSION: 1. Stone filled gallbladder. 2. Multiple hepatic cysts. 3. Single right renal cyst. 4. Trace free fluid in Morison's pouch. Johny Us MD Abdomen X-Ray 03/13/17 0000 Signed Impressions: Service Date/Time: February 12:34 - CONCLUSION: Diffuse small bowel dilatation. Navi Lau MD Chest CT 03/12/17 0000 Signed Impressions: Service Date/Time: Sunday, March 12, 2017 10:37 - CONCLUSION: 1. There is an ulcerated plaque with a small amount of and in thrombus projecting into the upper arch and into the lumen of the innominate artery origin. 2. Large hiatal hernia. 3. Multiple low attenuation lesions within the liver felt to represent a cyst. Ultrasound for confirmation is warranted. 4. There are multiple dilated loops of small bowel left upper quadrant. CT of the abdomen to rule out bowel destruction is warranted. Juan Carlos Leo MD Upper Extremity CTA 03/08/17 0000 Signed Impressions: Service Date/Time: Wednesday, March 08, 2017 10:21 - CONCLUSION: 1. The ulnar artery in the right forearm is diminutive in caliber. Otherwise, the remaining right upper extremity arterial vessels have a normal appearance. Please note that the hand arterial vessels are not visualized on this exam. 2. Complex left thyroid nodule measuring 2.7 cm. When patient condition permits, suggest further characterization with thyroid ultrasound. 3. Cerebral atrophy with bilateral subdural hygromas. Navi Leon MD Small Bowel X-Ray 03/06/17 0000 Signed Impressions: Service Date/Time: February 11:25 - CONCLUSION: 1. Small bowel dilatation not associated with any significant obstruction. The oral contrast does reach the colon within 2 hours which is within normal range. However, the terminal ileum does have a more normal caliber compared with the more proximal small bowel which can be seen with a very low-grade partial obstruction. Ahmet Hdz MD Objective Remarks General: No acute distress. Heart: Regular rate and rhythm. No murmur. Lungs: Clear to auscultation bilaterally. No wheezes, rales, or rhonchi. Breathing is nonlabored. Abdomen: Soft, nontender, nondistended. Wound VAC in place. Extremities: 1+ bilateral lower extremity edema. Psych: Alert and oriented. Procedures 03/08/17 EGD/colonoscopy 03/13/17 disarticulation through distal interphalangeal joint right index finger 03/15/17 central line placement Urinary Catheter: No Vascular Central Line Catheter: Yes Assessment to: Continue Date of Insertion: Mar 15, 2017 Line: Central Venous Catheter A/P Assessment and Plan 1. Diarrhea: Appreciate GI, general surgery recommendations. Status post exploratory laparotomy, lysis of adhesions, appendectomy. Wound VAC in place. Upon discharge, begin wet-to-dry dressings to midline wound. Status post treatment with Cipro and Flagyl. Now on Zosyn. Appreciate infectious disease recommendations. C. difficile negative. Continue probiotic. 2. 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 Appreciate hand surgery recommendations. Status post disarticulation through distal interphalangeal joint. Follow-up in one week as an outpatient for suture removal. 3. Hypokalemia, hypomagnesemia: Supplement potassium and recheck labs in the morning 4. Bilateral lower extremity swelling: Ultrasound negative for DVT. 5. GI prophylaxis: Protonix. 6. DVT prophylaxis: SCDs, Lovenox. Discharge Planning Plan for discharge home with home health care tomorrow. Case management to assist with arrangement of medications. Heath Purcell MD Mar 26, 2017 17:58
[2017-03-26] MEDS ORDERED: POTASSIUM CHLORIDE 10 MEQ CONTROLLED RELEASE TAB PO ONE (18:00)
[2017-03-26] MEDS ORDERED: MAGNESIUM OXIDE 400 MG TAB PO ONE (18:00)
--- NOTE | 2017-03-26 19:17 | HHI.IDPN ---
Subjective Subjective Remarks pt had about 5 BMs (per pt account), watery almost urine like, no odor reported 15 afebrile WBC down C.diff negative Antibiotics zosyn Allergies: Coded Allergies: No Known Allergies (Verified Allergy, Unknown, 03/06/17) Objective . Vital Signs Date Time Temp Pulse Resp B/P (MAP) Pulse Ox O2 Delivery O2 Flow Rate FiO2 03/26/17 16:00 96.7 82 18 124/85 (98) 100 03/26/17 12:00 96.6 78 16 127/79 (95) 99 03/26/17 08:00 96.1 78 17 137/84 (101) 99 03/26/17 04:38 97.9 85 18 136/86 (103) 94 03/26/17 00:13 92 03/26/17 00:03 96.7 85 16 114/88 (97) 96 03/25/17 20:18 97.2 80 17 138/81 (100) 97 03/26/17 03/26/17 03/27/17 14:59 22:59 06:59 Intake Total 200 ml 700 ml Balance 200 ml 700 ml Intake Oral 600 ml IV Total 200 ml 100 ml # Voids 9 # Bowel Movements 7 . Laboratory Tests Test 03/25/17 04:42 03/26/17 06:30 White Blood Count 11.9 TH/MM3 10.6 TH/MM3 Red Blood Count 2.92 MIL/MM3 2.83 MIL/MM3 Hemoglobin 9.1 GM/DL 8.9 GM/DL Hematocrit 26.9 % 26.1 % Mean Corpuscular Volume 92.2 FL 92.2 FL Mean Corpuscular Hemoglobin 31.2 PG 31.3 PG Mean Corpuscular Hemoglobin Concent 33.8 % 33.9 % Red Cell Distribution Width 16.5 % 16.8 % Platelet Count 733 TH/MM3 682 TH/MM3 Mean Platelet Volume 9.0 FL 9.0 FL Neutrophils (%) (Auto) 60.0 % 61.8 % Lymphocytes (%) (Auto) 24.0 % 22.7 % Monocytes (%) (Auto) 12.4 % 12.3 % Eosinophils (%) (Auto) 3.2 % 2.5 % Basophils (%) (Auto) 0.4 % 0.7 % Neutrophils # (Auto) 7.1 TH/MM3 6.6 TH/MM3 Lymphocytes # (Auto) 2.9 TH/MM3 2.4 TH/MM3 Monocytes # (Auto) 1.5 TH/MM3 1.3 TH/MM3 Eosinophils # (Auto) 0.4 TH/MM3 0.3 TH/MM3 Basophils # (Auto) 0.0 TH/MM3 0.1 TH/MM3 CBC Comment DIFF FINAL DIFF FINAL Differential Comment Laboratory Tests Test 03/25/17 04:42 03/26/17 06:30 Blood Urea Nitrogen 2 MG/DL 2 MG/DL Creatinine 0.78 MG/DL 0.80 MG/DL Random Glucose 85 MG/DL 85 MG/DL Calcium Level 8.2 MG/DL 7.8 MG/DL Magnesium Level 1.6 MG/DL Sodium Level 147 MEQ/L 145 MEQ/L Potassium Level 3.0 MEQ/L 3.1 MEQ/L Chloride Level 116 MEQ/L 116 MEQ/L Carbon Dioxide Level 20.4 MEQ/L 21.2 MEQ/L Anion Gap 11 MEQ/L 8 MEQ/L Estimat Glomerular Filtration Rate 91 ML/MIN 88 ML/MIN Imaging Last Impressions Lower Extremity Ultrasound 03/23/17 0000 Signed Impressions: Service Date/Time: Thursday, March 23, 2017 15:22 - CONCLUSION: Normal examination. Jonas Earl MD Abdomen/Pelvis CT 03/18/17 0000 Signed Impressions: Service Date/Time: Saturday, March 18, 2017 16:12 - CONCLUSION: 1. Post surgical features of interval laparotomy with appendectomy. Improved diffuse small bowel distention with resolution of relative transition point in the distal ileum. Cecum and descending colon are fluid-filled with relative transition point in the hepatic flexure with completely decompressed transverse and descending colon. Findings are consistent with resolving small bowel obstruction potentially with superimposed post surgical adynamic ileus. Small amount of free air is likely postsurgical. No pneumatosis or disproportionate free air to suggest perforation. 2. Tubular high density fluid collection along the length of the mid abdominal staple line consistent with hematoma. 3. Remainder of the exam is unchanged. Bernabe Young MD Chest X-Ray 03/15/17 0000 Signed Impressions: Service Date/Time: Wednesday, March 15, 2017 21:49 - CONCLUSION: Central line in good position. No evidence of pneumothorax. Miguel Sethi MD Liver Ultrasound 03/13/17 0000 Signed Impressions: Service Date/Time: February 13:36 - CONCLUSION: 1. Stone filled gallbladder. 2. Multiple hepatic cysts. 3. Single right renal cyst. 4. Trace free fluid in Morison's pouch. Johny Us MD Abdomen X-Ray 03/13/17 0000 Signed Impressions: Service Date/Time: February 12:34 - CONCLUSION: Diffuse small bowel dilatation. Navi Lau MD Chest CT 03/12/17 0000 Signed Impressions: Service Date/Time: Sunday, March 12, 2017 10:37 - CONCLUSION: 1. There is an ulcerated plaque with a small amount of and in thrombus projecting into the upper arch and into the lumen of the innominate artery origin. 2. Large hiatal hernia. 3. Multiple low attenuation lesions within the liver felt to represent a cyst. Ultrasound for confirmation is warranted. 4. There are multiple dilated loops of small bowel left upper quadrant. CT of the abdomen to rule out bowel destruction is warranted. Juan Carlos Leo MD Upper Extremity CTA 03/08/17 0000 Signed Impressions: Service Date/Time: Wednesday, March 08, 2017 10:21 - CONCLUSION: 1. The ulnar artery in the right forearm is diminutive in caliber. Otherwise, the remaining right upper extremity arterial vessels have a normal appearance. Please note that the hand arterial vessels are not visualized on this exam. 2. Complex left thyroid nodule measuring 2.7 cm. When patient condition permits, suggest further characterization with thyroid ultrasound. 3. Cerebral atrophy with bilateral subdural hygromas. Navi Leon MD Small Bowel X-Ray 03/06/17 0000 Signed Impressions: Service Date/Time: February 11:25 - CONCLUSION: 1. Small bowel dilatation not associated with any significant obstruction. The oral contrast does reach the colon within 2 hours which is within normal range. However, the terminal ileum does have a more normal caliber compared with the more proximal small bowel which can be seen with a very low-grade partial obstruction. Ahmet Hdz MD Physical Exam CONSTITUTIONAL/GENERAL: This is an adequately nourished patient, in no apparent distress. TUBES/LINES/DRAINS: R IJ TLC - site OK SKIN: No jaundice, rashes, or lesions. CARDIOVASCULAR: Regular rate and rhythm without murmurs, gallops, or rubs. No JVD. Peripheral pulses symmetric. RESPIRATORY/CHEST: Symmetric, unlabored respirations. Clear to auscultation. Breath sounds equal bilaterally. No wheezes, rales, or rhonchi. GASTROINTESTINAL: Abdomen soft, non-tender, moderately distended. VAC in place over medial laparotomy incision c serosang dc No hepato-splenomegaly, or palpable masses. No guarding. Bowel sounds present. GENITOURINARY: Without palpable bladder distension. MUSCULOSKELETAL: Extremities without clubbing, cyanosis, or edema. RIF with intact dressingin place NEUROLOGICAL: Awake and alert. Motor and sensory grossly within normal limits. Follows commands. Clear speech . Moves all extremities. PSYCHIATRIC: calm and cooperative Assessment & Plan Remarks S mall bowel obstruction and appendicitis with abscess formation and perforation - sp Exploratory laparotomy, lysis of adhesions and appendectomy on 03/15 RIF dry gangrene Persistent leukocutosis Diarhea, ? colovesicular fistula - reports urine like stools Urine poorly collected - rechk UA, C+S - fu WBC - fu with GI as o/p Discussed Condition With Gladys Lee RN, MD Mar 26, 2017 19:17
[2017-03-27 00:04] VITALS: BP 121/74; PULSE 82; RESP 18; TEMP 97.6; O2SAT 98
[2017-03-27] MEDS: CHOLESTYRAMINE 4 GM PACKET PO SCH ×2 (04:41→14:00)
[2017-03-27 07:11] LABS: AUTOMATED NEUTROPHIL # 6.6 TH/MM3 (1.8-7.7); BASOPHIL # 0.1 TH/MM3 (0-0.2); BASOPHIL % 0.5 % (0.0-2.0); EOSINOPHIL # 0.3 TH/MM3 (0-0.4); EOSINOPHIL % 2.9 % (0.0-4.0); HEMATOCRIT 27.4 % (35.0-46.0); HEMO FLAGS DIFF FINAL; LYMPH % 26.8 % (9.0-44.0); MEAN CELL VOLUME 93.1 FL (80.0-100.0); MEAN CORPUSCULAR HEMOGLOBIN 30.3 PG (27.0-34.0); MEAN CORPUSCULAR HGB CONC 32.6 % (32.0-36.0); MONO % 11.9 % (0.0-8.0); NEUT % 57.9 % (16.0-70.0); PLATELET COUNT 732 TH/MM3 (150-450); RED BLOOD COUNT 2.95 MIL/MM3 (4.00-5.30); RED CELL DISTRIBUTION WIDTH 17.4 % (11.6-17.2); WHITE BLOOD COUNT 11.3 TH/MM3 (4.0-11.0)
[2017-03-27 07:40] LABS: BICARBONATE 21.5 MEQ/L (21.0-32.0); MAGNESIUM 1.4 MG/DL (1.5-2.5)
[2017-03-27] MEDS ORDERED: POTASSIUM CHLORIDE 10 MEQ CONTROLLED RELEASE TAB PO ONE (07:45)
[2017-03-27] MEDS: amLODIPine BESYLATE 5 MG TAB PO SCH (07:46)
[2017-03-27] MEDS: ENOXAPARIN SODIUM 40 MG/0.4 ML SYRINGE SQ SCH (07:46)
[2017-03-27] MEDS: PANTOPRAZOLE SOD 40 MG DELAYED RELEASE TAB PO SCH (07:46)
[2017-03-27] MEDS: LACTOBACILLUS ACIDOPHILUS TAB PO SCH (07:46)
[2017-03-27] MEDS: SODIUM CHLORIDE 0.9% FLUSH 10 ML FLUSH IV FLUSH SCH (07:52)
[2017-03-27 08:00] VITALS: BP 145/94; PULSE 90; RESP 19; TEMP 97.6; O2SAT 100
[2017-03-27] MEDS ORDERED: MAGNESIUM OXIDE 400 MG TAB PO SCH (09:00)
--- NOTE | 2017-03-27 09:40 | HHI.DCPOC ---
Discharge Care Plan Diagnosis: (1) Small bowel obstruction (2) Appendicitis (3) Necrosis of finger (4) Mass of appendix Goals to Promote Your Health * To prevent worsening of your condition and complications * To maintain your health at the optimal level Directions to Meet Your Goals Take your medications as prescribed Follow your dietary instruction Follow activity as directed Keep your appointments as scheduled Take your immunizations and boosters as scheduled If your symptoms worsen call your PCP, if no PCP go to Urgent Care Center or Emergency Room Smoking is Dangerous to Your Health. Avoid second hand smoke Call the 24-hour hour crisis hotline for domestic abuse at Heath Purcell MD Mar 27, 2017 09:40
--- NOTE | 2017-03-27 09:53 | HHI.DS ---
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 Patient reports no pain to her finger at this time. Patient reports that overall, she is here at the hospital as she is not feeling well. Reports that she has had over 25 pound weight loss within the past 2 months and was initially seen at an urgent care center and was sent to the emergency room for further workup. patient initially at the hospital AGAINST MEDICAL ADVICE to go home and feed her cat, she is here for antibiotics and admission to the hospital Seen in her bedroom, the patient states she came due to right second finger dry necrosis, but as per ER physician H and P she told him that she is been having abdominal pain colic sensation, also changes in bowel habits, she is Emaciated and has history of alcohol abuse and drug abuse, as per patient she smoked half pack daily since she was 13 years old and abuse marijuana but denies other toxins, after CT abdomen and pelvis performed found probable Small bowel obstruction Probable Appendicitis, but the patient has soft abdomen at this time, and she will need to rule out Malignancy, I will continue antibiotics and follow specialized recommendations rule out rheumatologic diseases CBC/BMP: 03/27/17 0600 03/27/17 0600 Significant Findings Laboratory Tests Test 03/24/17 18:03 03/24/17 22:15 03/25/17 04:42 03/26/17 06:30 White Blood Count 12.6 TH/MM3 (4.0-11.0) 11.9 TH/MM3 (4.0-11.0) Red Blood Count 3.14 MIL/MM3 (4.00-5.30) 2.92 MIL/MM3 (4.00-5.30) 2.83 MIL/MM3 (4.00-5.30) Hemoglobin 9.6 GM/DL (11.6-15.3) 9.1 GM/DL (11.6-15.3) 8.9 GM/DL (11.6-15.3) Hematocrit 29.5 % (35.0-46.0) 26.9 % (35.0-46.0) 26.1 % (35.0-46.0) Platelet Count 708 TH/MM3 (150-450) 733 TH/MM3 (150-450) 682 TH/MM3 (150-450) Monocytes (%) (Auto) 11.2 % (0.0-8.0) 12.4 % (0.0-8.0) 12.3 % (0.0-8.0) Neutrophils # (Auto) 8.1 TH/MM3 (1.8-7.7) Monocytes # (Auto) 1.4 TH/MM3 (0-0.9) 1.5 TH/MM3 (0-0.9) 1.3 TH/MM3 (0-0.9) Blood Urea Nitrogen 2 MG/DL (7-18) 2 MG/DL (7-18) 2 MG/DL (7-18) Calcium Level 8.4 MG/DL (8.5-10.1) 8.2 MG/DL (8.5-10.1) 7.8 MG/DL (8.5-10.1) Sodium Level 146 MEQ/L (136-145) 147 MEQ/L (136-145) Potassium Level 3.0 MEQ/L (3.5-5.1) 3.0 MEQ/L (3.5-5.1) 3.1 MEQ/L (3.5-5.1) Chloride Level 114 MEQ/L (98-107) 116 MEQ/L (98-107) 116 MEQ/L (98-107) Carbon Dioxide Level 20.6 MEQ/L (21.0-32.0) 20.4 MEQ/L (21.0-32.0) Estimat Glomerular Filtration Rate 86 ML/MIN (>89) 88 ML/MIN (>89) Urine Turbidity HAZY (CLEAR) Urine Protein 30 mg/dL (NEG-TRACE) Urine Occult Blood TRACE (NEG) Urine Leukocyte Esterase TRACE (NEG) Test 03/27/17 06:00 White Blood Count 11.3 TH/MM3 (4.0-11.0) Red Blood Count 2.95 MIL/MM3 (4.00-5.30) Hemoglobin 8.9 GM/DL (11.6-15.3) Hematocrit 27.4 % (35.0-46.0) Red Cell Distribution Width 17.4 % (11.6-17.2) Platelet Count 732 TH/MM3 (150-450) Monocytes (%) (Auto) 11.9 % (0.0-8.0) Monocytes # (Auto) 1.3 TH/MM3 (0-0.9) Blood Urea Nitrogen 2 MG/DL (7-18) Calcium Level 7.9 MG/DL (8.5-10.1) Magnesium Level 1.4 MG/DL (1.5-2.5) Sodium Level 147 MEQ/L (136-145) Potassium Level 3.0 MEQ/L (3.5-5.1) Chloride Level 116 MEQ/L (98-107) Estimat Glomerular Filtration Rate 87 ML/MIN (>89) Imaging Last Impressions Lower Extremity Ultrasound 03/23/17 0000 Signed Impressions: Service Date/Time: Thursday, March 23, 2017 15:22 - CONCLUSION: Normal examination. Jonas Earl MD Abdomen/Pelvis CT 03/18/17 0000 Signed Impressions: Service Date/Time: Saturday, March 18, 2017 16:12 - CONCLUSION: 1. Post surgical features of interval laparotomy with appendectomy. Improved diffuse small bowel distention with resolution of relative transition point in the distal ileum. Cecum and descending colon are fluid-filled with relative transition point in the hepatic flexure with completely decompressed transverse and descending colon. Findings are consistent with resolving small bowel obstruction potentially with superimposed post surgical adynamic ileus. Small amount of free air is likely postsurgical. No pneumatosis or disproportionate free air to suggest perforation. 2. Tubular high density fluid collection along the length of the mid abdominal staple line consistent with hematoma. 3. Remainder of the exam is unchanged. Bernabe Young MD Chest X-Ray 03/15/17 Signed Impressions: Service Date/Time: Wednesday, March 15, 2017 21:49 - CONCLUSION: Central line in good position. No evidence of pneumothorax. Miguel Sethi MD Liver Ultrasound 03/13/17 Signed Impressions: Service Date/Time: February 13:36 - CONCLUSION: 1. Stone filled gallbladder. 2. Multiple hepatic cysts. 3. Single right renal cyst. 4. Trace free fluid in Morison's pouch. Johny Us MD Abdomen X-Ray 03/13/17 0000 Signed Impressions: Service Date/Time: February 12:34 - CONCLUSION: Diffuse small bowel dilatation. Navi Lau MD Chest CT 03/12/17 Signed Impressions: Service Date/Time: Sunday, March 12, 2017 10:37 - CONCLUSION: 1. There is an ulcerated plaque with a small amount of and in thrombus projecting into the upper arch and into the lumen of the innominate artery origin. 2. Large hiatal hernia. 3. Multiple low attenuation lesions within the liver felt to represent a cyst. Ultrasound for confirmation is warranted. 4. There are multiple dilated loops of small bowel left upper quadrant. CT of the abdomen to rule out bowel destruction is warranted. Juan Carlos Leo MD Upper Extremity CTA 03/08/17 Signed Impressions: Service Date/Time: Wednesday, March 08, 2017 10:21 - CONCLUSION: 1. The ulnar artery in the right forearm is diminutive in caliber. Otherwise, the remaining right upper extremity arterial vessels have a normal appearance. Please note that the hand arterial vessels are not visualized on this exam. 2. Complex left thyroid nodule measuring 2.7 cm. When patient condition permits, suggest further characterization with thyroid ultrasound. 3. Cerebral atrophy with bilateral subdural hygromas. Navi Leon MD Small Bowel X-Ray 03/06/17 0000 Signed Impressions: Service Date/Time: February 11:25 - CONCLUSION: 1. Small bowel dilatation not associated with any significant obstruction. The oral contrast does reach the colon within 2 hours which is within normal range. However, the terminal ileum does have a more normal caliber compared with the more proximal small bowel which can be seen with a very low-grade partial obstruction. Ahmet Hdz MD PE at Discharge General: No acute distress. Heart: Regular rate and rhythm. No murmur. Lungs: Clear to auscultation bilaterally. No wheezes, rales, or rhonchi. Breathing is nonlabored. Abdomen: Soft, nontender, nondistended. Wound VAC in place. Extremities: 1+ bilateral lower extremity edema. Psych: Alert and oriented. Pt update on day of discharge The patient has no complaints at this time. Denies abdominal pain, nausea or vomiting. No chest pain or dyspnea. She wants to go home today. Hospital Course The patient was admitted for further evaluation of abdominal pain with abnormal CT. General surgery and gastroenterology were consulted. Hand surgery and vascular surgery were consulted regarding necrosis of right index finger. Patient had disarticulation through the DIP joint done by hand surgery. Gastroenterology performed EGD and colonoscopy. Oncology was consulted for evaluation of possible occult malignancy. Further workup revealed no evidence of malignancy. General surgery performed exploratory laparotomy, lysis of adhesions, and appendectomy. Wound VAC was placed. Patient was transferred to the critical care service following surgery. She continued to improve postoperatively and was transferred back to the hospitalist service. Infectious disease was consulted regarding leukocytosis. The patient continued to improve clinically. She had significant diarrhea. C. difficile testing was negative. She was cleared for discharge by gastroenterology, general surgery, and hand surgery. Arrangements were made for discharge home with home health care. Pt Condition on Discharge: Stable Discharge Disposition: Disch w/ Home Health Serv Discharge Time: > 30 minutes Discharge Instructions DIET: Follow Instructions for: As Tolerated, No Restrictions Activities you can perform: Regular-No Restrictions Follow up Referrals: Gastroenterology - 2 Weeks with Ene Garcia MD Hand Surgery - 1 Week with Brent Burks MD Surgical - 1 Week with Juan Benjamin MD New Orders: BASIC METABOLIC PROF - 2-3 Days New Medications: Amlodipine (Norvasc) 5 Mg Tab 5 MG PO DAILY for Blood Pressure Management, #30 TAB 0 Refills Cholestyramine (Cholestyramine) 4 Gm/Pkt Powd 4 GM PO Q8HR for Diarrhea, #60 PKT 0 Refills 1 packet contains 4 grams of cholestyramine. Lactobacillus Acidophilus (Acidophilus/l-Sporogenes) 35 Million Cell-25 Million Cell Tab 1 TAB PO Q12HR for Probiotic, #60 TAB 0 Refills Magnesium Oxide (Magnesium Oxide) 400 Mg Tab 400 MG PO DAILY for Nutritional Supplement, #30 TAB 0 Refills Pantoprazole (Pantoprazole) 40 Mg Tab 40 MG PO DAILY for Reflux, #30 TAB 0 Refills Potassium Chloride ER (Klor-Con 10) 10 Meq Tab 10 MEQ PO DAILY for Nutritional Supplement, #30 TAB 0 Refills Heath Purcell MD Mar 27, 2017 09:53
[2017-03-27] MEDS ORDERED: MAGN400T3 PO (09:56)
[2017-03-27] MEDS ORDERED: POTA-243 PO (09:56)
--- NOTE | 2017-03-27 09:58 | HHI.GIFU ---
Subjective Remarks Resting in bed. Tolerating diet. No n/v. States her diarrhea has improved since the antibiotics have been discontinued. Only 2 episodes today- more loose than liquid. Objective Vitals I&O Vital Signs Date Time Temp Pulse Resp B/P (MAP) Pulse Ox O2 Delivery O2 Flow Rate FiO2 03/27/17 08:00 97.6 90 19 145/94 (111) 100 03/27/17 00:04 97.6 82 18 121/74 (90) 98 03/26/17 20:14 97.6 84 18 139/85 (103) 98 03/26/17 20:03 82 03/26/17 16:00 96.7 82 18 124/85 (98) 100 03/26/17 12:00 96.6 78 16 127/79 (95) 99 I/O 03/26/17 03/26/17 03/26/17 03/27/17 03/27/17 03/27/17 07:00 15:00 23:00 07:00 15:00 23:00 Intake Total 680 ml 200 ml 700 ml 780 ml Output Total 50 ml 0 ml Balance 680 ml 200 ml 650 ml 780 ml Intake Oral 580 ml 600 ml 780 ml IV Total 100 ml 200 ml 100 ml Drainage Total 50 ml 0 ml # Voids 10 9 8 # Bowel Movements 10 7 1 Laboratory Laboratory Tests Test 03/27/17 06:00 White Blood Count 11.3 Red Blood Count 2.95 Hemoglobin 8.9 Hematocrit 27.4 Mean Corpuscular Volume 93.1 Mean Corpuscular Hemoglobin 30.3 Mean Corpuscular Hemoglobin Concent 32.6 Red Cell Distribution Width 17.4 Platelet Count 732 Mean Platelet Volume 9.1 Neutrophils (%) (Auto) 57.9 Lymphocytes (%) (Auto) 26.8 Monocytes (%) (Auto) 11.9 Eosinophils (%) (Auto) 2.9 Basophils (%) (Auto) 0.5 Neutrophils # (Auto) 6.6 Lymphocytes # (Auto) 3.0 Monocytes # (Auto) 1.3 Eosinophils # (Auto) 0.3 Basophils # (Auto) 0.1 CBC Comment DIFF FINAL Differential Comment Blood Urea Nitrogen 2 Creatinine 0.81 Random Glucose 76 Calcium Level 7.9 Magnesium Level 1.4 Sodium Level 147 Potassium Level 3.0 Chloride Level 116 Carbon Dioxide Level 21.5 Anion Gap 10 Estimat Glomerular Filtration Rate 87 Date/Time Source Procedure Growth Status 03/16/17 04:40 Blood Peripheral Aerobic Blood Culture - Final NO GROWTH IN 5 DAYS Complete 03/16/17 04:40 Blood Peripheral Anaerobic Blood Culture - Final NO GROWTH IN 5 DAYS Complete 03/13/17 00:00 Wound Finger Fungal Smear - Final NO FUNGAL ELEMENTS SEEN. Resulted 03/13/17 00:00 Wound Finger Fungal Culture - Preliminary NO GROWTH IN 1 WEEK Resulted Imaging Last Impressions Lower Extremity Ultrasound 03/23/17 0000 Signed Impressions: Service Date/Time: Thursday, March 23, 2017 15:22 - CONCLUSION: Normal examination. Jonas Earl MD Abdomen/Pelvis CT 03/18/17 0000 Signed Impressions: Service Date/Time: Saturday, March 18, 2017 16:12 - CONCLUSION: 1. Post surgical features of interval laparotomy with appendectomy. Improved diffuse small bowel distention with resolution of relative transition point in the distal ileum. Cecum and descending colon are fluid-filled with relative transition point in the hepatic flexure with completely decompressed transverse and descending colon. Findings are consistent with resolving small bowel obstruction potentially with superimposed post surgical adynamic ileus. Small amount of free air is likely postsurgical. No pneumatosis or disproportionate free air to suggest perforation. 2. Tubular high density fluid collection along the length of the mid abdominal staple line consistent with hematoma. 3. Remainder of the exam is unchanged. Bernabe Young MD Chest X-Ray 03/15/17 0000 Signed Impressions: Service Date/Time: Wednesday, March 15, 2017 21:49 - CONCLUSION: Central line in good position. No evidence of pneumothorax. Miguel Sethi MD Liver Ultrasound 03/13/17 0000 Signed Impressions: Service Date/Time: February 13:36 - CONCLUSION: 1. Stone filled gallbladder. 2. Multiple hepatic cysts. 3. Single right renal cyst. 4. Trace free fluid in Morison's pouch. Johny Us MD Abdomen X-Ray 03/13/17 0000 Signed Impressions: Service Date/Time: February 12:34 - CONCLUSION: Diffuse small bowel dilatation. Navi Lau MD Chest CT 03/12/17 0000 Signed Impressions: Service Date/Time: Sunday, March 12, 2017 10:37 - CONCLUSION: 1. There is an ulcerated plaque with a small amount of and in thrombus projecting into the upper arch and into the lumen of the innominate artery origin. 2. Large hiatal hernia. 3. Multiple low attenuation lesions within the liver felt to represent a cyst. Ultrasound for confirmation is warranted. 4. There are multiple dilated loops of small bowel left upper quadrant. CT of the abdomen to rule out bowel destruction is warranted. Juan Carlos Leo MD Upper Extremity CTA 03/08/17 0000 Signed Impressions: Service Date/Time: Wednesday, March 08, 2017 10:21 - CONCLUSION: 1. The ulnar artery in the right forearm is diminutive in caliber. Otherwise, the remaining right upper extremity arterial vessels have a normal appearance. Please note that the hand arterial vessels are not visualized on this exam. 2. Complex left thyroid nodule measuring 2.7 cm. When patient condition permits, suggest further characterization with thyroid ultrasound. 3. Cerebral atrophy with bilateral subdural hygromas. Navi Leon MD Small Bowel X-Ray 03/06/17 0000 Signed Impressions: Service Date/Time: February 11:25 - CONCLUSION: 1. Small bowel dilatation not associated with any significant obstruction. The oral contrast does reach the colon within 2 hours which is within normal range. However, the terminal ileum does have a more normal caliber compared with the more proximal small bowel which can be seen with a very low-grade partial obstruction. Ahmet Hdz MD Physical Exam HEENT: Normocephalic; atraumatic; no jaundice. CHEST: CTA CARDIAC: RRR ABDOMEN: Soft, mildly distended, mild tenderness, midline incision line with wound vac in place, no hepatosplenomegaly; bowel sounds are present EXTREMITIES: 3+ BLE edema. Right second digit drsg d/i SKIN: Normal; no rash; no jaundice. 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 Improved. CDiff negative. EGD/Colonoscopy 03/08/17--> EGD/ Colonoscopy 03/08/17--> Irregular Z line, Hiatal hernia, Duodenitis, Colon polyps, Thickened sigmoid fold, Internal hemorrhoids. Pathology duodenal mucosa without significant histopathologic abnormality, squamocolumnar mucosa with intestinal metaplasia, consistent with starks's esophagus, and mild chronic inflammation. Negative for intestinal metaplasia, dysplasia, or malignancy. colonic mucosa without significant histopathologic abnormality. Hyperplastic polyp with severe thermal effect. Colonic mucosa without significant histopathologic abnormality. Sigmoid colon melanosis coli. Pt states that her diarrhea has improved since the reglan and antibiotics were discontinued. 2 loose (more consistency) stools today. Cholestyramine. Probiotics. - SBO. S/P Exploratory lap, SPENCER, appendectomy. Wound vac in place. - Abn. Wt. Loss. EGD/Colonoscopy as above. - GERD. PPI - HTN per attending. - Dry gangrene tip right second digit. S/P CTA. Likely embolic. S/P disarticulation through distal interphalangeal joint. PLAN: - VENTURA - Cont. Cholestyramine - Cont. Probiotics - FU LIZZIE 2 weeks - Pt seen and examined by Dr. Garcia and myself and this note is written on his behalf Allegra Burgess Mar 27, 2017 09:58
--- NOTE | 2017-03-27 11:56 | HHI.PR ---
Subjective Subjective Notes She says diarrhea is improved. She has no complaints. Objective Vitals/I&O Vital Signs Date Time Temp Pulse Resp B/P (MAP) Pulse Ox O2 Delivery O2 Flow Rate FiO2 03/27/17 08:00 97.6 90 19 145/94 (111) 100 Labs Laboratory Tests Test 03/27/17 06:00 White Blood Count 11.3 Red Blood Count 2.95 Hemoglobin 8.9 Hematocrit 27.4 Mean Corpuscular Volume 93.1 Mean Corpuscular Hemoglobin 30.3 Mean Corpuscular Hemoglobin Concent 32.6 Red Cell Distribution Width 17.4 Platelet Count 732 Mean Platelet Volume 9.1 Neutrophils (%) (Auto) 57.9 Lymphocytes (%) (Auto) 26.8 Monocytes (%) (Auto) 11.9 Eosinophils (%) (Auto) 2.9 Basophils (%) (Auto) 0.5 Neutrophils # (Auto) 6.6 Lymphocytes # (Auto) 3.0 Monocytes # (Auto) 1.3 Eosinophils # (Auto) 0.3 Basophils # (Auto) 0.1 CBC Comment DIFF FINAL Differential Comment Blood Urea Nitrogen 2 Creatinine 0.81 Random Glucose 76 Calcium Level 7.9 Magnesium Level 1.4 Sodium Level 147 Potassium Level 3.0 Chloride Level 116 Carbon Dioxide Level 21.5 Anion Gap 10 Estimat Glomerular Filtration Rate 87 Date/Time Source Procedure Growth Status 03/16/17 04:40 Blood Peripheral Aerobic Blood Culture - Final NO GROWTH IN 5 DAYS Complete 03/16/17 04:40 Blood Peripheral Anaerobic Blood Culture - Final NO GROWTH IN 5 DAYS Complete 03/13/17 00:00 Wound Finger Fungal Smear - Final NO FUNGAL ELEMENTS SEEN. Resulted 03/13/17 00:00 Wound Finger Fungal Culture - Preliminary NO GROWTH IN 1 WEEK Resulted Narrative Exam NAD, awake and alert Abd: soft, nondistended. Vac in place. A/P Assessment and Plan 61 yo F s/p distal finger amputation s/p ex lap, SPENCER, appendectomy. Being discharged today. Abdominal karen can be removed. F/u in my office. Sourav,Juan MENDOZA Mar 27, 2017 11:56
[2017-03-27 12:00] VITALS: BP 120/79; PULSE 76; RESP 17; TEMP 96.8; O2SAT 100
--- NOTE | 2017-03-27 13:10 | HHI.PR ---
Addendum to Inpatient Note Additional Information off abx afebrile WBC elevated, but ANC wnl - ok to dc home with GI f/u as o/p Gladys Vasquez MD Mar 27, 2017 13:10
[2017-03-28] MEDS ORDERED: POTASSIUM CHLORIDE 10 MEQ CONTROLLED RELEASE TAB PO SCH (09:00)
== END 2017-03-27 16:56 | disposition home health service (06) | DRG 329 ==
LOC: NEPE 00:37 → NEDA 01:50 → N07A 03:14 → N03B 03-15 14:50 → N07A 03-19 23:47
PROVIDERS: ADMIT Family Medicine; ATTEND Family Medicine
PROC: 0DB38ZX Excision of Lower Esophagus, Via Natural or Artificial Opening Endoscopic, Diagnostic (ICD-10-PCS; 2017-03-08)
PROC: 0DB98ZX Excision of Duodenum, Via Natural or Artificial Opening Endoscopic, Diagnostic (ICD-10-PCS; 2017-03-08)
PROC: 0DBK8ZX Excision of Ascending Colon, Via Natural or Artificial Opening Endoscopic, Diagnostic (ICD-10-PCS; 2017-03-08)
PROC: 0DBM8ZX Excision of Descending Colon, Via Natural or Artificial Opening Endoscopic, Diagnostic (ICD-10-PCS; 2017-03-08)
PROC: 0DDN8ZX Extraction of Sigmoid Colon, Via Natural or Artificial Opening Endoscopic, Diagnostic (ICD-10-PCS; 2017-03-08)
PROC: 0X6N0Z3 Detachment at Right Index Finger, Low, Open Approach (ICD-10-PCS; 2017-03-13)
PROC: 0DTJ0ZZ Resection of Appendix, Open Approach (ICD-10-PCS; 2017-03-15)
PROC: 0WJP0ZZ Inspection of Gastrointestinal Tract, Open Approach (ICD-10-PCS; 2017-03-15)
PROC: 05HM33Z Insertion of Infusion Device into Right Internal Jugular Vein, Percutaneous Approach (ICD-10-PCS; 2017-03-15)
PROC: 0DNA0ZZ Release Jejunum, Open Approach (ICD-10-PCS; principal; 2017-03-15 10:54)
PROC: 0DBH0ZZ Excision of Cecum, Open Approach (ICD-10-PCS; 2017-03-15 10:54)
PROC: 30233N1 Transfusion of Nonautologous Red Blood Cells into Peripheral Vein, Percutaneous Approach (ICD-10-PCS; 2017-03-18)
DX: K56.50 Intestinal adhesions [bands], unspecified as to partial versus complete obstruction (principal); K35.2 Acute appendicitis with generalized peritonitis; I96 Gangrene, not elsewhere classified; R64 Cachexia; I74.8 Embolism and thrombosis of other arteries; D68.59 Other primary thrombophilia; E83.42 Hypomagnesemia; N28.1 Cyst of kidney, acquired; K76.89 Other specified diseases of liver; M41.9 Scoliosis, unspecified; K44.9 Diaphragmatic hernia without obstruction or gangrene; K57.30 Diverticulosis of large intestine without perforation or abscess without bleeding; I10 Essential (primary) hypertension; E87.6 Hypokalemia; F12.10 Cannabis abuse, uncomplicated; F17.210 Nicotine dependence, cigarettes, uncomplicated; H91.90 Unspecified hearing loss, unspecified ear; Z80.0 Family history of malignant neoplasm of digestive organs; Z83.3 Family history of diabetes mellitus; K21.9 Gastro-esophageal reflux disease without esophagitis; Z91.19 Patient's noncompliance with other medical treatment and regimen; K63.5 Polyp of colon; K64.8 Other hemorrhoids; K29.80 Duodenitis without bleeding; Z90.710 Acquired absence of both cervix and uterus; K22.70 Barrett's esophagus without dysplasia; K63.89 Other specified diseases of intestine; I95.81 Postprocedural hypotension; R19.7 Diarrhea, unspecified
CPT/HCPCS: 36430; 36556; 71010; 71260; 73206; 74000; 74176; 74177; 74250; 76705; 76937; 80048; 80053; 80061; 81001; 82105; 82378; 82805; 83036; 83735; 84100; 84132; 84155; 84439; 84443; 84702; 85014; 85018; 85025; 85027; 85610; 85652; 85730; 86038; 86140; 86235; 86300; 86301; 86304; 86430; 86592; 86850; 86900; 86901; 86920; 87015; 87040; 87070; 87102; 87116; 87205; 87206; 87493; 88304; 88305; 88307; 93306; 93970; 94150; C9113; J0131; J0330; J0744; J1100; J1170; J1650; J1885; J2250; J2270; J2370; J2405; J2543; J2710; J2765; J3010; J3475; J3480; J7030; J7040; J7050; J7120; P9016; P9045; Q9963; Q9967